=== PATIENT | female | born 1935 | race Caucasian/White ===

== ENCOUNTER 2018-01-10 11:43 | Inpatient (IN) | payer MEDICARE, OTHER ==
[2018-01-10] MEDS ORDERED: SODIUM CHLORIDE 0.9% 1,000 ML IV STA ×4 (12:03→16:23)
[2018-01-10] MEDS ORDERED: PANTOPRAZOLE 40 MG/10 ML VIAL IVP STA (12:03)
[2018-01-10] MEDS ORDERED: MORPHINE SULFATE 2 MG/ML SYRINGE IV STA (12:03)
[2018-01-10] MEDS ORDERED: ONDANSETRON 4 MG/2 ML VIAL IVP STA (12:03)
--- NOTE | 2018-01-10 12:06 | ED ---
General Adult HPI - General Chief complaint: Nausea/Vomiting/Diarrhea Stated complaint: abdominal pain/weakness Time Seen by Provider: 01/10/18 11:52 Source: patient, family, EMS, RN notes reviewed Mode of arrival: EMS Limitations: no limitations - History of Present Illness Initial comments: Patient is a pleasant 82-year-old female sitting to the emergency Department with vomiting and abdominal discomfort. Onset of symptoms was 3-4 days ago. Patient has had several episodes of vomiting with limited oral intake. Patient has had some minimal diarrhea. Patient has had abdominal discomfort that is increased, more so even today. No known fevers. No history of chronic similar symptoms. - Related Data Home Medications Medication Instructions Recorded Confirmed Aspirin EC [Ecotrin Low Dose] 81 mg PO DAILY 01/10/18 01/10/18 Carvedilol [Coreg] 25 mg PO BID 01/10/18 01/10/18 Cholecalciferol (Vitamin D3) 2,000 unit PO DAILY 01/10/18 01/10/18 [Vitamin D3] Fenofibrate Nanocrystallized 145 mg PO DAILY 01/10/18 01/10/18 [Tricor] Furosemide [Lasix] 60 mg PO DAILY 01/10/18 01/10/18 Insulin Glargine [Lantus] 20 unit SQ HS 01/10/18 01/10/18 Insulin Lispro [humaLOG] 5 units SQ AC-BRKFST 01/10/18 01/10/18 Insulin Lispro [humaLOG] 10 units SQ AC-LUNCH 01/10/18 01/10/18 Insulin Lispro [humaLOG] 15 units SQ AC-SUPPER 01/10/18 01/10/18 Magnesium Hydroxide [Milk of 2,400 mg PO DAILY PRN 01/10/18 01/10/18 Magnesia] Multivitamins, Thera [Multivitamin 1 tab PO DAILY 01/10/18 01/10/18 (formulary)] Omeprazole [PriLOSEC] 40 mg PO DAILY 01/10/18 01/10/18 Spironolactone [Aldactone] 12.5 mg PO BID 01/10/18 01/10/18 amLODIPine [Norvasc] 10 mg PO DAILY 01/10/18 01/10/18 hydrALAZINE HCL [Apresoline] 50 mg PO TID 01/10/18 01/10/18 Allergies Allergy/AdvReac Type Severity Reaction Status Date / Time No Known Allergies Allergy Verified 01/10/18 12:07 Review of Systems ROS Statement: Those systems with pertinent positive or pertinent negative responses have been documented in the HPI. ROS Other: All systems not noted in ROS Statement are negative. Constitutional: Denies: fever Eyes: Denies: eye pain ENT: Denies: ear pain Respiratory: Denies: cough Cardiovascular: Denies: chest pain Endocrine: Reports: fatigue Gastrointestinal: Reports: abdominal pain, nausea, vomiting, diarrhea Genitourinary: Denies: dysuria Musculoskeletal: Denies: back pain Skin: Denies: rash Neurological: Denies: headache Past Medical History Past Medical History: Heart Failure, Diabetes Mellitus History of Any Multi-Drug Resistant Organisms: None Reported Past Surgical History: Cholecystectomy Past Psychological History: No Psychological Hx Reported Smoking Status: Never smoker Past Alcohol Use History: None Reported Past Drug Use History: None Reported General Exam Limitations: no limitations General appearance: alert, in no apparent distress Head exam: Present: atraumatic Eye exam: Present: normal appearance, PERRL ENT exam: Present: normal oropharynx Neck exam: Present: normal inspection Respiratory exam: Present: normal lung sounds bilaterally Cardiovascular Exam: Present: regular rate, normal rhythm Expanded Peripheral pulses: 2+: Posterior Tibialis (R), Posterior Tibialis (L) GI/Abdominal exam: Present: soft, tenderness (Moderate to severe tenderness right lower quadrant. Mild to moderate tenderness right upper quadrant and suprapubic region.), guarding. Absent: distended Extremities exam: Present: normal inspection Neurological exam: Present: alert Psychiatric exam: Present: normal affect, normal mood Skin exam: Present: normal color Course Vital Signs 01/10/18 01/10/18 11:47 15:03 Temperature 97.6 F Pulse Rate 72 71 Respiratory 20 20 Rate Blood Pressure 170/73 135/63 O2 Sat by Pulse 99 99 Oximetry - Reevaluation(s) Reevaluation #1: 01/10/18 14:07 Lab called regarding comprehensive metabolic panel pending. They're still trying to figure out the delay and believe they will send somebody to redraw. 01/10/18 16:31 There is suspicion of sepsis, diagnosed at 1631. Blood culture and lactic acid have been ordered. IV fluid bolus and IV antibiotics have been ordered. Medical Decision Making - Medical Decision Making Patient reevaluated and resting comfortably in bed. Patient does appear improved. Patient and family updated regarding results and plan. Family does request Dr. Camargo surgeon as needed. Case was discussed in detail with Dr. Simeon, who will admit with surgical consult and nephrology consult. Patient provided fluid bolus secondary to renal failure. - Lab Data Result diagrams: 01/10/18 12:03 01/10/18 14:08 Lab Results 01/10/18 01/10/18 01/10/18 Range/Units 12:03 12:03 14:08 WBC 20.4 H (3.8-10.6) k/uL RBC 3.09 L (3.80-5.40) m/uL Hgb 9.3 L (11.4-16.0) gm/dL Hct 26.9 L (34.0-46.0) % MCV 87.0 (80.0-100.0) fL MCH 30.1 (25.0-35.0) pg MCHC 34.6 (31.0-37.0) g/dL RDW 14.2 (11.5-15.5) % Plt Count 230 (150-450) k/uL Neutrophils % 90 % Lymphocytes % 5 % Monocytes % 3 % Eosinophils % 1 % Basophils % 0 % Neutrophils # 18.4 H (1.3-7.7) k/uL Lymphocytes # 1.0 (1.0-4.8) k/uL Monocytes # 0.5 (0-1.0) k/uL Eosinophils # 0.3 (0-0.7) k/uL Basophils # 0.0 (0-0.2) k/uL PT 10.4 (9.0-12.0) sec INR 1.1 (<1.2) APTT 25.2 (22.0-30.0) sec Sodium 132 L (137-145) mmol/L Potassium 3.8 (3.5-5.1) mmol/L Chloride 100 (98-107) mmol/L Carbon Dioxide 13 L (22-30) mmol/L Anion Gap 19 mmol/L BUN 117 H* (7-17) mg/dL Creatinine 6.70 H* (0.52-1.04) mg/dL Est GFR (CKD-EPI)AfAm 6 (>60 ml/min/1.73 sqM) Est GFR (CKD-EPI)NonAf 5 (>60 ml/min/1.73 sqM) Glucose 150 H (74-99) mg/dL Calcium 8.7 (8.4-10.2) mg/dL Total Bilirubin 0.8 (0.2-1.3) mg/dL AST 29 (14-36) U/L ALT 30 (9-52) U/L Alkaline Phosphatase 49 (38-126) U/L Total Protein 6.0 L (6.3-8.2) g/dL Albumin 3.2 L (3.5-5.0) g/dL Amylase 47 (30-110) U/L Lipase 120 (23-300) U/L Urine Color Urine Appearance (Clear) Urine pH (5.0-8.0) Ur Specific [place] (1.001-1.035) Urine Protein (Negative) Urine Glucose (UA) (Negative) Urine Ketones (Negative) Urine Blood (Negative) Urine Nitrite (Negative) Urine Bilirubin (Negative) Urine Urobilinogen (<2.0) mg/dL Ur Leukocyte Esterase (Negative) Urine RBC (0-5) /hpf Urine WBC (0-5) /hpf Ur Squamous Epith Cells (0-4) /hpf Urine Mucus (None) /hpf 01/10/18 Range/Units 14:55 WBC (3.8-10.6) k/uL RBC (3.80-5.40) m/uL Hgb (11.4-16.0) gm/dL Hct (34.0-46.0) % MCV (80.0-100.0) fL MCH (25.0-35.0) pg MCHC (31.0-37.0) g/dL RDW (11.5-15.5) % Plt Count (150-450) k/uL Neutrophils % % Lymphocytes % % Monocytes % % Eosinophils % % Basophils % % Neutrophils # (1.3-7.7) k/uL Lymphocytes # (1.0-4.8) k/uL Monocytes # (0-1.0) k/uL Eosinophils # (0-0.7) k/uL Basophils # (0-0.2) k/uL PT (9.0-12.0) sec INR (<1.2) APTT (22.0-30.0) sec Sodium (137-145) mmol/L Potassium (3.5-5.1) mmol/L Chloride (98-107) mmol/L Carbon Dioxide (22-30) mmol/L Anion Gap mmol/L BUN (7-17) mg/dL Creatinine (0.52-1.04) mg/dL Est GFR (CKD-EPI)AfAm (>60 ml/min/1.73 sqM) Est GFR (CKD-EPI)NonAf (>60 ml/min/1.73 sqM) Glucose (74-99) mg/dL Calcium (8.4-10.2) mg/dL Total Bilirubin (0.2-1.3) mg/dL AST (14-36) U/L ALT (9-52) U/L Alkaline Phosphatase (38-126) U/L Total Protein (6.3-8.2) g/dL Albumin (3.5-5.0) g/dL Amylase (30-110) U/L Lipase (23-300) U/L Urine Color Yellow Urine Appearance Cloudy H (Clear) Urine pH 5.5 (5.0-8.0) Ur Specific [place] 1.012 (1.001-1.035) Urine Protein 3+ H (Negative) Urine Glucose (UA) Trace H (Negative) Urine Ketones Negative (Negative) Urine Blood Negative (Negative) Urine Nitrite Negative (Negative) Urine Bilirubin Negative (Negative) Urine Urobilinogen <2.0 (<2.0) mg/dL Ur Leukocyte Esterase Negative (Negative) Urine RBC 2 (0-5) /hpf Urine WBC 10 H (0-5) /hpf Ur Squamous Epith Cells 1 (0-4) /hpf Urine Mucus Rare H (None) /hpf - Radiology Data Radiology results: report reviewed (Computed tomography scan of the abdomen pelvis shows possible colitis versus diarrhea. Cannot exclude lesion/neoplasm of left kidney. Then wall fluid collection left iliopsoas muscle is nonspecific. Cannot rule out abscess.) Critical Care Time Critical Care Time: Yes Total Critical Care Time: 32 Disposition Clinical Impression: Acute renal failure, Sepsis Disposition: ADMITTED IP TO THIS HOSP Condition: Serious Is patient prescribed a controlled substance at d/c from ED?: No Referrals: Nonstaff,Physician [REFERRING] - 1-2 days Decision Time: 16:32
[2018-01-10 12:14] LABS: Basophils % (A) 0 %; Eosinophils # (A) 0.3 k/uL (0-0.7); Eosinophils % (A) 1 %; HCT 26.9 % (34.0-46.0); HGB 9.3 gm/dL (11.4-16.0); Lymphocytes % (A) 5 %; MCH 30.1 pg (25.0-35.0); MCHC 34.6 g/dL (31.0-37.0); Mean Platelet Volume 8.5; Monocytes # (A) 0.5 k/uL (0-1.0); Monocytes % (A) 3 %; Neutrophils # (A) 18.4 k/uL (1.3-7.7); Neutrophils % (A) 90 %; Platelet Count 230 k/uL (150-450); RBC 3.09 m/uL (3.80-5.40); RDW 14.2 % (11.5-15.5); WBC 20.4 k/uL (3.8-10.6)
[2018-01-10 12:55] LABS: INR 1.1 (<1.2); Partial Thromboplastin Time 25.2 sec (22.0-30.0); Prothrombin Time 10.4 sec (9.0-12.0)
[2018-01-10 15:05] LABS: Albumin 3.2 g/dL (3.5-5.0); Calcium 8.7 mg/dL (8.4-10.2); Potassium 3.8 mmol/L (3.5-5.1); Total Bilirubin 0.8 mg/dL (0.2-1.3)
[2018-01-10 15:21] LABS: Appearance,Urine Cloudy (Clear); Bilirubin,Urine Negative (Negative); Blood,Urine Negative (Negative); Color,Urine Yellow; Glucose,Urine (UA) Trace (Negative); Ketones,Urine Negative (Negative); Leukocyte Esterase,Urine Negative (Negative); Mucus,Urine Rare /hpf; Nitrite,Urine Negative (Negative); PH, Urine 5.5 (5.0-8.0); Protein,Urine 3+ (Negative); RBC,Urine 2 /hpf (0-5); Specific Gravity,Urine 1.012 (1.001-1.035); Squamous Epithelial Cell,Urine 1 /hpf (0-4); Urobilinogen,Urine <2.0 mg/dL (<2.0); WBC,Urine 10 /hpf (0-5)
--- NOTE | 2018-01-10 15:45 | CT ---
EXAMINATION TYPE: CT abdomen pelvis wo con DATE OF EXAM: 01/10/2018 HISTORY: Diarrhea since Monday. CT DLP: 1053 mGycm. Automated Exposure Control for Dose Reduction was Utilized. TECHNIQUE: CT scan of the abdomen and pelvis is performed without oral or IV contrast. COMPARISON: NONE FINDINGS: Within the limitations of a non-contrast study, the following observations are made. LUNG BASES: There is severe three-vessel coronary artery calcification and/or stent. There is tiny ri ght pleural effusion or pleural fluid collection. There is focal right anterolateral consolidation fa voring round atelectasis with some central linear scarring and/or atelectasis. Cardiomegaly is seen. Small to tiny pericardial effusion is noted inferiorly and right anterior aspect axial image 12. LIVER/GB: Gallbladder is not visualized and may be surgically absent or contracted with small stones seen best coronal image 35. Correlate clinically. No suspicious biliary dilatation is noted. PANCREAS: No significant abnormality is seen. SPLEEN: No significant abnormality is seen. ADRENALS: No significant abnormality is seen. KIDNEYS: Central calcifications in both kidneys favor vascular. Cortical thinning in both kidneys is present. There is 2.8 cm fairly isodense lesion laterally left kidney could reflect proteinaceous cys t, cannot exclude solid lesion. Follow-up advised. No hydronephrosis is evident bilaterally. BOWEL: Small hiatal hernia is present. Evaluation bowel is suboptimal secondary to lack of enteric co ntrast. Stomach is poorly distended and thus suboptimally evaluated. There is no suspicious dilatatio n of duodenal sweep. There are fluid-filled slightly prominent small bowel loops throughout the white to lower abdomen with air-fluid levels. There is fluid prominent right colon with air-fluid levels. There is gas-filled nondistended transverse colon. Mild focal narrowing the transverse colon noted ax ial image 67 not causing significant proximal dilatation. Nonspecific finding. There is nondilated di stal colon. GENITAL ORGANS: Anteverted uterus extending to right of midline is present. Remnant ovaries are seen axial image 121. Scattered pelvic phleboliths are present. LYMPH NODES: No greater than 1cm abdominal or pelvic lymph nodes are appreciated. OSSEOUS STRUCTURES: There is moderate to advanced multilevel disc space narrowing and spurring. Poste rior spur disc complexes are effacing anterior thecal sac at multiple levels most prominent L2-L3 lev el causing spinal canal stenosis at this level. Moderate joint space loss in both hips is present. OTHER: There is severe calcified atherosclerotic plaque of aorta extending into small branch vessels of the abdomen and pelvis. There is 2.0 x 1.7 cm oval low-density area lateral left rectus muscles with Hounsfield units averagi ng -2 axial image 77. IMPRESSION: 1. Overall nonspecific but felt to be nonobstructive bowel gas pattern. Air-fluid levels in prominent small bowel and proximal colonic loops could reflect product of diarrhea versus mild enterocolitis. 2. Attention to left kidney upper to mid pole level laterally cannot exclude solid lesion or neoplasm . Follow-up with ultrasound and/or contrast enhanced renal protocol CT/MRI is advised. 3. Thin-walled fluid collection lateral aspect left iliopsoas muscle is nonspecific, differential inc ludes abscess. Correlate clinically.
[2018-01-10] MEDS ORDERED: SODIUM CHLORIDE 0.9% 500 ML IV STA (16:23)
[2018-01-10] MEDS ORDERED: PIPERACILLIN-TAZOBACTAM 3.375 GM in DEXTROSE/WATER 1 50ML.BAG IVPB STA (16:29)
[2018-01-10] MEDS ORDERED: NALOXONE 0.4 MG/ML 1 ML VIAL IV PRN (16:33)
[2018-01-10] MEDS: SODIUM CHLORIDE 0.9% 1,000 ML IV SCH (18:42)
[2018-01-10] MEDS ORDERED: MAGNESIUM HYDROXIDE 2,400 MG/10 ML CUP PO PRN (21:33)
[2018-01-10 21:36] LABS: Glucose,Whole Blood 152 mg/dL (75-99)
[2018-01-10] MEDS: MORPHINE SULFATE 2 MG/ML SYRINGE IV PRN (21:39)
[2018-01-10] MEDS: INSULIN ASPART 100 UNIT/ML 1 ML 10 ML VIAL SQ SCH (21:42)
[2018-01-11] MEDS: KETOROLAC 30 MG/ML 1 ML VIAL IVP SCH ×2 (00:29→07:43)
[2018-01-11] MEDS: hydrALAZINE HCL 50 MG TAB PO SCH ×3 (00:34→22:12)
[2018-01-11] MEDS: INSULIN DETEMIR 100 UNIT/ML 10 ML VIAL SQ SCH ×2 (00:34→22:13)
[2018-01-11] MEDS: SPIRONOLACTONE 25 MG TAB PO SCH ×3 (00:34→22:14)
[2018-01-11] MEDS: SODIUM CHLORIDE 0.9% 1,000 ML IV SCH (03:07)
[2018-01-11 03:49] LABS: Hemoglobin A1C 7.4 % (4.0-6.0)
[2018-01-11 07:18] LABS: Glucose,Whole Blood 92 mg/dL (75-99)
[2018-01-11] MEDS ORDERED: CARVEDILOL 12.5 MG TAB PO SCH ×2 (07:30→17:30)
[2018-01-11] MEDS: PIPERACILLIN-TAZOBACTAM 3.375 GM in DEXTROSE/WATER 1 50ML.BAG IVPB SCH ×2 (07:46→18:24)
[2018-01-11] MEDS: INSULIN ASPART 100 UNIT/ML 1 ML 10 ML VIAL SQ SCH ×4 (07:47→22:13)
[2018-01-11] MEDS: ASPIRIN 81 MG PO SCH (08:04)
[2018-01-11] MEDS: FENOFIBRATE 160 MG TAB PO SCH (08:04)
[2018-01-11] MEDS: amLODIPine 10 MG TAB PO SCH (08:05)
[2018-01-11] MEDS: MULTIVITAMINS, THERA 1 EACH TAB PO SCH (08:05)
[2018-01-11] MEDS: CHOLECALCIFEROL 1,000 UNIT TAB PO SCH (08:05)
[2018-01-11 08:53] LABS: Basophils % (A) 0 %; Eosinophils # (A) 0.1 k/uL (0-0.7); Eosinophils % (A) 1 %; HCT 24.5 % (34.0-46.0); HGB 8.2 gm/dL (11.4-16.0); Lymphocytes # (A) 0.6 k/uL (1.0-4.8); Lymphocytes % (A) 5 %; MCH 29.3 pg (25.0-35.0); MCHC 33.3 g/dL (31.0-37.0); Mean Platelet Volume 8.2; Monocytes # (A) 0.5 k/uL (0-1.0); Monocytes % (A) 4 %; Neutrophils # (A) 10.7 k/uL (1.3-7.7); Neutrophils % (A) 89 %; Platelet Count 211 k/uL (150-450); RBC 2.79 m/uL (3.80-5.40); RDW 13.8 % (11.5-15.5)
[2018-01-11] MEDS ORDERED: PANTOPRAZOLE 40 MG/10 ML VIAL IV SCH (09:00)
[2018-01-11] MEDS ORDERED: FUROSEMIDE 20 MG TAB PO SCH (09:00)
[2018-01-11] MEDS ORDERED: NON-FORMULARY DRUG (Omeprazole 40 MG) PO SCH (09:00)
[2018-01-11 09:04] LABS: Albumin 2.8 g/dL (3.5-5.0); Calcium 8.2 mg/dL (8.4-10.2); Potassium 3.8 mmol/L (3.5-5.1); Total Bilirubin 0.6 mg/dL (0.2-1.3); Total Protein 5.4 g/dL (6.3-8.2)
--- NOTE | 2018-01-11 10:04 | P.GSCN ---
History of Present Illness Consult date: 01/11/18 History of present illness: This is an 82 year old female who presented with abdominal pain. She denies NV she has been passing normal BM with no blood. She has never had pain like this before. No other complaints. She was found to have a psoas abscess on CT. She is not complaining of pain currently Past Medical History Past Medical History: Heart Failure, Diabetes Mellitus History of Any Multi-Drug Resistant Organisms: None Reported Past Surgical History: Cholecystectomy Past Anesthesia/Blood Transfusion Reactions: No Reported Reaction Past Psychological History: No Psychological Hx Reported Smoking Status: Never smoker Past Alcohol Use History: None Reported Past Drug Use History: None Reported Medications and Allergies Home Medications Medication Instructions Recorded Confirmed Type Aspirin EC [Ecotrin Low Dose] 81 mg PO DAILY 01/10/18 01/10/18 History Carvedilol [Coreg] 25 mg PO BID 01/10/18 01/10/18 History Cholecalciferol (Vitamin D3) 2,000 unit PO DAILY 01/10/18 01/10/18 History [Vitamin D3] Fenofibrate Nanocrystallized 145 mg PO DAILY 01/10/18 01/10/18 History [Tricor] Furosemide [Lasix] 60 mg PO DAILY 01/10/18 01/10/18 History Insulin Glargine [Lantus] 20 unit SQ HS 01/10/18 01/10/18 History Insulin Lispro [humaLOG] 5 units SQ AC-BRKFST 01/10/18 01/10/18 History Insulin Lispro [humaLOG] 10 units SQ AC-LUNCH 01/10/18 01/10/18 History Insulin Lispro [humaLOG] 15 units SQ AC-SUPPER 01/10/18 01/10/18 History Magnesium Hydroxide [Milk of 2,400 mg PO DAILY PRN 01/10/18 01/10/18 History Magnesia] Multivitamins, Thera [Multivitamin 1 tab PO DAILY 01/10/18 01/10/18 History (formulary)] Omeprazole [PriLOSEC] 40 mg PO DAILY 01/10/18 01/10/18 History Spironolactone [Aldactone] 12.5 mg PO BID 01/10/18 01/10/18 History amLODIPine [Norvasc] 10 mg PO DAILY 01/10/18 01/10/18 History hydrALAZINE HCL [Apresoline] 50 mg PO TID 01/10/18 01/10/18 History Allergies Allergy/AdvReac Type Severity Reaction Status Date / Time No Known Allergies Allergy Verified 01/10/18 12:07 Surgical - Exam Osteopathic Statement: *. No significant issues noted on an osteopathic structural exam other than those noted in the History and Physical/Consult. Vital Signs Temp Pulse Resp BP Pulse Ox 97.6 F 72 20 170/73 99 01/10/18 11:47 01/10/18 11:47 01/10/18 11:47 01/10/18 11:47 01/10/18 11:47 - General well developed, well nourished, no distress - Neck trachea midline - Respiratory normal expansion, normal respiratory effort - Cardiovascular Rhythm: regular - Abdomen Abdomen: soft, non tender - Neurologic normal coordination, normal sensation - Psychiatric oriented to time, oriented to person Results - Labs 01/11/18 07:41 01/11/18 07:41 Abnormal Lab Results - Last 24 Hours (Table) 01/10/18 01/10/18 01/10/18 Range/Units 12:03 12:03 14:08 WBC 20.4 H (3.8-10.6) k/uL RBC 3.09 L (3.80-5.40) m/uL Hgb 9.3 L (11.4-16.0) gm/dL Hct 26.9 L (34.0-46.0) % Neutrophils # 18.4 H (1.3-7.7) k/uL Lymphocytes # (1.0-4.8) k/uL Sodium 132 L (137-145) mmol/L Chloride (98-107) mmol/L Carbon Dioxide 13 L (22-30) mmol/L BUN 117 H* (7-17) mg/dL Creatinine 6.70 H* (0.52-1.04) mg/dL Glucose 150 H (74-99) mg/dL POC Glucose (mg/dL) (75-99) mg/dL Hemoglobin A1c 7.4 H (4.0-6.0) % Plasma Lactic Acid Lalo (0.7-2.0) mmol/L Calcium (8.4-10.2) mg/dL Total Protein 6.0 L (6.3-8.2) g/dL Albumin 3.2 L (3.5-5.0) g/dL Urine Appearance (Clear) Urine Protein (Negative) Urine Glucose (UA) (Negative) Urine WBC (0-5) /hpf Urine Mucus (None) /hpf 01/10/18 01/10/18 01/10/18 Range/Units 14:55 16:30 20:58 WBC (3.8-10.6) k/uL RBC (3.80-5.40) m/uL Hgb (11.4-16.0) gm/dL Hct (34.0-46.0) % Neutrophils # (1.3-7.7) k/uL Lymphocytes # (1.0-4.8) k/uL Sodium (137-145) mmol/L Chloride (98-107) mmol/L Carbon Dioxide (22-30) mmol/L BUN (7-17) mg/dL Creatinine (0.52-1.04) mg/dL Glucose (74-99) mg/dL POC Glucose (mg/dL) 152 H (75-99) mg/dL Hemoglobin A1c (4.0-6.0) % Plasma Lactic Acid Lalo <0.5 L (0.7-2.0) mmol/L Calcium (8.4-10.2) mg/dL Total Protein (6.3-8.2) g/dL Albumin (3.5-5.0) g/dL Urine Appearance Cloudy H (Clear) Urine Protein 3+ H (Negative) Urine Glucose (UA) Trace H (Negative) Urine WBC 10 H (0-5) /hpf Urine Mucus Rare H (None) /hpf 01/11/18 01/11/18 Range/Units 07:41 07:41 WBC 12.0 H (3.8-10.6) k/uL RBC 2.79 L (3.80-5.40) m/uL Hgb 8.2 L (11.4-16.0) gm/dL Hct 24.5 L (34.0-46.0) % Neutrophils # 10.7 H (1.3-7.7) k/uL Lymphocytes # 0.6 L (1.0-4.8) k/uL Sodium 135 L (137-145) mmol/L Chloride 108 H (98-107) mmol/L Carbon Dioxide 13 L (22-30) mmol/L BUN 113 H* (7-17) mg/dL Creatinine 6.17 H* (0.52-1.04) mg/dL Glucose (74-99) mg/dL POC Glucose (mg/dL) (75-99) mg/dL Hemoglobin A1c (4.0-6.0) % Plasma Lactic Acid Lalo (0.7-2.0) mmol/L Calcium 8.2 L (8.4-10.2) mg/dL Total Protein 5.4 L (6.3-8.2) g/dL Albumin 2.8 L (3.5-5.0) g/dL Urine Appearance (Clear) Urine Protein (Negative) Urine Glucose (UA) (Negative) Urine WBC (0-5) /hpf Urine Mucus (None) /hpf Diabetes panel 01/10/18 01/10/18 01/11/18 Range/Units 12:03 14:08 07:41 Sodium 132 L 135 L (137-145) mmol/L Potassium 3.8 3.8 (3.5-5.1) mmol/L Chloride 100 108 H (98-107) mmol/L Carbon Dioxide 13 L 13 L (22-30) mmol/L BUN 117 H* 113 H* (7-17) mg/dL Creatinine 6.70 H* 6.17 H* (0.52-1.04) mg/dL Glucose 150 H 78 (74-99) mg/dL Hemoglobin A1c 7.4 H (4.0-6.0) % Calcium 8.7 8.2 L (8.4-10.2) mg/dL AST 29 35 (14-36) U/L ALT 30 30 (9-52) U/L Alkaline Phosphatase 49 55 (38-126) U/L Total Protein 6.0 L 5.4 L (6.3-8.2) g/dL Albumin 3.2 L 2.8 L (3.5-5.0) g/dL Calcium panel 01/10/18 01/11/18 Range/Units 14:08 07:41 Calcium 8.7 8.2 L (8.4-10.2) mg/dL Albumin 3.2 L 2.8 L (3.5-5.0) g/dL Pituitary panel 07/11/18 07/12/18 Range/Units 14:08 07:41 Sodium 132 L 135 L (137-145) mmol/L Potassium 3.8 3.8 (3.5-5.1) mmol/L Chloride 100 108 H (98-107) mmol/L Carbon Dioxide 13 L 13 L (22-30) mmol/L BUN 117 H* 113 H* (7-17) mg/dL Creatinine 6.70 H* 6.17 H* (0.52-1.04) mg/dL Glucose 150 H 78 (74-99) mg/dL Calcium 8.7 8.2 L (8.4-10.2) mg/dL Adrenal panel 01/10/18 01/11/18 Range/Units 14:08 07:41 Sodium 132 L 135 L (137-145) mmol/L Potassium 3.8 3.8 (3.5-5.1) mmol/L Chloride 100 108 H (98-107) mmol/L Carbon Dioxide 13 L 13 L (22-30) mmol/L BUN 117 H* 113 H* (7-17) mg/dL Creatinine 6.70 H* 6.17 H* (0.52-1.04) mg/dL Glucose 150 H 78 (74-99) mg/dL Calcium 8.7 8.2 L (8.4-10.2) mg/dL Total Bilirubin 0.8 0.6 (0.2-1.3) mg/dL AST 29 35 (14-36) U/L ALT 30 30 (9-52) U/L Alkaline Phosphatase 49 55 (38-126) U/L Total Protein 6.0 L 5.4 L (6.3-8.2) g/dL Albumin 3.2 L 2.8 L (3.5-5.0) g/dL Assessment and Plan Assessment: Left Psoas abscess Plan: I recommend continuing ABX and IR for CT guided drainage. Given the location of the abscess and the large renal mass there is possible concern for malignancy. Patient has not had colonoscopy for greater than 5 years. She would benefit from colonoscopy as an outpatient as well. No plans for acute surgical intervention. Will cont. to follow
[2018-01-11 11:32] LABS: Glucose,Whole Blood 124 mg/dL (75-99)
[2018-01-11] MEDS: DEXTROSE 5% IN WATER 1,000 ML with SODIUM BICARB (1 MEQ/ML) 150 ML IV SCH ×2 (11:44→22:12)
[2018-01-11] MEDS: MORPHINE SULFATE 2 MG/ML SYRINGE IV PRN (14:45)
[2018-01-11 17:21] LABS: Glucose,Whole Blood 187 mg/dL (75-99)
[2018-01-11] MEDS: CARVEDILOL 12.5 MG TAB PO SCH (18:25)
--- NOTE | 2018-01-11 19:27 | CONS ---
CONSULTATION REASON FOR CONSULT: Renal failure. HISTORY OF PRESENT ILLNESS: Patient is an 82-year-old female who was admitted to the emergency room with complaints of abdominal pain, not feeling well. She also had nausea, vomiting, and diarrhea for about 3-4 days prior to admission. The patient had an abdominal CT done which showed evidence of thin-walled fluid collection on the lateral aspect of the left iliopsoas muscle. There was a lesion on the left kidney, possibly cyst versus a solid lesion. No hydronephrosis was noted. The patient was found to have a serum creatinine of 6.7 mg/dL. Previous creatinine is not available for comparison. CO2 was 13. 1. Non anion gap metabolic acidosis secondary to renal failure as well as diarrhea prior to admission. 2. Sepsis with possible iliopsoas abscess/hematoma. 3. Anemia, rule out gastrointestinal bleed. 4. Rule out chronic kidney disease. Patient does have 3+ protein in her urine. We do not have any previous labs or previous urinalysis. PLAN: Start IV bicarb. Continue IV hydration. Continue empiric antibiotics. Repeat labs in a.m. We will need to obtain previous labs for assessment of patient's baseline renal function. We need to discontinue the nonsteroidal anti-inflammatory agents and avoid hypotension. Decrease antihypertensive medications, discontinue Toradol. Obtain previous labs to assess patient's baseline function. Repeat labs in a.m. and continue with IV hydration. Thank you for this consultation. We will continue to follow the patient with you during her hospitalization. DONG / ALFREDN: [id number] /
--- NOTE | 2018-01-11 20:03 | HP ---
HISTORY AND PHYSICAL CHIEF COMPLAINT: This is an 82-year-old white female admitted with nausea, vomiting, abdominal discomfort, severe renal insufficiency, multiple emeses, limited oral intake, minimal diarrhea. Abdominal discomfort has increased. No fevers or chills. HOME MEDICATIONS: 1. Lantus 20 units daily. 2. Lasix 60 daily. 3. Fenofibrate 145 daily. 4. Vitamin D3 2000 units daily. 5. Aspirin 81 mg daily. 6. Coreg 25 b.i.d. 7. Humalog 15 units before supper, 10 units lunch, 5 units breakfast. 8. Magnesium hydroxide 2400 mg daily. 9. Multivitamin daily. 10.Prilosec 40 mg daily. 11.Aldactone 12.5 b.i.d. 12.Norvasc 10 mg daily. 13.Apresoline 50 t.i.d. ALLERGIES: NO KNOWN DRUG ALLERGIES. REVIEW OF SYSTEMS: Fourteen-point review of systems negative except for mentioned in HPI. PAST MEDICAL HISTORY: 1. Heart failure. 2. Diabetes mellitus. SURGICAL HISTORY: Cholecystectomy. Nonsmoker. PHYSICAL EXAMINATION: White female giving appropriate answers. CARDIOVASCULAR: S1, S2. LUNGS: Clear. GI: Tenderness to palpation, diffuse tenderness, moderate to severe in the right lower quadrant, mild to moderate tenderness right upper quadrant, suprapubic region. EXTREMITIES: No cyanosis, clubbing, edema. NEUROLOGIC: Alert and oriented x3. PSYCH: Fair mood and affect. Temperature 97.6, blood pressure 130s to 170s over 60s to 70s. Pulse is 71, 72, respirations 18 to 20. Oxygen 99% on room air. White count is 20.4, hemoglobin 9.3, BUN 117, creatinine 6.7, sodium 132, potassium 3.8, hemoglobin 9.3. Fluid bolus due to renal insufficiency which is worsening. CT scan of the abdomen shows some possible psoas abscess of the psoas muscle. ASSESSMENT: 1. Acute renal failure with sepsis; possible lesion in the left kidney, neoplasm versus possible colitis versus diarrhea. 2. Abdominal pain. 3. Leukocytosis secondary to sepsis. Consult Infectious Disease. Renal disease. Fluid boluses. Empiric antibiotics. MMODL / IJN: [id number] /
[2018-01-11 21:24] LABS: Glucose,Whole Blood 203 mg/dL (75-99)
--- NOTE | 2018-01-11 23:39 | CONS ---
CONSULTATION DATE OF SERVICE: 01/11/2018. REASON FOR CONSULTATION: Possible left iliopsoas abscess. HISTORY OF PRESENT ILLNESS: The patient is an 82-year-old female who presented to the ER at [facility] with chief complaints of abdominal pain, nausea and vomiting. The symptoms have been going on for about 3-4 days prior to presentation to the hospital. The patient did have an episode of vomiting and unable to keep anything down. The patient has been complaining of pain in abdominal area, mostly on the right side; however, she was unable to quantify it any further. The patient denies having any high- grade fever, rigors or chills. With these symptoms the patient has been evaluated by the ER physician. On arrival to the ER, the patient did not have any high-grade fever. The highest temperature has been 99.6. The patient did have a white count of 20, 000 where the repeat is 12.4 she was noticed to have elevated BUN and creatinine with no history of renal insufficiency. Her UA was negative. The patient did have a CT of abdomen and pelvis completed which shows gallbladder was not visualized, surgically absent. Cortical thinning in both kidneys was noticed, no hydronephrosis. There was suspicious dilatation of the duodenal sweep. prominent right colon with air-fluid levels and there is a possibility of a small fluid collection, lateral aspect left iliopsoas muscle with a question of possible abscess. He has been treated with Zosyn. Infectious Disease was consulted for further recommendation regarding antibiotic therapy. REVIEW OF SYSTEMS: CONSTITUTIONALLY: Positive for weakness. Denies any high-grade fever. EYES: No complaint. ENT: No complaint. RESPIRATORY: No complaint. CARDIOVASCULAR: No complaint. GENITOURINARY: No complaint. GASTROINTESTINAL: As per HPI. MUSCULOSKELETAL: No complaint. INTEGUMENTARY: No complaint. PSYCHOLOGICAL: No complaint. ENDOCRINE: No complaint. NEUROLOGIC: No complaint. PAST MEDICAL HISTORY: Significant for diabetes mellitus and heart failure, hyperlipidemia. PAST SURGICAL HISTORY: Cholecystectomy. SOCIAL HISTORY: Denies smoking, drinking or drug use. FAMILY HISTORY: No pertinent findings noticed. ALLERGIES: No known drug allergies. MEDICATIONS: Include the patient is currently on: 1. Norvasc. 2. Aspirin. 3. Coreg. 4. Vitamin D3. 5. Fenofibrate. 6. Hydralazine. 7. NovoLog. 8. Levemir. 9. Milk of magnesia. 10.Theragran. 11.Narcan. 12.Protonix. 13.Zosyn and. 14.Aldactone. EXAMINATION: Blood pressure 138/58 with a pulse of 72, temperature 98.5, T-max is 99.6. She is 98% on 3L nasal cannula. General description is an elderly female lying in bed in no distress. No tachypnea or accessory muscle of respiration use. HEENT shows slight pallor. No scleral icterus. Oral mucous membranes are dry. No pharyngeal erythema or thrush. NECK: Trachea central. No thyromegaly. LUNGS: Unlabored breathing. Clear to auscultation. No wheeze or crackle. HEART: S1, S2. Regular rate and rhythm noted. ABDOMEN: Soft, no tenderness. No guarding. No rigidity. No organomegaly. EXTREMITIES: No edema of feet. SKIN: No rash or mass palpable. NEUROLOGICAL: Patient is awake, alert, oriented x2. Mood and affect normal. LABS: Hemoglobin 8.8, white count 12,000. BUN 113, creatinine 6.17. Electrolytes have been normal. Liver enzymes are normal. Amylase, lipase have been normal. CT of abdomen and pelvis was reviewed with Dr. Nieves with some fullness of the left iliopsoas muscle, but there was no definite fluid collection had no inflammatory changes around it. The lumbosacral spine looked okay with no evidence of any diskitis. DIAGNOSTIC IMPRESSION: Patient admitted to the hospital with acute nausea, vomiting and abdominal pain. However, the pain is mostly on the right side with abnormality in the left iliopsoas muscle. CT finding was not very suspicious for a iliopsoas abscess, though underlying abscess not entirely excluded, with no evidence of any diskitis. Could have been enteric gram-negative pathogen and the patient shows overall improvement in her white count with the Zosyn therapy. PLAN: 1. Await Interventional Radiology drainage of the left iliopsoas fluid or mass, which should be sent for histopathology in addition to aerobic and anaerobic culture. 2. We will keep the patient on Zosyn 3.375 g q.12 hours and adjust to her kidney function. 3. We will follow her clinical condition as well as cultures to further adjust medication if needed. Thank you for this consultation. Will follow the patient along with you. MMODL / IJN: [id number] / GR[facility]QUARE HOSPITALDemarcus
[2018-01-12] MEDS: PIPERACILLIN-TAZOBACTAM 3.375 GM in DEXTROSE/WATER 1 50ML.BAG IVPB SCH ×2 (06:24→17:27)
[2018-01-12 07:32] LABS: Glucose,Whole Blood 146 mg/dL (75-99)
[2018-01-12] MEDS: MULTIVITAMINS, THERA 1 EACH TAB PO SCH (08:04)
[2018-01-12] MEDS: FENOFIBRATE 160 MG TAB PO SCH (08:04)
[2018-01-12] MEDS: PANTOPRAZOLE 40 MG TABLET PO SCH (08:04)
[2018-01-12] MEDS: hydrALAZINE HCL 50 MG TAB PO SCH ×2 (08:04→23:03)
[2018-01-12] MEDS: SPIRONOLACTONE 25 MG TAB PO SCH ×2 (08:04→23:03)
[2018-01-12] MEDS: ASPIRIN 81 MG PO SCH (08:04)
[2018-01-12] MEDS: CARVEDILOL 12.5 MG TAB PO SCH ×2 (08:04→17:26)
[2018-01-12] MEDS: amLODIPine 10 MG TAB PO SCH (08:04)
[2018-01-12] MEDS: INSULIN ASPART 100 UNIT/ML 1 ML 10 ML VIAL SQ SCH ×4 (08:05→23:08)
[2018-01-12] MEDS: CHOLECALCIFEROL 1,000 UNIT TAB PO SCH (08:07)
[2018-01-12] MEDS: DEXTROSE 5% IN WATER 1,000 ML with SODIUM BICARB (1 MEQ/ML) 150 ML IV SCH (08:08)
[2018-01-12 09:46] LABS: Basophils % (A) 0 %; Eosinophils # (A) 0.2 k/uL (0-0.7); Eosinophils % (A) 1 %; HCT 23.5 % (34.0-46.0); HGB 7.9 gm/dL (11.4-16.0); Lymphocytes # (A) 0.8 k/uL (1.0-4.8); Lymphocytes % (A) 7 %; MCH 28.5 pg (25.0-35.0); MCHC 33.5 g/dL (31.0-37.0); Mean Platelet Volume 8.4; Monocytes # (A) 0.8 k/uL (0-1.0); Monocytes % (A) 7 %; Neutrophils # (A) 10.3 k/uL (1.3-7.7); Neutrophils % (A) 84 %; Platelet Count 203 k/uL (150-450); RBC 2.77 m/uL (3.80-5.40); RDW 13.6 % (11.5-15.5); WBC 12.2 k/uL (3.8-10.6)
[2018-01-12 09:49] LABS: Albumin 2.8 g/dL (3.5-5.0); Calcium 8.3 mg/dL (8.4-10.2); Potassium 3.3 mmol/L (3.5-5.1); Total Bilirubin 0.7 mg/dL (0.2-1.3); Total Protein 5.3 g/dL (6.3-8.2)
--- NOTE | 2018-01-12 11:19 | P.PN ---
Subjective Progress Note Date: 01/12/18 Patient had N/V x 1 this AM. Has not had IR drainage yet. No complaints while in room, resting in bed Objective - Vital Signs Vital signs: Vital Signs Temp 98.6 F 01/12/18 06:29 Pulse 73 01/12/18 06:29 Resp 16 01/12/18 06:29 BP 179/71 01/12/18 06:29 Pulse Ox 95 01/12/18 06:29 Intake & Output 01/11/18 01/12/18 01/12/18 18:59 06:59 18:59 Intake Total 850 Balance 850 Intake: Oral 850 Other: Voiding Method Diaper Diaper # Voids 1 2 - Constitutional General appearance: Present: cooperative - Respiratory Details: nonlabored - Cardiovascular Rhythm: regular - Gastrointestinal Gastrointestinal Comment(s): soft, distended, tender to palpation right midabdomen - Psychiatric Psychiatric: Present: A&O x's 3 - Labs CBC & Chem 7: 01/12/18 09:12 01/12/18 09:12 Labs: Abnormal Lab Results - Last 24 Hours (Table) 01/11/18 01/11/18 01/11/18 Range/Units 11:28 17:16 21:21 WBC (3.8-10.6) k/uL RBC (3.80-5.40) m/uL Hgb (11.4-16.0) gm/dL Hct (34.0-46.0) % Neutrophils # (1.3-7.7) k/uL Lymphocytes # (1.0-4.8) k/uL Sodium (137-145) mmol/L Potassium (3.5-5.1) mmol/L Carbon Dioxide (22-30) mmol/L BUN (7-17) mg/dL Creatinine (0.52-1.04) mg/dL Glucose (74-99) mg/dL POC Glucose (mg/dL) 124 H 187 H 203 H (75-99) mg/dL Calcium (8.4-10.2) mg/dL Total Protein (6.3-8.2) g/dL Albumin (3.5-5.0) g/dL 01/12/18 01/12/18 01/12/18 Range/Units 07:31 09:12 09:12 WBC 12.2 H (3.8-10.6) k/uL RBC 2.77 L (3.80-5.40) m/uL Hgb 7.9 L (11.4-16.0) gm/dL Hct 23.5 L (34.0-46.0) % Neutrophils # 10.3 H (1.3-7.7) k/uL Lymphocytes # 0.8 L (1.0-4.8) k/uL Sodium 133 L (137-145) mmol/L Potassium 3.3 L (3.5-5.1) mmol/L Carbon Dioxide 19 L (22-30) mmol/L BUN 110 H* (7-17) mg/dL Creatinine 6.12 H* (0.52-1.04) mg/dL Glucose 121 H (74-99) mg/dL POC Glucose (mg/dL) 146 H (75-99) mg/dL Calcium 8.3 L (8.4-10.2) mg/dL Total Protein 5.3 L (6.3-8.2) g/dL Albumin 2.8 L (3.5-5.0) g/dL Microbiology - Last 24 Hours (Table) 01/10/18 16:30 Blood Culture - Preliminary Blood No Growth after 24 hours Assessment and Plan Assessment: Left Psoas abscess Plan: NPO, if she continues to have NV then NGT. ABX per ID. IR drainage with cultures and path per IR
[2018-01-12 12:27] LABS: Glucose,Whole Blood 115 mg/dL (75-99)
[2018-01-12] MEDS: MORPHINE SULFATE 2 MG/ML SYRINGE IV PRN (14:16)
[2018-01-12] MEDS: ONDANSETRON 4 MG/2 ML VIAL IVP PRN (14:16)
--- NOTE | 2018-01-12 15:57 | CT ---
EXAMINATION TYPE: CT guided aspiration DATE OF EXAM: 01/12/2018 COMPARISON: CT abdomen pelvis 01/10/2018 HISTORY: Abnormal CT, psoas abnormality CT DLP: 1309.1 mGycm Automated exposure control for dose reduction was used. Maximal barrier technique was utilized. The skin overlying a suitable path to the lesion was localiz ed using CT and the overlying skin was prepped and draped. Lidocaine used for local anesthesia. A s kin philippe made with a scalpel. Using CT guidance, access was gained to the lesion with a 22-gauge nee dle. Aspirated specimen submitted to cytology in formalin, less than 1 cc cleared jellylike material aspirated, specimen submitted to microbiology. 1 pass performed in all. Following the procedure no immediate complications. The patient is discharged in stable condition. Hemostasis achieved. IMPRESSION: SUCCESSFUL CT GUIDED BIOPSY. PATHOLOGY PENDING. THIS PROCEDURE WAS PERFORMED BY THE UNDERSIGNED.
[2018-01-12 16:57] LABS: Glucose,Whole Blood 115 mg/dL (75-99)
[2018-01-12] MEDS ORDERED: POTASSIUM CHLORIDE 20 MEQ in WATER FOR INJECTION 1 100ML.BAG IVPB STA (17:49)
--- NOTE | 2018-01-12 18:16 | PN ---
PROGRESS NOTE Patient was seen for followup for acute kidney injury. She was admitted to the hospital with abdominal pain. Patient was found to have an iliopsoas abscess on the left side. She came in with a creatinine of 6.7. It remains elevated at 6.1 today. We do not have any previous labs available for comparison. However, the patient denies any previous history of kidney diseases. She has had good urine output. A postvoid residual has been checked and it has not been elevated. The patient is maintained on IV fluids, mainly in the form of IV bicarb currently. She states she does not feel significantly better. This morning, patient had large emesis. EXAMINATION: Blood pressure is 132/55, heart rate is 72 per minute. She is afebrile. HEART: S1, S2. LUNGS: Bilateral breath sounds are heard. Decreased breath sounds at bases. Abdomen is soft, distended, tender. Lower extremities show no significant edema. LABS: Show sodium 133, potassium 3.3, hemoglobin of 7.9, BUN 110, serum creatinine 6.12, albumin 2.8, calcium is 8.3. ASSESSMENT: 1. Advanced renal failure, most likely acute. We do not have any previous labs available for comparison. Renal function has not improved significantly since admission. The patient has had some urine output. She will likely need indwelling Thomas catheter to accurately monitor the urine output. If the renal function is not improved further by tomorrow, patient should be dialyzed, given the advanced renal failure and significantly elevated BUN and creatinine. 2. Left iliopsoas abscess being followed by surgery. The patient had needle aspiration, CT-guided. It appears that jelly-like material was aspirated and sent to Microbiology. The patient is being followed by Infectious Disease and General Surgery. 3. Metabolic acidosis. Maintained on IV bicarb, currently improved. Etiology is renal failure. 4. Hypokalemia associated with GI fluid loss as well as IV bicarb. We will replace. 5. Hypertension. Blood pressure is controlled. PLAN: Replace potassium. Repeat labs in a.m. If renal function is not improved, the patient will need to be dialyzed. I will also insert a Thomas catheter for accurate I's and O's, given the advanced renal failure and patient has also been incontinent; therefore, it is difficult to accurately measure her urine output. MMODL / IJN: [id number] /
[2018-01-12 20:52] LABS: Glucose,Whole Blood 125 mg/dL (75-99)
--- NOTE | 2018-01-12 23:03 | PN ---
PROGRESS NOTE SUBJECTIVE: 82-year-old white female with acute kidney injury, status post ileo psoas abscess drainage. Creatinine remains elevated at 6.1. BUN is over 100, IV bicarb. She had large vomiting this morning. Does not feel better. Blood pressure 130s over 50s, heart rate 70s, heart S1, S2. Lungs is essentially clear. Hematology negative Homans. Potassium 3.3, sodium 133, hemoglobin 7.9, BUN of 110, creatinine 6.12. ASSESSMENT: 1. Advance renal failure acute. Indwelling Thomas will be placed. The patient may need to be dialyzed. 2. Iliopsoas abscess status post incision and drainage today. CT scan guided. Jelly light material sent to the to the lab. 3. Metabolic acidosis. 4. Hyperkalemia. 5. Hypertension. Continue current treatment. Replace potassium. Thomas catheter. Remained on broad- spectrum IV antibiotics. Surgical consult. Await cultures of the fluid drained out of iliopsoas abscess. MMODL / IJN: [id number] /
[2018-01-12] MEDS: INSULIN DETEMIR 100 UNIT/ML 10 ML VIAL SQ SCH (23:08)
[2018-01-13] MEDS: MORPHINE SULFATE 2 MG/ML SYRINGE IV PRN ×2 (05:32→15:44)
[2018-01-13] MEDS: PIPERACILLIN-TAZOBACTAM 3.375 GM in DEXTROSE/WATER 1 50ML.BAG IVPB SCH ×2 (05:34→18:18)
[2018-01-13 07:37] LABS: Glucose,Whole Blood 156 mg/dL (75-99)
[2018-01-13] MEDS: INSULIN ASPART 100 UNIT/ML 1 ML 10 ML VIAL SQ SCH ×4 (08:07→21:23)
[2018-01-13] MEDS: DEXTROSE 5% IN WATER 1,000 ML with SODIUM BICARB (1 MEQ/ML) 150 ML IV SCH ×2 (08:07→08:10)
[2018-01-13] MEDS: FENOFIBRATE 160 MG TAB PO SCH (08:08)
[2018-01-13] MEDS: SPIRONOLACTONE 25 MG TAB PO SCH ×2 (08:08→21:13)
[2018-01-13] MEDS: CARVEDILOL 12.5 MG TAB PO SCH ×2 (08:08→18:18)
[2018-01-13] MEDS: hydrALAZINE HCL 50 MG TAB PO SCH ×2 (08:08→21:14)
[2018-01-13] MEDS: ASPIRIN 81 MG PO SCH (08:08)
[2018-01-13] MEDS: PANTOPRAZOLE 40 MG TABLET PO SCH (08:08)
[2018-01-13] MEDS: CHOLECALCIFEROL 1,000 UNIT TAB PO SCH (08:09)
[2018-01-13] MEDS: amLODIPine 10 MG TAB PO SCH (08:09)
[2018-01-13 08:11] LABS: Basophils % (A) 0 %; Eosinophils # (A) 0.2 k/uL (0-0.7); Eosinophils % (A) 1 %; HCT 21.4 % (34.0-46.0); HGB 7.4 gm/dL (11.4-16.0); Lymphocytes # (A) 1.2 k/uL (1.0-4.8); Lymphocytes % (A) 10 %; MCH 29.4 pg (25.0-35.0); MCHC 34.5 g/dL (31.0-37.0); MCV 85.2 fL (80.0-100.0); Mean Platelet Volume 8.3; Monocytes # (A) 0.7 k/uL (0-1.0); Monocytes % (A) 6 %; Neutrophils # (A) 9.2 k/uL (1.3-7.7); Neutrophils % (A) 81 %; Platelet Count 197 k/uL (150-450); RBC 2.51 m/uL (3.80-5.40); RDW 13.6 % (11.5-15.5); WBC 11.3 k/uL (3.8-10.6)
[2018-01-13 08:24] LABS: Albumin 2.5 g/dL (3.5-5.0); Potassium 3.4 mmol/L (3.5-5.1); Total Bilirubin 0.7 mg/dL (0.2-1.3); Total Protein 4.8 g/dL (6.3-8.2)
[2018-01-13] MEDS ORDERED: Potassium Replacement Protocol 1 EACH MISC MISCELLANE PRN (11:43)
[2018-01-13] MEDS: POTASSIUM CHLORIDE ER 20 MEQ TAB.ER PO SCH ×2 (12:00→12:35)
[2018-01-13] MEDS: SODIUM CHLORIDE 0.9% 1,000 ML IV SCH (12:11)
--- NOTE | 2018-01-13 12:22 | P.PN ---
Subjective Patient is seen in follow-up for chronic kidney disease. Unclear as to what her baseline renal function is. Renal function is not improving and is actually worse today with creatinine at 6.68. Patient's currently resting in bed. She is a Thomas catheter in place and is nonoliguric. No vomiting today. She did have emesis yesterday. Vital signs are stable. General: The patient appeared well nourished and normally developed. HEENT: Head exam is unremarkable. Neck is without jugular venous distension. LUNGS: Lungs are clear to auscultation and percussion. Breath sounds decreased. HEART: Rate and Rhythm are regular. First and second heart sounds normal. No murmurs, rubs or gallops. ABDOMEN: Abdominal exam reveals normal bowel sounds. Non-tender and non- distended. No evidence of peritonitis. EXTREMITITES: No clubbing, cyanosis, or edema. Objective - Vital Signs Vital signs: Vital Signs Temp 98.5 F 01/13/18 07:00 Pulse 72 01/13/18 07:00 Resp 18 01/13/18 07:00 BP 117/47 01/13/18 07:00 Pulse Ox 95 01/13/18 07:00 Intake & Output 01/12/18 01/13/18 01/13/18 18:59 06:59 18:59 Output Total 400 Balance -400 Weight 79.5 kg 79.5 kg Output: Urine 400 Other: Voiding Method Diaper Indwelling Catheter Indwelling Catheter # Voids 1 - Labs CBC & Chem 7: 01/13/18 07:38 01/13/18 07:38 Labs: Abnormal Lab Results - Last 24 Hours (Table) 01/12/18 01/12/18 01/12/18 Range/Units 12:23 16:22 20:31 WBC (3.8-10.6) k/uL RBC (3.80-5.40) m/uL Hgb (11.4-16.0) gm/dL Hct (34.0-46.0) % Neutrophils # (1.3-7.7) k/uL Sodium (137-145) mmol/L Potassium (3.5-5.1) mmol/L Chloride (98-107) mmol/L BUN (7-17) mg/dL Creatinine (0.52-1.04) mg/dL Glucose (74-99) mg/dL POC Glucose (mg/dL) 115 H 115 H 125 H (75-99) mg/dL Calcium (8.4-10.2) mg/dL Total Protein (6.3-8.2) g/dL Albumin (3.5-5.0) g/dL 01/13/18 01/13/18 01/13/18 Range/Units 07:30 07:38 07:38 WBC 11.3 H (3.8-10.6) k/uL RBC 2.51 L (3.80-5.40) m/uL Hgb 7.4 L (11.4-16.0) gm/dL Hct 21.4 L (34.0-46.0) % Neutrophils # 9.2 H (1.3-7.7) k/uL Sodium 133 L (137-145) mmol/L Potassium 3.4 L (3.5-5.1) mmol/L Chloride 96 L (98-107) mmol/L BUN 112 H* (7-17) mg/dL Creatinine 6.68 H* (0.52-1.04) mg/dL Glucose 135 H (74-99) mg/dL POC Glucose (mg/dL) 156 H (75-99) mg/dL Calcium 8.0 L (8.4-10.2) mg/dL Total Protein 4.8 L (6.3-8.2) g/dL Albumin 2.5 L (3.5-5.0) g/dL Microbiology - Last 24 Hours (Table) 01/12/18 15:50 Gram Stain - Preliminary Other - Other Wound Culture - Preliminary 01/12/18 15:50 Anaerobic Culture - Preliminary Other - Other 01/10/18 16:30 Blood Culture - Preliminary Blood No Growth after 48 hours Assessment and Plan Plan: Assessment: 1. Acute kidney injury versus chronic kidney disease. Unknown baseline creatinine. No improvement in renal function. Creatinine 6.68 today. CAT scan revealed cortical thinning of the kidneys suggestive of underlying chronic kidney disease. 2. Left iliopsoas abscess status post aspiration maintained on IV antibiotics. 3. Metabolic acidosis secondary to acute kidney injury. 4. Hypokalemia from poor oral intake. 5. Hyponatremia secondary to acute kidney injury. 6. Anemia. Rule out iron deficiency. 7. 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 Plan: Check renal ultrasound. Replace potassium. 40 mEq today. Check iron studies. Add Aranesp. With severely impaired renal function and no improvement since admission, will consult vascular surgery for dialysis catheter placement and plan to initiate renal replacement therapy today. Continue to monitor renal function and urine output closely. Discontinue bicarbonate drip. Start normal saline at 75 mL an hour for maintenance fluids.
[2018-01-13 12:30] LABS: Glucose,Whole Blood 207 mg/dL (75-99)
[2018-01-13] MEDS: MULTIVITAMINS, THERA 1 EACH TAB PO SCH (12:35)
[2018-01-13] MEDS ORDERED: BISACODYL 10 MG SUPP RECTAL STA (12:57)
--- NOTE | 2018-01-13 12:57 | P.PN ---
Subjective Progress Note Date: 01/13/18 Principal diagnosis: Iliopsoas abscess The patient is status post drainage of iliopsoas abscess by radiology. She had some vomiting yesterday which was projectile. She denies any vomiting today. She is strongly encouraged. Nursing is not sure when her last bowel movement was. Objective - Vital Signs Vital signs: Vital Signs Temp 98.5 F 01/13/18 07:00 Pulse 72 01/13/18 07:00 Resp 18 01/13/18 07:00 BP 117/47 01/13/18 07:00 Pulse Ox 95 01/13/18 07:00 Intake & Output 01/12/18 01/13/18 01/13/18 18:59 06:59 18:59 Output Total 400 Balance -400 Weight 79.5 kg 79.5 kg Output: Urine 400 Other: Voiding Method Diaper Indwelling Catheter Indwelling Catheter # Voids 1 - Constitutional General appearance: Present: cooperative, no acute distress - Gastrointestinal General gastrointestinal: Present: distended, normal bowel sounds. Absent: tenderness - Labs CBC & Chem 7: 01/13/18 07:38 01/13/18 07:38 Labs: Abnormal Lab Results - Last 24 Hours (Table) 01/12/18 01/12/18 01/13/18 Range/Units 16:22 20:31 07:30 WBC (3.8-10.6) k/uL RBC (3.80-5.40) m/uL Hgb (11.4-16.0) gm/dL Hct (34.0-46.0) % Neutrophils # (1.3-7.7) k/uL Sodium (137-145) mmol/L Potassium (3.5-5.1) mmol/L Chloride (98-107) mmol/L BUN (7-17) mg/dL Creatinine (0.52-1.04) mg/dL Glucose (74-99) mg/dL POC Glucose (mg/dL) 115 H 125 H 156 H (75-99) mg/dL Calcium (8.4-10.2) mg/dL Total Protein (6.3-8.2) g/dL Albumin (3.5-5.0) g/dL 01/13/18 01/13/18 01/13/18 Range/Units 07:38 07:38 12:08 WBC 11.3 H (3.8-10.6) k/uL RBC 2.51 L (3.80-5.40) m/uL Hgb 7.4 L (11.4-16.0) gm/dL Hct 21.4 L (34.0-46.0) % Neutrophils # 9.2 H (1.3-7.7) k/uL Sodium 133 L (137-145) mmol/L Potassium 3.4 L (3.5-5.1) mmol/L Chloride 96 L (98-107) mmol/L BUN 112 H* (7-17) mg/dL Creatinine 6.68 H* (0.52-1.04) mg/dL Glucose 135 H (74-99) mg/dL POC Glucose (mg/dL) 207 H (75-99) mg/dL Calcium 8.0 L (8.4-10.2) mg/dL Total Protein 4.8 L (6.3-8.2) g/dL Albumin 2.5 L (3.5-5.0) g/dL Microbiology - Last 24 Hours (Table) 01/12/18 15:50 Gram Stain - Preliminary Other - Other Wound Culture - Preliminary 01/12/18 15:50 Anaerobic Culture - Preliminary Other - Other 01/10/18 16:30 Blood Culture - Preliminary Blood No Growth after 48 hours Assessment and Plan (1) Iliopsoas abscess Current Visit: Yes Status: Acute Code(s): K68.12 - PSOAS MUSCLE ABSCESS SNOMED Code(s): 650659455 (2) Vomiting Current Visit: Yes Status: Acute Code(s): R11.10 - VOMITING, UNSPECIFIED SNOMED Code(s): 526391518 (3) Acute renal failure Current Visit: Yes Status: Acute Code(s): N17.9 - ACUTE KIDNEY FAILURE, UNSPECIFIED SNOMED Code(s): 27513612 (4) Sepsis Current Visit: Yes Status: Acute Code(s): A41.9 - SEPSIS, UNSPECIFIED ORGANISM SNOMED Code(s): 25049825 Plan: The vomiting could be on the basis of constipation. We'll order some suppositories. Give her sips of clear liquids. Await cultures from the I&D Further recommendations to follow.
[2018-01-13] MEDS: DARBEPOETIN ALFA 40 MCG/0.4 ML SYRINGE SQ SCH (14:28)
--- NOTE | 2018-01-13 15:11 | CONS ---
CONSULTATION Patient has been evaluated for chronic renal failure. This is an 82-year-old female. She has history of acute chronic renal failure with creatinine of 6.68. I was consulted for placement of dialysis catheter. Patient also has a history of left iliopsoas abscess, post aspiration, maintained on IV antibiotic. Patient also has a history of metabolic acidosis and insulin-dependent diabetes mellitus. PHYSICAL EXAMINATION: Patient was seen in her room. NECK: Supple. Trachea central. CHEST: Clear on auscultation. ABDOMEN: Soft. Femorals are 1+. Patient has mild edema. IMPRESSION: Acute renal failure. PLAN: Placement of dialysis catheter. Risks and complications were discussed. We will arrange for dialysis catheter. MMODL / IJN: [id number] /
--- NOTE | 2018-01-13 16:11 | PN ---
PROGRESS NOTE SUBJECTIVE: 82-year-old white female with worsening renal function from 6.1 up to 6.68. She is going to get a dialysis catheter placed today and the dialysis will be started. Unclear what is causing this. She has been treated with IV antibiotics for ileus psoas abscess. She is up ambulating, remained sitting up on the side of bed. She says she is feeling a little bit better. She apparently throws up once in a while. Surgery saw her and thought it was due to constipation. Ordered some suppositories. CARDIOVASCULAR; S1-S2. LUNGS: Clear. GI: Soft. HEMATOLOGY: Negative Homans. PSYCH: Fair mood and affect. ASSESSMENT: 1. Acute renal injury versus chronic renal disease. 2. Left ileus psoas abscess. 3. Metabolic acidosis. 4. Hypokalemia. 5. Hyponatremia. 6. Moderate protein calorie malnutrition. 7. Anemia. 8. Insulin-dependent diabetes mellitus. PLAN: Check renal ultrasound. Replace potassium. Check iron studies. Add Aranesp. Consider surgery for dialysis catheter placement. Discontinue bicarbonate drip. Continue with IV antibiotics, potassium replacement protocol. Please see further orders. MMODL / IJN: [id number] /
--- NOTE | 2018-01-13 16:39 | US ---
EXAMINATION TYPE: US kidneys/renal and bladder DATE OF EXAM: 01/13/2018 COMPARISON: CT abdomen and pelvis from 3 days ago CLINICAL HISTORY: miguel angel. EXAM MEASUREMENTS: Right Kidney: 11.1 x 4.1 x 5.0 cm Left Kidney: 11.0 x 5.0 x 4.4 cm Limited due to pt unable to hold breath well, bowel gas, and bladder decompressed. Right Kidney: Appears wnl Left Kidney: Appears to have hypoechoic area in upper portion of kidney measuring 2.8 x 2.9 x 2.6 cm Bladder: decompressed, unable to evaluate Bilateral Jets seen: No There is no evidence for hydronephrosis at this point in time. However, there appears to be a hypoech oic area in Left Kidney. The urinary bladder is decompressed, unable to evaluate. Evaluation suboptimal due to patient being unable to hold breath as well as overlying bowel gas. Florentino ical thinning in right kidney is present. Correlating with recent CT there is 2.8 cm anechoic lesion with increased through transmission felt to reflect simple cyst laterally mid pole level. IMPRESSION: No hydronephrosis is evident bilaterally. Lesion of concern laterally mid pole level left kidney is f elt to reflect simple cyst on ultrasound images saved.
[2018-01-13 17:06] LABS: Iron Saturation 6.78 (12.00-45.00)
[2018-01-13 17:34] LABS: Glucose,Whole Blood 145 mg/dL (75-99)
[2018-01-13 20:36] LABS: Glucose,Whole Blood 138 mg/dL (75-99)
[2018-01-13] MEDS: INSULIN DETEMIR 100 UNIT/ML 10 ML VIAL SQ SCH (21:14)
[2018-01-14] MEDS: SODIUM CHLORIDE 0.9% 1,000 ML IV SCH ×2 (01:31→16:41)
[2018-01-14] MEDS: PIPERACILLIN-TAZOBACTAM 3.375 GM in DEXTROSE/WATER 1 50ML.BAG IVPB SCH ×2 (06:32→17:36)
[2018-01-14 07:50] LABS: Glucose,Whole Blood 76 mg/dL (75-99)
[2018-01-14 07:50] LABS: Glucose,Whole Blood 68 mg/dL (75-99)
[2018-01-14] MEDS: INSULIN ASPART 100 UNIT/ML 1 ML 10 ML VIAL SQ SCH ×4 (08:06→21:47)
[2018-01-14] MEDS: hydrALAZINE HCL 50 MG TAB PO SCH ×2 (08:07→21:47)
[2018-01-14] MEDS: FENOFIBRATE 160 MG TAB PO SCH (08:07)
[2018-01-14] MEDS: PANTOPRAZOLE 40 MG TABLET PO SCH (08:07)
[2018-01-14] MEDS: ASPIRIN 81 MG PO SCH (08:07)
[2018-01-14] MEDS: CARVEDILOL 12.5 MG TAB PO SCH ×2 (08:07→17:37)
[2018-01-14] MEDS: CHOLECALCIFEROL 1,000 UNIT TAB PO SCH (08:07)
[2018-01-14] MEDS: SPIRONOLACTONE 25 MG TAB PO SCH ×2 (08:08→21:49)
[2018-01-14] MEDS: amLODIPine 10 MG TAB PO SCH (08:08)
[2018-01-14] MEDS: ONDANSETRON 4 MG/2 ML VIAL IVP PRN ×2 (08:20→17:36)
[2018-01-14] MEDS: MORPHINE SULFATE 2 MG/ML SYRINGE IV PRN (08:21)
[2018-01-14 08:30] LABS: Albumin 2.7 g/dL (3.5-5.0); Calcium 8.5 mg/dL (8.4-10.2); Potassium 3.7 mmol/L (3.5-5.1); Total Bilirubin 0.6 mg/dL (0.2-1.3); Total Protein 5.2 g/dL (6.3-8.2)
[2018-01-14 08:42] LABS: Basophils % (A) 0 %; Eosinophils # (A) 0.2 k/uL (0-0.7); Eosinophils % (A) 2 %; HCT 22.5 % (34.0-46.0); HGB 7.6 gm/dL (11.4-16.0); Lymphocytes # (A) 0.9 k/uL (1.0-4.8); Lymphocytes % (A) 7 %; MCH 28.7 pg (25.0-35.0); MCHC 33.9 g/dL (31.0-37.0); MCV 84.7 fL (80.0-100.0); Mean Platelet Volume 8.4; Monocytes # (A) 0.6 k/uL (0-1.0); Monocytes % (A) 5 %; Neutrophils # (A) 10.4 k/uL (1.3-7.7); Neutrophils % (A) 85 %; Platelet Count 239 k/uL (150-450); RBC 2.66 m/uL (3.80-5.40); RDW 13.5 % (11.5-15.5); WBC 12.2 k/uL (3.8-10.6)
[2018-01-14] MEDS: valACYclovir HCL 1,000 MG TABLET PO SCH ×2 (09:53→21:49)
[2018-01-14 11:02] LABS: Glucose,Whole Blood 104 mg/dL (75-99)
[2018-01-14] MEDS ORDERED: LIDOCAINE 1% INJ 10MG/ML (20 ML MDV) SQ ONE ×2 (11:15→11:30)
--- NOTE | 2018-01-14 11:31 | P.PN ---
Subjective Progress Note Date: 01/14/18 Principal diagnosis: Iliopsoas abscess The patient seen on rounds. She was having some vomiting yesterday along with abdominal distention. Suppositories were ordered. She did have several bowel movements. She is nothing by mouth this morning for placement of a dialysis catheter. Denies any pain. Admits to passing gas. Objective - Vital Signs Vital signs: Vital Signs Temp 99.1 F 01/14/18 06:05 Pulse 65 01/14/18 06:05 Resp 16 01/14/18 06:05 BP 137/65 01/14/18 06:05 Pulse Ox 94 L 01/14/18 06:05 Intake & Output 01/13/18 01/14/18 01/14/18 18:59 06:59 18:59 Intake Total 450 Output Total 700 200 Balance -250 -200 Weight 79.5 kg 78.5 kg Intake: Intake, IV Titration 450 Amount Dextrose 5% in Water 1, 200 000 ml @ 100 mls/hr IV . [id number] [facility] with Sodium Bicarb (1 Meq/ml) 150 ml Rx#:[id number] Piperacillin-Tazobactam 3 50 .375 gm In Dextrose/Water 1 50ml.bag @ 12.5 mls/hr IVPB Q12H [facility] Rx#: [id number] Sodium Chloride 0.9% 1, 200 000 ml @ 75 mls/hr IV . [id number] [facility] Rx#:[id number] Output: Urine 700 200 Other: Voiding Method Indwelling Catheter Indwelling Catheter # Voids 1 0 # Bowel Movements 1 1 - Constitutional General appearance: Present: cooperative, no acute distress - Gastrointestinal General gastrointestinal: Present: distended, normal bowel sounds. Absent: tenderness (No guarding no rebound) - Labs CBC & Chem 7: 01/14/18 07:40 01/14/18 07:40 Labs: Abnormal Lab Results - Last 24 Hours (Table) 01/13/18 01/13/18 01/13/18 Range/Units 12:08 12:20 17:30 WBC (3.8-10.6) k/uL RBC (3.80-5.40) m/uL Hgb (11.4-16.0) gm/dL Hct (34.0-46.0) % Neutrophils # (1.3-7.7) k/uL Lymphocytes # (1.0-4.8) k/uL Sodium (137-145) mmol/L Chloride (98-107) mmol/L BUN (7-17) mg/dL Creatinine (0.52-1.04) mg/dL Glucose (74-99) mg/dL POC Glucose (mg/dL) 207 H 145 H (75-99) mg/dL Iron 16 L (50-170) ug/dL Iron Saturation 6.78 L (12.00-45.00) Ferritin 638.2 H (10.0-291.0) ng/mL Total Protein (6.3-8.2) g/dL Albumin (3.5-5.0) g/dL 01/13/18 01/14/18 01/14/18 Range/Units 20:34 07:26 07:40 WBC (3.8-10.6) k/uL RBC (3.80-5.40) m/uL Hgb (11.4-16.0) gm/dL Hct (34.0-46.0) % Neutrophils # (1.3-7.7) k/uL Lymphocytes # (1.0-4.8) k/uL Sodium 133 L (137-145) mmol/L Chloride 96 L (98-107) mmol/L BUN 117 H* (7-17) mg/dL Creatinine 7.20 H* (0.52-1.04) mg/dL Glucose 60 L (74-99) mg/dL POC Glucose (mg/dL) 138 H 68 L (75-99) mg/dL Iron (50-170) ug/dL Iron Saturation (12.00-45.00) Ferritin (10.0-291.0) ng/mL Total Protein 5.2 L (6.3-8.2) g/dL Albumin 2.7 L (3.5-5.0) g/dL 01/14/18 01/14/18 Range/Units 07:40 10:50 WBC 12.2 H (3.8-10.6) k/uL RBC 2.66 L (3.80-5.40) m/uL Hgb 7.6 L (11.4-16.0) gm/dL Hct 22.5 L (34.0-46.0) % Neutrophils # 10.4 H (1.3-7.7) k/uL Lymphocytes # 0.9 L (1.0-4.8) k/uL Sodium (137-145) mmol/L Chloride (98-107) mmol/L BUN (7-17) mg/dL Creatinine (0.52-1.04) mg/dL Glucose (74-99) mg/dL POC Glucose (mg/dL) 104 H (75-99) mg/dL Iron (50-170) ug/dL Iron Saturation (12.00-45.00) Ferritin (10.0-291.0) ng/mL Total Protein (6.3-8.2) g/dL Albumin (3.5-5.0) g/dL Microbiology - Last 24 Hours (Table) 01/12/18 15:50 Gram Stain - Preliminary Other - Other Wound Culture - Preliminary 01/10/18 16:30 Blood Culture - Preliminary Blood No Growth after 72 hours Assessment and Plan (1) Iliopsoas abscess Current Visit: Yes Status: Acute Code(s): K68.12 - PSOAS MUSCLE ABSCESS SNOMED Code(s): 273543796 (2) Vomiting Current Visit: Yes Status: Acute Code(s): R11.10 - VOMITING, UNSPECIFIED SNOMED Code(s): 126465276 (3) Acute renal failure Current Visit: Yes Status: Acute Code(s): N17.9 - ACUTE KIDNEY FAILURE, UNSPECIFIED SNOMED Code(s): 24678979 (4) Sepsis Current Visit: Yes Status: Acute Code(s): A41.9 - SEPSIS, UNSPECIFIED ORGANISM SNOMED Code(s): 95133202 Plan: Her renal function is worsening so plans are for dialysis today. After she has finished her dialysis we'll order additional laxatives. Encouraged nursing to get the patient up out of bed before and after dialysis. Abscess is currently nonsurgical.
[2018-01-14] MEDS ORDERED: HEPARIN SODIUM 1,000 UN/ML (10ML VL) MISCELLANE ONE (11:50)
--- NOTE | 2018-01-14 12:18 | PCN ---
PROCEDURE NOTE PREOP DIAGNOSIS: Acute on chronic failure. PROCEDURE PERFORMED: Ultrasound-guided 28 cm dialysis catheter right internal jugular approach. DESCRIPTION OF PROCEDURE: The patient was brought to the laborer car barn. Right side of the neck and chest was prepped and drapes applied in the sterile manner. 1% lidocaine was infiltrated. Ultrasound- guided needle was introduced into the right internal jugular vein. Micropuncture guidewire was passed. After that, we passed a 4-Hungarian dilator on the top of the guidewire and incision was made at the anterior wall of the chest and a tunnel was created. Through the tunnel, we brought the dialysis catheter to the neck area and regular guide was passed and dilator was advanced on the top of the guidewire. Then, sheath was advanced on the top of the guidewire. Through the sheath, we introduced the dialysis catheter. Tip of the catheter in superior vena cava and atrium flushed with heparin saline and hep-locked, secured with Vicryl and nylon. Dressing applied. Patient tolerated the procedure well. MMODL / IJN: [id number] /
--- NOTE | 2018-01-14 12:22 | P.PN ---
Subjective Patient is seen in follow-up for chronic kidney disease. Unclear as to what her baseline renal function is. Renal function is not improving and is actually worse today with creatinine at 7.2. Patient's currently resting in bed. She is a Thomas catheter in place and is nonoliguric. No vomiting or diarrhea. She had a permacath placed this morning and is scheduled to undergo first treatment of hemodialysis today. Denies pain. Vital signs are stable. General: The patient appeared well nourished and normally developed. HEENT: Head exam is unremarkable. Neck is without jugular venous distension. LUNGS: Lungs are clear to auscultation and percussion. Breath sounds decreased. HEART: Rate and Rhythm are regular. First and second heart sounds normal. No murmurs, rubs or gallops. ABDOMEN: Abdominal exam reveals normal bowel sounds. Non-tender and non- distended. No evidence of peritonitis. EXTREMITITES: No clubbing, cyanosis, or edema. Objective - Vital Signs Vital signs: Vital Signs Temp 99.1 F 01/14/18 06:05 Pulse 65 01/14/18 06:05 Resp 16 01/14/18 06:05 BP 137/65 01/14/18 06:05 Pulse Ox 94 L 01/14/18 06:05 Intake & Output 01/13/18 01/14/18 01/14/18 18:59 06:59 18:59 Intake Total 450 Output Total 700 200 Balance -250 -200 Weight 79.5 kg 78.5 kg Intake: Intake, IV Titration 450 Amount Dextrose 5% in Water 1, 200 000 ml @ 100 mls/hr IV . [id number] [facility] with Sodium Bicarb (1 Meq/ml) 150 ml Rx#:[id number] Piperacillin-Tazobactam 3 50 .375 gm In Dextrose/Water 1 50ml.bag @ 12.5 mls/hr IVPB Q12H [facility] Rx#: [id number] Sodium Chloride 0.9% 1, 200 000 ml @ 75 mls/hr IV . [id number] [facility] Rx#:[id number] Output: Urine 700 200 Other: Voiding Method Indwelling Catheter Indwelling Catheter # Voids 1 0 # Bowel Movements 1 1 - Labs CBC & Chem 7: 01/14/18 07:40 01/14/18 07:40 Labs: Abnormal Lab Results - Last 24 Hours (Table) 01/13/18 01/13/18 01/13/18 Range/Units 12:08 12:20 17:30 WBC (3.8-10.6) k/uL RBC (3.80-5.40) m/uL Hgb (11.4-16.0) gm/dL Hct (34.0-46.0) % Neutrophils # (1.3-7.7) k/uL Lymphocytes # (1.0-4.8) k/uL Sodium (137-145) mmol/L Chloride (98-107) mmol/L BUN (7-17) mg/dL Creatinine (0.52-1.04) mg/dL Glucose (74-99) mg/dL POC Glucose (mg/dL) 207 H 145 H (75-99) mg/dL Iron 16 L (50-170) ug/dL Iron Saturation 6.78 L (12.00-45.00) Ferritin 638.2 H (10.0-291.0) ng/mL Total Protein (6.3-8.2) g/dL Albumin (3.5-5.0) g/dL 01/13/18 01/14/18 01/14/18 Range/Units 20:34 07:26 07:40 WBC (3.8-10.6) k/uL RBC (3.80-5.40) m/uL Hgb (11.4-16.0) gm/dL Hct (34.0-46.0) % Neutrophils # (1.3-7.7) k/uL Lymphocytes # (1.0-4.8) k/uL Sodium 133 L (137-145) mmol/L Chloride 96 L (98-107) mmol/L BUN 117 H* (7-17) mg/dL Creatinine 7.20 H* (0.52-1.04) mg/dL Glucose 60 L (74-99) mg/dL POC Glucose (mg/dL) 138 H 68 L (75-99) mg/dL Iron (50-170) ug/dL Iron Saturation (12.00-45.00) Ferritin (10.0-291.0) ng/mL Total Protein 5.2 L (6.3-8.2) g/dL Albumin 2.7 L (3.5-5.0) g/dL 07/15/18 07/15/18 Range/Units 07:40 10:50 WBC 12.2 H (3.8-10.6) k/uL RBC 2.66 L (3.80-5.40) m/uL Hgb 7.6 L (11.4-16.0) gm/dL Hct 22.5 L (34.0-46.0) % Neutrophils # 10.4 H (1.3-7.7) k/uL Lymphocytes # 0.9 L (1.0-4.8) k/uL Sodium (137-145) mmol/L Chloride (98-107) mmol/L BUN (7-17) mg/dL Creatinine (0.52-1.04) mg/dL Glucose (74-99) mg/dL POC Glucose (mg/dL) 104 H (75-99) mg/dL Iron (50-170) ug/dL Iron Saturation (12.00-45.00) Ferritin (10.0-291.0) ng/mL Total Protein (6.3-8.2) g/dL Albumin (3.5-5.0) g/dL Microbiology - Last 24 Hours (Table) 01/12/18 15:50 Gram Stain - Preliminary Other - Other Wound Culture - Preliminary 01/10/18 16:30 Blood Culture - Preliminary Blood No Growth after 72 hours Assessment and Plan Plan: Assessment: 1. Acute kidney injury versus chronic kidney disease. Unknown baseline creatinine. No improvement in renal function. Creatinine 7.2 today. CAT scan revealed cortical thinning of the kidneys suggestive of underlying chronic kidney disease. 2. Left iliopsoas abscess status post aspiration maintained on IV antibiotics. 3. Metabolic acidosis secondary to acute kidney injury. 4. Hypokalemia from poor oral intake. Improved post replacement. 5. Hyponatremia secondary to acute kidney injury. 6. Anemia. Iron deficiency noted. 7. 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 Plan: Continue normal saline at 50 mL an hour. First treatment of hemodialysis today. Second treatment tomorrow. Continue to monitor renal function and urine output closely. Maintain Aranesp. Ferrlecit 125 mg IV daily for 3 days. First dose today. Check serologies and quantify proteinuria. Check phosphorus level.
--- NOTE | 2018-01-14 12:29 | XR ---
EXAMINATION TYPE: XR chest 1V portable DATE OF EXAM: 01/14/2018 HISTORY: HEMODIALYSIS CATHETER INSERTION. REFERENCE: None. FINDINGS: A large-bore, double-lumen catheter has been inserted via a right internal jugular approach . Its tip is in the right atrium. The heart is enlarged. There is mild vascular congestion without carlos edema. There is right basilar airspace disease. There is blunting of both CP angles. I could not exclude small effusions. There is no evidence of pneumothorax. IMPRESSION: 1. STATUS POST CATHETER INSERTION. 2. CARDIOMEGALY. 3. VASCULAR CONGESTION. 4. RIGHT BASILAR AIRSPACE DISEASE 5. SMALL, BILATERAL EFFUSIONS.
[2018-01-14] MEDS ORDERED: BISACODYL 5 MG TABLET.DR PO ONE (13:00)
[2018-01-14] MEDS: MULTIVITAMINS, THERA 1 EACH TAB PO SCH (13:23)
[2018-01-14] MEDS: SODIUM FERRIC GLUCONAT-SUCROSE 125 MG in SODIUM CHLORIDE 0.9% 100 ML IVPB SCH (13:29)
[2018-01-14] MEDS ORDERED: NEOMYCIN-BACITRACIN-POLY OINT 14 GM TUBE TOPICAL PRN (14:38)
--- NOTE | 2018-01-14 17:22 | IR ---
Fluoroscopy HISTORY: Pain 2.5 minutes fluoroscopy time supplied to the referring clinician. 167 intraoperative C-arm images do cument the procedure. See dictated report from vascular surgery.
[2018-01-14 17:23] LABS: Glucose,Whole Blood 121 mg/dL (75-99)
[2018-01-14 21:09] LABS: Glucose,Whole Blood 172 mg/dL (75-99)
[2018-01-14] MEDS: INSULIN DETEMIR 100 UNIT/ML 10 ML VIAL SQ SCH (21:48)
[2018-01-14] MEDS: POLYETHYLENE GLYCOL 3350 17 GM POWD.PACK PO SCH (21:49)
--- NOTE | 2018-01-14 22:57 | PN ---
PROGRESS NOTE She had a port placed for dialysis today. Creatinine is worse at 7.2. She has a Thomas catheter in place. Nonoliguric. No nausea, vomiting, but does have some epigastric pain. Vital signs are reviewed. Cardiovascular S1-S2. Lungs transmitted upper airway sounds. Hematology negative Homans. Psych: Fair mood and affect. Hemoglobin 7.6. ASSESSMENT: 1. Acute renal disease. 2. Insulin dependent diabetes mellitus. 3. IV iron will be given due to severe anemia. 4. Left iliopsoas abscess remaining on IV antibiotics. 5. Metabolic alkalosis. 6. Acidosis. 7. Hyperkalemia. 8. Hyponatremia. 9. Anemia. Current treatment. Please see further orders. MMODL / IJN: [id number] /
[2018-01-15] MEDS: PIPERACILLIN-TAZOBACTAM 3.375 GM in DEXTROSE/WATER 1 50ML.BAG IVPB SCH ×2 (05:56→17:37)
[2018-01-15] MEDS: INSULIN ASPART 100 UNIT/ML 1 ML 10 ML VIAL SQ SCH ×4 (07:37→21:54)
[2018-01-15 08:15] LABS: Glucose,Whole Blood 76 mg/dL (75-99)
[2018-01-15 08:15] LABS: Glucose,Whole Blood 65 mg/dL (75-99)
[2018-01-15 08:15] LABS: Glucose,Whole Blood 65 mg/dL (75-99)
[2018-01-15] MEDS: hydrALAZINE HCL 50 MG TAB PO SCH ×2 (09:07→21:54)
[2018-01-15] MEDS: PANTOPRAZOLE 40 MG TABLET PO SCH (09:07)
[2018-01-15] MEDS: SPIRONOLACTONE 25 MG TAB PO SCH ×2 (09:07→21:53)
[2018-01-15] MEDS: CARVEDILOL 12.5 MG TAB PO SCH ×2 (09:07→17:37)
[2018-01-15] MEDS: CHOLECALCIFEROL 1,000 UNIT TAB PO SCH (09:07)
[2018-01-15] MEDS: amLODIPine 10 MG TAB PO SCH (09:07)
[2018-01-15] MEDS: FENOFIBRATE 160 MG TAB PO SCH (09:07)
[2018-01-15] MEDS: ASPIRIN 81 MG PO SCH (09:07)
[2018-01-15 09:18] LABS: Calcium 8.5 mg/dL (8.4-10.2); Phosphorus 5.5 mg/dL (2.5-4.5); Potassium 3.9 mmol/L (3.5-5.1)
[2018-01-15] MEDS: SODIUM FERRIC GLUCONAT-SUCROSE 125 MG in SODIUM CHLORIDE 0.9% 100 ML IVPB SCH (09:31)
--- NOTE | 2018-01-15 11:07 | P.PN ---
Subjective Patient is seen in follow-up for chronic kidney disease. Unclear as to what her baseline renal function is. There has been no improvement in her renal function this admission. Creatinine was up to 7.2 on January 14. Patient's currently resting in bed. She is a Thomas catheter in place and is nonoliguric. No vomiting or diarrhea. Patient had a permacath placed on January 14 and was started on hemodialysis. Vital signs are stable. General: The patient appeared well nourished and normally developed. HEENT: Head exam is unremarkable. Neck is without jugular venous distension. LUNGS: Lungs are clear to auscultation and percussion. Breath sounds decreased. HEART: Rate and Rhythm are regular. First and second heart sounds normal. No murmurs, rubs or gallops. ABDOMEN: Abdominal exam reveals normal bowel sounds. Non-tender and non- distended. No evidence of peritonitis. EXTREMITITES: No clubbing, cyanosis, or edema. Objective - Vital Signs Vital signs: Vital Signs Temp 97.5 F L 01/15/18 07:26 Pulse 64 01/15/18 07:26 Resp 18 01/15/18 07:26 BP 122/53 01/15/18 07:26 Pulse Ox 95 01/15/18 07:26 Intake & Output 01/14/18 01/15/18 01/15/18 18:59 06:59 18:59 Intake Total 940 Output Total 200 100 Balance 740 -100 Weight 78.5 kg 81.5 kg Intake: Intake, IV Titration 100 Amount Sodium Ferric Gluconat- 100 Sucrose 125 mg In Sodium Chloride 0.9% 100 ml @ 100 mls/hr IVPB DAILY [facility] Rx#:[id number] Oral 840 Output: Urine 200 100 Other: Voiding Method Indwelling Catheter Indwelling Catheter Indwelling Catheter # Voids 0 # Bowel Movements 1 1 - Labs CBC & Chem 7: 01/14/18 07:40 01/15/18 08:48 Labs: Abnormal Lab Results - Last 24 Hours (Table) 01/14/18 01/14/18 01/14/18 Range/Units 10:50 14:15 17:11 Sodium (137-145) mmol/L Carbon Dioxide (22-30) mmol/L BUN (7-17) mg/dL Creatinine (0.52-1.04) mg/dL POC Glucose (mg/dL) 104 H 121 H (75-99) mg/dL Phosphorus (2.5-4.5) mg/dL U Random Total Protein 189 H (<12) mg/dL 01/14/18 01/15/18 01/15/18 Range/Units 20:55 07:33 07:52 Sodium (137-145) mmol/L Carbon Dioxide (22-30) mmol/L BUN (7-17) mg/dL Creatinine (0.52-1.04) mg/dL POC Glucose (mg/dL) 172 H 65 L 65 L (75-99) mg/dL Phosphorus (2.5-4.5) mg/dL U Random Total Protein (<12) mg/dL 01/15/18 Range/Units 08:48 Sodium 135 L (137-145) mmol/L Carbon Dioxide 21 L (22-30) mmol/L BUN 73 H (7-17) mg/dL Creatinine 5.55 H* (0.52-1.04) mg/dL POC Glucose (mg/dL) (75-99) mg/dL Phosphorus 5.5 H (2.5-4.5) mg/dL U Random Total Protein (<12) mg/dL Microbiology - Last 24 Hours (Table) 01/12/18 15:50 Anaerobic Culture - Preliminary Other - Other 01/10/18 16:30 Blood Culture - Preliminary Blood No Growth after 96 hours 01/12/18 15:50 Gram Stain - Final Other - Other Wound Culture - Final Assessment and Plan Plan: Assessment: 1. Acute kidney injury versus chronic kidney disease. Unknown baseline creatinine. No improvement in renal function. Creatinine 7.2 on January 14. CAT scan revealed cortical thinning of the kidneys suggestive of underlying chronic kidney disease. Started on hemodialysis on January 14. UPC 1.6. 2. Left iliopsoas abscess status post aspiration maintained on IV antibiotics. 3. Metabolic acidosis secondary to acute kidney injury. 4. Hypokalemia from poor oral intake. Improved post replacement. 5. Hyponatremia secondary to acute kidney injury. Improved postdialysis. 6. Anemia. Iron deficiency noted. 7. 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 8. Hyperphosphatemia secondary to acute kidney injury. Phosphorus 5.5. Expect improvement postdialysis. Plan: Continue normal saline at 50 mL an hour. Second treatment of dialysis today. Third treatment tomorrow. Continue to monitor renal function and urine output closely. Maintain Aranesp. Ferrlecit 125 mg IV daily for 3 days. Second dose today. Follow-up serologies. senior group manager on board to help facilitate outpatient hemodialysis set up.
[2018-01-15 12:02] LABS: DNA Double-Stranded NEGATIVE (NEGATIVE)
[2018-01-15 12:31] LABS: Glucose,Whole Blood 105 mg/dL (75-99)
--- NOTE | 2018-01-15 12:38 | P.PN ---
Subjective Progress Note Date: 01/15/18 Patient had N/V x 1 this AM. Has not had IR drainage yet. No complaints while in room, resting in bed Objective - Vital Signs Vital signs: Vital Signs Temp 97.5 F L 01/15/18 07:26 Pulse 64 01/15/18 07:26 Resp 18 01/15/18 07:26 BP 122/53 01/15/18 07:26 Pulse Ox 95 01/15/18 07:26 Intake & Output 01/14/18 01/15/18 01/15/18 18:59 06:59 18:59 Intake Total 940 Output Total 200 100 Balance 740 -100 Weight 78.5 kg 81.5 kg Intake: Intake, IV Titration 100 Amount Sodium Ferric Gluconat- 100 Sucrose 125 mg In Sodium Chloride 0.9% 100 ml @ 100 mls/hr IVPB DAILY [facility] Rx#:[id number] Oral 840 Output: Urine 200 100 Other: Voiding Method Indwelling Catheter Indwelling Catheter Indwelling Catheter # Voids 0 # Bowel Movements 1 1 - Constitutional General appearance: Present: cooperative - Respiratory Details: nonlabored - Cardiovascular Rhythm: regular - Gastrointestinal Gastrointestinal Comment(s): soft, mild distention, nontender - Psychiatric Psychiatric: Present: A&O x's 3. Absent: appropriate affect, intact judgment & insight - Labs CBC & Chem 7: 01/14/18 07:40 01/15/18 08:48 Labs: Abnormal Lab Results - Last 24 Hours (Table) 01/14/18 01/14/18 01/14/18 Range/Units 14:15 17:11 20:55 Sodium (137-145) mmol/L Carbon Dioxide (22-30) mmol/L BUN (7-17) mg/dL Creatinine (0.52-1.04) mg/dL POC Glucose (mg/dL) 121 H 172 H (75-99) mg/dL Phosphorus (2.5-4.5) mg/dL U Random Total Protein 189 H (<12) mg/dL 01/15/18 01/15/18 01/15/18 Range/Units 07:33 07:52 08:48 Sodium 135 L (137-145) mmol/L Carbon Dioxide 21 L (22-30) mmol/L BUN 73 H (7-17) mg/dL Creatinine 5.55 H* (0.52-1.04) mg/dL POC Glucose (mg/dL) 65 L 65 L (75-99) mg/dL Phosphorus 5.5 H (2.5-4.5) mg/dL U Random Total Protein (<12) mg/dL 01/15/18 Range/Units 12:27 Sodium (137-145) mmol/L Carbon Dioxide (22-30) mmol/L BUN (7-17) mg/dL Creatinine (0.52-1.04) mg/dL POC Glucose (mg/dL) 105 H (75-99) mg/dL Phosphorus (2.5-4.5) mg/dL U Random Total Protein (<12) mg/dL Microbiology - Last 24 Hours (Table) 01/12/18 15:50 Anaerobic Culture - Preliminary Other - Other 01/10/18 16:30 Blood Culture - Preliminary Blood No Growth after 96 hours 01/12/18 15:50 Gram Stain - Final Other - Other Wound Culture - Final Assessment and Plan Assessment: Left Psoas abscess Plan: Patient is having BM, diet as tolerated. No plans for acute surgical intervention
[2018-01-15 12:41] LABS: Hepatitis A Antibody IgM Non-Reactive (Non-Reactive); Hepatitis B Core IgM Non-Reactive (Non-Reactive)
[2018-01-15 12:59] LABS: Protein, Total 5.2 g/dL (6.2-8.2)
[2018-01-15] MEDS: MULTIVITAMINS, THERA 1 EACH TAB PO SCH (13:46)
[2018-01-15] MEDS: SODIUM CHLORIDE 0.9% 1,000 ML IV SCH (13:46)
[2018-01-15] MEDS ORDERED: HEPARIN SODIUM,PORCINE 5,000 UNIT/ML 1 ML VIAL ONE (14:30)
[2018-01-15 17:19] LABS: Glucose,Whole Blood 90 mg/dL (75-99)
[2018-01-15 20:49] LABS: Glucose,Whole Blood 145 mg/dL (75-99)
[2018-01-15] MEDS: INSULIN DETEMIR 100 UNIT/ML 10 ML VIAL SQ SCH (21:54)
[2018-01-15] MEDS: POLYETHYLENE GLYCOL 3350 17 GM POWD.PACK PO SCH (21:55)
[2018-01-16] MEDS: PIPERACILLIN-TAZOBACTAM 3.375 GM in DEXTROSE/WATER 1 50ML.BAG IVPB SCH ×2 (05:46→18:01)
[2018-01-16] MEDS: SODIUM CHLORIDE 0.9% 1,000 ML IV SCH (05:49)
[2018-01-16 07:22] LABS: Glucose,Whole Blood 126 mg/dL (75-99)
[2018-01-16] MEDS: INSULIN ASPART 100 UNIT/ML 1 ML 10 ML VIAL SQ SCH ×4 (07:36→21:32)
[2018-01-16] MEDS: amLODIPine 10 MG TAB PO SCH (07:51)
[2018-01-16] MEDS: ASPIRIN 81 MG PO SCH (07:51)
[2018-01-16] MEDS: CARVEDILOL 12.5 MG TAB PO SCH ×2 (07:51→17:48)
[2018-01-16] MEDS: PANTOPRAZOLE 40 MG TABLET PO SCH (07:51)
[2018-01-16] MEDS: hydrALAZINE HCL 50 MG TAB PO SCH ×2 (07:52→20:53)
[2018-01-16] MEDS: CHOLECALCIFEROL 1,000 UNIT TAB PO SCH (07:52)
[2018-01-16] MEDS: FENOFIBRATE 160 MG TAB PO SCH (07:52)
[2018-01-16] MEDS: SPIRONOLACTONE 25 MG TAB PO SCH ×2 (07:53→20:53)
[2018-01-16 10:19] LABS: Calcium 8.2 mg/dL (8.4-10.2); Potassium 4.3 mmol/L (3.5-5.1)
[2018-01-16] MEDS: SODIUM FERRIC GLUCONAT-SUCROSE 125 MG in SODIUM CHLORIDE 0.9% 100 ML IVPB SCH (10:27)
--- NOTE | 2018-01-16 10:59 | PN ---
PROGRESS NOTE DATE OF SERVICE: 01/15/2018 REASON FOR FOLLOWUP: Possible iliopsoas abscess. INTERVAL HISTORY: The patient has been afebrile. The patient did get a PermCath because of worsening kidney function and has been dialyzed. Last fever she had 01/12 and afebrile since then. She did have an episode of vomiting this morning, has been complaining of some vague abdominal pain when corrected for the no diarrhea. No chest pain, shortness of breath or cough. PHYSICAL EXAMINATION: Blood pressure 129/53 with a pulse of 67, temperature 98.3.he is 92% on room air. General description is an elderly female, lying in bed in no distress/ RESPIRATORY SYSTEM: Unlabored breathing, clear to auscultation anteriorly. HEART: S1, S2. Regular rate and rhythm. ABDOMEN: Soft, no tenderness. LABS: BUN of 73, creatinine 5.55. Blood culture has been negative. The CT-guided fluid culture has been negative so far. The history and ID was nondiagnostic. DIAGNOSTIC IMPRESSION AND PLAN: Patient with possible left is small abscess impression hospital abdominal pain status post CT-guided drainage. Now that the culture has been negative, will discuss it with surgery in the case as well as the radiologist for either repeating the CT or redo of the drainage procedure for diagnostic purposes. Keep the patient on Zosyn at this point. Continue supportive care. MMODL / IJN: [id number] / [id number]
--- NOTE | 2018-01-16 11:01 | P.PN ---
Subjective Patient is seen in follow-up for chronic kidney disease. Unclear as to what her baseline renal function is. There has been no improvement in her renal function this admission. Creatinine was up to 7.2 on January 14. Patient's currently resting in bed. She is a Thomas catheter in place and is nonoliguric. No vomiting or diarrhea. Patient had a permacath placed on January 14 and was started on hemodialysis. She has been tolerating hemodialysis well so far. No active complaints at this time. Vital signs are stable. General: The patient appeared well nourished and normally developed. HEENT: Head exam is unremarkable. Neck is without jugular venous distension. LUNGS: Lungs are clear to auscultation and percussion. Breath sounds decreased. HEART: Rate and Rhythm are regular. First and second heart sounds normal. No murmurs, rubs or gallops. ABDOMEN: Abdominal exam reveals normal bowel sounds. Non-tender and non- distended. No evidence of peritonitis. EXTREMITITES: No clubbing, cyanosis, or edema. Objective - Vital Signs Vital signs: Vital Signs Temp 97.8 F 01/16/18 06:01 Pulse 71 01/16/18 06:01 Resp 18 01/16/18 07:43 BP 147/64 01/16/18 06:01 Pulse Ox 95 01/16/18 06:01 Intake & Output 01/15/18 01/16/18 01/16/18 18:59 06:59 18:59 Intake Total 500 400 Output Total 51 100 Balance 449 300 Weight 81 kg Intake: Intake, IV Titration 500 400 Amount Sodium Chloride 0.9% 1, 400 400 000 ml @ 50 mls/hr IV . Q20H [facility] Rx#:[id number] Sodium Ferric Gluconat- 100 Sucrose 125 mg In Sodium Chloride 0.9% 100 ml @ 100 mls/hr IVPB DAILY [facility] Rx#:[id number] Output: Urine 50 100 Emesis 1 Other: Voiding Method Indwelling Catheter Indwelling Catheter Indwelling Catheter # Bowel Movements 1 2 - Labs CBC & Chem 7: 01/14/18 07:40 01/16/18 08:59 Labs: Abnormal Lab Results - Last 24 Hours (Table) 01/14/18 01/15/18 01/15/18 Range/Units 07:40 12:27 20:47 Sodium (137-145) mmol/L BUN (7-17) mg/dL Creatinine (0.52-1.04) mg/dL Glucose (74-99) mg/dL POC Glucose (mg/dL) 105 H 145 H (75-99) mg/dL Calcium (8.4-10.2) mg/dL Total Protein (PEP) 5.2 L (6.2-8.2) g/dL 01/16/18 01/16/18 Range/Units 07:18 08:59 Sodium 133 L (137-145) mmol/L BUN 43 H (7-17) mg/dL Creatinine 4.14 H (0.52-1.04) mg/dL Glucose 185 H (74-99) mg/dL POC Glucose (mg/dL) 126 H (75-99) mg/dL Calcium 8.2 L (8.4-10.2) mg/dL Total Protein (PEP) (6.2-8.2) g/dL Microbiology - Last 24 Hours (Table) 01/10/18 16:30 Blood Culture - Preliminary Blood No Growth after 120 hours Assessment and Plan Plan: Assessment: 1. Acute kidney injury versus chronic kidney disease. Unknown baseline creatinine. No improvement in renal function. Creatinine 7.2 on January 14. CAT scan revealed cortical thinning of the kidneys suggestive of underlying chronic kidney disease. Started on hemodialysis on January 14. UPC 1.6. Hepatitis, GUI, complement levels, double-stranded DNA antibody negative. 2. Left iliopsoas abscess status post aspiration maintained on IV antibiotics. 3. Metabolic acidosis secondary to acute kidney injury. Improved. 4. Hypokalemia from poor oral intake. Improved post replacement. 5. Hyponatremia secondary to acute kidney injury. Improved postdialysis. 6. Anemia. Iron deficiency noted. 7. 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 8. Hyperphosphatemia secondary to acute kidney injury. Phosphorus 5.5. Expect improvement postdialysis. Plan: Continue normal saline at 50 mL an hour. Third treatment of hemodialysis today. Continue to monitor renal function and urine output closely. Maintain Aranesp. Ferrlecit 125 mg IV daily for 3 days. Third dose today. Follow-up immunofixation studies. manager oracle database on board to help facilitate outpatient hemodialysis set up.
--- NOTE | 2018-01-16 11:09 | P.PN ---
Subjective Progress Note Date: 01/16/18 BMx2 today, no complaints of pain. Resting comfortably in bed Objective - Vital Signs Vital signs: Vital Signs Temp 97.8 F 01/16/18 06:01 Pulse 71 01/16/18 06:01 Resp 18 01/16/18 07:43 BP 147/64 01/16/18 06:01 Pulse Ox 95 01/16/18 06:01 Intake & Output 01/15/18 01/16/18 01/16/18 18:59 06:59 18:59 Intake Total 500 400 Output Total 51 100 Balance 449 300 Weight 81 kg Intake: Intake, IV Titration 500 400 Amount Sodium Chloride 0.9% 1, 400 400 000 ml @ 50 mls/hr IV . Q20H [facility] Rx#:[id number] Sodium Ferric Gluconat- 100 Sucrose 125 mg In Sodium Chloride 0.9% 100 ml @ 100 mls/hr IVPB DAILY [facility] Rx#:[id number] Output: Urine 50 100 Emesis 1 Other: Voiding Method Indwelling Catheter Indwelling Catheter Indwelling Catheter # Bowel Movements 1 2 - Constitutional General appearance: Present: cooperative - Respiratory Details: nonlabored - Cardiovascular Rhythm: regular - Gastrointestinal Gastrointestinal Comment(s): s/nt/mild distention - Psychiatric Psychiatric: Present: A&O x's 3 - Labs CBC & Chem 7: 01/14/18 07:40 01/16/18 08:59 Labs: Abnormal Lab Results - Last 24 Hours (Table) 01/14/18 01/15/18 01/15/18 Range/Units 07:40 12:27 20:47 Sodium (137-145) mmol/L BUN (7-17) mg/dL Creatinine (0.52-1.04) mg/dL Glucose (74-99) mg/dL POC Glucose (mg/dL) 105 H 145 H (75-99) mg/dL Calcium (8.4-10.2) mg/dL Total Protein (PEP) 5.2 L (6.2-8.2) g/dL 01/16/18 01/16/18 Range/Units 07:18 08:59 Sodium 133 L (137-145) mmol/L BUN 43 H (7-17) mg/dL Creatinine 4.14 H (0.52-1.04) mg/dL Glucose 185 H (74-99) mg/dL POC Glucose (mg/dL) 126 H (75-99) mg/dL Calcium 8.2 L (8.4-10.2) mg/dL Total Protein (PEP) (6.2-8.2) g/dL Microbiology - Last 24 Hours (Table) 01/10/18 16:30 Blood Culture - Preliminary Blood No Growth after 120 hours Assessment and Plan Assessment: Left Psoas abscess Plan: Patient is having BM, diet as tolerated. No plans for acute surgical intervention
[2018-01-16 12:16] LABS: Glucose,Whole Blood 202 mg/dL (75-99)
[2018-01-16] MEDS: MULTIVITAMINS, THERA 1 EACH TAB PO SCH (12:47)
[2018-01-16 13:14] LABS: HCT 21.7 % (34.0-46.0); HGB 7.2 gm/dL (11.4-16.0); MCH 29.3 pg (25.0-35.0); MCHC 33.2 g/dL (31.0-37.0); MCV 88.1 fL (80.0-100.0); Mean Platelet Volume 8.9; Platelet Count 254 k/uL (150-450); RBC 2.46 m/uL (3.80-5.40); RDW 13.5 % (11.5-15.5); WBC 10.7 k/uL (3.8-10.6)
[2018-01-16 14:17] LABS: C-ANCA <1:20 Titer (<1:20); P-ANCA <1:20 Titer (<1:20)
[2018-01-16 17:05] LABS: Glucose,Whole Blood 189 mg/dL (75-99)
[2018-01-16] MEDS: POLYETHYLENE GLYCOL 3350 17 GM POWD.PACK PO SCH (20:53)
[2018-01-16 21:13] LABS: Glucose,Whole Blood 300 mg/dL (75-99)
[2018-01-16] MEDS: INSULIN DETEMIR 100 UNIT/ML 10 ML VIAL SQ SCH (21:32)
--- NOTE | 2018-01-16 23:44 | PN ---
PROGRESS NOTE SUBJECTIVE: This is a white female admitted with acute renal failure, intra-abdominal abscess, sepsis. Patient had dialysis for 3 days in a row. She is remains on broad-spectrum antibiotics for intra-abdominal abscess and sepsis. CARDIOVASCULAR: S1, S2. LUNGS: Clear. GI: Soft. HEMATOLOGY: Negative Homans'. ASSESSMENT: 1. Acute renal failure. 2. Intra-abdominal abscess. 3. Sepsis. Continue current treatment, broad-spectrum antibiotics, dialysis for 3 days in a row. Await dialysis and renal physician's recommendations for long-term dialysis. Maintain on IV antibiotics at this time. MMODL / IJN: [id number] /
[2018-01-17] MEDS: SODIUM CHLORIDE 0.9% 1,000 ML IV SCH ×2 (05:53→21:53)
[2018-01-17] MEDS: PIPERACILLIN-TAZOBACTAM 3.375 GM in DEXTROSE/WATER 1 50ML.BAG IVPB SCH ×2 (05:55→18:00)
[2018-01-17 07:38] LABS: Glucose,Whole Blood 116 mg/dL (75-99)
[2018-01-17] MEDS: SODIUM FERRIC GLUCONAT-SUCROSE 125 MG in SODIUM CHLORIDE 0.9% 100 ML IVPB SCH (08:27)
[2018-01-17] MEDS: hydrALAZINE HCL 50 MG TAB PO SCH ×2 (08:28→21:06)
[2018-01-17] MEDS: CARVEDILOL 12.5 MG TAB PO SCH ×2 (08:28→18:00)
[2018-01-17] MEDS: amLODIPine 10 MG TAB PO SCH (08:28)
[2018-01-17] MEDS: FENOFIBRATE 160 MG TAB PO SCH (08:28)
[2018-01-17] MEDS: PANTOPRAZOLE 40 MG TABLET PO SCH (08:28)
[2018-01-17] MEDS: ASPIRIN 81 MG PO SCH (08:28)
[2018-01-17] MEDS: SPIRONOLACTONE 25 MG TAB PO SCH ×2 (08:28→21:06)
[2018-01-17] MEDS: CHOLECALCIFEROL 1,000 UNIT TAB PO SCH (08:28)
[2018-01-17] MEDS: INSULIN ASPART 100 UNIT/ML 1 ML 10 ML VIAL SQ SCH ×4 (08:29→21:07)
[2018-01-17 09:16] LABS: Calcium 8.3 mg/dL (8.4-10.2)
--- NOTE | 2018-01-17 11:00 | PN ---
PROGRESS NOTE DATE OF SERVICE: 01/16/2018 REASON FOR FOLLOWUP: Possible left iliopsoas abscess. INTERVAL HISTORY: The patient is afebrile. She is more awake and alert today. She denies having any nausea, no vomiting. Denies having abdominal pain and no diarrhea. PHYSICAL EXAMINATION: Blood pressure 156/56 with pulse of 65, temperature 98.6, She is 93% on room air. General description is an elderly female, lying in bed in no distress. RESPIRATORY SYSTEM: Unlabored breathing, clear to auscultation anteriorly. HEART: S1, S2. Regular rate and rhythm. ABDOMEN: Soft, no tenderness. EXTREMITIES: No edema of the feet. LABS: Hemoglobin 7.8, white count 10.7, BUN of 43, creatinine 4.14. Cultures from the drainage has been negative. DIAGNOSTIC IMPRESSION AND PLAN: Patient with abnormal CT with concern for possible left iliopsoas mass versus an abscess status post CT-guided drainage. The history of pathology was nondiagnostic and cultures have been negative. We will discuss with the surgeon to do a repeat CT to follow up on that lesion for the workup. Keep the patient on Zosyn at this point. Continue supportive care. MMODL / IJN: [id number] /
[2018-01-17 12:35] LABS: Glucose,Whole Blood 134 mg/dL (75-99)
[2018-01-17] MEDS: MULTIVITAMINS, THERA 1 EACH TAB PO SCH (13:00)
[2018-01-17] MEDS: IOPAMIDOL-300 CONTRAST 30 ML VIAL (ORAL USE) PO PRN ×2 (13:20→14:15)
--- NOTE | 2018-01-17 13:43 | P.PN ---
Subjective Patient is seen in follow-up for chronic kidney disease. Unclear as to what her baseline renal function is. There has been no improvement in her renal function this admission. Creatinine was up to 7.2 on January 14. Patient's currently resting in bed. She has a Thomas catheter in place and is nonoliguric. No vomiting or diarrhea. Patient had a permacath placed on January 14 and was started on hemodialysis. She has been tolerating hemodialysis well so far. No active complaints at this time. Vital signs are stable. General: The patient appeared well nourished and normally developed. HEENT: Head exam is unremarkable. Neck is without jugular venous distension. LUNGS: Lungs are clear to auscultation and percussion. Breath sounds decreased. HEART: Rate and Rhythm are regular. First and second heart sounds normal. No murmurs, rubs or gallops. ABDOMEN: Abdominal exam reveals normal bowel sounds. Non-tender and non- distended. No evidence of peritonitis. EXTREMITITES: No clubbing, cyanosis, or edema. Objective - Vital Signs Vital signs: Vital Signs Temp 98.8 F 01/17/18 07:00 Pulse 70 01/17/18 07:00 Resp 18 01/17/18 07:00 BP 161/55 01/17/18 07:00 Pulse Ox 91 L 01/17/18 07:00 Intake & Output 01/16/18 01/17/18 01/17/18 18:59 06:59 18:59 Output Total 125 Balance -125 Weight 79 kg Output: Urine 125 Other: Voiding Method Indwelling Catheter Indwelling Catheter Indwelling Catheter # Voids 325 # Bowel Movements 1 1 - Labs CBC & Chem 7: 01/16/18 08:59 01/17/18 08:02 Labs: Abnormal Lab Results - Last 24 Hours (Table) 01/14/18 01/15/18 01/16/18 Range/Units 07:40 08:48 16:55 Sodium (137-145) mmol/L BUN (7-17) mg/dL Creatinine (0.52-1.04) mg/dL Glucose (74-99) mg/dL POC Glucose (mg/dL) 189 H (75-99) mg/dL Calcium (8.4-10.2) mg/dL Albumin (PEP) 2.40 L (3.80-4.90) g/dL Mtvyi-[id number] 0.56 H (0.10-0.40) g/dL Gamma Globulins 0.60 L (0.70-1.50) g/dL Tot Complement (CH50) 97 H (42 - 95) U/mL 01/16/18 01/17/18 01/17/18 Range/Units 20:51 07:18 08:02 Sodium 134 L (137-145) mmol/L BUN 28 H (7-17) mg/dL Creatinine 3.23 H (0.52-1.04) mg/dL Glucose 104 H (74-99) mg/dL POC Glucose (mg/dL) 300 H 116 H (75-99) mg/dL Calcium 8.3 L (8.4-10.2) mg/dL Albumin (PEP) (3.80-4.90) g/dL Rhdnh-3-Mxnuclhdv (0.10-0.40) g/dL Gamma Globulins (0.70-1.50) g/dL Tot Complement (CH50) (42 - 95) U/mL 01/17/18 Range/Units 12:29 Sodium (137-145) mmol/L BUN (7-17) mg/dL Creatinine (0.52-1.04) mg/dL Glucose (74-99) mg/dL POC Glucose (mg/dL) 134 H (75-99) mg/dL Calcium (8.4-10.2) mg/dL Albumin (PEP) (3.80-4.90) g/dL Tksfz-0-Yuaiggdaj (0.10-0.40) g/dL Gamma Globulins (0.70-1.50) g/dL Tot Complement (CH50) (42 - 95) U/mL Microbiology - Last 24 Hours (Table) 01/12/18 15:50 Anaerobic Culture - Final Other - Other 01/10/18 16:30 Blood Culture - Final Blood No Growth after 144 hours Assessment and Plan Plan: Assessment: 1. Acute kidney injury versus chronic kidney disease. Unknown baseline creatinine. No improvement in renal function. Creatinine 7.2 on January 14. CAT scan revealed cortical thinning of the kidneys suggestive of underlying chronic kidney disease. Started on hemodialysis on January 14. UPC 1.6. Hepatitis, GUI, complement levels, double-stranded DNA antibody negative. Urine immunofixation negative. 2. Left iliopsoas abscess status post aspiration maintained on IV antibiotics. 3. Metabolic acidosis secondary to acute kidney injury. Improved. 4. Hypokalemia from poor oral intake. Improved post replacement. 5. Hyponatremia secondary to acute kidney injury. Improved postdialysis. 6. Anemia. Iron deficiency noted - status post 3 doses of IV iron. 7. 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 8. Hyperphosphatemia secondary to acute kidney injury. Phosphorus 5.5. Expect improvement postdialysis. Plan: Continue normal saline at 50 mL an hour. Hemodialysis tomorrow. Continue to monitor renal function and urine output closely. Maintain Aranesp. Follow-up immunofixation studies. advertising assistant manager on board to help facilitate outpatient hemodialysis set up.
--- NOTE | 2018-01-17 15:54 | CT ---
EXAMINATION TYPE: CT abdomen pelvis wo con DATE OF EXAM: 01/17/2018 HISTORY: Generalized pain with nausea CT DLP: 892.2 mGycm. Automated Exposure Control for Dose Reduction was Utilized. TECHNIQUE: CT scan of the abdomen and pelvis is performed with oral but without IV contrast. COMPARISON: CT abdomen and pelvis from one week earlier FINDINGS: Within the limitations of a non-contrast study, the following observations are made. LUNG BASES: There is redemonstration of cardiomegaly. There is three-vessel severe coronary artery ca lcification and/or stents redemonstrated. There are small sized bilateral pleural fluid collections o r fusion is increase in size from prior exam with associated compressive atelectasis in scattered are as of consolidation and/or atelectasis centrally in both lungs. LIVER/GB: Gallbladder is not visualized and presumed surgically absent similar to prior. PANCREAS: No significant abnormality is seen. SPLEEN: No significant abnormality is seen. ADRENALS: No significant abnormality is seen. KIDNEYS: Central calcifications throughout both kidneys favor vascular etiology. There is cortical th inning with lobulation bilaterally, there is persistent 2.5 cm isodense exophytic area laterally uppe r to mid pole level left kidney that correlated with simple appearing cyst on ultrasound January 13. No hydronephrosis is evident. Thomas catheter is seen in decompressed bladder which is thus suboptimally evaluated. BOWEL: Stable small size hiatal hernia. Oral contrast does not reach distal ileal level making evalua tion slightly suboptimal. There is no suspicious small or large bowel dilatation. GENITAL ORGANS: There is new small to moderate amount of free fluid in pelvic cul-de-sac. LYMPH NODES: No greater than 1cm abdominal or pelvic lymph nodes are appreciated. There is stable pro minent but subcentimeter anterior perigastric lymph node on axial image 19. OSSEOUS STRUCTURES: There is moderate to severe multilevel spurring and disc space narrowing througho ut the thoracolumbar spine. Demineralization is present. There is facet arthropathy throughout the claudia mbar spine. There is persistent 2.0 cm low dense area left iliopsoas muscle axial image 47 unchanged in size and appearance from prior study. This area was biopsied January 12. Correlate with those results. There is new moderate diffuse soft tissue anasarca or subcutaneous edema OTHER: There is severe calcification of aorta extending into smaller branch vessels redemonstrated. IMPRESSION: No bowel obstruction is seen. New moderate diffuse soft tissue anasarca and increasing si ze small bilateral pleural effusions with new small to moderate amount of pelvic ascites likely refle cting desired fluid overload state. No suspicious new finding is seen to account for patient's sympto ms.
[2018-01-17 17:41] LABS: Glucose,Whole Blood 176 mg/dL (75-99)
[2018-01-17 20:40] LABS: Glucose,Whole Blood 182 mg/dL (75-99)
[2018-01-17] MEDS: POLYETHYLENE GLYCOL 3350 17 GM POWD.PACK PO SCH (21:05)
[2018-01-17] MEDS: INSULIN DETEMIR 100 UNIT/ML 10 ML VIAL SQ SCH (21:07)
--- NOTE | 2018-01-17 23:24 | PN ---
PROGRESS NOTE DATE OF SERVICE: 01/17/2018. REASON FOR FOLLOWUP: Left iliopsoas questionable abscess. INTERVAL HISTORY: The patient is afebrile. He has been breathing comfortably. Denies any chest pain, cough, abdominal pain, nausea, vomiting. No abdominal pain or any diarrhea. EXAMINATION: Blood pressure 155/56 with a pulse of 54, temperature 97.6. She is 93% on 3L nasal cannula. General description is an elderly female lying in bed in no distress. RESPIRATORY SYSTEM: Unlabored breathing. Clear to auscultation anteriorly. HEART: S1, S2. Regular rate and rhythm. ABDOMEN: Soft. No tenderness. LABS: BUN of 28, creatinine 3.23. Repeat CT abdomen-pelvis was ordered which currently is not mentioning the previously described left iliopsoas abscess. DIAGNOSTIC IMPRESSION AND PLAN: Patient with a left iliopsoas questionable abscess, status post CT-guided drainage. Blood culture has been negative and the biopsy was nondiagnostic. A repeat CT is not showing any evidence of the abscess. We will review a repeat CT with the radiologist. Keep the patient on Zosyn at this point. Continue supportive care. MMODL / IJN: [id number] /
--- NOTE | 2018-01-18 00:48 | PN ---
PROGRESS NOTE SUBJECTIVE: This is an 82-year-old white female who is getting dialysis on a daily basis. Creatinine is down to 3.[address] scan of the abdomen shows chronic kidney disease. She has hepatitis A complement levels, double strand DNA are negative left iliopsoas abscess. Her abdominal pain is improved. Biopsies are nonspecific. Repeat CT scan shows there is no abscess metabolic acidosis, improving, hyponatremia and hypokalemia, improving, anemia on IV iron, hyperphosphatemia. Continue with dialysis, IV fluids, Aranesp, immunofixation studies, please see further orders. Probably outpatient dialysis. Give broad-spectrum antibiotics per Dr. Gutierrez. Please see further orders. MMODL / IJN: [id number] /
[2018-01-18] MEDS: PIPERACILLIN-TAZOBACTAM 3.375 GM in DEXTROSE/WATER 1 50ML.BAG IVPB SCH ×2 (05:44→17:34)
[2018-01-18] MEDS: SODIUM CHLORIDE 0.9% 1,000 ML IV SCH (05:45)
[2018-01-18 06:55] LABS: Glucose,Whole Blood 101 mg/dL (75-99)
[2018-01-18] MEDS: INSULIN ASPART 100 UNIT/ML 1 ML 10 ML VIAL SQ SCH ×4 (07:42→21:19)
[2018-01-18] MEDS: SPIRONOLACTONE 25 MG TAB PO SCH ×2 (08:39→21:18)
[2018-01-18] MEDS: amLODIPine 10 MG TAB PO SCH (08:40)
[2018-01-18] MEDS: FENOFIBRATE 160 MG TAB PO SCH (08:40)
[2018-01-18] MEDS: CHOLECALCIFEROL 1,000 UNIT TAB PO SCH (08:40)
[2018-01-18] MEDS: hydrALAZINE HCL 50 MG TAB PO SCH ×2 (08:40→21:18)
[2018-01-18] MEDS: ASPIRIN 81 MG PO SCH (08:40)
[2018-01-18] MEDS: PANTOPRAZOLE 40 MG TABLET PO SCH (08:41)
[2018-01-18] MEDS: CARVEDILOL 12.5 MG TAB PO SCH ×2 (08:41→17:34)
[2018-01-18 09:02] LABS: Basophils % (A) 0 %; Eosinophils # (A) 0.2 k/uL (0-0.7); Eosinophils % (A) 1 %; HCT 22.6 % (34.0-46.0); HGB 7.4 gm/dL (11.4-16.0); Lymphocytes # (A) 1.3 k/uL (1.0-4.8); Lymphocytes % (A) 9 %; MCH 28.6 pg (25.0-35.0); MCHC 32.7 g/dL (31.0-37.0); MCV 87.5 fL (80.0-100.0); Mean Platelet Volume 8.4; Monocytes # (A) 0.5 k/uL (0-1.0); Monocytes % (A) 3 %; Neutrophils % (A) 86 %; Platelet Count 321 k/uL (150-450); RBC 2.59 m/uL (3.80-5.40); RDW 14.6 % (11.5-15.5); WBC 15.2 k/uL (3.8-10.6)
--- NOTE | 2018-01-18 11:38 | P.PN ---
Subjective Patient is seen in follow-up for chronic kidney disease. Unclear as to what her baseline renal function is. There has been no improvement in her renal function this admission. Creatinine was up to 7.2 on January 14. Patient's currently resting in bed. She has a Thomas catheter in place and is nonoliguric. No vomiting or diarrhea. Patient had a permacath placed on January 14 and was started on hemodialysis. She has been tolerating hemodialysis well so far. No active complaints at this time. Vital signs are stable. General: The patient appeared well nourished and normally developed. HEENT: Head exam is unremarkable. Neck is without jugular venous distension. LUNGS: Lungs are clear to auscultation and percussion. Breath sounds decreased. HEART: Rate and Rhythm are regular. First and second heart sounds normal. No murmurs, rubs or gallops. ABDOMEN: Abdominal exam reveals normal bowel sounds. Non-tender and non- distended. No evidence of peritonitis. EXTREMITITES: No clubbing, cyanosis, or edema. Objective - Vital Signs Vital signs: Vital Signs Temp 97.3 F L 01/18/18 06:05 Pulse 69 01/18/18 06:05 Resp 17 01/18/18 06:05 BP 165/74 01/18/18 06:05 Pulse Ox 95 01/18/18 06:05 Intake & Output 01/17/18 01/18/18 01/18/18 18:59 06:59 18:59 Intake Total 500 Output Total 300 350 Balance 200 -350 Weight 79 kg 80 kg Intake: Intake, IV Titration 500 Amount Sodium Chloride 0.9% 1, 400 000 ml @ 50 mls/hr IV . Q20H [facility] Rx#:[id number] Sodium Ferric Gluconat- 100 Sucrose 125 mg In Sodium Chloride 0.9% 100 ml @ 100 mls/hr IVPB DAILY [facility] Rx#:[id number] Output: Urine 300 350 Other: Voiding Method Indwelling Catheter Indwelling Catheter Indwelling Catheter # Bowel Movements 1 1 - Labs CBC & Chem 7: 01/18/18 07:18 01/17/18 08:02 Labs: Abnormal Lab Results - Last 24 Hours (Table) 01/17/18 01/17/18 01/17/18 Range/Units 12:29 17:07 20:40 WBC (3.8-10.6) k/uL RBC (3.80-5.40) m/uL Hgb (11.4-16.0) gm/dL Hct (34.0-46.0) % Neutrophils # (1.3-7.7) k/uL POC Glucose (mg/dL) 134 H 176 H 182 H (75-99) mg/dL 01/18/18 01/18/18 Range/Units 06:51 07:18 WBC 15.2 H (3.8-10.6) k/uL RBC 2.59 L (3.80-5.40) m/uL Hgb 7.4 L (11.4-16.0) gm/dL Hct 22.6 L (34.0-46.0) % Neutrophils # 13.0 H (1.3-7.7) k/uL POC Glucose (mg/dL) 101 H (75-99) mg/dL Assessment and Plan Plan: Assessment: 1. Acute kidney injury versus chronic kidney disease. Unknown baseline creatinine. No improvement in renal function. Creatinine 7.2 on January 14. CAT scan revealed cortical thinning of the kidneys suggestive of underlying chronic kidney disease. Started on hemodialysis on January 14. UPC 1.6. Hepatitis, GUI, complement levels, double-stranded DNA antibody negative. Serum and urine immunofixation negative. 2. Left iliopsoas abscess status post aspiration maintained on IV antibiotics. 3. Metabolic acidosis secondary to acute kidney injury. Improved. 4. Hypokalemia from poor oral intake. Improved post replacement. 5. Hyponatremia secondary to acute kidney injury. Improved postdialysis. 6. Anemia. Iron deficiency noted - status post 3 doses of IV iron. 7. 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 8. Hyperphosphatemia secondary to acute kidney injury. Phosphorus 5.5. Expect improvement postdialysis. Plan: Continue normal saline at 50 mL an hour. She will now be maintained on hemodialysis on a Monday schedule. Continue to monitor renal function and urine output closely. Maintain Michael. manager research on board to help facilitate outpatient hemodialysis set up.
[2018-01-18 12:28] LABS: Glucose,Whole Blood 121 mg/dL (75-99)
[2018-01-18] MEDS: MULTIVITAMINS, THERA 1 EACH TAB PO SCH (12:50)
[2018-01-18 16:41] LABS: Glucose,Whole Blood 191 mg/dL (75-99)
[2018-01-18 20:43] LABS: Glucose,Whole Blood 201 mg/dL (75-99)
[2018-01-18] MEDS: POLYETHYLENE GLYCOL 3350 17 GM POWD.PACK PO SCH (21:18)
[2018-01-18] MEDS: INSULIN DETEMIR 100 UNIT/ML 10 ML VIAL SQ SCH (21:20)
--- NOTE | 2018-01-18 22:13 | PN ---
PROGRESS NOTE SUBJECTIVE: This is a white female who was receiving dialysis due to elevated creatinine. She is tolerating hemodialysis, resting in bed. Thomas catheter. She is nonoliguric. No vomiting or diarrhea. VITAL SIGNS: Stable. Lungs are clear. CARDIOVASCULAR: Regular rate and rhythm. ABDOMEN: Soft 1. EXTREMITIES: No cyanosis, clubbing or edema. Temp 97.3, pulse 69, respiratory rate 17, blood pressure 165/74, O2 95%. ASSESSMENT: 1. Acute kidney injury versus chronic kidney disease. 2. Insulin-dependent diabetes mellitus. 3. Hyponatremia. 4. Hyperkalemia. 5. Metabolic acidosis. 6. Abscess of the left iliopsoas. 7. Hyperphosphatemia. Continue normal saline at 50 mL an hour. Continue with dialysis. Continue Aranesp. Outpatient dialysis set up, then she can be discharged home. MMODL / IJN: [id number] /
--- NOTE | 2018-01-18 23:25 | PN ---
PROGRESS NOTE DATE OF SERVICE: 01/18/2018 REASON FOR FOLLOWUP: Abnormal left iliopsoas with a question of possible abscess. INTERVAL HISTORY: The patient is afebrile. She has been breathing comfortably. Denies having any chest pain or shortness of breath or cough. No abdominal pain or any diarrhea. PHYSICAL EXAMINATION: Blood pressure 143/50 with a pulse of 66, temperature 98.4. She is 92% on room air. General description is an elderly female lying in bed in no distress. No tachypnea or accessory muscle of respiration use. HEENT examination shows slight pallor. No scleral icterus. Oral mucous membrane is dry. LUNGS: Unlabored breathing. Clear to auscultation anteriorly. HEART: S1, S2. Regular rate and rhythm. ABDOMEN: Soft. No tenderness. LABS: Hemoglobin 7.4, white count 15.2. The CT-guided fluid drainage culture has been negative. CT was reviewed with the radiologist. It did show overall decrease in the size of the iliopsoas; however, no inflammatory changes and less likely to be an abscess. DIAGNOSTIC IMPRESSION AND PLAN: Patient admitted to hospital with abdominal pain in a patient who did have a CT of abdomen and pelvis which did show some abnormality on the left iliopsoas with a concern for possible abscess. However, she did have a CT-guided aspirate of the same with removal of a small amount of the drainage material. The histopathology was non- diagnostic and culture has been negative. Repeat CT did show a decrease in the size; however, there were no surrounding inflammatory changes, making it to be less likely an abscess. Recommend discontinuation of the IV antibiotic on discharge and watching her clinical course closely. She may benefit from a repeat CT scan in a few weeks in the outpatient setting. Continue with supportive care. MMODL / IJN: [id number] / TAWNYA
[2018-01-19] MEDS: PIPERACILLIN-TAZOBACTAM 3.375 GM in DEXTROSE/WATER 1 50ML.BAG IVPB SCH ×2 (06:20→16:52)
[2018-01-19 07:25] LABS: Glucose,Whole Blood 118 mg/dL (75-99)
[2018-01-19] MEDS: INSULIN ASPART 100 UNIT/ML 1 ML 10 ML VIAL SQ SCH ×4 (07:28→23:19)
[2018-01-19] MEDS: SPIRONOLACTONE 25 MG TAB PO SCH ×2 (08:51→23:04)
[2018-01-19] MEDS: CARVEDILOL 12.5 MG TAB PO SCH ×2 (08:51→16:52)
[2018-01-19] MEDS: MULTIVITAMINS, THERA 1 EACH TAB PO SCH (08:51)
[2018-01-19] MEDS: amLODIPine 10 MG TAB PO SCH (08:51)
[2018-01-19] MEDS: CHOLECALCIFEROL 1,000 UNIT TAB PO SCH (08:51)
[2018-01-19] MEDS: ASPIRIN 81 MG PO SCH (08:52)
[2018-01-19] MEDS: PANTOPRAZOLE 40 MG TABLET PO SCH (08:52)
[2018-01-19] MEDS: FENOFIBRATE 160 MG TAB PO SCH (08:52)
[2018-01-19] MEDS: hydrALAZINE HCL 50 MG TAB PO SCH ×2 (08:52→23:04)
--- NOTE | 2018-01-19 11:36 | XR ---
EXAMINATION TYPE: XR chest 1V portable DATE OF EXAM: 01/19/2018 COMPARISON: 01/14/2018 HISTORY: Difficulty breathing TECHNIQUE: Single frontal view of the chest is obtained. FINDINGS: There is redemonstration of a a small layering right pleural effusion with associated airs pace disease with improved aeration. However there is new left basilar opacity that has developed in the interim. Mild interstitial edema remains. Cardiomegaly and dual-lumen hemodialysis catheter that is right sided terminating in the high right atrium are unchanged from the prior. Degenerative change s of the shoulders and spine are noted. IMPRESSION: Improved aeration of the right lung base, however there is interval development of a left basilar opa city. Given the persistent small right pleural effusion and dependent location of these opacities con fluent pulmonary edema suspected in addition to the persistent mild interstitial edema.
[2018-01-19 11:40] LABS: Basophils # (A) 0.1 k/uL (0-0.2); Basophils % (A) 0 %; Eosinophils # (A) 0.1 k/uL (0-0.7); Eosinophils % (A) 1 %; HCT 22.6 % (34.0-46.0); HGB 7.4 gm/dL (11.4-16.0); Lymphocytes % (A) 7 %; MCH 28.9 pg (25.0-35.0); MCHC 32.8 g/dL (31.0-37.0); Mean Platelet Volume 8.2; Monocytes # (A) 0.5 k/uL (0-1.0); Monocytes % (A) 3 %; Neutrophils # (A) 13.4 k/uL (1.3-7.7); Neutrophils % (A) 88 %; Platelet Count 320 k/uL (150-450); RBC 2.57 m/uL (3.80-5.40); WBC 15.1 k/uL (3.8-10.6)
[2018-01-19 11:54] LABS: Albumin 2.6 g/dL (3.5-5.0); Calcium 7.9 mg/dL (8.4-10.2); Potassium 3.7 mmol/L (3.5-5.1); Total Bilirubin 0.4 mg/dL (0.2-1.3)
[2018-01-19 12:19] LABS: Glucose,Whole Blood 204 mg/dL (75-99)
[2018-01-19] MEDS: SODIUM CHLORIDE 0.9% 1,000 ML IV SCH (13:37)
--- NOTE | 2018-01-19 14:56 | P.PN ---
Subjective Patient is seen in follow-up for chronic kidney disease. Unclear as to what her baseline renal function is. There has been no improvement in her renal function this admission. Creatinine was up to 7.2 on January 14. Patient's currently resting in bed. She has a Thomas catheter in place and is nonoliguric. No vomiting or diarrhea. Patient had a permacath placed on January 14 and was started on hemodialysis. She has been tolerating hemodialysis well so far. She admits to dyspnea. Chest x-ray suggestive of vascular congestion. Vital signs are stable. General: The patient appeared well nourished and normally developed. HEENT: Head exam is unremarkable. Neck is without jugular venous distension. LUNGS: Lungs are clear to auscultation and percussion. Breath sounds decreased. HEART: Rate and Rhythm are regular. First and second heart sounds normal. No murmurs, rubs or gallops. ABDOMEN: Abdominal exam reveals normal bowel sounds. Non-tender and non- distended. No evidence of peritonitis. EXTREMITITES: No clubbing, cyanosis, or edema. Objective - Vital Signs Vital signs: Vital Signs Temp 97.4 F L 01/19/18 14:27 Pulse 69 01/19/18 14:27 Resp 18 01/19/18 14:27 BP 152/57 01/19/18 14:27 Pulse Ox 91 L 01/19/18 14:27 Intake & Output 01/18/18 01/19/18 01/19/18 18:59 06:59 18:59 Intake Total 200 Output Total 450 650 Balance -450 -450 Weight 80 kg Intake: Oral 200 Output: Urine 450 650 Other: Voiding Method Indwelling Catheter Indwelling Catheter Indwelling Catheter # Bowel Movements 1 1 0 - Labs CBC & Chem 7: 01/19/18 11:13 01/19/18 11:13 Labs: Abnormal Lab Results - Last 24 Hours (Table) 01/18/18 01/18/18 01/19/18 Range/Units 16:40 20:40 07:03 WBC (3.8-10.6) k/uL RBC (3.80-5.40) m/uL Hgb (11.4-16.0) gm/dL Hct (34.0-46.0) % Neutrophils # (1.3-7.7) k/uL Sodium (137-145) mmol/L BUN (7-17) mg/dL Creatinine (0.52-1.04) mg/dL Glucose (74-99) mg/dL POC Glucose (mg/dL) 191 H 201 H 118 H (75-99) mg/dL Calcium (8.4-10.2) mg/dL Total Protein (6.3-8.2) g/dL Albumin (3.5-5.0) g/dL 01/19/18 01/19/18 01/19/18 Range/Units 11:13 11:13 12:18 WBC 15.1 H (3.8-10.6) k/uL RBC 2.57 L (3.80-5.40) m/uL Hgb 7.4 L (11.4-16.0) gm/dL Hct 22.6 L (34.0-46.0) % Neutrophils # 13.4 H (1.3-7.7) k/uL Sodium 131 L (137-145) mmol/L BUN 24 H (7-17) mg/dL Creatinine 3.27 H (0.52-1.04) mg/dL Glucose 193 H (74-99) mg/dL POC Glucose (mg/dL) 204 H (75-99) mg/dL Calcium 7.9 L (8.4-10.2) mg/dL Total Protein 5.0 L (6.3-8.2) g/dL Albumin 2.6 L (3.5-5.0) g/dL Assessment and Plan Plan: Assessment: 1. Acute kidney injury versus chronic kidney disease. Unknown baseline creatinine. No improvement in renal function. Creatinine 7.2 on January 14. CAT scan revealed cortical thinning of the kidneys suggestive of underlying chronic kidney disease. Started on hemodialysis on January 14. UPC 1.6. Hepatitis, GUI, complement levels, double-stranded DNA antibody negative. Serum and urine immunofixation negative. 2. Left iliopsoas abscess status post aspiration. Off IV antibiotics. 3. Metabolic acidosis secondary to acute kidney injury. Improved. 4. Hypokalemia from poor oral intake. Improved post replacement. 5. Hyponatremia secondary to acute kidney injury. 6. Anemia. Iron deficiency noted - status post 3 doses of IV iron. 7. 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 8. Hyperphosphatemia secondary to acute kidney injury. Phosphorus 5.5. Expect improvement postdialysis. Plan: Hep-Lock IV fluids. Hemodialysis today with goal to liters ultrafiltration. She will now be maintained on hemodialysis on a Monday schedule. Continue to monitor renal function and urine output closely. Maintain Aranesp. Outpatient dialysis has been set up. She will be discharged most likely Monday as she will be going to rehab facility.
[2018-01-19 17:03] LABS: Glucose,Whole Blood 253 mg/dL (75-99)
--- NOTE | 2018-01-19 17:38 | PN ---
PROGRESS NOTE DATE OF SERVICE: 01/19/2018 REASON FOR FOLLOWUP: Possible left iliopsoas abscess. INTERVAL HISTORY: The patient is afebrile. She has been breathing slightly comfortably. Denies significant chest pain. Occasional cough. No abdominal pain or any diarrhea. PHYSICAL EXAMINATION: Blood pressure 152/57 with a pulse of 69, temperature 97.4. She is 91% on 3 L nasal cannula. General description is an elderly female up in the chair in no distress. RESPIRATORY SYSTEM: Unlabored breathing with decreased breath sounds in the bases. No wheeze. HEART: S1, S2. Regular rate and rhythm. ABDOMEN: Soft. No tenderness. EXTREMITIES: No edema of the feet. LABS: Hemoglobin 7.4, white count 15.1. BUN of 24, creatinine of 3.27. DIAGNOSTIC IMPRESSION AND PLAN: Patient with abnormality on the CT showing a left iliopsoas mass with a question of possible possible abscess; however, the culture has been negative. Repeat CT showed decrease in size. She is currently on Zosyn. That can be transitioned to a short course of oral Augmentin with close outpatient followup. Will monitor her clinical course closely. Continue with supportive care. MMODL / IJN: [id number] /
--- NOTE | 2018-01-19 18:29 | CONS ---
CONSULTATION Jane Vernon is an 82-year-old female who presented to the ED at [facility] on 01/10/2018. At that time, she had abdominal pain. She was found to be in acute renal failure, sepsis and was found to have a left iliopsoas abscess. She subsequently had the iliopsoas abscess drained by CT. She subsequently did not improve from a renal failure perspective and was started on dialysis. She was last dialyzed yesterday. She was noticed by the nurse to have increasing shortness of breath, somewhat labored breathing and is actually due for dialysis today. She is hard of hearing and gives me a limited amount of history. She denies any pain at this time and is lying at a 30- degree angle in bed. PAST MEDICAL HISTORY: Positive for diabetes mellitus type 2, congestive heart failure, hyperlipidemia, cholecystectomy. FAMILY HISTORY: Noncontributory. SOCIAL HISTORY: Patient does not smoke or drink alcohol. MEDICATIONS PRIOR TO ADMISSION: 1. Hydralazine. 2. Amlodipine. 3. Aldactone. 4. Prilosec. 5. Multivitamin. 6. Milk of magnesia. 7. Insulin. 8. Lasix. 9. Tricor. 10.Vitamin D3. 11.Coreg and. 12.Ecotrin. REVIEW OF SYSTEMS: Noncontributory other than for what is described in history of present illness. PHYSICAL EXAMINATION: Blood pressure is 157/57, respiratory rate of 18, pulse rate of 69, temperature of 97.4. Respirations are labored, shallow. O2 sat on 3L by nasal cannula is 91%. HEENT reveals pupils that are equal. Mild prominence of the jugular veins. Chest reveals decreased breath sounds, occasional rhonchi. Cardiovascular system reveals S1, S2. Abdomen is mildly distended. There is 2+ to 3+ pedal edema. LABS: Reveal a white count of 15.1, hemoglobin of 7.4. Sodium 131, potassium 3.7, chloride 101, bicarb 22, glucose 193, albumin of 2.6. Chest x-ray shows left basilar opacity, small right pleural effusion consistent with mild interstitial and pulmonary edema. IMPRESSION AT THIS TIME: 1. Dyspnea, most likely secondary to congestive heart failure in the setting of acute renal failure with fluid overload. 2. Anemia contributing to her dyspnea. 3. Recent sepsis due to an iliopsoas abscess. 4. Medical debility. 5. Malnourished state. At this point in time from a pulmonary standpoint, would recommend dialyzing the patient and removing fluid. She is slated for dialysis in the next few hours with removal of at least 2 L of fluid. Would watch her closely, keep her on supplemental oxygen, continue her on her current medications, which were reviewed. She will require further dialysis and removal of fluid over the next few days. We will follow her closely and appreciate the opportunity to participate in her care. I did discuss my thoughts with the patient's nurse. DONG / JACINTO: [id number] /
[2018-01-19 20:54] LABS: Glucose,Whole Blood 135 mg/dL (75-99)
[2018-01-19] MEDS ORDERED: HEPARIN SODIUM,PORCINE 5,000 UNIT/ML 1 ML VIAL ONE (22:00)
[2018-01-19] MEDS: POLYETHYLENE GLYCOL 3350 17 GM POWD.PACK PO SCH (23:03)
[2018-01-19] MEDS: INSULIN DETEMIR 100 UNIT/ML 10 ML VIAL SQ SCH (23:05)
--- NOTE | 2018-01-19 23:53 | PN ---
PROGRESS NOTE SUBJECTIVE: An 82-year-old white female with acute renal failure with sepsis and an iliopsoas abscess. She has drained by CT. CARDIOVASCULAR: S1, S2. LUNGS: Scattered rhonchi and wheeze. HEMATOLOGY: Negative Homans'. GI: Soft. Sitting up in bed, giving appropriate answers. Hemoglobin is 7.4, white count 15.1. Sodium 131, potassium 3.7. Albumin 2.6. Chest x- ray shows some basilar opacity right, a small right pleural effusion. 1. She has increased dyspnea secondary to fluid overload and congestive heart failure, possibly due to dialysis and acute renal failure. Will get Pulmonary involved. 2. Recent sepsis, malnourished state. She will need to go to a residential. She is going to get dialysis today to remove her fluid, pulmonary consult. Please see further orders. MMODL / IJN: [id number] /
[2018-01-20] MEDS ORDERED: FUROSEMIDE 10 MG/ML 10 ML VIAL IV STA ×2 (04:31→11:43)
[2018-01-20] MEDS: PIPERACILLIN-TAZOBACTAM 3.375 GM in DEXTROSE/WATER 1 50ML.BAG IVPB SCH ×2 (05:02→18:47)
[2018-01-20 07:53] LABS: Glucose,Whole Blood 91 mg/dL (75-99)
[2018-01-20] MEDS: amLODIPine 10 MG TAB PO SCH (08:23)
[2018-01-20] MEDS: SPIRONOLACTONE 25 MG TAB PO SCH ×2 (08:23→21:52)
[2018-01-20] MEDS: CARVEDILOL 12.5 MG TAB PO SCH ×2 (08:24→17:39)
[2018-01-20] MEDS: hydrALAZINE HCL 50 MG TAB PO SCH ×2 (08:24→21:51)
[2018-01-20] MEDS: FENOFIBRATE 160 MG TAB PO SCH (08:24)
[2018-01-20] MEDS: PANTOPRAZOLE 40 MG TABLET PO SCH (08:24)
[2018-01-20] MEDS: CHOLECALCIFEROL 1,000 UNIT TAB PO SCH (08:24)
[2018-01-20] MEDS: MULTIVITAMINS, THERA 1 EACH TAB PO SCH (08:24)
[2018-01-20] MEDS: ASPIRIN 81 MG PO SCH (08:24)
[2018-01-20] MEDS: INSULIN ASPART 100 UNIT/ML 1 ML 10 ML VIAL SQ SCH ×4 (08:24→21:55)
[2018-01-20 08:34] LABS: Basophils # (A) 0.1 k/uL (0-0.2); Basophils % (A) 0 %; Eosinophils # (A) 0.2 k/uL (0-0.7); Eosinophils % (A) 2 %; HCT 23.6 % (34.0-46.0); HGB 7.8 gm/dL (11.4-16.0); Lymphocytes # (A) 1.1 k/uL (1.0-4.8); Lymphocytes % (A) 9 %; MCH 29.1 pg (25.0-35.0); MCV 88.2 fL (80.0-100.0); Mean Platelet Volume 8.6; Monocytes # (A) 0.5 k/uL (0-1.0); Monocytes % (A) 5 %; Neutrophils # (A) 9.5 k/uL (1.3-7.7); Neutrophils % (A) 82 %; Platelet Count 345 k/uL (150-450); RBC 2.68 m/uL (3.80-5.40); RDW 14.8 % (11.5-15.5); WBC 11.5 k/uL (3.8-10.6)
[2018-01-20 09:04] LABS: Albumin 2.9 g/dL (3.5-5.0); Calcium 8.4 mg/dL (8.4-10.2); Potassium 3.6 mmol/L (3.5-5.1); Total Bilirubin 0.4 mg/dL (0.2-1.3); Total Protein 5.5 g/dL (6.3-8.2)
[2018-01-20 11:27] LABS: Glucose,Whole Blood 150 mg/dL (75-99)
[2018-01-20] MEDS: SODIUM CHLORIDE 0.9% 1,000 ML IV SCH (12:10)
--- NOTE | 2018-01-20 13:03 | PN ---
PROGRESS NOTE DATE OF SERVICE: 01/20/2018. She is sitting up in the chair. She is mildly short of breath. She had received 1 dose of Lasix at about 4 in the morning and this was done after she had been dialyzed. On physical examination: Blood pressure is 146/54, respiratory rate of 20, pulse rate of 75, temperature 98.7, O2 saturation on 4 L by nasal cannula is 94%. HEENT reveals pupils are equal. Chest reveals decreased breath sounds at bases. Occasional crackle. Cardiovascular system reveals a S1, S2. Abdomen is soft. There is 1+ to 2+ pedal edema. IMPRESSION: At this time: 1. Acute respiratory failure secondary to congestive heart failure and fluid overload from acute renal failure. 2. Diabetes mellitus. 3. Malnourished state. Would continue to attempt to keep her in negative fluid balance. Give her extra dose of Lasix today. Her electrolytes and labs were reviewed. Her prognosis is guarded. She may benefit from blood transfusion if her hemoglobin drops. MMODL / IJN: [id number] /
[2018-01-20] MEDS: DARBEPOETIN ALFA 40 MCG/0.4 ML SYRINGE SQ SCH (13:38)
--- NOTE | 2018-01-20 16:42 | PN ---
PROGRESS NOTE SUBJECTIVE: 82-year-old white female with end-stage renal disease waiting to set up dialysis 3 times a week. Cardiovascular: S1, S2. Lungs clear. GI soft. Hematology negative Homans. Psych: Fair mood and affect. 4 L oxygen, 94% oxygen. Blood pressure 146/54, respiratory rate 18 to 20, pulse 75. Abdomen soft. Extremities 2+ pedal edema. ASSESSMENT AND PLAN: 1. Acute respiratory failure secondary to congestive heart failure, fluid overload from acute renal failure. 2. Diabetes mellitus, malnourished. 3. Given her Lasix and monitor for severe anemia. 4. Diabetes will be controlled. 5. End-stage renal disease with dialysis will be continued. 6. MMODL / IJN: [id number] /
--- NOTE | 2018-01-20 17:06 | ECHOF ---
Referral Reason:LV funct, fluid overload, resp status MEASUREMENTS -------- HEIGHT: 160.0 cm WEIGHT: 79.8 kg BP: 152/57 RVIDd: 3.3 cm (< 3.3) IVSd: 1.1 cm (0.6 - 1.1) LVIDd: 5.6 cm (3.9 - 5.3) LVPWd: 1.0 cm (0.6 - 1.1) IVSs: 1.3 cm LVIDs: 4.1 cm LVPWs: 1.3 cm LAESV Index (A-L): 39.97 ml/m Ao Diam: 2.9 cm (2.0 - 3.7) AV Cusp: 1.6 cm (1.5 - 2.6) LA Diam: 4.4 cm (2.7 - 3.8) EPSS: 1.0 cm MV E Stanton: 1.23 m/s MV DecT: 263 ms MV A Stanton: 1.05 m/s MV E/A Ratio: 1.16 RAP: 5.00 mmHg RVSP: 46.29 mmHg MV EF SLOPE: 85.88 mm/s (70 - 150) MV EXCURSION: 1.38 cm (> 18.000) FINDINGS -------- Undetermined rhythm. This was a technically difficult study with suboptimal views. The left ventricle is mildly dilated. There is mild concentric left ventricular hypertrophy. Over all left ventricular systolic function is low-normal with, an EF between 50 - 55 %. The right ventricle is mildly enlarged. LA is moderately dilated 34-39 ml/m2 RA appears enlarged. 3ml of Lumason was utilized for enhancement of images. There is mild aortic valve sclerosis. There is no evidence of aortic regurgitation. There is no e vidence of aortic stenosis. Mild mitral annular calcification present. [id number] mitral regurgitation is present. Moderate tricuspid regurgitation present. There is mild pulmonary hypertension. The right ventric ular systolic pressure, as measured by Doppler, is 46.29mmHg. The pulmonic valve was not well visualized. There is no pulmonic regurgitation present. The aortic root size is normal. Normal inferior vena cava with normal inspiratory collapse consistent with estimated right atrial pre ssure of 5 mmHg. There is no pericardial effusion. CONCLUSIONS -------- 1. Undetermined rhythm. 2. This was a technically difficult study with suboptimal views. 3. The left ventricle is mildly dilated. 4. There is mild concentric left ventricular hypertrophy. 5. Overall left ventricular systolic function is low-normal with, an EF between 50 - 55 %. 6. The right ventricle is mildly enlarged. 7. LA is moderately dilated 34-39 ml/m2 8. RA appears enlarged. 9. 3ml of Lumason was utilized for enhancement of images. 10. There is mild aortic valve sclerosis. 11. Mild mitral annular calcification present. 12. [id number] mitral regurgitation is present. 13. Moderate tricuspid regurgitation present. 14. There is mild pulmonary hypertension. 15. The pulmonic valve was not well visualized. 16. There is no pulmonic regurgitation present. 17. The aortic root size is normal. 18. There is no pericardial effusion. MANAGER OF PROGRAM: Alfredo Geller RDCS
--- NOTE | 2018-01-20 17:12 | PN ---
PROGRESS NOTE The patient is seen for followup for advanced renal failure, currently hemodialysis dependent. She is currently maintained on a Monday, Monday, Monday schedule. The patient denies any significant complaints at this time. She seems to have good urine output. The patient has a Thomas catheter. PHYSICAL EXAMINATION: Blood pressure is 92/51, heart rate 74 per minute. She is afebrile. Examination of the heart: S1, S2. Examination lungs: Breath sounds are heard. Decreased breath sounds at the bases. Abdomen is soft, nontender. Examination lower extremity shows trace edema bilaterally. SENIOR STATISTICAL PROGRAMMER exam is grossly intact. LABS: Show serum creatinine 2.65, sodium 136, potassium 3.6, hemoglobin 7.8 g/dL. ASSESSMENT: 1. Advanced renal failure with no improvement post hospitalization, currently hemodialysis dependent. We do not have a baseline creatinine. We will continue to monitor for recovery of renal function. However, patient will continue with hemodialysis as outpatient. 2. Left iliopsoas abscess status post aspiration and antibiotics. 3. Anemia, status post IV iron. 4. Iron deficiency status post IV iron. 5. Metabolic acidosis associated with renal failure, currently improved. PLAN: Next dialysis Monday. MMODL / IJN: [id number] /
[2018-01-20 17:24] LABS: Glucose,Whole Blood 237 mg/dL (75-99)
[2018-01-20] MEDS: SODIUM FERRIC GLUCONAT-SUCROSE 125 MG in SODIUM CHLORIDE 0.9% 100 ML IVPB SCH (17:38)
[2018-01-20 21:17] LABS: Glucose,Whole Blood 214 mg/dL (75-99)
[2018-01-20] MEDS: POLYETHYLENE GLYCOL 3350 17 GM POWD.PACK PO SCH (21:52)
[2018-01-20] MEDS: INSULIN DETEMIR 100 UNIT/ML 10 ML VIAL SQ SCH (21:56)
[2018-01-21] MEDS: PIPERACILLIN-TAZOBACTAM 3.375 GM in DEXTROSE/WATER 1 50ML.BAG IVPB SCH ×2 (05:18→18:11)
--- NOTE | 2018-01-21 06:46 | PN ---
PROGRESS NOTE DATE OF SERVICE: 01/20/2018. REASON FOR FOLLOWUP: Left anus ulcer abnormality question of an abscess. INTERVAL HISTORY: The patient has been afebrile. She is more awake and alert. She is breathing comfortably. Denies significant chest pain. Occasional cough. No nausea, vomiting. No abdominal pain. No diarrhea. EXAMINATION: Blood pressure is 132/64 with a pulse of 56, temperature 97.2. She is 97% on 4 L nasal cannula. General description is an elderly female up in the chair in no distress. Respiratory system: Unlabored breathing with decreased breath sounds at the bases. No wheezes. Heart S1, S2. Regular rate and rhythm. Abdomen soft. No tenderness. LABS: Hemoglobin 7.8, white count 11.5 with a BUN of 16, creatinine 2.65. DIAGNOSTIC IMPRESSION AND PLAN: Patient with left psoas collection in the source of the abdomen and concern for possible sepsis. No significant inflammatory changes around it. CT-guided aspirate was mostly dark material and the culture has been negative. Repeat CT did show decreased in the size with question of possible incidental finding currently on Zosyn, transition to short course of oral Augmentin on discharge with possible repeat CT in a month. Continue supportive care. MMODL / IJN: [id number] / TAWNYA
[2018-01-21 06:58] LABS: Glucose,Whole Blood 78 mg/dL (75-99)
[2018-01-21] MEDS: CHOLECALCIFEROL 1,000 UNIT TAB PO SCH (08:56)
[2018-01-21] MEDS: SPIRONOLACTONE 25 MG TAB PO SCH ×2 (08:56→20:41)
[2018-01-21] MEDS: hydrALAZINE HCL 50 MG TAB PO SCH ×2 (08:56→20:41)
[2018-01-21] MEDS: MULTIVITAMINS, THERA 1 EACH TAB PO SCH (08:56)
[2018-01-21] MEDS: PANTOPRAZOLE 40 MG TABLET PO SCH (08:57)
[2018-01-21] MEDS: INSULIN ASPART 100 UNIT/ML 1 ML 10 ML VIAL SQ SCH ×4 (08:57→21:55)
[2018-01-21] MEDS: FENOFIBRATE 160 MG TAB PO SCH (08:57)
[2018-01-21] MEDS: amLODIPine 10 MG TAB PO SCH (08:57)
[2018-01-21] MEDS: SODIUM CHLORIDE 0.9% 1,000 ML IV SCH (08:57)
[2018-01-21] MEDS: CARVEDILOL 12.5 MG TAB PO SCH ×2 (08:57→18:11)
[2018-01-21] MEDS: SODIUM FERRIC GLUCONAT-SUCROSE 125 MG in SODIUM CHLORIDE 0.9% 100 ML IVPB SCH (09:10)
[2018-01-21] MEDS: ASPIRIN 81 MG PO SCH (09:11)
[2018-01-21 09:17] LABS: Basophils % (A) 0 %; Eosinophils # (A) 0.3 k/uL (0-0.7); Eosinophils % (A) 3 %; HCT 22.2 % (34.0-46.0); HGB 7.3 gm/dL (11.4-16.0); Lymphocytes # (A) 1.2 k/uL (1.0-4.8); Lymphocytes % (A) 11 %; MCH 29.1 pg (25.0-35.0); MCHC 33.1 g/dL (31.0-37.0); MCV 88.1 fL (80.0-100.0); Mean Platelet Volume 8.6; Monocytes # (A) 0.7 k/uL (0-1.0); Monocytes % (A) 6 %; Neutrophils # (A) 8.2 k/uL (1.3-7.7); Neutrophils % (A) 79 %; Platelet Count 313 k/uL (150-450); RBC 2.52 m/uL (3.80-5.40); RDW 15.3 % (11.5-15.5); WBC 10.4 k/uL (3.8-10.6)
[2018-01-21 09:41] LABS: Albumin 2.8 g/dL (3.5-5.0); Calcium 8.5 mg/dL (8.4-10.2); Potassium 3.6 mmol/L (3.5-5.1); Total Bilirubin 0.3 mg/dL (0.2-1.3); Total Protein 5.4 g/dL (6.3-8.2)
[2018-01-21 12:31] LABS: Glucose,Whole Blood 95 mg/dL (75-99)
--- NOTE | 2018-01-21 13:40 | PN ---
PROGRESS NOTE DATE OF SERVICE: 01/21/2018 She was seen again on January 21, 2018. She does not seem to be in any respiratory distress and is lying somewhat flat in bed. On physical examination, vitals are stable. She is afebrile. Chest with decreased breath sounds in the bases. Cardiovascular system revealed S1, S2. Abdomen is soft. There is 1+ pedal edema. Labs reviewed. IMPRESSION: At this time is: 1. Acute respiratory failure secondary to congestive heart failure and fluid overload from acute renal failure. 2. Acute renal failure requiring dialysis. 3. Diabetes mellitus. 4. Malnutrition that is moderate to severe. Keep her in negative fluid balance. Agree with ongoing dialysis and Lasix as needed. Continue supplemental oxygen as needed. Her prognosis is fair. MMODL / IJN: [id number] /
[2018-01-21 17:21] LABS: Glucose,Whole Blood 141 mg/dL (75-99)
[2018-01-21] MEDS: POLYETHYLENE GLYCOL 3350 17 GM POWD.PACK PO SCH (20:36)
[2018-01-21 21:27] LABS: Glucose,Whole Blood 191 mg/dL (75-99)
[2018-01-21] MEDS: INSULIN DETEMIR 100 UNIT/ML 10 ML VIAL SQ SCH (21:55)
[2018-01-22] MEDS: SODIUM CHLORIDE 0.9% 1,000 ML IV SCH (02:32)
--- NOTE | 2018-01-22 06:11 | PN ---
PROGRESS NOTE DATE OF SERVICE: 01/21/2018 REASON FOR FOLLOWUP: Left iliopsoas abnormality, question of abscess. INTERVAL HISTORY: The patient is afebrile. She seemed to be breathing more comfortably. Denies significant chest pain, no cough. No abdominal pain. No diarrhea. PHYSICAL EXAMINATION: On examination, blood pressure 164/61 with a pulse of 60, temperature 97.8. She is 94% on 4 L nasal cannula. General description is an elderly female up in the chair in no distress. RESPIRATORY SYSTEM: Unlabored breathing with decreased breath sounds at the bases, no wheeze. HEART: S1, S2. Regular rate and rhythm. ABDOMEN: Soft, no tenderness. LABS: Hemoglobin 7.8, white count 10.4, BUN of 21, creatinine 3.60. DIAGNOSTIC IMPRESSION AND PLAN: Patient with abnormality seen on the left iliopsoas region, status post CT- guided drainage.Culture has been negative. The biopsy was nondiagnostic. Currently on Zosyn transition to oral Augmentin short course with a repeat CAT scan in a few weeks. Continue supportive care. MMODL / IJN: [id number] / MTDD
[2018-01-22] MEDS: PIPERACILLIN-TAZOBACTAM 3.375 GM in DEXTROSE/WATER 1 50ML.BAG IVPB SCH ×2 (06:24→16:59)
--- NOTE | 2018-01-22 06:53 | PN ---
PROGRESS NOTE SUBJECTIVE: This 82-year-old white female. ASSESSMENT: 1. Acute hypoxemic respiratory failure secondary to congestive heart failure, fluid overload secondary to acute renal failure. 2. Diabetes mellitus. 3. Malnutrition. 4. Acute renal failure. CARDIOVASCULAR: S1, S2. GI: Soft. HEMATOLOGY: Negative Homans. PSYCH: Fair mood and affect. PLAN: Patient will be going to the rehab center tomorrow, outpatient dialysis 3 times a week. She will take Augmentin as an outpatient and be discharged home in the morning. MMODL / IJN: [id number] /
--- NOTE | 2018-01-22 07:08 | PN ---
PROGRESS NOTE Patient is seen for followup for dialysis dependent renal failure. Currently patient is maintained on Monday, Monday and Monday schedule. She had about 1.2 L of urine output. She has an indwelling Thomas catheter. The patient will be dialyzed tomorrow. Creatinine has been staying at about 3.2 to 3.6 mg/dL. It was down to 2.6 yesterday but that was after dialysis the day before. PHYSICAL EXAMINATION: Blood pressure this morning was 160/67, heart rate 60 per minute. She is afebrile. Examination of the heart: S1, S2. Examination of the lungs: Bilateral breath sounds are heard. Abdomen is soft, nontender. Exam of lower extremities shows no evidence of edema. The patient has a right IJ PermCath. LABS: Show sodium 136, potassium 6.6, BUN 21, serum creatinine 2.6, hemoglobin 7.3 g/dL. ASSESSMENT: 1. Advanced renal failure with no improvement in renal function, currently dialysis dependent. No previous labs available for comparisons. Patient will be maintained on hemodialysis as outpatient. We will dialyze tomorrow. 2. Anemia of chronic disease. No active bleeding noted. 3. Left iliopsoas abscess status post aspiration and antibiotics. 4. Iron deficiency, status post IV iron. 5. Anemia of chronic disease and iron deficiency. PLAN: Hemodialysis in a.m. The patient is stable for discharge from Nephrology standpoint. MMGAUTAML / ALFREDN: [id number] /
[2018-01-22 07:10] LABS: Glucose,Whole Blood 72 mg/dL (75-99)
[2018-01-22] MEDS: INSULIN ASPART 100 UNIT/ML 1 ML 10 ML VIAL SQ SCH ×4 (09:17→21:24)
[2018-01-22] MEDS: ASPIRIN 81 MG PO SCH (09:18)
[2018-01-22] MEDS: FENOFIBRATE 160 MG TAB PO SCH (09:18)
[2018-01-22] MEDS: PANTOPRAZOLE 40 MG TABLET PO SCH (09:18)
[2018-01-22] MEDS: SPIRONOLACTONE 25 MG TAB PO SCH ×2 (09:18→21:23)
[2018-01-22] MEDS: amLODIPine 10 MG TAB PO SCH (09:18)
[2018-01-22] MEDS: hydrALAZINE HCL 50 MG TAB PO SCH ×2 (09:19→21:23)
[2018-01-22] MEDS: CARVEDILOL 12.5 MG TAB PO SCH ×2 (09:19→15:28)
[2018-01-22] MEDS: CHOLECALCIFEROL 1,000 UNIT TAB PO SCH (09:19)
[2018-01-22] MEDS: SODIUM FERRIC GLUCONAT-SUCROSE 125 MG in SODIUM CHLORIDE 0.9% 100 ML IVPB SCH (09:26)
[2018-01-22] MEDS: MULTIVITAMINS, THERA 1 EACH TAB PO SCH (09:29)
--- NOTE | 2018-01-22 09:38 | P.PN ---
Subjective Progress Note Date: 01/22/18 Interval history: 01/22/2018- patient is being seen examined and evaluated today on rounds. She is resting up in bed on 4 L of supplemental oxygen via nasal cannula. She did have an episode of emesis this morning while eating breakfast. She denies any feelings of nausea. She said this occasionally happens and she is unsure why. We will get a speech and swallow evaluation. She denies any stomach discomfort , fevers chills diarrhea or constipation. She has been undergoing dialysis as ordered. All labs and reports have been reviewed. Objective - Vital Signs Vital signs: Vital Signs Temp 99.3 F 01/22/18 06:40 Pulse 73 01/22/18 06:40 Resp 20 01/22/18 06:40 BP 150/60 01/22/18 06:40 Pulse Ox 93 L 01/22/18 06:40 Intake & Output 01/21/18 01/22/18 01/22/18 18:59 06:59 18:59 Intake Total 650 Output Total 800 20 Balance -150 -20 Weight 85 kg Intake: Oral 650 Output: Urine 800 Emesis 20 Other: Voiding Method Indwelling Catheter Indwelling Catheter # Bowel Movements 2 1 - Exam GENERAL EXAM: Alert, active, comfortable in no apparent distress. HEAD: Normocephalic. EYES: Normal reaction of pupils, equal size. NOSE: Clear with pink turbinates. THROAT: No erythema or exudates. NECK: No masses, no JVD. CHEST: No chest wall deformity. LUNGS: Equal air entry slightly coarse with no crackles, wheeze, rhonchi or dullness. CVS: S1 and S2 normal with no audible mumurs, regular rhythm. ABDOMEN: No hepatosplenomegaly, normal bowel sounds, no guarding or rigidity. EXTREMITIES: No edema noted, pedal pulses palpable. CENTRAL NERVOUS SYSTEM: No focal deficits, tone is normal in all 4 extremities. - Labs CBC & Chem 7: 01/21/18 08:22 01/21/18 08:22 Labs: Abnormal Lab Results - Last 24 Hours (Table) 01/21/18 01/21/18 01/21/18 Range/Units 08:22 17:20 21:21 Sodium 136 L (137-145) mmol/L BUN 21 H (7-17) mg/dL Creatinine 3.60 H (0.52-1.04) mg/dL Glucose 60 L (74-99) mg/dL POC Glucose (mg/dL) 141 H 191 H (75-99) mg/dL Total Protein 5.4 L (6.3-8.2) g/dL Albumin 2.8 L (3.5-5.0) g/dL 01/22/18 Range/Units 07:08 Sodium (137-145) mmol/L BUN (7-17) mg/dL Creatinine (0.52-1.04) mg/dL Glucose (74-99) mg/dL POC Glucose (mg/dL) 72 L (75-99) mg/dL Total Protein (6.3-8.2) g/dL Albumin (3.5-5.0) g/dL Assessment and Plan Assessment: Assessment Dyspnea, most likely secondary to CHF in the setting of acute renal failure with fluid overload Acute hypoxic respiratory failure requiring supplemental oxygen Anemia, iron deficiency, and anemia of chronic disease also could be contributing to her dyspnea Left iliopsoas abscess status post aspiration and antibiotics Medical debility Plan Patient could be cleared from pulmonary standpoint for discharge Patient will need a home oxygen assessment Dialysis per nephrology Speech evaluation, swallow eval Monitor for any increase in WBC and fever Medications have been reviewed and will be continued as ordered. Continue with pulmonary hygiene, coughing and deep breathing exercises, and supportive care. Supplemental oxygen to maintain oxygen saturations of 92% or better. Continue nebulizer treatments. GI and DVT prophylaxis. We will continue to monitor labs/results and adjust treatment as necessary. Further recommendations pending. I performed an examination of the patient and discussed their management with the nurse practitioner. I have reviewed the nurse practitioner's note and agree with the documented findings and plan of care.
[2018-01-22 11:05] LABS: Basophils % (A) 0 %; Eosinophils # (A) 0.1 k/uL (0-0.7); Eosinophils % (A) 2 %; HCT 27.1 % (34.0-46.0); Lymphocytes # (A) 0.7 k/uL (1.0-4.8); Lymphocytes % (A) 8 %; MCH 29.1 pg (25.0-35.0); MCHC 32.7 g/dL (31.0-37.0); MCV 89.2 fL (80.0-100.0); Mean Platelet Volume 8.6; Monocytes # (A) 0.4 k/uL (0-1.0); Monocytes % (A) 5 %; Neutrophils # (A) 7.5 k/uL (1.3-7.7); Neutrophils % (A) 85 %; Platelet Count 273 k/uL (150-450); RBC 3.04 m/uL (3.80-5.40); RDW 15.6 % (11.5-15.5); WBC 8.9 k/uL (3.8-10.6)
[2018-01-22 11:11] LABS: HGB 8.8 gm/dL (11.4-16.0)
[2018-01-22 11:13] LABS: Potassium 3.4 mmol/L (3.5-5.1)
[2018-01-22 11:15] LABS: Albumin 2.8 g/dL (3.5-5.0); Calcium 8.2 mg/dL (8.4-10.2); Total Bilirubin 0.4 mg/dL (0.2-1.3); Total Protein 5.5 g/dL (6.3-8.2)
[2018-01-22] MEDS ORDERED: POTASSIUM CHLORIDE ER 20 MEQ TAB.ER PO STA (11:36)
--- NOTE | 2018-01-22 11:36 | P.PN ---
Subjective Patient is seen in follow-up for chronic kidney disease. Unclear as to what her baseline renal function is. There has been no improvement in her renal function this admission. Creatinine was up to 7.2 on January 14. She has a Thomas catheter in place and is nonoliguric. No vomiting or diarrhea. Patient had a permacath placed on January 14 and was started on hemodialysis. She has been tolerating hemodialysis well so far. She is currently seeing what underwent hemodialysis. Trying for 3 L ultrafiltration. Vital signs are stable. General: The patient appeared well nourished and normally developed. HEENT: Head exam is unremarkable. Neck is without jugular venous distension. LUNGS: Lungs are clear to auscultation and percussion. Breath sounds decreased. HEART: Rate and Rhythm are regular. First and second heart sounds normal. No murmurs, rubs or gallops. ABDOMEN: Abdominal exam reveals normal bowel sounds. Non-tender and non- distended. No evidence of peritonitis. EXTREMITITES: 1+ edema. Objective - Vital Signs Vital signs: Vital Signs Temp 99.3 F 01/22/18 06:40 Pulse 73 01/22/18 06:40 Resp 20 01/22/18 06:40 BP 150/60 01/22/18 06:40 Pulse Ox 93 L 01/22/18 06:40 Intake & Output 01/21/18 01/22/18 01/22/18 18:59 06:59 18:59 Intake Total 650 Output Total 800 20 Balance -150 -20 Weight 85 kg Intake: Oral 650 Output: Urine 800 Emesis 20 Other: Voiding Method Indwelling Catheter Indwelling Catheter # Bowel Movements 2 1 - Labs CBC & Chem 7: 01/22/18 10:00 01/22/18 10:00 Labs: Abnormal Lab Results - Last 24 Hours (Table) 01/21/18 01/21/18 01/22/18 Range/Units 17:20 21:21 07:08 RBC (3.80-5.40) m/uL Hgb (11.4-16.0) gm/dL Hct (34.0-46.0) % RDW (11.5-15.5) % Lymphocytes # (1.0-4.8) k/uL Sodium (137-145) mmol/L Potassium (3.5-5.1) mmol/L BUN (7-17) mg/dL Creatinine (0.52-1.04) mg/dL Glucose (74-99) mg/dL POC Glucose (mg/dL) 141 H 191 H 72 L (75-99) mg/dL Calcium (8.4-10.2) mg/dL Total Protein (6.3-8.2) g/dL Albumin (3.5-5.0) g/dL 01/22/18 01/22/18 Range/Units 10:00 10:00 RBC 3.04 L (3.80-5.40) m/uL Hgb 8.8 L D (11.4-16.0) gm/dL Hct 27.1 L (34.0-46.0) % RDW 15.6 H (11.5-15.5) % Lymphocytes # 0.7 L (1.0-4.8) k/uL Sodium 134 L (137-145) mmol/L Potassium 3.4 L (3.5-5.1) mmol/L BUN 24 H (7-17) mg/dL Creatinine 3.70 H (0.52-1.04) mg/dL Glucose 123 H (74-99) mg/dL POC Glucose (mg/dL) (75-99) mg/dL Calcium 8.2 L (8.4-10.2) mg/dL Total Protein 5.5 L (6.3-8.2) g/dL Albumin 2.8 L (3.5-5.0) g/dL Assessment and Plan Plan: Assessment: 1. Acute kidney injury versus chronic kidney disease. Unknown baseline creatinine. No improvement in renal function. Creatinine 7.2 on January 14. CAT scan revealed cortical thinning of the kidneys suggestive of underlying chronic kidney disease. Started on hemodialysis on January 14. UPC 1.6. Hepatitis, GUI, complement levels, double-stranded DNA antibody negative. Serum and urine immunofixation negative. 2. Left iliopsoas abscess status post aspiration. Off IV antibiotics. 3. Metabolic acidosis secondary to acute kidney injury. Improved. 4. Hypokalemia from poor oral intake and HD. 5. Hyponatremia secondary to acute kidney injury. 6. Anemia. Iron deficiency noted - status post 3 doses of IV iron. 7. 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 8. Hyperphosphatemia secondary to acute kidney injury. Phosphorus 5.5. Expect improvement postdialysis. Plan: Off IV fluids. Currently seen well undergoing hemodialysis. Trying for 3 L ultrafiltration. Add Lasix 80 mg orally twice daily. She will now be maintained on hemodialysis on a Monday schedule. Continue to monitor renal function and urine output closely. Maintain Aranesp. Outpatient dialysis has been set up. Replace potassium. 40 mEq today.
[2018-01-22 12:01] LABS: Glucose,Whole Blood 91 mg/dL (75-99)
--- NOTE | 2018-01-22 14:48 | CDI ---
Last Revision, June 2017 Documentation Clarification Form Date: 01/23/2018 12:00:00 AM From: Delores Garcia RN, CCDS Admit Date: 01/10/2018 4:33:00 PM Patient Name: Jane Vernon Visit Number: [id number] Discharge Date: ATTENTION: The Clinical Documentation Specialists (CDI) and [facility] Coding Staff appreciate your assistance in clarifying documentation. Please respond to the clarification below the line at the bottom and electronically sign. The CDI & [facility] Coding staff will review the response and follow-up if needed. Please note: Queries are made part of the Legal Health Record. If you have any questions, please contact the author of this message via ITS. Dr. Aislinn Hale History/Risk Factors: Heart Failure, Diabetes mellitus type 2, Clinical Indicators: 01/19/progress notes has increased dyspnea secondary to fluid overload and congestive heart failure possible due to dialysis and acute renal failure. VS/Pulse OX: 152/57 69 18 97.4 91 % 3/L NC Echocardiogram Results: EF between 50-55 %, the right ventricle is mildly enlarged Chest X Ray: 01/19/18: interval development of a left basilar opacity pulmonary edema suspected in addition to the persistent mild interstitial edema. Treatment: Hemodialysis Lasix IV, change to PO Coreg PO In your professional opinion, can you please clarify the acuity and type of CHF if known? Systolic Heart Failure: Acute Chronic Acute on Chronic Diastolic Heart Failure: Acute Chronic Acute on Chronic Systolic & Diastolic Heart Failure: Acute Chronic Acute on Chronic Heart Failure Unable to Determine Other, please specify Please continue to document in your progress notes and discharge summary in order to capture severity of illness and risk of mortality. Include clinical findings that support your diagnosis. acute on chronic diastolic HF MTDD
[2018-01-22] MEDS: FUROSEMIDE 80 MG TAB PO SCH (15:27)
[2018-01-22] MEDS ORDERED: CLINDAMYCIN 150 MG CAP PO SCH ×2 (16:00)
--- NOTE | 2018-01-22 16:41 | PN ---
PROGRESS NOTE DATE OF SERVICE: 01/22/2018. REASON FOR FOLLOWUP: 1. Left iliopsoas, possible abscess. 2. Possible aspiration pneumonia. INTERVAL HISTORY: The patient is afebrile. She seems to be breathing more comfortably. Denies significant chest pain, occasional cough. No abdominal pain. No nausea, vomiting, diarrhea. EXAMINATION: Blood pressure 130/49 with a pulse of 55. Temperature is 97.2. She is 92% on 4 L nasal cannula. General description is an elderly female up in the chair in no distress. RESPIRATORY SYSTEM: Unlabored breathing with decreased breath sounds in the bases. No wheeze. HEART: S1, S2. Regular rate and rhythm. ABDOMEN: Soft, no tenderness. EXTREMITIES: No edema of the feet. LABS: Hemoglobin 8.8, white count 8.9, BUN of 24, creatinine 3.70. DIAGNOSTIC IMPRESSION AND PLAN: Patient with left iliopsoas abnormality with concern for possible abscess, status post CT-guided drainage. The material that was removed was not purulent and was more gelatinous material and culture has been negative. Currently on Zosyn. Also concern for possible aspiration pneumonia. Antibiotic will be transitioned to oral Augmentin for short course about a week with close outpatient followup. MMODL / IJN: [id number] /
[2018-01-22 17:24] LABS: Glucose,Whole Blood 118 mg/dL (75-99)
[2018-01-22 20:29] LABS: Glucose,Whole Blood 169 mg/dL (75-99)
[2018-01-22] MEDS: AMOXIC-POT CLAV 500-125 MG 1 EACH TAB PO SCH (21:23)
[2018-01-22] MEDS: INSULIN DETEMIR 100 UNIT/ML 10 ML VIAL SQ SCH (21:23)
[2018-01-22] MEDS: POLYETHYLENE GLYCOL 3350 17 GM POWD.PACK PO SCH ×2 (21:24→21:32)
--- NOTE | 2018-01-23 00:22 | PN ---
PROGRESS NOTE SUBJECTIVE: 82-year-old white female with acute renal failure, sepsis. She is improving from medical standpoint. She is on oral Augmentin at this time. Renal failure dialysis 3 times a week. Medications were adjusted. She is awaiting residential placement. She is too weak to ambulate and she needs dialysis 3 times a week. She might need long- term care at a residential. Vital signs are stable. Afebrile. Cardiovascular S1, S2. LUNGS: Transmitted upper sounds. Hematology negative Homans. GI soft, nontender. ASSESSMENT AND PLAN: 1. Acute renal failure, sepsis. 2. Generalized weakness and debility. 3. Possible residential placement tomorrow. 4. Finish Augmentin 875 b[address] in the residential. MMODL / IJN: [id number] /
[2018-01-23 07:05] LABS: Glucose,Whole Blood 73 mg/dL (75-99)
[2018-01-23] MEDS: INSULIN ASPART 100 UNIT/ML 1 ML 10 ML VIAL SQ SCH ×4 (07:38→21:25)
[2018-01-23] MEDS: amLODIPine 10 MG TAB PO SCH (08:27)
[2018-01-23] MEDS: PANTOPRAZOLE 40 MG TABLET PO SCH (08:27)
[2018-01-23] MEDS: CARVEDILOL 12.5 MG TAB PO SCH ×2 (08:27→17:31)
[2018-01-23] MEDS: FUROSEMIDE 80 MG TAB PO SCH ×2 (08:28→17:31)
[2018-01-23] MEDS: FENOFIBRATE 160 MG TAB PO SCH (08:28)
[2018-01-23] MEDS: AMOXIC-POT CLAV 500-125 MG 1 EACH TAB PO SCH (08:28)
[2018-01-23] MEDS: ASPIRIN 81 MG PO SCH (08:28)
[2018-01-23] MEDS: CHOLECALCIFEROL 1,000 UNIT TAB PO SCH (08:28)
[2018-01-23] MEDS: SODIUM FERRIC GLUCONAT-SUCROSE 125 MG in SODIUM CHLORIDE 0.9% 100 ML IVPB SCH (08:29)
[2018-01-23] MEDS: hydrALAZINE HCL 50 MG TAB PO SCH ×2 (08:29→21:22)
[2018-01-23] MEDS: SPIRONOLACTONE 25 MG TAB PO SCH ×2 (08:30→21:23)
--- NOTE | 2018-01-23 10:32 | P.PN ---
<Kathrin Dejesus E - Last Filed: 01/23/18 10:29> Subjective Progress Note Date: 01/23/18 Interval history: 01/22/2018- patient is being seen examined and evaluated today on rounds. She is resting up in bed on 4 L of supplemental oxygen via nasal cannula. She did have an episode of emesis this morning while eating breakfast. She denies any feelings of nausea. She said this occasionally happens and she is unsure why. We will get a speech and swallow evaluation. She denies any stomach discomfort , fevers chills diarrhea or constipation. She has been undergoing dialysis as ordered. All labs and reports have been reviewed. 01/23/18- patient is being seen examined and evaluated today on rounds. She is resting up in bed on 4L supplemental oxygen via nasal cannula. He states his breathing treatments are helping. Discharge planning underway for possible rehab. She has been up ambulating in the room with assistance. Appetite has been good. Dialysis scheduled for tomorrow Objective - Vital Signs Vital signs: Vital Signs Temp 97.7 F 01/23/18 06:02 Pulse 76 01/23/18 06:02 Resp 16 01/23/18 06:02 BP 135/68 01/23/18 06:02 Pulse Ox 90 L 01/23/18 06:02 Intake & Output 01/22/18 01/23/18 01/23/18 18:59 06:59 18:59 Intake Total 200 400 Output Total 370 Balance -170 400 Weight 83 kg Intake: Oral 200 400 Output: Urine 350 Emesis 20 Other: Voiding Method Bedside Commode Bedside Commode Incontinent Incontinent # Voids 1 # Bowel Movements 1 1 - Exam GENERAL EXAM: Alert, active, comfortable in no apparent distress. HEAD: Normocephalic. EYES: Normal reaction of pupils, equal size. NOSE: Clear with pink turbinates. THROAT: No erythema or exudates. NECK: No masses, no JVD. CHEST: No chest wall deformity. LUNGS: Equal air entry slightly coarse with no crackles, wheeze, rhonchi or dullness. CVS: S1 and S2 normal with no audible mumurs, regular rhythm. ABDOMEN: No hepatosplenomegaly, normal bowel sounds, no guarding or rigidity. EXTREMITIES: No edema noted, pedal pulses palpable. CENTRAL NERVOUS SYSTEM: No focal deficits, tone is normal in all 4 extremities. - Labs CBC & Chem 7: 01/22/18 10:00 01/22/18 10:00 Labs: Abnormal Lab Results - Last 24 Hours (Table) 01/22/18 01/22/18 01/22/18 Range/Units 10:00 10:00 17:22 RBC 3.04 L (3.80-5.40) m/uL Hgb 8.8 L D (11.4-16.0) gm/dL Hct 27.1 L (34.0-46.0) % RDW 15.6 H (11.5-15.5) % Lymphocytes # 0.7 L (1.0-4.8) k/uL Sodium 134 L (137-145) mmol/L Potassium 3.4 L (3.5-5.1) mmol/L BUN 24 H (7-17) mg/dL Creatinine 3.70 H (0.52-1.04) mg/dL Glucose 123 H (74-99) mg/dL POC Glucose (mg/dL) 118 H (75-99) mg/dL Calcium 8.2 L (8.4-10.2) mg/dL Total Protein 5.5 L (6.3-8.2) g/dL Albumin 2.8 L (3.5-5.0) g/dL 01/22/18 01/23/18 Range/Units 20:24 07:03 RBC (3.80-5.40) m/uL Hgb (11.4-16.0) gm/dL Hct (34.0-46.0) % RDW (11.5-15.5) % Lymphocytes # (1.0-4.8) k/uL Sodium (137-145) mmol/L Potassium (3.5-5.1) mmol/L BUN (7-17) mg/dL Creatinine (0.52-1.04) mg/dL Glucose (74-99) mg/dL POC Glucose (mg/dL) 169 H 73 L (75-99) mg/dL Calcium (8.4-10.2) mg/dL Total Protein (6.3-8.2) g/dL Albumin (3.5-5.0) g/dL Assessment and Plan Assessment: Assessment Dyspnea, most likely secondary to CHF in the setting of acute renal failure with fluid overload Acute hypoxic respiratory failure requiring supplemental oxygen Anemia, iron deficiency, and anemia of chronic disease also could be contributing to her dyspnea Left iliopsoas abscess status post aspiration and antibiotics Medical debility Possible aspiration pneumonia Plan Patient could be cleared from pulmonary standpoint for discharge Patient will need a home oxygen assessment Dialysis per nephrology Speech evaluation, swallow eval Monitor for any increase in WBC and fever Medications have been reviewed and will be continued as ordered. Continue with pulmonary hygiene, coughing and deep breathing exercises, and supportive care. Supplemental oxygen to maintain oxygen saturations of 92% or better. Continue nebulizer treatments. GI and DVT prophylaxis. We will continue to monitor labs/results and adjust treatment as necessary. Further recommendations pending. I performed an examination of the patient and discussed their management with the nurse practitioner. I have reviewed the nurse practitioner's note and agree with the documented findings and plan of care. <Aislinn Hale A - Last Filed: 01/23/18 10:40> Objective - Vital Signs Vital signs: Vital Signs Temp 97.7 F 01/23/18 06:02 Pulse 76 01/23/18 06:02 Resp 16 01/23/18 06:02 BP 135/68 01/23/18 06:02 Pulse Ox 90 L 01/23/18 06:02 Intake & Output 01/22/18 01/23/18 01/23/18 18:59 06:59 18:59 Intake Total 200 400 Output Total 370 Balance -170 400 Weight 83 kg Intake: Oral 200 400 Output: Urine 350 Emesis 20 Other: Voiding Method Bedside Commode Bedside Commode Bedside Commode Incontinent Incontinent Incontinent # Voids 1 # Bowel Movements 1 1 - Labs CBC & Chem 7: 01/22/18 10:00 01/22/18 10:00 Labs: Abnormal Lab Results - Last 24 Hours (Table) 01/22/18 01/22/18 01/22/18 Range/Units 10:00 10:00 17:22 RBC 3.04 L (3.80-5.40) m/uL Hgb 8.8 L D (11.4-16.0) gm/dL Hct 27.1 L (34.0-46.0) % RDW 15.6 H (11.5-15.5) % Lymphocytes # 0.7 L (1.0-4.8) k/uL Sodium 134 L (137-145) mmol/L Potassium 3.4 L (3.5-5.1) mmol/L BUN 24 H (7-17) mg/dL Creatinine 3.70 H (0.52-1.04) mg/dL Glucose 123 H (74-99) mg/dL POC Glucose (mg/dL) 118 H (75-99) mg/dL Calcium 8.2 L (8.4-10.2) mg/dL Total Protein 5.5 L (6.3-8.2) g/dL Albumin 2.8 L (3.5-5.0) g/dL 01/22/18 01/23/18 Range/Units 20:24 07:03 RBC (3.80-5.40) m/uL Hgb (11.4-16.0) gm/dL Hct (34.0-46.0) % RDW (11.5-15.5) % Lymphocytes # (1.0-4.8) k/uL Sodium (137-145) mmol/L Potassium (3.5-5.1) mmol/L BUN (7-17) mg/dL Creatinine (0.52-1.04) mg/dL Glucose (74-99) mg/dL POC Glucose (mg/dL) 169 H 73 L (75-99) mg/dL Calcium (8.4-10.2) mg/dL Total Protein (6.3-8.2) g/dL Albumin (3.5-5.0) g/dL Assessment and Plan Assessment: Patient seen and examined. Patient states she still gets short of breath with exertion. She did ambulate in the [place] this morning and became short of breath. She does not wear oxygen at baseline. Will repeat CXR today. Patient started on Augmentin for possible aspiration pneumonia, she did have an episode of vomiting and choking yesterday. [facility] is consulted. PT and OT. HD per nephrology with ultrafiltration. ~Aislinn Hale Do
[2018-01-23 11:18] LABS: Basophils % (A) 0 %; Eosinophils # (A) 0.2 k/uL (0-0.7); Eosinophils % (A) 1 %; HGB 7.6 gm/dL (11.4-16.0); Lymphocytes # (A) 1.2 k/uL (1.0-4.8); Lymphocytes % (A) 11 %; MCH 29.4 pg (25.0-35.0); MCV 89.3 fL (80.0-100.0); Mean Platelet Volume 9.1; Monocytes # (A) 0.6 k/uL (0-1.0); Monocytes % (A) 5 %; Neutrophils # (A) 8.8 k/uL (1.3-7.7); Neutrophils % (A) 82 %; Platelet Count 323 k/uL (150-450); RBC 2.57 m/uL (3.80-5.40); RDW 15.9 % (11.5-15.5); WBC 10.8 k/uL (3.8-10.6)
[2018-01-23 11:25] LABS: Calcium 8.5 mg/dL (8.4-10.2); Potassium 3.8 mmol/L (3.5-5.1)
[2018-01-23] MEDS: IPRATROPIUM-ALBUTEROL 3 ML NEB INHALATION SCH ×2 (11:59→20:17)
[2018-01-23 12:31] LABS: Glucose,Whole Blood 130 mg/dL (75-99)
[2018-01-23] MEDS: MULTIVITAMINS, THERA 1 EACH TAB PO SCH (13:41)
--- NOTE | 2018-01-23 14:13 | P.PN ---
Subjective Patient is seen in follow-up for chronic kidney disease. Unclear as to what her baseline renal function is. There has been no improvement in her renal function this admission. Creatinine was up to 7.2 on January 14. She has a Thomas catheter in place and is nonoliguric. No vomiting or diarrhea. Patient had a permacath placed on January 14 and was started on hemodialysis. She has been tolerating hemodialysis well so far. Vital signs are stable. General: The patient appeared well nourished and normally developed. HEENT: Head exam is unremarkable. Neck is without jugular venous distension. LUNGS: Lungs are clear to auscultation and percussion. Breath sounds decreased. HEART: Rate and Rhythm are regular. First and second heart sounds normal. No murmurs, rubs or gallops. ABDOMEN: Abdominal exam reveals normal bowel sounds. Non-tender and non- distended. No evidence of peritonitis. EXTREMITITES: 1+ edema. Objective - Vital Signs Vital signs: Vital Signs Temp 97.7 F 01/23/18 06:02 Pulse 80 01/23/18 12:15 Resp 16 01/23/18 06:02 BP 135/68 01/23/18 06:02 Pulse Ox 90 L 01/23/18 06:02 Intake & Output 01/22/18 01/23/18 01/23/18 18:59 06:59 18:59 Intake Total 200 400 Output Total 370 Balance -170 400 Weight 83 kg Intake: Oral 200 400 Output: Urine 350 Emesis 20 Other: Voiding Method Bedside Commode Bedside Commode Bedside Commode Incontinent Incontinent Incontinent # Voids 1 # Bowel Movements 1 1 - Labs CBC & Chem 7: 01/23/18 10:47 01/23/18 10:47 Labs: Abnormal Lab Results - Last 24 Hours (Table) 01/22/18 01/22/18 01/23/18 Range/Units 17:22 20:24 07:03 WBC (3.8-10.6) k/uL RBC (3.80-5.40) m/uL Hgb (11.4-16.0) gm/dL Hct (34.0-46.0) % RDW (11.5-15.5) % Neutrophils # (1.3-7.7) k/uL Sodium (137-145) mmol/L BUN (7-17) mg/dL Creatinine (0.52-1.04) mg/dL Glucose (74-99) mg/dL POC Glucose (mg/dL) 118 H 169 H 73 L (75-99) mg/dL 01/23/18 01/23/18 01/23/18 Range/Units 10:47 10:47 12:18 WBC 10.8 H (3.8-10.6) k/uL RBC 2.57 L (3.80-5.40) m/uL Hgb 7.6 L (11.4-16.0) gm/dL Hct 23.0 L (34.0-46.0) % RDW 15.9 H (11.5-15.5) % Neutrophils # 8.8 H (1.3-7.7) k/uL Sodium 134 L (137-145) mmol/L BUN 19 H (7-17) mg/dL Creatinine 2.89 H (0.52-1.04) mg/dL Glucose 121 H (74-99) mg/dL POC Glucose (mg/dL) 130 H (75-99) mg/dL Assessment and Plan Plan: Assessment: 1. Acute kidney injury versus chronic kidney disease. Unknown baseline creatinine. No improvement in renal function. Creatinine 7.2 on January 14. CAT scan revealed cortical thinning of the kidneys suggestive of underlying chronic kidney disease. Started on hemodialysis on January 14. UPC 1.6. Hepatitis, GUI, complement levels, double-stranded DNA antibody negative. Serum and urine immunofixation negative. 2. Left iliopsoas abscess status post aspiration. Off IV antibiotics. 3. Metabolic acidosis secondary to acute kidney injury. Improved. 4. Hypokalemia from poor oral intake and HD. 5. Hyponatremia secondary to acute kidney injury. 6. Anemia. Iron deficiency noted - status post 3 doses of IV iron. 7. 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 8. Hyperphosphatemia secondary to acute kidney injury. Phosphorus 5.5. Expect improvement postdialysis. Plan: Off IV fluids. Maintain Lasix 80 mg orally twice daily. She will now be maintained on hemodialysis on a Monday schedule. Continue to monitor renal function and urine output closely. Maintain Aranesp. Outpatient dialysis has been set up.
--- NOTE | 2018-01-23 15:05 | PN ---
PROGRESS NOTE DATE OF SERVICE: 01/23/2018 REASON FOR FOLLOWUP: 1. Left iliopsoas possible abscess. 2. Possible aspiration pneumonia. INTERVAL HISTORY: The patient is currently afebrile. She is breathing comfortably. Hemodynamically stable. No nausea, no vomiting has been noticed or any diarrhea. PHYSICAL EXAMINATION: Blood pressure 135/60 with a pulse of 76, temperature 97.7. She is 90% on 4 L nasal cannula. General description is an elderly female, lying in bed, in no distress. RESPIRATORY SYSTEM: Unlabored breathing with decreased breath sounds in the base, no wheeze, heart S1, S2, regular rate and rhythm. ABDOMEN: Soft, no tenderness. LABS: Hemoglobin 7.6, white count of 10.2, BUN of 19, creatinine of around 2.9. DIAGNOSTIC IMPRESSION AND PLAN: Patient with left iliopsoas possible abscess; however, clinically doubt as the patient did have CT-guided drainage of the abscess. Culture has been negative. Also concern for possible aspiration pneumonia. She is currently on Augmentin. She will continue for about 5-7 days to finish a course of therapy. Continue supportive care. MMODL / IJN: [id number] /
--- NOTE | 2018-01-23 15:55 | XR ---
EXAMINATION TYPE: XR chest 2V DATE OF EXAM: 01/23/2018 COMPARISON: 01/19/2018 HISTORY: Shortness of breath FINDINGS: Noted is pulmonary venous congestion with scattered infiltrates. There is also cardiomegaly and small effusions. IMPRESSION: Findings compatible with congestive failure. Infiltrates of other etiology are not excluded. Clinical correlation and progress studies are recommended.
[2018-01-23 16:59] LABS: Glucose,Whole Blood 158 mg/dL (75-99)
[2018-01-23] MEDS: BUDESONIDE 0.5 MG/2 ML NEBU INHALATION SCH (20:17)
[2018-01-23] MEDS ORDERED: MORPHINE ORAL SOLN 10 MG/5 ML CUP PO PRN (20:38)
[2018-01-23 20:55] LABS: Glucose,Whole Blood 215 mg/dL (75-99)
[2018-01-23] MEDS: POLYETHYLENE GLYCOL 3350 17 GM POWD.PACK PO SCH ×2 (21:22→21:31)
[2018-01-23] MEDS: INSULIN DETEMIR 100 UNIT/ML 10 ML VIAL SQ SCH (21:25)
--- NOTE | 2018-01-23 22:23 | PN ---
PROGRESS NOTE SUBJECTIVE: An 82-year-old white female, unable ambulate on her own. She gets dialysis 3 times a week. She was awaiting placement for [facility] for insurance to approve her admission. She is unable ambulate on her own. CARDIOVASCULAR: S1, S2. LUNGS: Scattered rhonchi. HEMATOLOGY: Negative Elba's. OPHTHALMOLOGICAL: Pupils equal and react to light and accommodation. ASSESSMENT: End-stage renal failure, generalized debility, generalized weakness, unable to ambulate. Please see further orders. Await [facility] placement. MMODL / IJN: [id number] /
[2018-01-24] MEDS: INSULIN ASPART 100 UNIT/ML 1 ML 10 ML VIAL SQ SCH ×4 (07:13→21:21)
[2018-01-24 07:19] LABS: Glucose,Whole Blood 63 mg/dL (75-99)
[2018-01-24 07:19] LABS: Glucose,Whole Blood 74 mg/dL (75-99)
[2018-01-24] MEDS: CARVEDILOL 12.5 MG TAB PO SCH ×2 (08:37→17:34)
[2018-01-24] MEDS: amLODIPine 10 MG TAB PO SCH (08:38)
[2018-01-24] MEDS: PANTOPRAZOLE 40 MG TABLET PO SCH (08:38)
[2018-01-24] MEDS: BUDESONIDE 0.5 MG/2 ML NEBU INHALATION SCH ×2 (08:38→20:38)
[2018-01-24] MEDS: IPRATROPIUM-ALBUTEROL 3 ML NEB INHALATION SCH ×3 (08:38→20:38)
[2018-01-24] MEDS: AMOXIC-POT CLAV 500-125 MG 1 EACH TAB PO SCH (08:39)
[2018-01-24] MEDS: FUROSEMIDE 80 MG TAB PO SCH ×2 (08:39→17:33)
[2018-01-24] MEDS: hydrALAZINE HCL 50 MG TAB PO SCH ×2 (08:39→21:17)
[2018-01-24] MEDS: ASPIRIN 81 MG PO SCH (08:39)
[2018-01-24] MEDS: FENOFIBRATE 160 MG TAB PO SCH (08:39)
[2018-01-24] MEDS: CHOLECALCIFEROL 1,000 UNIT TAB PO SCH (08:39)
[2018-01-24] MEDS: SPIRONOLACTONE 25 MG TAB PO SCH ×2 (08:40→21:17)
[2018-01-24] MEDS: SODIUM FERRIC GLUCONAT-SUCROSE 125 MG in SODIUM CHLORIDE 0.9% 100 ML IVPB SCH (08:40)
[2018-01-24 09:47] LABS: Calcium 8.6 mg/dL (8.4-10.2); Potassium 4.1 mmol/L (3.5-5.1)
--- NOTE | 2018-01-24 10:39 | P.PN ---
<Kathrin Dejesus E - Last Filed: 01/24/18 10:29> Subjective Progress Note Date: 01/24/18 Interval history: 01/22/2018- patient is being seen examined and evaluated today on rounds. She is resting up in bed on 4 L of supplemental oxygen via nasal cannula. She did have an episode of emesis this morning while eating breakfast. She denies any feelings of nausea. She said this occasionally happens and she is unsure why. We will get a speech and swallow evaluation. She denies any stomach discomfort , fevers chills diarrhea or constipation. She has been undergoing dialysis as ordered. All labs and reports have been reviewed. 01/23/18- patient is being seen examined and evaluated today on rounds. She is resting up in bed on 4L supplemental oxygen via nasal cannula. He states his breathing treatments are helping. Discharge planning underway for possible rehab. She has been up ambulating in the room with assistance. Appetite has been good. Dialysis scheduled for tomorrow 01/24/18- patient is being seen examined and evaluated today on rounds. She is notably more short of breath today. She is scheduled for dialysis today. She is having a hard time clearing her throat. Chest x-ray from yesterday was reviewed and does show CHF with pulmonary venous congestion and scattered infiltrates, recommend holding discharge at least one more day Objective - Vital Signs Vital signs: Vital Signs Temp 98.3 F 01/24/18 06:30 Pulse 76 01/24/18 08:55 Resp 20 01/24/18 06:30 BP 154/61 01/24/18 06:30 Pulse Ox 92 L 01/24/18 06:30 Intake & Output 01/23/18 01/24/18 01/24/18 18:59 06:59 18:59 Weight 85.5 kg Other: Voiding Method Bedside Commode Bedside Commode Bedside Commode Incontinent Incontinent Incontinent # Voids 2 2 # Bowel Movements 2 1 - Exam GENERAL EXAM: Alert, active, comfortable in no apparent distress. HEAD: Normocephalic. EYES: Normal reaction of pupils, equal size. NOSE: Clear with pink turbinates. THROAT: No erythema or exudates. NECK: No masses, no JVD. CHEST: No chest wall deformity. LUNGS: Equal air entry slightly coarse with scattered rhonchi is. Bases diminished CVS: S1 and S2 normal with no audible mumurs, regular rhythm. ABDOMEN: No hepatosplenomegaly, normal bowel sounds, no guarding or rigidity. EXTREMITIES: No edema noted, pedal pulses palpable. CENTRAL NERVOUS SYSTEM: No focal deficits, tone is normal in all 4 extremities. - Labs CBC & Chem 7: 01/23/18 10:47 01/24/18 08:42 Labs: Abnormal Lab Results - Last 24 Hours (Table) 01/23/18 01/23/18 01/23/18 Range/Units 10:47 10:47 12:18 WBC 10.8 H (3.8-10.6) k/uL RBC 2.57 L (3.80-5.40) m/uL Hgb 7.6 L (11.4-16.0) gm/dL Hct 23.0 L (34.0-46.0) % RDW 15.9 H (11.5-15.5) % Neutrophils # 8.8 H (1.3-7.7) k/uL Sodium 134 L (137-145) mmol/L BUN 19 H (7-17) mg/dL Creatinine 2.89 H (0.52-1.04) mg/dL Glucose 121 H (74-99) mg/dL POC Glucose (mg/dL) 130 H (75-99) mg/dL 01/23/18 01/23/18 01/24/18 Range/Units 16:58 20:48 07:02 WBC (3.8-10.6) k/uL RBC (3.80-5.40) m/uL Hgb (11.4-16.0) gm/dL Hct (34.0-46.0) % RDW (11.5-15.5) % Neutrophils # (1.3-7.7) k/uL Sodium (137-145) mmol/L BUN (7-17) mg/dL Creatinine (0.52-1.04) mg/dL Glucose (74-99) mg/dL POC Glucose (mg/dL) 158 H 215 H 63 L (75-99) mg/dL 01/24/18 01/24/18 Range/Units 07:15 08:42 WBC (3.8-10.6) k/uL RBC (3.80-5.40) m/uL Hgb (11.4-16.0) gm/dL Hct (34.0-46.0) % RDW (11.5-15.5) % Neutrophils # (1.3-7.7) k/uL Sodium 133 L (137-145) mmol/L BUN 23 H (7-17) mg/dL Creatinine 3.28 H (0.52-1.04) mg/dL Glucose 104 H (74-99) mg/dL POC Glucose (mg/dL) 74 L (75-99) mg/dL Assessment and Plan Assessment: Assessment Dyspnea, most likely secondary to CHF in the setting of acute renal failure with fluid overload Acute hypoxic respiratory failure requiring supplemental oxygen Anemia, iron deficiency, and anemia of chronic disease also could be contributing to her dyspnea Left iliopsoas abscess status post aspiration and antibiotics Medical debility Possible aspiration pneumonia Plan Recommend holding discharge today repeat labs in AM Prednisone taper Patient will need a home oxygen assessment Dialysis per nephrology Speech evaluation, swallow eval Monitor for any increase in WBC and fever Medications have been reviewed and will be continued as ordered. Continue with pulmonary hygiene, coughing and deep breathing exercises, and supportive care. Supplemental oxygen to maintain oxygen saturations of 92% or better. Continue nebulizer treatments. GI and DVT prophylaxis. We will continue to monitor labs/results and adjust treatment as necessary. Further recommendations pending. I performed an examination of the patient and discussed their management with the nurse practitioner. I have reviewed the nurse practitioner's note and agree with the documented findings and plan of care. <Aislinn Hale - Last Filed: 01/24/18 10:48> Objective - Vital Signs Vital signs: Vital Signs Temp 98.3 F 01/24/18 06:30 Pulse 76 01/24/18 08:55 Resp 20 01/24/18 06:30 BP 154/61 01/24/18 06:30 Pulse Ox 92 L 01/24/18 06:30 Intake & Output 01/23/18 01/24/18 01/24/18 18:59 06:59 18:59 Weight 85.5 kg Other: Voiding Method Bedside Commode Bedside Commode Bedside Commode Incontinent Incontinent Incontinent # Voids 2 2 # Bowel Movements 2 1 - Labs CBC & Chem 7: 01/23/18 10:47 01/24/18 08:42 Labs: Abnormal Lab Results - Last 24 Hours (Table) 01/23/18 01/23/18 01/23/18 Range/Units 10:47 10:47 12:18 WBC 10.8 H (3.8-10.6) k/uL RBC 2.57 L (3.80-5.40) m/uL Hgb 7.6 L (11.4-16.0) gm/dL Hct 23.0 L (34.0-46.0) % RDW 15.9 H (11.5-15.5) % Neutrophils # 8.8 H (1.3-7.7) k/uL Sodium 134 L (137-145) mmol/L BUN 19 H (7-17) mg/dL Creatinine 2.89 H (0.52-1.04) mg/dL Glucose 121 H (74-99) mg/dL POC Glucose (mg/dL) 130 H (75-99) mg/dL 01/23/18 01/23/18 01/24/18 Range/Units 16:58 20:48 07:02 WBC (3.8-10.6) k/uL RBC (3.80-5.40) m/uL Hgb (11.4-16.0) gm/dL Hct (34.0-46.0) % RDW (11.5-15.5) % Neutrophils # (1.3-7.7) k/uL Sodium (137-145) mmol/L BUN (7-17) mg/dL Creatinine (0.52-1.04) mg/dL Glucose (74-99) mg/dL POC Glucose (mg/dL) 158 H 215 H 63 L (75-99) mg/dL 01/24/18 01/24/18 Range/Units 07:15 08:42 WBC (3.8-10.6) k/uL RBC (3.80-5.40) m/uL Hgb (11.4-16.0) gm/dL Hct (34.0-46.0) % RDW (11.5-15.5) % Neutrophils # (1.3-7.7) k/uL Sodium 133 L (137-145) mmol/L BUN 23 H (7-17) mg/dL Creatinine 3.28 H (0.52-1.04) mg/dL Glucose 104 H (74-99) mg/dL POC Glucose (mg/dL) 74 L (75-99) mg/dL Assessment and Plan Assessment: Patient seen and examined. Patient appears to have more dyspnea with minimal exertion today. Chest x-ray from yesterday shows fluid overload, bibasilar infiltrates versus atelectasis. We will do an ultrasound of the chest today to assess for possible thoracentesis. HD per nephro today with ultrafiltration. Continue ABX. Encourage patient to get out of bed. IS and pulmonary hygiene. ~Aislinn Hale, DO
[2018-01-24] MEDS: predniSONE 20 MG TAB PO SCH (11:20)
[2018-01-24] MEDS: MULTIVITAMINS, THERA 1 EACH TAB PO SCH (11:20)
[2018-01-24] MEDS: HEPARIN SODIUM,PORCINE 5,000 UNIT/ML 1 ML VIAL SQ SCH ×2 (11:20→17:33)
[2018-01-24 11:46] VITALS: BMI 33.3
--- NOTE | 2018-01-24 11:54 | P.PN ---
Subjective Patient is seen in follow-up for chronic kidney disease. Unclear as to what her baseline renal function is. There has been no improvement in her renal function this admission. Creatinine was up to 7.2 on January 14. No vomiting or diarrhea. Patient had a permacath placed on January 14 and was started on hemodialysis. She has been tolerating hemodialysis well so far. More dyspneic today. Vital signs are stable. General: The patient appeared well nourished and normally developed. HEENT: Head exam is unremarkable. Neck is without jugular venous distension. LUNGS: Lungs are clear to auscultation and percussion. Breath sounds decreased. HEART: Rate and Rhythm are regular. First and second heart sounds normal. No murmurs, rubs or gallops. ABDOMEN: Abdominal exam reveals normal bowel sounds. Non-tender and non- distended. No evidence of peritonitis. EXTREMITITES: 1+ edema. Objective - Vital Signs Vital signs: Vital Signs Temp 98.3 F 01/24/18 06:30 Pulse 76 01/24/18 08:55 Resp 20 01/24/18 06:30 BP 154/61 01/24/18 06:30 Pulse Ox 92 L 01/24/18 06:30 Intake & Output 01/23/18 01/24/18 01/24/18 18:59 06:59 18:59 Weight 85.5 kg 85.5 kg Other: Voiding Method Bedside Commode Bedside Commode Bedside Commode Incontinent Incontinent Incontinent # Voids 2 2 1 # Bowel Movements 2 1 - Labs CBC & Chem 7: 01/23/18 10:47 01/24/18 08:42 Labs: Abnormal Lab Results - Last 24 Hours (Table) 01/23/18 01/23/18 01/23/18 Range/Units 12:18 16:58 20:48 Sodium (137-145) mmol/L BUN (7-17) mg/dL Creatinine (0.52-1.04) mg/dL POC Glucose (mg/dL) 130 H 158 H 215 H (75-99) mg/dL Glucose (74-99) mg/dL 01/24/18 01/24/18 01/24/18 Range/Units 07:02 07:15 08:42 Sodium 133 L (137-145) mmol/L BUN 23 H (7-17) mg/dL Creatinine 3.28 H (0.52-1.04) mg/dL POC Glucose (mg/dL) 63 L 74 L (75-99) mg/dL Glucose 104 H (74-99) mg/dL Assessment and Plan Plan: Assessment: 1. Acute kidney injury versus chronic kidney disease. Unknown baseline creatinine. No improvement in renal function. Creatinine 7.2 on January 14. CAT scan revealed cortical thinning of the kidneys suggestive of underlying chronic kidney disease. Started on hemodialysis on January 14. UPC 1.6. Hepatitis, GUI, complement levels, double-stranded DNA antibody negative. Serum and urine immunofixation negative. 2. Left iliopsoas abscess status post aspiration. Off IV antibiotics. 3. Metabolic acidosis secondary to acute kidney injury. Improved. 4. Hypokalemia from poor oral intake and HD. 5. Hyponatremia secondary to acute kidney injury. 6. Anemia. Iron deficiency noted - status post 3 doses of IV iron. 7. 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 8. Hyperphosphatemia secondary to acute kidney injury. Phosphorus 5.5. Expect improvement postdialysis. 9. Fluid overload. 10. Diastolic CHF with moderate tricuspid regurgitation. Plan: Off IV fluids. Maintain Lasix 80 mg orally twice daily. She will now be maintained on hemodialysis on a Monday schedule. Continue to monitor renal function and urine output closely. Maintain Aranesp. Outpatient dialysis has been set up. Hemodialysis today with goal 3-4 L ultrafiltration as tolerated.
[2018-01-24 12:12] LABS: Glucose,Whole Blood 127 mg/dL (75-99)
--- NOTE | 2018-01-24 12:50 | PN ---
PROGRESS NOTE DATE OF SERVICE: 01/24/2018 REASON FOR FOLLOWUP: 1. Left iliopsoas abscess. 2. Possible aspiration pneumonia. INTERVAL HISTORY: The patient is afebrile she is breathing comfortably. Denies significant chest pain or cough. No abdominal pain and no diarrhea. PHYSICAL EXAMINATION: Blood pressure is 154/61 with a pulse of 73, temperature 98.3, she is 92% on 4 L nasal cannula. General description is a elderly female, up in the chair in no distress. RESPIRATORY SYSTEM: Unlabored breathing with decreased breath sounds at the bases, no wheeze. HEART: S1, S2. Regular rate. ABDOMEN: Soft, no tenderness. LABS: BUN of 23, creatinine of 3.28. DIAGNOSTIC IMPRESSION AND PLAN: Patient with left iliopsoas abnormality with concern of possible abscess of incidental finding. Culture has been negative with possible aspiration pneumonia. The patient is currently on oral Augmentin, she can continue for another 5-7 days to finish a course of therapy. Continue supportive care. MMODL / IJN: [id number] /
[2018-01-24 17:23] LABS: Glucose,Whole Blood 167 mg/dL (75-99)
[2018-01-24] MEDS: FERROUS SULFATE 325 MG TAB PO SCH (17:34)
[2018-01-24 21:13] LABS: Glucose,Whole Blood 288 mg/dL (75-99)
[2018-01-24] MEDS: POLYETHYLENE GLYCOL 3350 17 GM POWD.PACK PO SCH (21:17)
[2018-01-24] MEDS: INSULIN DETEMIR 100 UNIT/ML 10 ML VIAL SQ SCH (21:17)
--- NOTE | 2018-01-24 23:34 | PN ---
PROGRESS NOTE SUBJECTIVE: This is an 82-year-old white female with acute renal failure, sepsis. She is getting increased shortness of breath. She is on Augmentin, in possible need of thoracentesis done per Pulmonology if increased dialysis fluid removed does not account for her fluid overload and from acute renal failure. CARDIOVASCULAR: S1, S2. Lungs show scattered rhonchi and rales. HEMATOLOGY: Negative Homans'. GI: Soft. ASSESSMENT: 1. Acute renal failure. 2. Sepsis. 3. Possible pleural effusion. Please see further orders. Continue Augmentin and possible pleural tap will be done prior to discharge. Otherwise, rehab placement has been waiting for 4 days. MMODL / IJN: [id number] /
[2018-01-25] MEDS ORDERED: HEPARIN SODIUM,PORCINE 5,000 UNIT/ML 1 ML VIAL ONE
[2018-01-25 03:47] LABS: Glucose,Whole Blood 199 mg/dL (75-99)
[2018-01-25 07:19] LABS: Glucose,Whole Blood 149 mg/dL (75-99)
[2018-01-25] MEDS: BUDESONIDE 0.5 MG/2 ML NEBU INHALATION SCH (07:48)
[2018-01-25] MEDS: IPRATROPIUM-ALBUTEROL 3 ML NEB INHALATION SCH ×2 (07:48→13:27)
[2018-01-25 07:59] LABS: Anisocytosis Slight; Basophils % (A) 0 %; Eosinophils % (A) 0 %; HCT 22.7 % (34.0-46.0); HGB 7.4 gm/dL (11.4-16.0); Lymphocytes # (A) 1.3 k/uL (1.0-4.8); Lymphocytes % (A) 15 %; MCH 29.7 pg (25.0-35.0); MCHC 32.7 g/dL (31.0-37.0); MCV 90.9 fL (80.0-100.0); Mean Platelet Volume 7.9; Monocytes # (A) 0.5 k/uL (0-1.0); Monocytes % (A) 6 %; Neutrophils # (A) 6.5 k/uL (1.3-7.7); Neutrophils % (A) 77 %; Platelet Count 347 k/uL (150-450); RDW 16.7 % (11.5-15.5); WBC 8.4 k/uL (3.8-10.6)
[2018-01-25 09:04] LABS: Albumin 2.9 g/dL (3.5-5.0); Calcium 8.4 mg/dL (8.4-10.2); Potassium 3.6 mmol/L (3.5-5.1); Total Bilirubin 0.4 mg/dL (0.2-1.3); Total Protein 5.4 g/dL (6.3-8.2)
[2018-01-25] MEDS: HEPARIN SODIUM,PORCINE 5,000 UNIT/ML 1 ML VIAL SQ SCH ×3 (10:06→16:26)
[2018-01-25] MEDS: amLODIPine 10 MG TAB PO SCH (10:07)
[2018-01-25] MEDS: INSULIN ASPART 100 UNIT/ML 1 ML 10 ML VIAL SQ SCH ×2 (10:07→13:40)
[2018-01-25] MEDS: hydrALAZINE HCL 50 MG TAB PO SCH (10:07)
[2018-01-25] MEDS: SPIRONOLACTONE 25 MG TAB PO SCH (10:07)
[2018-01-25] MEDS: predniSONE 20 MG TAB PO SCH (10:07)
[2018-01-25] MEDS: FENOFIBRATE 160 MG TAB PO SCH (10:08)
[2018-01-25] MEDS: MULTIVITAMINS, THERA 1 EACH TAB PO SCH (10:08)
[2018-01-25] MEDS: CHOLECALCIFEROL 1,000 UNIT TAB PO SCH (10:08)
[2018-01-25] MEDS: ASPIRIN 81 MG PO SCH (10:08)
[2018-01-25] MEDS: FERROUS SULFATE 325 MG TAB PO SCH ×2 (10:08→16:26)
[2018-01-25] MEDS: AMOXIC-POT CLAV 500-125 MG 1 EACH TAB PO SCH (10:09)
[2018-01-25] MEDS: CARVEDILOL 12.5 MG TAB PO SCH ×2 (10:09→16:26)
[2018-01-25] MEDS: PANTOPRAZOLE 40 MG TABLET PO SCH (10:09)
[2018-01-25] MEDS: FUROSEMIDE 80 MG TAB PO SCH ×2 (10:10→16:26)
--- NOTE | 2018-01-25 10:38 | P.PN ---
Subjective Patient is seen in follow-up for chronic kidney disease. Unclear as to what her baseline renal function is. There has been no improvement in her renal function this admission. Creatinine was up to 7.2 on January 14. No vomiting or diarrhea. Patient had a permacath placed on January 14 and was started on hemodialysis. She has been tolerating hemodialysis well so far. Her dyspnea has improved. She tolerated 4 L of ultrafiltration well yesterday. Vital signs are stable. General: The patient appeared well nourished and normally developed. HEENT: Head exam is unremarkable. Neck is without jugular venous distension. LUNGS: Lungs are clear to auscultation and percussion. Breath sounds decreased. HEART: Rate and Rhythm are regular. First and second heart sounds normal. No murmurs, rubs or gallops. ABDOMEN: Abdominal exam reveals normal bowel sounds. Non-tender and non- distended. No evidence of peritonitis. EXTREMITITES: 1+ edema. Objective - Vital Signs Vital signs: Vital Signs Temp 98.0 F 01/25/18 07:00 Pulse 80 01/25/18 08:03 Resp 16 01/25/18 07:00 BP 174/74 01/25/18 07:00 Pulse Ox 93 L 01/25/18 07:51 Intake & Output 01/24/18 01/25/18 01/25/18 18:59 06:59 18:59 Weight 85.5 kg 82.5 kg Other: Voiding Method Bedside Commode Bedside Commode Incontinent Incontinent # Voids 2 2 # Bowel Movements 2 - Labs CBC & Chem 7: 01/25/18 07:31 01/25/18 07:31 Labs: Abnormal Lab Results - Last 24 Hours (Table) 01/24/18 01/24/18 01/24/18 Range/Units 11:56 17:06 21:06 RBC (3.80-5.40) m/uL Hgb (11.4-16.0) gm/dL Hct (34.0-46.0) % RDW (11.5-15.5) % Sodium (137-145) mmol/L Chloride (98-107) mmol/L BUN (7-17) mg/dL Creatinine (0.52-1.04) mg/dL Glucose (74-99) mg/dL POC Glucose (mg/dL) 127 H 167 H 288 H (75-99) mg/dL Total Protein (6.3-8.2) g/dL Albumin (3.5-5.0) g/dL 01/25/18 01/25/18 01/25/18 Range/Units 02:56 07:13 07:31 RBC 2.50 L (3.80-5.40) m/uL Hgb 7.4 L (11.4-16.0) gm/dL Hct 22.7 L (34.0-46.0) % RDW 16.7 H (11.5-15.5) % Sodium (137-145) mmol/L Chloride (98-107) mmol/L BUN (7-17) mg/dL Creatinine (0.52-1.04) mg/dL Glucose (74-99) mg/dL POC Glucose (mg/dL) 199 H 149 H (75-99) mg/dL Total Protein (6.3-8.2) g/dL Albumin (3.5-5.0) g/dL 01/25/18 Range/Units 07:31 RBC (3.80-5.40) m/uL Hgb (11.4-16.0) gm/dL Hct (34.0-46.0) % RDW (11.5-15.5) % Sodium 133 L (137-145) mmol/L Chloride 96 L (98-107) mmol/L BUN 21 H (7-17) mg/dL Creatinine 2.74 H (0.52-1.04) mg/dL Glucose 149 H (74-99) mg/dL POC Glucose (mg/dL) (75-99) mg/dL Total Protein 5.4 L (6.3-8.2) g/dL Albumin 2.9 L (3.5-5.0) g/dL Assessment and Plan Plan: Assessment: 1. Acute kidney injury versus chronic kidney disease. Unknown baseline creatinine. No improvement in renal function. Creatinine 7.2 on January 14. CAT scan revealed cortical thinning of the kidneys suggestive of underlying chronic kidney disease. Started on hemodialysis on January 14. UPC 1.6. Hepatitis, GUI, complement levels, double-stranded DNA antibody negative. Serum and urine immunofixation negative. 2. Left iliopsoas abscess status post aspiration. Off IV antibiotics. 3. Metabolic acidosis secondary to acute kidney injury. Improved. 4. Hypokalemia from poor oral intake and HD. 5. Hyponatremia secondary to acute kidney injury. 6. Anemia. Iron deficiency noted - status post 3 doses of IV iron. 7. 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 8. Hyperphosphatemia secondary to acute kidney injury. Phosphorus 5.5. Expect improvement postdialysis. 9. Fluid overload. Improved with UF. 10. Diastolic CHF with moderate tricuspid regurgitation. Plan: Off IV fluids. Maintain Lasix 80 mg orally twice daily. She will now be maintained on hemodialysis on a Monday schedule. Continue to monitor renal function and urine output closely. Maintain Aranesp. Outpatient dialysis has been set up. Next hemodialysis tomorrow. Chest ultrasound pending. Potential thoracentesis.
--- NOTE | 2018-01-25 10:43 | US ---
EXAMINATION TYPE: US chest DATE OF EXAM: 01/25/2018 COMPARISON: NONE CLINICAL HISTORY: bilateral, assess for effusion, thoracentesis. EXAM MEASUREMENTS: Right Pleural Effusion fluid pocket: 3.0 cm Right skin to fluid thickness: 2.0 cm Left Pleural Effusion fluid pocket: 3.4 cm Left skin to fluid thickness: 2.7 cm Right side not marked for possible thoracentesis outside the dept. Left side not marked for possible thoracentesis outside the dept. Pulmonologists are able to review the images in the patient?s EMR. IMPRESSIONS: Trace to small pleural effusions as measured above.
--- NOTE | 2018-01-25 10:50 | P.PN ---
<Kathrin Dejesus E - Last Filed: 01/25/18 10:47> Subjective Progress Note Date: 01/25/18 Interval history: 01/22/2018- patient is being seen examined and evaluated today on rounds. She is resting up in bed on 4 L of supplemental oxygen via nasal cannula. She did have an episode of emesis this morning while eating breakfast. She denies any feelings of nausea. She said this occasionally happens and she is unsure why. We will get a speech and swallow evaluation. She denies any stomach discomfort , fevers chills diarrhea or constipation. She has been undergoing dialysis as ordered. All labs and reports have been reviewed. 01/23/18- patient is being seen examined and evaluated today on rounds. She is resting up in bed on 4L supplemental oxygen via nasal cannula. He states his breathing treatments are helping. Discharge planning underway for possible rehab. She has been up ambulating in the room with assistance. Appetite has been good. Dialysis scheduled for tomorrow 01/24/18- patient is being seen examined and evaluated today on rounds. She is notably more short of breath today. She is scheduled for dialysis today. She is having a hard time clearing her throat. Chest x-ray from yesterday was reviewed and does show CHF with pulmonary venous congestion and scattered infiltrates, recommend holding discharge at least one more day 01/25/18- patient is being seen examined and evaluated on rounds. She is significantly better today in regards to her respiratory status. She did have dialysis yesterday with 4 L of fluid taken off. She did have an ultrasound of her chest this morning which revealed trace left and right effusions nothing palpable at this time. She states overall she is feeling better and is looking forward to going to ECF. All labs and reports reviewed. Objective - Vital Signs Vital signs: Vital Signs Temp 98.0 F 01/25/18 07:00 Pulse 80 01/25/18 08:03 Resp 16 01/25/18 07:00 BP 174/74 01/25/18 07:00 Pulse Ox 93 L 01/25/18 07:51 Intake & Output 01/24/18 01/25/18 01/25/18 18:59 06:59 18:59 Weight 85.5 kg 82.5 kg Other: Voiding Method Bedside Commode Bedside Commode Incontinent Incontinent # Voids 2 2 # Bowel Movements 2 - Exam GENERAL EXAM: Alert, active, comfortable in no apparent distress. HEAD: Normocephalic. EYES: Normal reaction of pupils, equal size. NOSE: Clear with pink turbinates. THROAT: No erythema or exudates. NECK: No masses, no JVD. CHEST: No chest wall deformity. LUNGS: Equal air entry slightly coarse with scattered rhonchi is. Bases diminished CVS: S1 and S2 normal with no audible mumurs, regular rhythm. ABDOMEN: No hepatosplenomegaly, normal bowel sounds, no guarding or rigidity. EXTREMITIES: No edema noted, pedal pulses palpable. CENTRAL NERVOUS SYSTEM: No focal deficits, tone is normal in all 4 extremities. - Labs CBC & Chem 7: 01/25/18 07:01/25/18 07:31 Labs: Abnormal Lab Results - Last 24 Hours (Table) 01/24/18 01/24/18 01/24/18 Range/Units 11:56 17:06 21:06 RBC (3.80-5.40) m/uL Hgb (11.4-16.0) gm/dL Hct (34.0-46.0) % RDW (11.5-15.5) % Sodium (137-145) mmol/L Chloride (98-107) mmol/L BUN (7-17) mg/dL Creatinine (0.52-1.04) mg/dL Glucose (74-99) mg/dL POC Glucose (mg/dL) 127 H 167 H 288 H (75-99) mg/dL Total Protein (6.3-8.2) g/dL Albumin (3.5-5.0) g/dL 01/25/18 01/25/18 01/25/18 Range/Units 02:56 07:13 07:31 RBC 2.50 L (3.80-5.40) m/uL Hgb 7.4 L (11.4-16.0) gm/dL Hct 22.7 L (34.0-46.0) % RDW 16.7 H (11.5-15.5) % Sodium (137-145) mmol/L Chloride (98-107) mmol/L BUN (7-17) mg/dL Creatinine (0.52-1.04) mg/dL Glucose (74-99) mg/dL POC Glucose (mg/dL) 199 H 149 H (75-99) mg/dL Total Protein (6.3-8.2) g/dL Albumin (3.5-5.0) g/dL 01/25/18 Range/Units 07:31 RBC (3.80-5.40) m/uL Hgb (11.4-16.0) gm/dL Hct (34.0-46.0) % RDW (11.5-15.5) % Sodium 133 L (137-145) mmol/L Chloride 96 L (98-107) mmol/L BUN 21 H (7-17) mg/dL Creatinine 2.74 H (0.52-1.04) mg/dL Glucose 149 H (74-99) mg/dL POC Glucose (mg/dL) (75-99) mg/dL Total Protein 5.4 L (6.3-8.2) g/dL Albumin 2.9 L (3.5-5.0) g/dL Assessment and Plan Assessment: Assessment Dyspnea, most likely secondary to CHF in the setting of acute renal failure with fluid overload Acute hypoxic respiratory failure requiring supplemental oxygen Anemia, iron deficiency, and anemia of chronic disease also could be contributing to her dyspnea Left iliopsoas abscess status post aspiration and antibiotics Medical debility Possible aspiration pneumonia Plan Patient is cleared for discharge from pulmonary standpoint to ECF/rehab Ultrasound of the chest reviewed and fluid is not significant enough for thoracentesis Prednisone taper Patient will need a home oxygen assessment Dialysis per nephrology Speech evaluation, swallow eval Monitor for any increase in WBC and fever Medications have been reviewed and will be continued as ordered. Continue with pulmonary hygiene, coughing and deep breathing exercises, and supportive care. Supplemental oxygen to maintain oxygen saturations of 92% or better. Continue nebulizer treatments. GI and DVT prophylaxis. We will continue to monitor labs/results and adjust treatment as necessary. Further recommendations pending. I performed an examination of the patient and discussed their management with the nurse practitioner. I have reviewed the nurse practitioner's note and agree with the documented findings and plan of care. <Aislinn Hale - Last Filed: 01/25/18 11:05> Objective - Vital Signs Vital signs: Vital Signs Temp 98.0 F 01/25/18 07:00 Pulse 80 01/25/18 08:03 Resp 16 01/25/18 07:00 BP 174/74 01/25/18 07:00 Pulse Ox 93 L 01/25/18 07:51 Intake & Output 01/24/18 01/25/18 01/25/18 18:59 06:59 18:59 Weight 85.5 kg 82.5 kg Other: Voiding Method Bedside Commode Bedside Commode Incontinent Incontinent # Voids 2 2 # Bowel Movements 2 - Labs CBC & Chem 7: 01/25/18 07:31 01/25/18 07:31 Labs: Abnormal Lab Results - Last 24 Hours (Table) 01/24/18 01/24/18 01/24/18 Range/Units 11:56 17:06 21:06 RBC (3.80-5.40) m/uL Hgb (11.4-16.0) gm/dL Hct (34.0-46.0) % RDW (11.5-15.5) % Sodium (137-145) mmol/L Chloride (98-107) mmol/L BUN (7-17) mg/dL Creatinine (0.52-1.04) mg/dL Glucose (74-99) mg/dL POC Glucose (mg/dL) 127 H 167 H 288 H (75-99) mg/dL Total Protein (6.3-8.2) g/dL Albumin (3.5-5.0) g/dL 01/25/18 01/25/18 01/25/18 Range/Units 02:56 07:13 07:31 RBC 2.50 L (3.80-5.40) m/uL Hgb 7.4 L (11.4-16.0) gm/dL Hct 22.7 L (34.0-46.0) % RDW 16.7 H (11.5-15.5) % Sodium (137-145) mmol/L Chloride (98-107) mmol/L BUN (7-17) mg/dL Creatinine (0.52-1.04) mg/dL Glucose (74-99) mg/dL POC Glucose (mg/dL) 199 H 149 H (75-99) mg/dL Total Protein (6.3-8.2) g/dL Albumin (3.5-5.0) g/dL 01/25/18 Range/Units 07:31 RBC (3.80-5.40) m/uL Hgb (11.4-16.0) gm/dL Hct (34.0-46.0) % RDW (11.5-15.5) % Sodium 133 L (137-145) mmol/L Chloride 96 L (98-107) mmol/L BUN 21 H (7-17) mg/dL Creatinine 2.74 H (0.52-1.04) mg/dL Glucose 149 H (74-99) mg/dL POC Glucose (mg/dL) (75-99) mg/dL Total Protein 5.4 L (6.3-8.2) g/dL Albumin 2.9 L (3.5-5.0) g/dL Assessment and Plan Assessment: Patient seen and examined. Ultrasound of the chest reviewed, effusions not large enough for thoracentesis. Patient states her breathing is markedly better after HD yesterday with 4L ultrafiltration. She appears much more comfortable. OK to DC from pulmonary standpoint. ~Aislinn Hale,
[2018-01-25 12:24] LABS: Glucose,Whole Blood 294 mg/dL (75-99)
--- NOTE | 2018-01-25 15:14 | DS ---
DISCHARGE SUMMARY DISCHARGE MEDICINE: 1. Augmentin 500/125 b.i.d. for 7 days. 2. Pulmicort 7.5 mg updraft b.i.d. 3. DuoNeb updraft q.i.d. 4. Pulmicort 0.5 mg b.i.d. 5. Coreg 12.5 mg b.i.d. p.r.n. 6. Aranesp 40 mcg subcu weekly. 7. Ferrous sulfate 325 b.i.d. 8. Lasix 80 mg b.i.d. 9. Heparin 5000 units subcu q.8 hours. 10.Apresoline 50 mg b.i.d. 11.NovoLog a.c. and at bedtime. 12.Accu-Chek protocol. 13.MS Contin 50 mg b.i.d. 14.Prednisone taper 60 mg for 3 days, 40 mg for 3 days, 20 mg for 3 days, 10 mg for 3 days, Norvasc 10 mg daily. 15.Prilosec 20 mg daily. 16.Lantus 20 units daily. 17.Multivitamin daily. 18.Tricor 145 mg daily. 19.Vitamin D3 two thousand units daily. 20.Ecotrin 81 mg daily. 21.Spironolactone 12.5 b.i.d. 22.Humalog 15 units subcu a.c. supper 10 units subcu a.c. lunch, 5 units subcu a.c. breakfast. 23.Milk of magnesia 2400 mg p.o. p.r.n. for constipation. CONDITION: Stable. PROGNOSIS: Guarded. Ambulate as tolerated. HOSPITAL COURSE OF EVENTS: DISCHARGE DIAGNOSES: 1. End-stage renal failure with acute renal failure, but is end-stage renal failure. 2. Congestive heart failure, diastolic fluid with fluid overload due to end-stage renal failure, acute hypoxemic respiratory failure, requiring oxygen 2 L. 3. Iron deficiency anemia, left iliopsoas abscess, status post aspiration and antibiotics. 4. Medical debility, possible aspiration pneumonia. She is obese. She had an abscess drainage of the left psoas muscle. She had dialysis. It will be set up 3 times a week as an outpatient for end-stage renal failure. 5. She has protein calorie malnutrition of moderate amount, which will need protein supplementation. She was treated with empiric antibiotics for ileus psoas abscess, infection, possible aspiration pneumonia. Patient is clinically improved to the point as long as she gets dialysis 3 times a week, stays on the current medication, she should do fine. Monitor for signs of bleeding and anemia. Followup with Dr. Francisco Javier Simeon in [facility]. MMODL / ALFREDN: [id number] /
[2018-01-25 15:48] VITALS: BP 155/58; PULSE 68; RESP 20; TEMP 98.5
[2018-01-25 16:57] LABS: Glucose,Whole Blood 356 mg/dL (75-99)
--- NOTE | 2018-01-25 17:35 | PN ---
PROGRESS NOTE DATE OF SERVICE: 01/25/2018. REASON FOR FOLLOWUP VISIT: 1. Possible left iliopsoas abscess. 2. Aspiration pneumonia. INTERVAL HISTORY: The patient is afebrile. She is breathing comfortably. She is more awake, alert. Denies any chest pain or abdominal pain or cough or any diarrhea. EXAMINATION: Blood pressure is 169/73 with a pulse of 73, temperature 98. She is 92% on 4 L nasal cannula. General description is an elderly female up in the chair in no distress. Respiratory system: Unlabored breathing with decreased breath sounds in the bases. No wheeze. Heart S1, S2. Regular rate and rhythm. ABDOMEN: Soft, no tenderness. LABS: Hemoglobin 7.4, white count 8.4, BUN of 21, creatinine is 2.74. DIAGNOSTIC IMPRESSION AND PLAN: Patient with initial concern for possible left iliopsoas abscess. Clinically, the patient with a component of aspiration pneumonia. She is currently on oral Augmentin. She will continue for another week to finish her course of therapy. Continue supportive care. Family present at bedside. All their questions were answered. MMODL / IJN: [id number] / [id number]
[2018-01-25] MEDS ORDERED: MORPHINE SULFATE ER 15 MG TABLET PO SCH (21:00)
--- NOTE | 2018-01-26 15:41 | CDI ---
Last Revision, June 2017 Documentation Clarification Form Date: 01/26/18 From: Isabel Arie Alexus Howard, Rn Bariatric Hours-8:30 am & 5 pm Erum Admit Date: 01/10/2018 4:33:00 PM Patient Name: Jane Vernon Visit Number: [id number] Discharge Date: 01/25/18 ATTENTION: The Clinical Documentation Specialists (CDI) and [facility] Coding Staff appreciate your assistance in clarifying documentation. Please respond to the clarification below the line at the bottom and electronically sign. The CDI & [facility] Coding staff will review the response and follow-up if needed. Please note: Queries are made part of the Legal Health Record. If you have any questions, please contact the author of this message via ITS. Dr. Francisco Javier Simeon Sepsis was documented through out the medical record by you and multiple providers. History/Risk Factors: Psoas muscle abscess, asp pneumonia, ESRD, ARF In your professional opinion, sepsis diagnosis is not included in your discharge summary. Please clarify if these findings signify one of the following conditions: Sepsis ruled in Sepsis ruled out Other, please specify Unable to determine Please continue to document in your progress notes and discharge summary in order to capture severity of illness and risk of mortality. Include clinical findings that support your diagnosis. MTDD
--- NOTE | 2018-01-31 07:09 | CDI ---
Last Revision, June 2017 Documentation Clarification Form Date: 01/31/18 From: Isabel Arie Alexus Anita, Mig [employer] Hours-8:30 am & 5 pm Erum Admit Date: 01/10/2018 4:33:00 PM Patient Name: Jane Vernon Visit Number: [id number] Discharge Date: 01/25/18 ATTENTION: The Clinical Documentation Specialists (CDI) and [facility] Coding Staff appreciate your assistance in clarifying documentation. Please respond to the clarification below the line at the bottom and electronically sign. The CDI & [facility] Coding staff will review the response and follow-up if needed. Please note: Queries are made part of the Legal Health Record. If you have any questions, please contact the author of this message via ITS. Dr. Francisco Javier Simeon Sepsis was documented in your H&P, ED note, renal consult, cardiology consult, 01/13 & PN by Dr Sanchez, 01/16, , & PN by tiffany, 01/[address] Gutierrez. History/Risk Factors: Psoas muscle abscess, asp pneumonia, ESRD, ARF Lactic acid-<0.5, WBC-20.4, Neutrophils-18.4, T-99.6, P-69, R-16, BP-153/75, Cr- 6.70 Treated w IV Zosyn, In your professional opinion, sepsis diagnosis is not included in your discharge summary. Please clarify if these findings signify one of the following conditions: Sepsis ruled in Sepsis ruled out Other, please specify Unable to determine Please continue to document in your progress notes and discharge summary in order to capture severity of illness and risk of mortality. Include clinical findings that support your diagnosis. _ MTDD
--- NOTE | 2018-02-05 11:25 | CDI ---
Last Revision, June 2017 Documentation Clarification Form Date: 02/05/18 From: Isabel Sargent Alexus Anita, Transport Company Manager Hours-8:30 am & 5 pm Erum Admit Date: 01/10/2018 4:33:00 PM Patient Name: Jane Vernon Visit Number: [id number] Discharge Date: 01/25/18 ATTENTION: The Clinical Documentation Specialists (CDI) and [facility] Coding Staff appreciate your assistance in clarifying documentation. Please respond to the clarification below the line at the bottom and electronically sign. The CDI & [facility] Coding staff will review the response and follow-up if needed. Please note: Queries are made part of the Legal Health Record. If you have any questions, please contact the author of this message via ITS. Francisco Javier Conn Sepsis was documented in your H&P, ED note, renal consult, cardiology consult, 01/13 & PN by Dr Sanchez, 01/16, , & PN by tiffany, 01/[address] Gutierrez. History/Risk Factors: Psoas muscle abscess, asp pneumonia, ESRD, ARF Lactic acid-<0.5, WBC-20.4, Neutrophils-18.4, T-99.6, P-69, R-16, BP-153/75, Cr- 6.70 Treated w IV Zosyn In your professional opinion, sepsis diagnosis is not included in your discharge summary. Please clarify if these findings signify one of the following conditions: Sepsis ruled in Sepsis ruled out Other, please specify Unable to determine Please continue to document in your progress notes and discharge summary in order to capture severity of illness and risk of mortality. Include clinical findings that support your diagnosis. MTDD
--- NOTE | 2018-02-08 14:18 | CDI ---
Documentation Clarification Form Date: 02/08/18 From: Alexus Howard Admit Date: 01/10/2018 4:33:00 PM Patient Name: Jane Vernon Visit Number: [id number] Discharge Date: ATTENTION: The Clinical Documentation Specialists (CDI) and [facility] Coding Staff appreciate your assistance in clarifying documentation. Please respond to the clarification below the line at the bottom and electronically sign. The CDI & [facility] Coding staff will review the response and follow-up if needed. Please note: Queries are made part of the Legal Health Record. If you have any questions, please contact the author of this message via ITS. Dr. Simeon, Sepsis was documented in your H&P, ED note, renal consult, cardiology consult, 01/13 & prog notes by Dr Sanchez, 01/16, , & prog notes by you, 01/[address] Gutierrez. History/Risk Factors: Psoas muscle abscess, asp pneumonia, ESRD, ARF Lactic acid-<0.5, WBC-20.4, Neutrophils-18.4, T-99.6, P-69, R-16, BP-153/75, Cr- 6.70 Treated w IV Zosyn In your professional opinion, sepsis diagnosis is not included in your discharge summary. Please clarify if these findings signify one of the following conditions: Sepsis ruled in Sepsis ruled out Other, please specify Unable to determine MTDD
--- NOTE | 2018-02-13 12:17 | CDI ---
Last Revision, June 2017 Documentation Clarification Form Date: 02/13/18 From: Isabel Sargent Alexus Anita, Patient Information Coordinator Hours-8:30 am & 5 pm Erum Admit Date: 01/10/2018 4:33:00 PM Patient Name: Jane Vernon Visit Number: [id number] Discharge Date: 01/25/18 ATTENTION: The Clinical Documentation Specialists (CDI) and [facility] Coding Staff appreciate your assistance in clarifying documentation. Please respond to the clarification below the line at the bottom and electronically sign. The CDI & [facility] Coding staff will review the response and follow-up if needed. Please note: Queries are made part of the Legal Health Record. If you have any questions, please contact the author of this message via ITS. Francisco Javier Conn MD Sepsis was documented in your H&P, ED note, renal consult, cardiology consult, 01/13 & PN by Dr Sanchez, 01/16, , & PN by you, 01/[address] Gutierrez. History/Risk Factors: Psoas muscle abscess, asp pneumonia, ESRD, ARF Lactic acid-<0.5, WBC-20.4, Neutrophils-18.4, T-99.6, P-69, R-16, BP-153/75, Cr- 6.70 Treated w IV Zosyn In your professional opinion, sepsis diagnosis is not included in your discharge summary. Please clarify if these findings signify one of the following conditions: Sepsis ruled in Sepsis ruled out Other, please specify Unable to determine Please continue to document in your progress notes and discharge summary in order to capture severity of illness and risk of mortality. Include clinical findings that support your diagnosis. MTDD
--- NOTE | 2018-02-19 10:41 | CDI ---
Last Revision, June 2017 Documentation Clarification Form Date: 02/19/18 From: Isabel Sargent Alexus Anita, Slime Plant Operator Hours-8:30 am & 5 pm Erum Admit Date: 01/10/2018 4:33:00 PM Patient Name: Jane Vernon Visit Number: [id number] Discharge Date: 01/25/18 ATTENTION: The Clinical Documentation Specialists (CDI) and [facility] Coding Staff appreciate your assistance in clarifying documentation. Please respond to the clarification below the line at the bottom and electronically sign. The CDI & [facility] Coding staff will review the response and follow-up if needed. Please note: Queries are made part of the Legal Health Record. If you have any questions, please contact the author of this message via ITS. Francisco Javier Conn MD Sepsis was documented in your H&P, ED note, renal consult, cardiology consult, 01/13 & PN by Dr Sanchez, 01/16, , & PN by you, 01/[address] Gutierrez. History/Risk Factors: Psoas muscle abscess, asp pneumonia, ESRD, ARF Lactic acid-<0.5, WBC-20.4, Neutrophils-18.4, T-99.6, P-69, R-16, BP-153/75, Cr- 6.70 Treated w IV Zosyn In your professional opinion, sepsis diagnosis is not included in your discharge summary. Please clarify if these findings signify one of the following conditions: Sepsis ruled in Sepsis ruled out Other, please specify Unable to determine Please continue to document in your progress notes and discharge summary in order to capture severity of illness and risk of mortality. Include clinical findings that support your diagnosis. MTDD
--- NOTE | 2018-02-19 21:19 | DS ---
DISCHARGE SUMMARY ADDENDUM: DISCHARGE DIAGNOSIS: Sepsis is ruled in due to aspiration pneumonia and psoas muscle abscess. MMODL / IJN: [id number] /
--- NOTE | 2018-02-24 07:06 | DS ---
DISCHARGE SUMMARY ADDENDUM: Please add to the discharge summary: Sepsis in the discharge summary, and sepsis ruled in. MMODL / IJN: [id number] /
== END 2018-01-25 17:30 | DRG 871 ==
LOC: EC 11:43 → 4MS4W 16:33
PROVIDERS: ADMIT Family Medicine; ATTEND Family Medicine
PROC: 0K9P3ZZ Drainage of Left Hip Muscle, Percutaneous Approach (ICD-10-PCS; principal; 2018-01-12)
PROC: 02H633Z Insertion of Infusion Device into Right Atrium, Percutaneous Approach (ICD-10-PCS; 2018-01-14 11:05)
PROC: 5A1D70Z Performance of Urinary Filtration, Intermittent, Less than 6 Hours Per Day (ICD-10-PCS; 2018-01-14 11:05)
PROC: 5A1D70Z Performance of Urinary Filtration, Intermittent, Less than 6 Hours Per Day (ICD-10-PCS; 2018-01-15)
PROC: 5A1D70Z Performance of Urinary Filtration, Intermittent, Less than 6 Hours Per Day (ICD-10-PCS; 2018-01-16)
PROC: 5A1D70Z Performance of Urinary Filtration, Intermittent, Less than 6 Hours Per Day (ICD-10-PCS; 2018-01-18)
PROC: 5A1D70Z Performance of Urinary Filtration, Intermittent, Less than 6 Hours Per Day (ICD-10-PCS; 2018-01-19)
PROC: 5A1D70Z Performance of Urinary Filtration, Intermittent, Less than 6 Hours Per Day (ICD-10-PCS; 2018-01-22)
PROC: 5A1D70Z Performance of Urinary Filtration, Intermittent, Less than 6 Hours Per Day (ICD-10-PCS; 2018-01-24)
DX: A41.9 Sepsis, unspecified organism (principal); I50.33 Acute on chronic diastolic (congestive) heart failure; K68.12 Psoas muscle abscess; J96.01 Acute respiratory failure with hypoxia; J69.0 Pneumonitis due to inhalation of food and vomit; N18.6 End stage renal disease; N17.9 Acute kidney failure, unspecified; I13.2 Hypertensive heart and chronic kidney disease with heart failure and with stage 5 chronic kidney disease, or end stage renal disease; E44.0 Moderate protein-calorie malnutrition; E87.1 Hypo-osmolality and hyponatremia; E87.4 Mixed disorder of acid-base balance; K62.6 Ulcer of anus and rectum; E11.22 Type 2 diabetes mellitus with diabetic chronic kidney disease; I07.1 Rheumatic tricuspid insufficiency; E83.39 Other disorders of phosphorus metabolism; D63.8 Anemia in other chronic diseases classified elsewhere; E87.6 Hypokalemia; H91.90 Unspecified hearing loss, unspecified ear; D50.9 Iron deficiency anemia, unspecified; E66.9 Obesity, unspecified; Z68.32 Body mass index [BMI] 32.0-32.9, adult; Z71.3 Dietary counseling and surveillance; Z99.2 Dependence on renal dialysis; Z79.82 Long term (current) use of aspirin; Z79.4 Long term (current) use of insulin; Z79.899 Other long term (current) drug therapy; Z90.49 Acquired absence of other specified parts of digestive tract; E78.5 Hyperlipidemia, unspecified
CPT/HCPCS: 36415; 36558; 71045; 71046; 74176; 76604; 76770; 76937; 77001; 77012; 80048; 80053; 80074; 81001; 82150; 82570; 82728; 83036; 83540; 83550; 83605; 83690; 84100; 84156; 84165; 85025; 85027; 85610; 85730; 86038; 86160; 86162; 86225; 86255; 86334; 86335; 87040; 87070; 87075; 87205; 87324; 88304; 90935; 93306; 94640; 94760; 96361; 96365; 96375; 99291

== ENCOUNTER 2018-03-06 18:48 | Inpatient (IN) | payer MEDICARE, OTHER ==
[2018-03-06] MEDS ORDERED: ACETAMINOPHEN TAB 500 MG TAB PO STA (19:23)
[2018-03-06] MEDS ORDERED: SODIUM CHLORIDE 0.9% 500 ML IV STA (19:23)
[2018-03-06] MEDS ORDERED: cefTRIAXone 2,000 MG in SODIUM CHLORIDE 0.9% 100 ML IVPB STA (19:23)
[2018-03-06] MEDS ORDERED: SODIUM CHLORIDE 0.9% 1,000 ML IV STA (19:23)
[2018-03-06] MEDS ORDERED: IBUPROFEN 600 MG TAB PO STA (19:23)
[2018-03-06] MEDS ORDERED: cefTRIAXone IN SWFI 2,000 MG/20 ML SYRINGE IVP STA (19:24)
--- NOTE | 2018-03-06 19:40 | ED ---
General Adult HPI - General Chief complaint: Altered Mental Status Stated complaint: Altered LOC Time Seen by Provider: 03/06/18 19:03 Source: family, EMS, RN notes reviewed, old records reviewed Mode of arrival: EMS Limitations: altered mental status - History of Present Illness Initial comments: This is an 83-year-old female the ER for evaluation regarding altered mental state. Patient is brought in by EMS for evaluation regarding altered mental status, positive fever. Patient has been incontinent of both urine and stool. Patient's brought in by EMS for evaluation - Related Data Home Medications Medication Instructions Recorded Confirmed Aspirin EC [Ecotrin Low Dose] 81 mg PO DAILY 01/10/18 03/06/18 Cholecalciferol (Vitamin D3) 2,000 unit PO DAILY 01/10/18 03/06/18 [Vitamin D3] Fenofibrate Nanocrystallized 145 mg PO DAILY 01/10/18 03/06/18 [Tricor] Insulin Lispro [humaLOG] 5 units SQ AC-BRKFST 01/10/18 03/06/18 Insulin Lispro [humaLOG] 10 units SQ AC-LUNCH 01/10/18 03/06/18 Insulin Lispro [humaLOG] 15 units SQ AC-SUPPER 01/10/18 03/06/18 Multivitamins, Thera [Multivitamin 1 tab PO DAILY 01/10/18 03/06/18 (formulary)] Omeprazole [PriLOSEC] 40 mg PO DAILY 01/10/18 03/06/18 Spironolactone [Aldactone] 12.5 mg PO BID 01/10/18 03/06/18 amLODIPine [Norvasc] 10 mg PO DAILY 01/10/18 03/06/18 Acetaminophen/Diphenhydramine 1 tab PO HS PRN 03/06/18 03/06/18 [Tylenol PM 500-25mg] Carvedilol [Coreg] 25 mg PO BID 03/06/18 03/06/18 Furosemide [Lasix] 60 mg PO DAILY 03/06/18 03/06/18 Loperamide [Imodium] 2 mg PO DAILY 03/06/18 03/06/18 hydrALAZINE HCL [Apresoline] 50 mg PO TID 03/06/18 03/06/18 Allergies Allergy/AdvReac Type Severity Reaction Status Date / Time No Known Allergies Allergy Verified 03/06/18 19:42 Review of Systems ROS Statement: Those systems with pertinent positive or pertinent negative responses have been documented in the HPI. ROS Other: All systems not noted in ROS Statement are negative. Past Medical History Past Medical History: Heart Failure, Diabetes Mellitus History of Any Multi-Drug Resistant Organisms: None Reported Past Surgical History: Cholecystectomy Past Anesthesia/Blood Transfusion Reactions: No Reported Reaction Past Psychological History: No Psychological Hx Reported Smoking Status: Never smoker Past Alcohol Use History: None Reported Past Drug Use History: None Reported General Exam Limitations: altered mental status General appearance: alert, in no apparent distress, anxious, lethargic, in distress Head exam: Present: atraumatic, normocephalic, normal inspection Eye exam: Present: normal appearance, PERRL, EOMI. Absent: scleral icterus, conjunctival injection, periorbital swelling ENT exam: Present: normal exam, mucous membranes moist Neck exam: Present: normal inspection. Absent: tenderness, meningismus, lymphadenopathy Respiratory exam: Present: normal lung sounds bilaterally. Absent: respiratory distress, wheezes, rales, rhonchi, stridor Cardiovascular Exam: Present: normal rhythm, tachycardia, normal heart sounds. Absent: systolic murmur, diastolic murmur, rubs, gallop, clicks GI/Abdominal exam: Present: soft, normal bowel sounds. Absent: distended, tenderness, guarding, rebound, rigid Extremities exam: Present: normal inspection, full ROM, normal capillary refill. Absent: tenderness, pedal edema, joint swelling, calf tenderness Back exam: Present: normal inspection Neurological exam: Present: alert, oriented X3, CN II-XII intact Psychiatric exam: Present: normal affect, normal mood Skin exam: Present: warm, dry, intact, normal color. Absent: rash Course Vital Signs 03/06/18 03/06/18 03/06/18 18:50 19:32 19:35 Temperature 104.9 F H Pulse Rate 106 H 103 H Pulse Rate [ 103 H Supine Pulse Oximetery] Respiratory 28 H 22 Rate Blood Pressure 149/96 154/76 O2 Sat by Pulse 97 Oximetry 03/06/18 20:54 Temperature 101.1 F H Pulse Rate 92 Pulse Rate [ Supine Pulse Oximetery] Respiratory 20 Rate Blood Pressure 148/84 O2 Sat by Pulse 96 Oximetry - Reevaluation(s) Reevaluation #1: 03/06/18 21:22 Patient mildly improvement with active rehydration and fever control EKG Findings - EKG Comments: EKG Findings:: EKG shows sinus rhythm PVCs rate of 105, VT 200, QRS 100, QTC 504 Medical Decision Making - Medical Decision Making 83 female the ER for evaluation regarding fever and altered mental state, significant urinary tract infection, will admit for IV antibiotics IV resuscitation and monitoring of hemodynamic status - Lab Data Result diagrams: 03/06/18 19:22 03/06/18 19:22 Lab Results 03/06/18 03/06/18 03/06/18 Range/Units 19:22 19:22 19:22 WBC 15.9 H (3.8-10.6) k/uL RBC 3.85 (3.80-5.40) m/uL Hgb 11.4 (11.4-16.0) gm/dL Hct 35.9 (34.0-46.0) % MCV 93.4 (80.0-100.0) fL MCH 29.7 (25.0-35.0) pg MCHC 31.8 (31.0-37.0) g/dL RDW 15.2 (11.5-15.5) % Plt Count 244 (150-450) k/uL Neutrophils % 67 % Lymphocytes % 28 % Monocytes % 4 % Eosinophils % 0 % Basophils % 1 % Neutrophils # 10.7 H (1.3-7.7) k/uL Lymphocytes # 4.4 (1.0-4.8) k/uL Monocytes # 0.6 (0-1.0) k/uL Eosinophils # 0.0 (0-0.7) k/uL Basophils # 0.1 (0-0.2) k/uL PT (9.0-12.0) sec INR (<1.2) APTT (22.0-30.0) sec Sodium 129 L (137-145) mmol/L Potassium 4.2 (3.5-5.1) mmol/L Chloride 96 L (98-107) mmol/L Carbon Dioxide 20 L (22-30) mmol/L Anion Gap 13 mmol/L BUN 28 H (7-17) mg/dL Creatinine 3.60 H (0.52-1.04) mg/dL Est GFR (CKD-EPI)AfAm 13 (>60 ml/min/1.73 sqM) Est GFR (CKD-EPI)NonAf 11 (>60 ml/min/1.73 sqM) Glucose 80 (74-99) mg/dL Plasma Lactic Acid Lalo (0.7-2.0) mmol/L Calcium 8.5 (8.4-10.2) mg/dL Phosphorus 2.2 L (2.5-4.5) mg/dL Magnesium 1.4 L (1.6-2.3) mg/dL Total Bilirubin 0.8 (0.2-1.3) mg/dL AST 42 H (14-36) U/L ALT 29 (9-52) U/L Alkaline Phosphatase 58 (38-126) U/L Total Creatine Kinase 197 H (30-135) U/L CK-MB (CK-2) 0.3 (0.0-2.4) ng/mL CK-MB (CK-2) Rel Index 0.2 Troponin I 0.070 H* (0.000-0.034) ng/mL Total Protein 6.1 L (6.3-8.2) g/dL Albumin 3.0 L (3.5-5.0) g/dL Urine Color Urine Appearance (Clear) Urine pH (5.0-8.0) Ur Specific Whitefield (1.001-1.035) Urine Protein (Negative) Urine Glucose (UA) (Negative) Urine Ketones (Negative) Urine Blood (Negative) Urine Nitrite (Negative) Urine Bilirubin (Negative) Urine Urobilinogen (<2.0) mg/dL Ur Leukocyte Esterase (Negative) Urine RBC (0-5) /hpf Urine WBC (0-5) /hpf Urine WBC Clumps (None) /hpf Urine Bacteria (None) /hpf 03/06/18 03/06/18 03/06/18 Range/Units 19:22 19:22 19:22 WBC (3.8-10.6) k/uL RBC (3.80-5.40) m/uL Hgb (11.4-16.0) gm/dL Hct (34.0-46.0) % MCV (80.0-100.0) fL MCH (25.0-35.0) pg MCHC (31.0-37.0) g/dL RDW (11.5-15.5) % Plt Count (150-450) k/uL Neutrophils % % Lymphocytes % % Monocytes % % Eosinophils % % Basophils % % Neutrophils # (1.3-7.7) k/uL Lymphocytes # (1.0-4.8) k/uL Monocytes # (0-1.0) k/uL Eosinophils # (0-0.7) k/uL Basophils # (0-0.2) k/uL PT 11.8 (9.0-12.0) sec INR 1.2 H (<1.2) APTT 23.6 (22.0-30.0) sec Sodium (137-145) mmol/L Potassium (3.5-5.1) mmol/L Chloride (98-107) mmol/L Carbon Dioxide (22-30) mmol/L Anion Gap mmol/L BUN (7-17) mg/dL Creatinine (0.52-1.04) mg/dL Est GFR (CKD-EPI)AfAm (>60 ml/min/1.73 sqM) Est GFR (CKD-EPI)NonAf (>60 ml/min/1.73 sqM) Glucose (74-99) mg/dL Plasma Lactic Acid Lalo 2.2 H* (0.7-2.0) mmol/L Calcium (8.4-10.2) mg/dL Phosphorus (2.5-4.5) mg/dL Magnesium (1.6-2.3) mg/dL Total Bilirubin (0.2-1.3) mg/dL AST (14-36) U/L ALT (9-52) U/L Alkaline Phosphatase (38-126) U/L Total Creatine Kinase (30-135) U/L CK-MB (CK-2) (0.0-2.4) ng/mL CK-MB (CK-2) Rel Index Troponin I (0.000-0.034) ng/mL Total Protein (6.3-8.2) g/dL Albumin (3.5-5.0) g/dL Urine Color Red Urine Appearance Turbid H (Clear) Urine pH 7.0 (5.0-8.0) Ur Specific Whitefield 1.015 (1.001-1.035) Urine Protein 2+ H (Negative) Urine Glucose (UA) Negative (Negative) Urine Ketones Negative (Negative) Urine Blood Small H (Negative) Urine Nitrite Negative (Negative) Urine Bilirubin Negative (Negative) Urine Urobilinogen <2.0 (<2.0) mg/dL Ur Leukocyte Esterase Large H (Negative) Urine RBC 58 H (0-5) /hpf Urine WBC >182 H (0-5) /hpf Urine WBC Clumps Many H (None) /hpf Urine Bacteria Many H (None) /hpf - Radiology Data Radiology results: report reviewed (Chest x-rays negative for acute disease), image reviewed Disposition Clinical Impression: Altered mental status, Fever, UTI (urinary tract infection) Disposition: ADMITTED IP TO THIS [facility] Condition: Serious Is patient prescribed a controlled substance at d/c from ED?: No Referrals: Francisco Javier Simeon MD [Primary Care Provider] - 1-2 days
[2018-03-06 19:48] LABS: Appearance,Urine Turbid (Clear); Bacteria,Urine Many /hpf; Bilirubin,Urine Negative (Negative); Blood,Urine Small (Negative); Color,Urine Red; Glucose,Urine (UA) Negative (Negative); Ketones,Urine Negative (Negative); Leukocyte Esterase,Urine Large (Negative); Nitrite,Urine Negative (Negative); Protein,Urine 2+ (Negative); RBC,Urine 58 /hpf (0-5); Urobilinogen,Urine <2.0 mg/dL (<2.0); WBC,Urine >182 /hpf (0-5)
[2018-03-06 19:49] LABS: Calcium 8.5 mg/dL (8.4-10.2); Magnesium 1.4 mg/dL (1.6-2.3); Phosphorus 2.2 mg/dL (2.5-4.5); Potassium 4.2 mmol/L (3.5-5.1); Total Bilirubin 0.8 mg/dL (0.2-1.3); Total Protein 6.1 g/dL (6.3-8.2)
[2018-03-06 19:50] LABS: INR 1.2 (<1.2); Prothrombin Time 11.8 sec (9.0-12.0)
[2018-03-06 19:51] LABS: Partial Thromboplastin Time 23.6 sec (22.0-30.0)
[2018-03-06 19:57] LABS: Specific Gravity,Urine 1.015 (1.001-1.035)
[2018-03-06 20:03] LABS: Creatine Kinase MB 0.3 ng/mL (0.0-2.4)
[2018-03-06 20:04] LABS: Basophils # (A) 0.1 k/uL (0-0.2); Basophils % (A) 1 %; Eosinophils % (A) 0 %; HCT 35.9 % (34.0-46.0); HGB 11.4 gm/dL (11.4-16.0); Lymphocytes # (A) 4.4 k/uL (1.0-4.8); Lymphocytes % (A) 28 %; MCH 29.7 pg (25.0-35.0); MCHC 31.8 g/dL (31.0-37.0); MCV 93.4 fL (80.0-100.0); Mean Platelet Volume 7.2; Monocytes # (A) 0.6 k/uL (0-1.0); Monocytes % (A) 4 %; Neutrophils # (A) 10.7 k/uL (1.3-7.7); Neutrophils % (A) 67 %; Platelet Count 244 k/uL (150-450); RBC 3.85 m/uL (3.80-5.40); RDW 15.2 % (11.5-15.5); WBC 15.9 k/uL (3.8-10.6)
[2018-03-06 20:05] LABS: Troponin I 0.07 ng/mL (0.000-0.034)
--- NOTE | 2018-03-06 20:50 | XR ---
EXAMINATION: XR chest 2V DATE AND TIME: 03/06/2018 7:58 PM CLINICAL INDICATION: Weakness TECHNIQUE: AP and lateral COMPARISON: 01/23/2018 FINDINGS: Right IJ catheter tips superimposed over the right atrium. There is no pneumothorax. Added opacity at the right costophrenic angle redemonstrated, with added opacity noted at the posteri or costophrenic angle. These changes are consistent with partial lung base airlessness (or focal pneu monia if clinically corroborated), and relatively small right pleural effusion. Silhouetting right heart border consistent with atelectasis of the right middle lobe, seen on the sunil or study. However, the overall lung inflation pattern is improved when compared to the prior study, with less r ight pleural effusion presently. Moderately enlarged cardiac silhouette redemonstrated. The skeletal structures and soft tissues are negative for acute findings. IMPRESSION: RIGHT LUNG BASE AIRLESSNESS NOTED, BUT OVERALL IMPROVED LUNG INFLATION.
[2018-03-06] MEDS: SODIUM CHLORIDE 0.9% 500 ML IV SCH (21:36)
[2018-03-07 01:27] VITALS: BMI 30.9
[2018-03-07] MEDS: SODIUM CHLORIDE 0.9% 1,000 ML IV SCH ×4 (02:16→15:20)
[2018-03-07 06:50] LABS: Glucose,Whole Blood 91 mg/dL (75-99)
[2018-03-07] MEDS: PANTOPRAZOLE 40 MG/10 ML VIAL IV SCH (07:57)
[2018-03-07] MEDS: cefTRIAXone IN SWFI 1,000 MG/10 ML SYRINGE IVP SCH ×2 (07:57→21:20)
[2018-03-07] MEDS ORDERED: ENOXAPARIN 40 MG/0.4 ML SYRINGE SQ SCH (09:00)
[2018-03-07] MEDS: MAGNESIUM SULFATE-D5W PMX 1 GM in DEXTROSE/WATER 1 100ML.BAG IVPB SCH ×2 (11:58→13:07)
[2018-03-07 12:11] LABS: Glucose,Whole Blood 83 mg/dL (75-99)
[2018-03-07] MEDS ORDERED: diphenhydrAMINE 25 MG CAP PO PRN (12:25)
[2018-03-07] MEDS: INSULIN ASPART 100 UNIT/ML 1 ML 10 ML VIAL SQ SCH ×2 (13:02→17:58)
--- NOTE | 2018-03-07 14:02 | HP ---
HISTORY AND PHYSICAL CHIEF COMPLAINT: This is an 83-year-old white female with altered mental status, dehydration, acute on chronic renal insufficiency and possible urosepsis. She had fever, chills, Kathi in the urine and stool, came to the hospital for evaluation, admitted to the floor. She is diabetic and takes insulin at home. Tricor for cholesterol. MEDICATIONS: Omeprazole, Coreg for hypertension and Lasix 6 mg a day for CHF, hydralazine 50 t.i.d. ALLERGIES: No known drug allergies. . 14 POINT REVIEW OF SYSTEMS: Negative except for past medical history of heart failure, diabetes mellitus, renal disease. Status cholecystectomy. No smoking. No alcohol. No illicit drugs. 14-point review of systems negative except for altered mental status, dehydration. She is alert. HEAD: Normocephalic, atraumatic. OPHTHALMOLOGIC: Pupils equal, round, react to light. SKIN: Slightly poor skin turgor. She had normal heart sounds. LUNGS: Clear. GI: Distended, increased bowel sounds. No rebound or rigidity. EXTREMITIES: Full range of motion. BACK: Normal to inspection. NEUROLOGIC: Cranial nerves are intact. PSYCH: Fair mood and affect. SKIN: Warm, dry. T-max is 104.9, pulse is low 100s, respiratory rate 22 to 28, blood pressure is 140s to 150s/60s to 70s. ASSESSMENT: 1. Acute on chronic renal insufficiency, prerenal renal failure, chronic kidney disease stage III. 2. Sepsis secondary to urinary tract infection, severely abnormal UA, IV antibiotics, IV fluid rehydration. 3. Leukocytosis secondary to urosepsis. 4. Hyponatremia secondary to dehydration. 5. Worsening prerenal failure secondary to dehydration. Kidney doctor and Infectious Disease doctor. Rehydrate. Please see further orders in the chart. Acute hemodialysis per Dr. Maddox, occasional fluids 150 mL/h. MMODL / IJN: [id number] /
[2018-03-07 16:57] LABS: Glucose,Whole Blood 95 mg/dL (75-99)
--- NOTE | 2018-03-07 16:59 | CONS ---
CONSULTATION REASON FOR CONSULT: End-stage renal disease. HISTORY OF PRESENT ILLNESS: The patient is a 83-year-old female who was admitted to the hospital with mental status changes. She had a fever as well. Her urine showed evidence of urinary tract infection. The patient had an elevated lactic acid level and elevated white count. She is currently maintained on antibiotics. Normally, patient is on a Monday, Monday, Monday schedule for hemodialysis. She was recently started on dialysis on her last admission. We do not have previous labs available prior to her last admission. The patient has been incontinent and she remains dialysis dependent. PAST MEDICAL HISTORY: Hypertension, recent iliopsoas abscess, status post antibiotics. History of type 2 diabetes, CHF. PAST SURGICAL HISTORY: Cholecystectomy. SOCIAL HISTORY: Negative for smoking, drug abuse or alcohol abuse. Currently patient resides at a care home. MEDICATIONS: Medications at home prior to admission included aspirin, vitamin D, insulin, multivitamins, Coreg. Lasix, Imodium, hydralazine, Norvasc, Aldactone, Prilosec. ALLERGIES: None. REVIEW OF SYSTEMS: As per HPI. Other systems negative. EXAMINATION: Currently patient is sleeping. She is comfortable. She is not in any acute distress. She is easily arousable. The patient did not communicate much with me. However, according to nursing staff, she had been carrying on a conversation earlier this morning. Blood pressure was 138/65, heart rate 71 per minute. She is currently afebrile. Examination of the heart S1, S2. Examination lungs: Bilateral breath sounds are heard. Abdomen is soft, nontender. Examination lower extremity shows no significant edema. INVESTIGATIONS CONSULTANT exam shows it is grossly intact. LAB: Show sodium of 129, potassium 4.2, chloride 96, CO2 is at 20, BUN 28, serum creatinine 3.6, hemoglobin 11.4, white cell count 15.9. Lactic acid 2.2, now down to less than 0.5. UA shows more than 182 WBCs, 2+ protein. ASSESSMENT: 1. End-stage renal disease, currently on hemodialysis. We will continue on a Monday, Monday, Monday schedule. Patient will be dialyzed today. She has an IJ PermCath. 2. Sepsis with fever of 104 degrees secondary to urinary tract infection, maintained on antibiotics. Urine culture is pending. 3. Lactic acidosis associated with the ongoing infection and sepsis, currently improved. 4. Hypomagnesemia. We will replace. 5. Hypophosphatemia, most likely associated with decreased oral intake. We will replace with the Neutra-Phos. Currently patient is not on any phosphate binders. 6. Urinary tract infection. Urine culture is currently pending. Patient is maintained on empiric antibiotics. She is maintained on Rocephin. 7. Hypertension, currently controlled. 8. Type 2 diabetes, maintained on insulin. 9. Gastroesophageal reflux disease, currently on Protonix. PLAN: Is to decrease IV fluids hemodialysis today. Start Neutra-Phos and continue to hold off on any phosphate binders and replace the magnesium. Thank you for this consultation. We will continue to follow the patient with you during her hospitalization. We will follow up on the urine cultures and blood cultures. MMODL / IJN: [id number] /
[2018-03-07] MEDS: hydrALAZINE HCL 50 MG TAB PO SCH ×2 (18:37→21:20)
[2018-03-07] MEDS: POTAS-SOD-PHOS 278-164-250 MG 1 EACH PACKET PO SCH ×2 (18:37→21:20)
[2018-03-07 20:47] LABS: Glucose,Whole Blood 196 mg/dL (75-99)
[2018-03-07] MEDS: CARVEDILOL 12.5 MG TAB PO SCH (21:20)
[2018-03-07] MEDS: SPIRONOLACTONE 25 MG TAB PO SCH (21:20)
[2018-03-07] MEDS: ACETAMINOPHEN TAB 500 MG TAB PO PRN (22:02)
[2018-03-07] MEDS ORDERED: VANCOMYCIN IV PER PHARMACY 1 EACH MISC MISCELLANE PRN (22:21)
[2018-03-07 22:44] LABS: Hemoglobin A1C 6.4 % (4.0-6.0)
[2018-03-07] MEDS ORDERED: VANCOMYCIN 1,000 MG in SODIUM CHLORIDE 0.9% 250 ML IVPB ONE (23:00)
--- NOTE | 2018-03-07 23:47 | CONS ---
CONSULTATION DATE OF SERVICE: 03/07/2018 REASON FOR CONSULTATION: Fever and a question of UTI. HISTORY OF PRESENT ILLNESS: The patient is an 83-year-old female who recently had a prolonged stay at this hospital. The patient did have a question of possible left iliopsoas abscess that was CT-guided aspirated; however, no purulent drainage was noticed and those cultures were negative. The patient did receive antibiotic therapy during that admission. The patient also developed renal failure, for which the patient currently did have a PermCath, right subclavian, and is getting dialysis Monday, Monday, Monday. The patient, who is a shelter resident, was brought into the ER at [facility] last evening for evaluation of mental status changes that apparently had been going on for a day or two prior to patient being brought to the hospital. The patient was also noticed to have a fever of 104.9 degrees Fahrenheit. The patient did have elevated white count of 15.9 and her UA has been positive. However, the patient is a dialysis patient; it is not very clear how much urine the patient makes. There is no clear history of any Thomas catheterization. The patient was started on Rocephin and admitted to hospital. Infectious Disease was consulted for further recommendations regarding antibiotic therapy. At the time of my evaluation earlier this afternoon, the patient had been more awake and alert. She knows that she is in the hospital; however, she is not a very good historian, to tell me the circumstances of her coming to the hospital. Denied any headache to me. No chest pain, shortness of breath or any cough. Some vague abdominal pain; unable to characterize any further. No problem with the right subclavian dialysis site. When asked specifically for any urinary symptoms, she denied. No diarrhea, though. The patient apparently was noticed to have some pain upon her pubic area. However, the patient was not sure of when it started or how much pain she has there. In view of her underlying mental status, history remains limited. REVIEW OF SYSTEMS: Review of systems could not be reliably obtained, though the positive points have been mentioned in the HPI. PAST MEDICAL HISTORY: 1. Recent prolonged hospital stay for a left iliopsoas abnormality with a question of abscess. 2. Diabetes mellitus. 3. Heart failure. 4. Hyperlipidemia. 5. End-stage renal disease, on hemodialysis. PAST SURGICAL HISTORY: 1. Cholecystectomy. 2. CT-guided aspirate of the left iliopsoas collection. 3. Right subclavian PermCath placement. SOCIAL HISTORY: No history of smoking, drinking or drug use. Currently a shelter resident. FAMILY HISTORY: No pertinent findings noticed. ALLERGIES: NO KNOWN DRUG ALLERGIES. CURRENT MEDICATIONS: 1. Tylenol. 2. Norvasc. 3. Aspirin. 4. Coreg. 5. Vitamin D3. 6. Lofibra. 7. Hydralazine. 8. NovoLog. 9. Imodium. 10.Rocephin 2 grams q.12. 11.Aldactone. PHYSICAL EXAMINATION: Her blood pressure is 157/67 with a pulse of 83, temperature 98.2. T-max is 104. She is 97% on 2 L nasal cannula. General description is an elderly female lying in bed in no distress. No tachypnea or accessory muscle of respiration use. HEENT examination shows no pallor or scleral icterus. Oral mucosa membrane is dry. No pharyngeal erythema or thrush. NECK: Trachea is central. No thyromegaly. LUNGS: Unlabored breathing with decreased breath sounds at the bases. No wheeze or crackle. HEART: S1, S2. Regular rate and rhythm. ABDOMEN: Soft. She is minimally tender in the left lower quadrant area. No guarding or rigidity. The patient also has a painful on the pubic area with minimal purulent drainage which was cultured. EXTREMITIES: No edema of feet. SKIN EXAMINATION: No rash or mass palpable. Neurologically the patient is awake, alert, oriented x1. Mood and affect normal. LABS: Hemoglobin is 11.4, white count 15.9, BUN of 28, creatinine 0.60. Lactic acid 2.2. Electrolytes have been normal. Liver enzymes are normal. UA has been positive with large leukocyte esterase, more than 182 WBCs with many bacteria. Cultures currently pending. Chest x-ray was negative for any pneumonia. DIAGNOSTIC IMPRESSION AND PLAN: Patient admitted to hospital with sepsis in a patient who did have fever of 104 degrees Fahrenheit. The patient was tachycardic and did have elevated white count. The patient was noticed to have a positive UA; however, the patient is a dialysis patient and it is not very clear how much urine the patient makes. She was not very clear about any urinary symptoms. However, the patient was noticed to have some tenderness on the left lower quadrant area with also evidence of cellulitis to the pubic area. Will need to cover for the resistant gram-negative of enteric origin as well as gram- positive skin sami in view of the and cellulitis in the pubic area that was noticed. Will also need to rule out PermCath infection, which has been there for about 2 months now for dialysis. PLAN: 1. Discontinue the Rocephin. 2. Blood culture has been requested at the time of dialysis this morning. 3. Swab has been obtained from the pubic area for the cellulitis for Gram stain and culture. 4. We will start the patient on Zosyn 3.375 grams q.12 as well as vancomycin, Pharmacy to dose, target of 15. 5. Will check with the nephrology team tomorrow if the patient will be okay to go for a CT of abdomen and pelvis with oral and IV contrast, as the patient was noted to have tenderness in the left lower quadrant area with a previous history of left iliopsoas collection. 6. We will follow her clinical condition as well as cultures to further adjust medication if needed. Thank you for this consultation. Will follow this patient along with you. MMODL / IJN: [id number] /
[2018-03-07] MEDS: PIPERACILLIN-TAZOBACTAM 3.375 GM in DEXTROSE/WATER 1 50ML.BAG IVPB SCH (23:48)
[2018-03-08 06:05] LABS: Glucose,Whole Blood 96 mg/dL (75-99)
[2018-03-08 06:12] LABS: Basophils % (A) 0 %; Eosinophils # (A) 0.1 k/uL (0-0.7); Eosinophils % (A) 1 %; HCT 30.8 % (34.0-46.0); HGB 9.7 gm/dL (11.4-16.0); Lymphocytes # (A) 2.8 k/uL (1.0-4.8); Lymphocytes % (A) 31 %; MCH 29.6 pg (25.0-35.0); MCHC 31.6 g/dL (31.0-37.0); MCV 93.8 fL (80.0-100.0); Mean Platelet Volume 7.2; Monocytes # (A) 0.4 k/uL (0-1.0); Monocytes % (A) 4 %; Neutrophils # (A) 5.6 k/uL (1.3-7.7); Neutrophils % (A) 63 %; Platelet Count 209 k/uL (150-450); RBC 3.29 m/uL (3.80-5.40); RDW 15.1 % (11.5-15.5); WBC 8.9 k/uL (3.8-10.6)
[2018-03-08] MEDS: ACETAMINOPHEN TAB 500 MG TAB PO PRN ×2 (06:34→21:22)
[2018-03-08 06:49] LABS: Calcium 7.9 mg/dL (8.4-10.2); Potassium 3.3 mmol/L (3.5-5.1)
[2018-03-08] MEDS ORDERED: ONDANSETRON 4 MG/2 ML VIAL IVP PRN (08:53)
[2018-03-08 08:55] LABS: Magnesium 1.7 mg/dL (1.6-2.3); Phosphorus 2.8 mg/dL (2.5-4.5)
[2018-03-08] MEDS ORDERED: FUROSEMIDE 20 MG TAB PO SCH (09:00)
[2018-03-08] MEDS ORDERED: NON-FORMULARY DRUG (Omeprazole 40 MG) PO SCH (09:00)
[2018-03-08] MEDS: PANTOPRAZOLE 40 MG/10 ML VIAL IV SCH (09:08)
[2018-03-08] MEDS: INSULIN ASPART 100 UNIT/ML 1 ML 10 ML VIAL SQ SCH ×3 (09:10→17:35)
[2018-03-08] MEDS: PIPERACILLIN-TAZOBACTAM 3.375 GM in DEXTROSE/WATER 1 50ML.BAG IVPB SCH (10:26)
[2018-03-08] MEDS ORDERED: POTASSIUM CHLORIDE ER 20 MEQ TAB.ER PO STA (10:28)
[2018-03-08] MEDS: amLODIPine 10 MG TAB PO SCH (10:29)
[2018-03-08] MEDS: CARVEDILOL 12.5 MG TAB PO SCH ×2 (10:29→21:22)
[2018-03-08] MEDS: ASPIRIN 81 MG PO SCH (10:29)
[2018-03-08] MEDS: POTAS-SOD-PHOS 278-164-250 MG 1 EACH PACKET PO SCH ×3 (10:29→21:22)
[2018-03-08] MEDS: SPIRONOLACTONE 25 MG TAB PO SCH ×2 (10:30→21:22)
[2018-03-08] MEDS: CHOLECALCIFEROL 1,000 UNIT TAB PO SCH (10:30)
[2018-03-08] MEDS: hydrALAZINE HCL 50 MG TAB PO SCH ×3 (10:30→21:22)
[2018-03-08] MEDS: FENOFIBRATE 160 MG TAB PO SCH (10:30)
[2018-03-08] MEDS: LOPERAMIDE 2 MG CAP PO SCH (10:30)
[2018-03-08] MEDS: MULTIVITAMINS, THERA 1 EACH TAB PO SCH (10:31)
--- NOTE | 2018-03-08 10:45 | P.PN ---
Subjective Patient is seen in follow-up for end-stage renal disease. She is maintained on hemodialysis on a Monday schedule via right chest permacath. Currently denies any active chest pain or shortness of breath. She is being treated for a UTI. Urine cultures positive for gram-negative bacilli. Hemodynamically stable. Vital signs are stable. General: The patient appeared well nourished and normally developed. HEENT: Head exam is unremarkable. Neck is without jugular venous distension. LUNGS: Lungs are clear to auscultation and percussion. Breath sounds decreased. HEART: Rate and Rhythm are regular. First and second heart sounds normal. No murmurs, rubs or gallops. ABDOMEN: Abdominal exam reveals normal bowel sounds. Non-tender and non- distended. No evidence of peritonitis. EXTREMITITES: No clubbing, cyanosis, or edema. No obvious drainage noted from dialysis catheter site. Objective - Vital Signs Vital signs: Vital Signs Temp 99.1 F 03/08/18 04:10 Pulse 87 03/08/18 04:10 Resp 19 03/08/18 04:10 BP 167/74 03/08/18 04:10 Pulse Ox 96 03/08/18 04:10 Intake & Output 03/07/18 03/08/18 03/08/18 18:59 06:59 18:59 Intake Total 480 480 240 Balance 480 480 240 Weight 74 kg Intake: Oral 480 480 240 Other: Voiding Method Diaper Diaper Incontinent Incontinent # Voids 1 3 1 # Bowel Movements 2 2 1 - Labs CBC & Chem 7: 03/08/18 05:31 03/08/18 05:31 Labs: Abnormal Lab Results - Last 24 Hours (Table) 03/06/18 03/07/18 03/08/18 Range/Units 19:22 20:45 05:31 RBC 3.29 L (3.80-5.40) m/uL Hgb 9.7 L (11.4-16.0) gm/dL Hct 30.8 L (34.0-46.0) % Sodium (137-145) mmol/L Potassium (3.5-5.1) mmol/L Creatinine (0.52-1.04) mg/dL POC Glucose (mg/dL) 196 H (75-99) mg/dL Hemoglobin A1c 6.4 H (4.0-6.0) % Calcium (8.4-10.2) mg/dL 03/08/18 Range/Units 05:31 RBC (3.80-5.40) m/uL Hgb (11.4-16.0) gm/dL Hct (34.0-46.0) % Sodium 133 L (137-145) mmol/L Potassium 3.3 L (3.5-5.1) mmol/L Creatinine 2.14 H (0.52-1.04) mg/dL POC Glucose (mg/dL) (75-99) mg/dL Hemoglobin A1c (4.0-6.0) % Calcium 7.9 L (8.4-10.2) mg/dL Microbiology - Last 24 Hours (Table) 03/07/18 16:40 Gram Stain - Preliminary Groin Wound Culture - Preliminary 03/06/18 19:22 Urine Culture - Preliminary Urine,Catheterized Gram Neg Bacilli 03/06/18 19:22 Blood Culture - Preliminary Blood No Growth after 24 hours Assessment and Plan Plan: 1. Acute kidney injury, hemodialysis dependent maintained on hemodialysis on a Monday schedule. Right chest permacath. 2. Sepsis secondary to UTI maintained on antibiotics. Urine culture positive for gram-negative bacilli. 3. Lactic acidosis secondary to sepsis. Improved. 4. Hyperphosphatemia maintained on Neutra-Phos. Improved. 5. Hypomagnesemia from poor oral intake. Status post placement. 6. UTI with urine culture positive for gram-negative bacilli maintained on IV antibiotics. Infectious disease following. 7. Diabetes mellitus. 8. Hypertension with chronic kidney disease. 9. Hypokalemia from poor oral intake. Plan: Hemodialysis tomorrow. Maintain normal saline at 50 mL an hour. Encourage oral intake. Follow-up cultures. Maintain Neutra-Phos for now. Monitor vancomycin levels. Target level of 15. Replace potassium. 40 mEq today.
[2018-03-08 11:09] LABS: Glucose,Whole Blood 120 mg/dL (75-99)
[2018-03-08] MEDS: IOPAMIDOL-300 CONTRAST 30 ML VIAL (ORAL USE) PO PRN ×2 (13:55→15:00)
[2018-03-08] MEDS ORDERED: VANCOMYCIN 1,000 MG in SODIUM CHLORIDE 0.9% 250 ML IVPB ONE (16:00)
[2018-03-08 16:13] LABS: Glucose,Whole Blood 164 mg/dL (75-99)
--- NOTE | 2018-03-08 17:06 | CT ---
EXAMINATION TYPE: CT abdomen pelvis w con DATE OF EXAM: 03/08/2018 COMPARISON: 01/17/2018 HISTORY: Left lower abdominal tenderness. CT DLP: 1480 mGycm Automated exposure control for dose reduction was used. TECHNIQUE: Helical acquisition of images was performed from the lung bases through the pelvis. CONTRAST: Performed with Oral Contrast and with IV Contrast, patient injected with 100 mL of Isovue M300. FINDINGS: LUNG BASES: Small bilateral pleural effusions are redemonstrated, slightly greater on the right. Part ial bibasilar airlessness is redemonstrated, relatively mild in degree. Moderate cardiomegaly is rede monstrated with prominent left and right coronary calcifications. LIVER/GB: No significant abnormality is appreciated. PANCREAS: No significant abnormality is seen. SPLEEN: No significant abnormality is seen. ADRENALS: No significant abnormality is seen. KIDNEYS: No significant abnormality is seen. PERITONEAL CAVITY: No free air is visualized. Minimal simple appearing dependent fluid seen in the p elvic cul-de-sac, this was seen on the prior study. RETROPERITONEAL ADENOPATHY: None visualized REPRODUCTIVE ORGANS: No significant abnormality is seen URINARY BLADDER: No significant abnormality is seen. Left renal cyst redemonstrated. PELVIC ADENOPATHY: None visualized. OSSEOUS STRUCTURES: Previously seen 4 x 2 x 2 cm left psoas low attenuation is redemonstrated, simil ar in appearance. No acute skeletal finding. Redemonstrated multilevel advanced lumbar spondylosis ch anges. BOWEL: No significant abnormality is seen. OTHER: There are prominent nonaneurysmal atherosclerotic changes seen throughout the visualized arter ial anatomy. Throughout the subcutaneous adipose tissues of the abdomen and pelvis is a prominent diffuse subcutan eous edema pattern, similar to the prior study. IMPRESSION: NO DEFINITE ACUTE LEFT LOWER ABDOMINAL PROCESS.
--- NOTE | 2018-03-08 17:09 | PN ---
PROGRESS NOTE DATE OF SERVICE: 03/08/2018 REASON FOR FOLLOWUP: Fever/sepsis. INTERVAL HISTORY: The patient did have a low-grade fever of 100.5 at midnight and 100.6 this morning. The patient is afebrile at the time of my evaluation. The patient denies having any headache. No chest pain or shortness of breath or cough. The patient denies significant abdominal pain. No nausea or vomiting. She still makes some urine but denies significant burning or frequency of urine. PHYSICAL EXAMINATION: Blood pressure 132/63 with a pulse of 70, temperature 97.8, T-max 100.6. General description is an elderly female up in the bed in no distress. RESPIRATORY SYSTEM: Unlabored breathing with decreased breath sounds at the bases. HEART: S1, S2. Regular rate and rhythm. ABDOMEN: Soft. Minimal tenderness in the left lower quadrant area. EXTREMITIES: Some trace edema of feet. LABS: Hemoglobin 9.7. White count normalized to 8.9. Creatinine is 2.14. Urine showing a gram-negative. The pubic area culture is currently pending. DIAGNOSTIC IMPRESSION AND PLAN: Patient admitted to hospital with sepsis. The patient did have a fever and elevated white count. Source could have been multifactorial. The patient did have a right subclavian PermCath for dialysis and did have left lower quadrant tenderness and pubic area folliculitis. Cultures are currently pending. Fever seemed to respond to the vancomycin and Zosyn. That will be continued. CT of abdomen and pelvis has been ordered with contrast after getting okay from the home care companion. Adjustment of antibiotics on the basis of the culture report as well as clinical condition. Continue with supportive care. MMODL / IJN: [id number] /
[2018-03-08] MEDS: SODIUM CHLORIDE 0.9% 1,000 ML IV SCH (17:34)
[2018-03-08 20:14] LABS: Glucose,Whole Blood 136 mg/dL (75-99)
[2018-03-08] MEDS: MELATONIN 3 MG TABLET PO SCH (21:22)
--- NOTE | 2018-03-08 23:42 | PN ---
PROGRESS NOTE SUBJECTIVE: [id number] white female with UTI, fever, altered mental status, end-stage renal failure, getting dialysis 3 times a week. Remains on IV broad-spectrum antibiotics for fever. CT scan of the abdomen will be done to rule out any pelvic infection. Infectious Disease is following her. On broad-spectrum antibiotics due to sepsis with a fever of 104. Her mental status is improving. CARDIOVASCULAR: S1, S2. LUNGS: Clear. GI: Soft. : She has a red rash in her private area. ASSESSMENT: 1. Possible severe tinea infection in her groin. 2. Urinary tract infection. 3. Rule out intraabdominal infection. 4. Altered mental status. 5. End-stage renal failure. Continue broad-spectrum antibiotics. Possible CT scan of the abdomen. Dialysis 3 times a week. MMODL / IJN: [id number] /
[2018-03-09] MEDS: PIPERACILLIN-TAZOBACTAM 3.375 GM in DEXTROSE/WATER 1 50ML.BAG IVPB SCH ×3 (01:05→21:50)
[2018-03-09 05:58] LABS: Glucose,Whole Blood 91 mg/dL (75-99)
[2018-03-09] MEDS: INSULIN ASPART 100 UNIT/ML 1 ML 10 ML VIAL SQ SCH ×3 (07:40→17:05)
[2018-03-09] MEDS: CARVEDILOL 12.5 MG TAB PO SCH ×2 (07:59→21:48)
[2018-03-09] MEDS: CHOLECALCIFEROL 1,000 UNIT TAB PO SCH (07:59)
[2018-03-09] MEDS: FENOFIBRATE 160 MG TAB PO SCH (07:59)
[2018-03-09] MEDS: ASPIRIN 81 MG PO SCH (07:59)
[2018-03-09] MEDS: amLODIPine 10 MG TAB PO SCH (07:59)
[2018-03-09] MEDS: LOPERAMIDE 2 MG CAP PO SCH (07:59)
[2018-03-09] MEDS: hydrALAZINE HCL 50 MG TAB PO SCH ×3 (08:00→21:50)
[2018-03-09] MEDS: SPIRONOLACTONE 25 MG TAB PO SCH ×2 (08:00→21:49)
[2018-03-09] MEDS: POTAS-SOD-PHOS 278-164-250 MG 1 EACH PACKET PO SCH ×3 (08:00→21:50)
[2018-03-09] MEDS: PANTOPRAZOLE 40 MG TABLET PO SCH (08:00)
[2018-03-09] MEDS: SODIUM CHLORIDE 0.9% 1,000 ML IV SCH (08:01)
[2018-03-09] MEDS ORDERED: VANCOMYCIN 1,250 MG in SODIUM CHLORIDE 0.9% 250 ML IVPB ONE (10:00)
[2018-03-09] MEDS: MULTIVITAMINS, THERA 1 EACH TAB PO SCH (11:24)
[2018-03-09 11:30] LABS: Glucose,Whole Blood 92 mg/dL (75-99)
--- NOTE | 2018-03-09 12:40 | PN ---
PROGRESS NOTE DATE OF SERVICE: 03/09/2018 REASON FOR FOLLOWUP: Sepsis, possible urinary tract infection and the pubic area folliculitis. INTERVAL HISTORY: The patient overall fever pattern has improved. The patient is breathing comfortably. Denies significant chest pain, shortness of breath or cough. No abdominal pain and no diarrhea. PHYSICAL EXAMINATION: Blood pressure 119/70 with a pulse of 81, temperature 98.8, she is 94% on room air. General description is an elderly female, lying in bed in no distress. RESPIRATORY SYSTEM: Unlabored breathing, clear to auscultation anteriorly. HEART: S1, S2. Regular rate and rhythm. ABDOMEN: Soft, no tenderness. No guarding or rigidity. EXTREMITIES: No edema of the feet. LABS: White count normal 8.9. Urine showing gram-negative bacilli. The groin or the pubic area folliculitis is also showing gram-negative bacilli. Blood culture has been negative. CT abdominal and pelvis was reviewed with Dr. Mendoza. Patient's left ileus was hyperdense, remains to be the same, but no inflammatory changes. DIAGNOSTIC IMPRESSION AND PLAN: Patient admitted to the hospital with sepsis. Patient did have fever of 104 Fahrenheit with initial concern for possible line-related or abdominal source. However, the blood culture is negative making it to be less likely line-related. A CT abdomen and pelvis did not show any evidence of any abscess. The only option left is the urinary tract infection and the pubic area folliculitis. Both of them are growing gram-negative. She will be continued on Zosyn. Will discontinue vancomycin. Will also watch clinical course closely. Continue supportive care. MMODL / IJN: [id number] /
--- NOTE | 2018-03-09 14:52 | PN ---
PROGRESS NOTE Patient is seen for followup for end-stage renal disease. Currently, she is seen on dialysis. Patient is tolerating her treatment well. She denies any complaints. She remains on IV fluids which can be discontinued. Her oral intake has improved. PHYSICAL EXAMINATION: Blood pressure was 144/70, heart rate 80 per minute. She is afebrile. Examination of the heart..S1, S2. Examination of the lungs, bilateral breath sounds are heard. Abdomen is soft, nontender. Exam of lower extremities shows no significant edema. Potassium was 3.3 on March 08. ASSESSMENT: 1. End-stage renal disease, on hemodialysis on a Monday, Monday, Monday schedule. We will repeat labs in a.m. if the patient is not discharged. 2. Altered mentation secondary to urinary tract infection, sepsis, currently improved. 3. Urinary tract infection with urine culture growing Gram-negative bacilli. PLAN: Hemodialysis today. Check labs in a.m. to follow up on the potassium. MMODL / IJN: [id number] /
[2018-03-09 16:58] LABS: Glucose,Whole Blood 152 mg/dL (75-99)
[2018-03-09] MEDS ORDERED: Potassium Replacement Protocol 1 EACH MISC MISCELLANE PRN (18:24)
[2018-03-09] MEDS: POTASSIUM CHLORIDE ER 20 MEQ TAB.ER PO SCH ×2 (18:47→21:49)
[2018-03-09 21:11] LABS: Glucose,Whole Blood 156 mg/dL (75-99)
[2018-03-09] MEDS: MELATONIN 3 MG TABLET PO SCH (21:49)
[2018-03-09] MEDS: ACETAMINOPHEN TAB 500 MG TAB PO PRN (21:57)
[2018-03-10 06:26] LABS: Calcium 7.9 mg/dL (8.4-10.2); Potassium 4.2 mmol/L (3.5-5.1)
[2018-03-10 06:30] LABS: Glucose,Whole Blood 109 mg/dL (75-99)
[2018-03-10] MEDS: SODIUM CHLORIDE 0.9% 1,000 ML IV SCH (06:55)
[2018-03-10] MEDS: INSULIN ASPART 100 UNIT/ML 1 ML 10 ML VIAL SQ SCH ×5 (06:55→20:50)
[2018-03-10] MEDS: amLODIPine 10 MG TAB PO SCH (08:12)
[2018-03-10] MEDS: CARVEDILOL 12.5 MG TAB PO SCH (08:12)
[2018-03-10] MEDS: ASPIRIN 81 MG PO SCH (08:12)
[2018-03-10] MEDS: hydrALAZINE HCL 50 MG TAB PO SCH ×2 (08:13→16:27)
[2018-03-10] MEDS: FENOFIBRATE 160 MG TAB PO SCH (08:13)
[2018-03-10] MEDS: LOPERAMIDE 2 MG CAP PO SCH (08:13)
[2018-03-10] MEDS: PANTOPRAZOLE 40 MG TABLET PO SCH (08:13)
[2018-03-10] MEDS: CHOLECALCIFEROL 1,000 UNIT TAB PO SCH (08:13)
[2018-03-10] MEDS: SPIRONOLACTONE 25 MG TAB PO SCH ×2 (08:13→20:47)
[2018-03-10] MEDS: PIPERACILLIN-TAZOBACTAM 3.375 GM in DEXTROSE/WATER 1 50ML.BAG IVPB SCH ×2 (11:38→23:53)
--- NOTE | 2018-03-10 11:56 | PN ---
PROGRESS NOTE DATE OF SERVICE: 03/09/2018 SUBJECTIVE: An 83-year-old white female with UTI, fever, altered mental status, vaginal folliculitis, urinary tract infection. No other source of abdominal infection was seen. Remains on broad-spectrum antibiotics per Infectious Disease. CARDIOVASCULAR: S1-S2. LUNGS: Clear. GI: soft. She is getting renal dialysis 3 times a week. ASSESSMENT: 1. End-stage renal failure, urinary tract infection. 2. Fever, altered mental status. She is improving. Continue with broad-spectrum antibiotics per Infectious Disease. Dialysis 3 times a week. Replace electrolytes. MMODL / IJN: [id number] /
[2018-03-10] MEDS ORDERED: MAGNESIUM SULFATE-D5W PMX 1 GM in DEXTROSE/WATER 1 100ML.BAG IVPB ONE (12:00)
--- NOTE | 2018-03-10 12:00 | P.CRDCN ---
History of Present Illness Consult date: 03/10/18 Requesting physician: Francisco Javier Simeon Reason for Consult (text): Vtach Chief complaint: altered mental status History of present illness: This is a pleasant 83-year-old female patient who initially presented earlier in the week with altered mental status, dehydration, acute on chronic renal insufficiency and possible urosepsis. She's got a history of end-stage renal disease and has been on hemodialysis for the last couple of months according to the patient. We were asked to see the patient in consultation due to patient having a an asymptomatic run of 17 nonsustained ventricular tachycardia. She is currently on carvedilol 25 mg by mouth twice a day amlodipine, Aldactone and hydralazine. Potassium yesterday was 3.3, this was supplemented and is now up to 4.2. Most recent BUN and creatinine are 16 and 2.15 respectively. Currently on telemetry sinus rhythm with occasional PVCs. Most recent echo done in December 2017 showed low normal LV systolic function with an ejection fraction of 50-55%, mild to moderate MR, mild to moderate pulmonary hypertension and moderate TR. Upon examination, patient is resting comfortably in bed. She denies complaints of palpitations, dizziness, chest discomfort, shortness of breath or syncope. She was asymptomatic at the time of nonsustained ventricular tachycardia. I did have a magnesium level drawn this morning and came back at 1.6. Past Medical History Past Medical History: Heart Failure, Diabetes Mellitus, Hyperlipidemia, Pneumonia, Renal Disease Additional Past Medical History / Comment(s): PT. RECEIVES HEMODIALYSIS M,W,F History of Any Multi-Drug Resistant Organisms: None Reported Past Surgical History: Cholecystectomy Past Anesthesia/Blood Transfusion Reactions: No Reported Reaction Smoking Status: Never smoker Medications and Allergies Home Medications Medication Instructions Recorded Confirmed Type Aspirin EC [Ecotrin Low Dose] 81 mg PO DAILY 01/10/18 03/06/18 History Cholecalciferol (Vitamin D3) 2,000 unit PO DAILY 01/10/18 03/06/18 History [Vitamin D3] Fenofibrate Nanocrystallized 145 mg PO DAILY 01/10/18 03/06/18 History [Tricor] Insulin Lispro [humaLOG] 5 units SQ AC-BRKFST 01/10/18 03/06/18 History Insulin Lispro [humaLOG] 10 units SQ AC-LUNCH 01/10/18 03/06/18 History Insulin Lispro [humaLOG] 15 units SQ AC-SUPPER 01/10/18 03/06/18 History Multivitamins, Thera [Multivitamin 1 tab PO DAILY 01/10/18 03/06/18 History (formulary)] Omeprazole [PriLOSEC] 40 mg PO DAILY 01/10/18 03/06/18 History Spironolactone [Aldactone] 12.5 mg PO BID 01/10/18 03/06/18 History amLODIPine [Norvasc] 10 mg PO DAILY 01/10/18 03/06/18 History Acetaminophen/Diphenhydramine 1 tab PO HS PRN 03/06/18 03/06/18 History [Tylenol PM 500-25mg] Carvedilol [Coreg] 25 mg PO BID 03/06/18 03/06/18 History Furosemide [Lasix] 60 mg PO DAILY 03/06/18 03/06/18 History Loperamide [Imodium] 2 mg PO DAILY 03/06/18 03/06/18 History hydrALAZINE HCL [Apresoline] 50 mg PO TID 03/06/18 03/06/18 History Allergies Allergy/AdvReac Type Severity Reaction Status Date / Time No Known Allergies Allergy Verified 03/06/18 19:42 Physical Exam Vitals: Vital Signs Temp Pulse Resp BP BP Pulse Ox 03/10/18 11:32 68 16 132/63 93 L 03/10/18 08:00 97.3 F L 79 18 145/65 92 L 03/10/18 04:00 98.4 F 75 18 165/72 93 L 03/10/18 00:00 101.0 F H 87 18 169/67 93 L 03/09/18 20:00 100.0 F H 91 18 146/85 91 L 03/09/18 18:24 117/71 03/09/18 15:53 99.1 F 85 17 124/70 93 L 03/09/18 14:57 17 Intake and Output 03/09/18 03/10/18 03/10/18 22:59 06:59 14:59 Intake Total 380 240 Output Total 3 9 Balance 377 -9 240 Intake: Oral 380 240 Output: Stool 3 9 Other: Voiding Method Diaper Diaper Diaper Incontinent Incontinent Incontinent # Voids 1 1 Weight 78.5 kg 77.8 kg PHYSICAL EXAMINATION: HEENT: [Head is atraumatic, normocephalic. Pupils equal, round. Neck is supple. There is no elevated jugular venous pressure.] HEART EXAMINATION: [Heart sounds regular, S1 and S2 with a systolic murmur.] CHEST EXAMINATION:[ Lungs are clear to auscultation and precussion. No chest wall tenderness is noted on palpation or with deep breathing.] ABDOMEN: [ Soft, nontender. Bowel sounds are heard. No organomegaly noted]. EXTREMITIES:[ 2+ peripheral pulses with no evidence of peripheral edema and no calf tenderness noted]. NEUROLOGIC [patient is awake, alert and oriented x3.] . Results 03/08/18 05:31 03/10/18 05:26 Comprehensive Metabolic Panel 03/10/18 Range/Units 05:26 Sodium 131 L (137-145) mmol/L Potassium 4.2 (3.5-5.1) mmol/L Chloride 98 (98-107) mmol/L Carbon Dioxide 28 (22-30) mmol/L BUN 16 (7-17) mg/dL Creatinine 2.15 H (0.52-1.04) mg/dL Glucose 104 H (74-99) mg/dL Calcium 7.9 L (8.4-10.2) mg/dL Current Medications Generic Name Dose Route Start Last Admin Trade Name Freq PRN Reason Stop Dose Admin Acetaminophen 500 mg 03/07/18 12:22 03/09/18 21:57 Tylenol Tab PO 500 mg HS PRN Administration Pain Amlodipine Besylate 10 mg 03/08/18 09:00 03/10/18 08:12 Norvasc PO 10 mg DAILY EMBER Administration Aspirin 81 mg 03/08/18 09:00 03/10/18 08:12 Aspirin PO 81 mg DAILY EMBER Administration Cholecalciferol 2,000 unit 03/08/18 09:00 03/10/18 08:13 Vitamin D3 PO 2,000 unit DAILY EMBER Administration Fenofibrate 160 mg 03/08/18 09:00 03/10/18 08:13 Lofibra PO 160 mg DAILY EMBER Administration Hydralazine HCl 50 mg 03/07/18 16:00 03/10/18 08:13 Apresoline PO 50 mg TID EMBER Administration Sodium Chloride 1,000 mls @ 50 mls/hr 03/06/18 21:30 03/10/18 06:55 Saline 0.9% IV 50 mls/hr .Q20H EMBER Administration Piperacillin/Tazobactam/ 50 mls @ 12.5 mls/hr 03/07/18 23:00 03/10/18 11:38 Dextrose 3.375 gm/ IV Solution IVPB 12.5 mls/hr Q12H EMBER Administration Magnesium Sulfate/Dextrose 1 100 mls @ 100 mls/hr 03/10/18 12:00 gm/ IV Solution IVPB 03/10/18 12:59 ONCE ONE Insulin Aspart 5 unit 03/07/18 12:30 03/10/18 06:55 Novolog SQ 5 unit AC-TID EMBER Administration Loperamide HCl 2 mg 03/08/18 09:00 03/10/18 08:13 Imodium PO 2 mg DAILY EMBER Administration Melatonin 3 mg 03/08/18 21:15 03/09/18 21:49 Melatonin PO 3 mg HS EMBER Administration Metoprolol Tartrate 50 mg 03/10/18 21:00 Lopressor PO BID EMBER Miscellaneous Information 1 each 03/09/18 18:24 Potassium Per Protocol MISCELLANE DAILY PRN Per Protocol Protocol Multivitamins 1 each 03/08/18 12:00 03/09/18 11:24 Theragran PO Not Given DAILY@1200 EMBER Ondansetron HCl 4 mg 03/08/18 08:53 03/08/18 09:04 Zofran IVP 4 mg Q6HR PRN Administration Nausea And Vomiting Pantoprazole Sodium 40 mg 03/09/18 09:00 03/10/18 08:13 Protonix PO 40 mg DAILY EMBER Administration Spironolactone 12.5 mg 03/07/18 21:00 03/10/18 08:13 Aldactone PO 12.5 mg BID EMBER Administration Intake and Output 03/09/18 03/10/18 03/10/18 22:59 06:59 14:59 Intake Total 380 240 Output Total 3 9 Balance 377 -9 240 Intake: Oral 380 240 Output: Stool 3 9 Other: Voiding Method Diaper Diaper Diaper Incontinent Incontinent Incontinent # Voids 1 1 Weight 78.5 kg 77.8 kg 03/08/18 05:31 03/10/18 05:26 EKG Interpretations (text) Sinus rhythm with PVCs Assessment and Plan Assessment: #1 end-stage renal disease, on hemodialysis #2 altered mental status secondary to urinary tract infection with sepsis, improved #3 urinary tract infection with urine culture growing gram-negative bacilli #4 nonsustained ventricular tachycardia #5 hypokalemia, improved #6 hypomagnesemia Plan: From cardiology's perspective, echocardiogram from 01/19/2018 was reviewed and LV systolic function is low-normal. We will stop carvedilol and add Lopressor 50 mg by mouth twice a day. We will supplement the magnesium. From our perspective, we'll follow the patient on an as-needed basis. Please do not hesitate to contact us with questions. PT SITTER note has been reviewed, I agree with a documented findings and plan of care. Patient was seen and examined.
[2018-03-10 12:12] LABS: Glucose,Whole Blood 278 mg/dL (75-99)
[2018-03-10] MEDS: MULTIVITAMINS, THERA 1 EACH TAB PO SCH (12:23)
[2018-03-10 16:32] LABS: Glucose,Whole Blood 274 mg/dL (75-99)
[2018-03-10] MEDS: ACETAMINOPHEN TAB 500 MG TAB PO PRN (20:00)
[2018-03-10] MEDS: MELATONIN 3 MG TABLET PO SCH (20:47)
[2018-03-10 20:55] LABS: Glucose,Whole Blood 177 mg/dL (75-99)
[2018-03-10] MEDS: METOPROLOL TARTRATE 50 MG TAB PO SCH (20:55)
--- NOTE | 2018-03-10 21:14 | PN ---
PROGRESS NOTE Progress note on Jane Vernon for end-stage renal disease. This morning, patient is comfortable, awake. She is not in any acute distress. She has been eating fairly well. PHYSICAL EXAMINATION: Blood pressure was 145/65, heart rate 79 per minute. She is afebrile. Examination of the heart: S1, S2. Examination of the lungs: Bilateral breath sounds are heard. Abdomen is soft, nontender. Examination of lower extremities shows no significant edema. IN FLIGHT TECHNICIAN exam is grossly intact. LABS: Show sodium 131, potassium 4.2, serum creatinine at 2.15. ASSESSMENT: 1. End-stage renal disease, on hemodialysis on Monday, Monday, Monday schedule. Patient will be dialyzed again on Monday. She was started on dialysis on her last admission. Serum creatinine is not too high. However, we will continue to monitor for possible recovery of kidney function as outpatient. 2. Urinary tract infection with urine culture growing salmonella and wound in the groin growing Gram-negative bacilli. The patient did have some element of vaginal folliculitis. 3. Hypertension, currently controlled. 4. Altered mentation secondary to urine tract infection and sepsis, currently improved. 5. Nonsustained ventricular tachycardia. The patient is being followed by Cardiology. Carvedilol has been switched to Lopressor. PLAN: Next dialysis on Monday. MMODL / IJN: [id number] /
--- NOTE | 2018-03-10 23:05 | PN ---
PROGRESS NOTE SUBJECTIVE: 83-year-old white female with UTI, fever, altered mental status, vaginal folliculitis, tinea cruris remains on Lotrisone cream. Remains on IV Rocephin for UTI. CT scan of the abdomen is negative. She is more alert. She is sitting up in bed. She is getting dialysis 3 times a week. Expected to transfer to the [facility] in the next 2-3 days. CARDIOVASCULAR: S1, S2. LUNGS: Clear. GI: Soft. She had a run of 15 beats of possible ventricular tachycardia. Cardiology cleared her after replacing potassium. She had hypokalemia. They cleared her and discharged her from their service. She will monitor her potassium levels in the next few days. Continue with IV antibiotics and go back to rehab on Monday. MMODL / IJN: [id number] /
[2018-03-11] MEDS: SODIUM CHLORIDE 0.9% 1,000 ML IV SCH (03:43)
[2018-03-11 07:08] LABS: Glucose,Whole Blood 103 mg/dL (75-99)
[2018-03-11] MEDS: INSULIN ASPART 100 UNIT/ML 1 ML 10 ML VIAL SQ SCH ×7 (07:33→20:36)
[2018-03-11] MEDS: SPIRONOLACTONE 25 MG TAB PO SCH ×2 (07:37→20:37)
[2018-03-11] MEDS: amLODIPine 10 MG TAB PO SCH (07:38)
[2018-03-11] MEDS: METOPROLOL TARTRATE 50 MG TAB PO SCH ×2 (07:39→21:25)
[2018-03-11] MEDS: hydrALAZINE HCL 50 MG TAB PO SCH ×4 (07:39→20:36)
[2018-03-11] MEDS: PANTOPRAZOLE 40 MG TABLET PO SCH (07:39)
[2018-03-11] MEDS: CHOLECALCIFEROL 1,000 UNIT TAB PO SCH (07:39)
[2018-03-11] MEDS: ASPIRIN 81 MG PO SCH (07:39)
[2018-03-11] MEDS: FENOFIBRATE 160 MG TAB PO SCH (07:39)
[2018-03-11] MEDS: LOPERAMIDE 2 MG CAP PO SCH (07:42)
[2018-03-11] MEDS: PIPERACILLIN-TAZOBACTAM 3.375 GM in DEXTROSE/WATER 1 50ML.BAG IVPB SCH (11:28)
[2018-03-11] MEDS: MULTIVITAMINS, THERA 1 EACH TAB PO SCH (11:29)
[2018-03-11 11:57] LABS: Glucose,Whole Blood 109 mg/dL (75-99)
[2018-03-11 14:12] LABS: Amorphous Sediment,Urine Rare /hpf; Appearance,Urine Cloudy (Clear); Bilirubin,Urine Negative (Negative); Blood,Urine Small (Negative); Color,Urine Light Yellow; Glucose,Urine (UA) 1+ (Negative); Ketones,Urine Negative (Negative); Leukocyte Esterase,Urine Large (Negative); Nitrite,Urine Negative (Negative); Protein,Urine 2+ (Negative); RBC,Urine 11 /hpf (0-5); Specific Gravity,Urine 1.007 (1.001-1.035); Squamous Epithelial Cell,Urine 1 /hpf (0-4); Urobilinogen,Urine <2.0 mg/dL (<2.0)
--- NOTE | 2018-03-11 15:04 | PN ---
PROGRESS NOTE SUBJECTIVE: This 83-year-old white female with UTI, fever, altered mental status, folliculitis of the vaginal area remains on broad-spectrum antibiotics. She is improving from medical standpoint. CARDIOVASCULAR: S1, S2. LUNGS: Clear. GI: Soft. HEMATOLOGY: Negative Homans. ASSESSMENT: 1. Urinary tract infection. 2. Fever. 3. Altered mental status. 4. Vaginal folliculitis. Continue current antibiotics. Fluid rehydration. End-stage renal failure. Continue with dialysis 3 times a week. Send her home tomorrow after dialysis. MMODL / IJN: [id number] /
--- NOTE | 2018-03-11 15:34 | PN ---
PROGRESS NOTE Patient is seen for followup for end-stage renal disease. She is currently sitting up in a bedside chair. Patient is comfortable. C diff toxin was negative. She will be dialyzed tomorrow. PHYSICAL EXAMINATION: Blood pressure is 159/65, heart rate 75 per minute. She is afebrile. Examination of the heart: S1, S2. Examination of the lungs: Bilateral breath sounds are heard. Abdomen is soft, nontender. Examination lower extremities shows no evidence of edema. LABS: Labs are not available from today. ASSESSMENT: 1. End-stage renal disease, on hemodialysis. We will continue to monitor renal function as outpatient for possible recovery of renal function. In the meantime, patient will be dialyzed tomorrow. She does have some lower extremity edema. We will try for about 2 L of ultrafiltration. 2. Urinary tract infection with urine culture growing salmonella species and wound culture in the groin also grew Salmonella. 3. Type 2 diabetes. 4. Hypertension currently controlled. PLAN: Hemodialysis in a.m. with goal UF of about 2-2.5 L. MMODL / IJN: [id number] /
[2018-03-11 17:21] LABS: Glucose,Whole Blood 144 mg/dL (75-99)
[2018-03-11 20:25] LABS: Glucose,Whole Blood 190 mg/dL (75-99)
[2018-03-11] MEDS: MELATONIN 3 MG TABLET PO SCH (20:36)
[2018-03-11] MEDS: CIPROFLOXACIN HCL 250 MG TAB PO SCH (20:36)
--- NOTE | 2018-03-11 23:40 | PN ---
PROGRESS NOTE DATE OF SERVICE: 03/11/2018. REASON FOR FOLLOWUP: 1. Urinary tract infection. 2. Pain pubic area followed by cellulitis. INTERVAL HISTORY: The patient is currently afebrile. She is more awake and alert. She is breathing comfortably. Denies having any chest pain, shortness of breath, cough. No abdominal pain. No diarrhea. EXAMINATION: Blood pressure 130/63 with a pulse of 79, temperature 98.6. She is 93% on room air. General description is an elderly female lying in bed in no distress. Respiratory system: Unlabored breathing. Clear to auscultation anteriorly. Heart S1, S2. Regular rate and rhythm. ABDOMEN: Soft. No tenderness. Pubic area folliculitis and cellulitis, improved. LABS: White count 8.9. Urine is showing as well as the groin wound culture with . Blood culture has been negative. DIAGNOSTIC IMPRESSION AND PLAN: Patient admitted to the hospital with a fever with concern for urinary tract infection. Urine showing a as well as the pubic area folliculitis and cellulitis . The patient is currently on oral Cipro. Continue for about a week to finish a course of therapy. Continue supportive care. MMODL / IJN: [id number] /
[2018-03-12 07:31] LABS: Glucose,Whole Blood 112 mg/dL (75-99)
[2018-03-12] MEDS: INSULIN ASPART 100 UNIT/ML 1 ML 10 ML VIAL SQ SCH ×4 (07:38→13:23)
[2018-03-12] MEDS: PANTOPRAZOLE 40 MG TABLET PO SCH (08:57)
[2018-03-12] MEDS: CHOLECALCIFEROL 1,000 UNIT TAB PO SCH (08:57)
[2018-03-12] MEDS: CIPROFLOXACIN HCL 250 MG TAB PO SCH (08:57)
[2018-03-12] MEDS: amLODIPine 10 MG TAB PO SCH ×2 (08:57→14:19)
[2018-03-12] MEDS: ASPIRIN 81 MG PO SCH (08:57)
[2018-03-12] MEDS: FENOFIBRATE 160 MG TAB PO SCH (08:57)
[2018-03-12] MEDS: hydrALAZINE HCL 50 MG TAB PO SCH ×2 (08:58→14:19)
[2018-03-12] MEDS: METOPROLOL TARTRATE 50 MG TAB PO SCH ×2 (08:58→14:19)
[2018-03-12] MEDS: MULTIVITAMINS, THERA 1 EACH TAB PO SCH (08:58)
[2018-03-12] MEDS: SPIRONOLACTONE 25 MG TAB PO SCH ×2 (08:58→14:19)
[2018-03-12 09:02] LABS: Basophils # (A) 0.1 k/uL (0-0.2); Basophils % (A) 1 %; Eosinophils # (A) 0.2 k/uL (0-0.7); Eosinophils % (A) 2 %; HCT 38.2 % (34.0-46.0); HGB 11.7 gm/dL (11.4-16.0); Hypochromasia Slight; Lymphocytes # (A) 3.5 k/uL (1.0-4.8); Lymphocytes % (A) 44 %; MCH 28.9 pg (25.0-35.0); MCHC 30.5 g/dL (31.0-37.0); MCV 94.5 fL (80.0-100.0); Mean Platelet Volume 7.4; Monocytes # (A) 0.4 k/uL (0-1.0); Monocytes % (A) 5 %; Neutrophils # (A) 3.7 k/uL (1.3-7.7); Neutrophils % (A) 47 %; Platelet Count 308 k/uL (150-450); RBC 4.04 m/uL (3.80-5.40); WBC 7.9 k/uL (3.8-10.6)
[2018-03-12] MEDS: LOPERAMIDE 2 MG CAP PO SCH (09:02)
[2018-03-12 09:12] LABS: Albumin 2.6 g/dL (3.5-5.0); Calcium 8.4 mg/dL (8.4-10.2); Total Bilirubin 0.7 mg/dL (0.2-1.3); Total Protein 5.7 g/dL (6.3-8.2)
[2018-03-12 09:13] LABS: Potassium 5.2 mmol/L (3.5-5.1)
[2018-03-12 12:56] LABS: Glucose,Whole Blood 99 mg/dL (75-99)
[2018-03-12 14:37] VITALS: BP 190/71; PULSE 86; RESP 20; TEMP 98.2
[2018-03-12] MEDS ORDERED: CIPROFLOXACIN HCL 250 MG TAB PO SCH (15:00)
--- NOTE | 2018-03-12 15:17 | PN ---
PROGRESS NOTE DATE OF SERVICE: 03/12/2018 REASON FOR FOLLOWUP: Urinary tract infection and follow colitis/cellulitis. INTERVAL HISTORY: The patient is afebrile, she is breathing comfortably. Denies having any chest pain, shortness of breath, no cough. No abdominal pain, no diarrhea. PHYSICAL EXAMINATION: Blood pressure is 133/71 with a pulse of 72, temperature 98.4, she is 93% on room air. General description is an elderly female, lying in bed in no distress. RESPIRATORY SYSTEM: Unlabored breathing, clear to auscultation anteriorly. HEART: S1, S2. Regular rate and rhythm. ABDOMEN: Soft no tenderness. LABS: White count 7.9, BUN of 27, creatinine of 3.27. DIAGNOSTIC IMPRESSION AND PLAN: Patient admitted to the hospital with sepsis and patient did have a combination of urinary tract infection, urine with , also with pubic area folliculitis and cellulitis two of the same pathogen. Currently on oral Cipro. Continue for about a week to finish a course of therapy. Continue supportive care. MMODL / IJN: [id number] /
--- NOTE | 2018-03-12 19:05 | PN ---
PROGRESS NOTE The patient is seen for followup for end-stage renal disease. She was admitted to the hospital with mental status changes and urinary tract infection. This morning, patient is comfortable. Blood pressure is elevated 178/75, heart rate 82 per minute. She is afebrile. Examination of the heart: S1, S2. Examination of the lungs: Bilateral breath sounds are heard. Abdomen is soft, nontender. Examination lower extremities shows edema 1+ bilaterally. LABS: Show potassium 5.2, sodium 131, hemoglobin 11.7. ASSESSMENT: 1. End-stage renal disease, on hemodialysis on a Monday, Monday, Monday schedule via right IJ PermCath. 2. Urinary tract infection with urine culture growing salmonella species, status post antibiotics. 3. Altered mentation secondary to sepsis, currently improved. 4. Hypertension, partly volume sensitive. Expect improvement with hemodialysis today. The patient is maintained on Norvasc and Lopressor. She is also on Aldactone. PLAN: Hemodialysis today. Increase UF as tolerated. MMODL / IJN: [id number] /
--- NOTE | 2018-03-13 12:14 | CDI ---
Last Revision, June 2017 Documentation Clarification Form Date: 03/13/18 From: Radha Meadows Phone: If you have a question regarding this query, please contact Alexus Howard at [phone] between 8am and 5pm. Admit Date: 03/06/2018 9:23:00 PM Patient Name: Jane Vernon Visit Number: [id number] Discharge Date: 03/12/18 ATTENTION: The Clinical Documentation Specialists (CDI) and [facility] Coding Staff appreciate your assistance in clarifying documentation. Please respond to the clarification below the line at the bottom and electronically sign. The CDI & [facility] Coding staff will review the response and follow-up if needed. Please note: Queries are made part of the Legal Health Record. If you have any questions, please contact the author of this message via ITS. Francisco Javier West MD Altered mental status is documented in the ED note, H&P, the cardiology consult note and in your progress notes. History/Risk factors: Patient was admitted for sepsis secondary to UTI and also had acute renal failure. The patient is dependent on dialysis for end stage renal disease. Clinical Indicators: Sepsis, UTI and JOSEMANUEL. Treatment: IV Rocephin, IV PO Cipro, IV Zosyn, IV Sodium Chloride In your professional opinion, can you please clarify the cause of the altered mental status, if known? Hypertensive Encephalopathy Metabolic Encephalopathy Septic Encephalopathy Delirium Other, please specify Unable to determine MTDD
--- NOTE | 2018-03-13 12:32 | CDI ---
Last Revision, June 2017 Documentation Clarification Form Date: 03/13/18 From: Radha Meadows Phone: If you have a question regarding this query, please contact Alexus Howard at [phone] between 8am and 5pm. Admit Date: 03/06/2018 9:23:00 PM Patient Name: Jane Vernon Visit Number: [id number] Discharge Date: 03/12/18 ATTENTION: The Clinical Documentation Specialists (CDI) and [facility] Coding Staff appreciate your assistance in clarifying documentation. Please respond to the clarification below the line at the bottom and electronically sign. The CDI & [facility] Coding staff will review the response and follow-up if needed. Please note: Queries are made part of the Legal Health Record. If you have any questions, please contact the author of this message via ITS. Jorge A Kate MD/IFEANYI Alfonso Heart failure is documented in the past medical history of the ED note, Dr. Maddox's consult note and your consult note. History/Risk Factors: Patient has a history of hypertension and end stage renal disease. Echocardiogram Results: Most recent echo done in December 2017 showed low normal LV systolic function with an ejection fraction of 50 - 55%, mil to moderate MR, mild to moderate pulmonary hypertension and moderate TR. Chest X Ray: Moderately enlarged cardiac silhouette redemonstrated. Treatment: Home medications include Lasix 60 mg daily. In your professional opinion, can you please clarify the type of CHF if known? Systolic Heart Failure: Diastolic Heart Failure: Systolic & Diastolic Heart Failure: Unable to Determine Other, please specify UNABLE TO DETERMINE MTDD
--- NOTE | 2018-03-21 15:53 | CDI ---
Last Revision, June 2017 Documentation Clarification Form Date: 03/21/18 From: Radha Meadows Phone: If you have a question regarding this query, please contact Alexus Howard at [phone] between 8am and 5pm. Admit Date: 03/06/2018 9:23:00 PM Patient Name: Jane Vernon Visit Number: [id number] Discharge Date: 03/12/18 ATTENTION: The Clinical Documentation Specialists (CDI) and [facility] Coding Staff appreciate your assistance in clarifying documentation. Please respond to the clarification below the line at the bottom and electronically sign. The CDI & [facility] Coding staff will review the response and follow-up if needed. Please note: Queries are made part of the Legal Health Record. If you have any questions, please contact the author of this message via ITS. Francisco Javier Conn MD Thank you for signing the previous query. Please document a response to this query before signing it. Altered mental status is documented in the ED note, H&P, the cardiology consult note and in your progress notes. History/Risk factors: Patient was admitted for sepsis secondary to UTI and also had acute renal failure. The patient is dependent on dialysis for end stage renal disease. Clinical Indicators: Sepsis, UTI and JOSEMANUEL. Treatment: IV Rocephin, IV PO Cipro, IV Zosyn, IV Sodium Chloride In your professional opinion, can you please clarify the cause of the altered mental status, if known? Hypertensive Encephalopathy Metabolic Encephalopathy Septic Encephalopathy Delirium Other, please specify Unable to determine MTDD
--- NOTE | 2018-04-04 08:33 | DS ---
DISCHARGE SUMMARY DATE OF ADMISSION: 03/06/2018 DATE OF DISCHARGE: 03/12/2018. DISCHARGE MEDICATIONS: 1. Norvasc 10 mg daily. 2. Prilosec 40 mg daily. 3. Tricor 145 mg daily. 4. Aspirin 81 mg daily. 5. Aldactone 12.5 b.i.d. 6. Humalog 15 units subcu a.c. supper, 10 units with lunch and 5 units with breakfast. 7. Imodium 2 mg daily. 8. Lasix 60 mg daily. 9. Coreg 25 mg b.i.d. 10.Hydralazine 50 mg t.i.d. 11.Cipro 250 p.o. q.18 hours. 12.Melatonin 3 mg at bedtime. DIET: Regular. CONDITION: Stable. PROGNOSIS: Guarded. This is a white female who came in with end-stage renal disease on dialysis, urinary tract infection with Salmonella species, type 2 diabetes mellitus, hypertension. She got dialysis while was in the hospital. She was treated with IV antibiotics while in the hospital. She was diagnosed with urinary tract infection with sepsis and folliculitis of the suprapubic area. She was started on oral Cipro, which she will take for the next week to finish therapy. She was sent home in stable condition to follow up as an outpatient. MMODL / IJN: [id number] /
== END 2018-03-12 16:31 | disposition home health service (06) | DRG 871 ==
LOC: EC 18:48 → 6SEL 21:23 → 4MS4W 03-10 21:28
PROVIDERS: ADMIT Family Medicine; ATTEND Family Medicine
PROC: 5A1D70Z Performance of Urinary Filtration, Intermittent, Less than 6 Hours Per Day (ICD-10-PCS; principal; 2018-03-07)
DX: A02.1 Salmonella sepsis (principal); N18.6 End stage renal disease; E87.1 Hypo-osmolality and hyponatremia; I13.2 Hypertensive heart and chronic kidney disease with heart failure and with stage 5 chronic kidney disease, or end stage renal disease; I47.2 Ventricular tachycardia; L03.90 Cellulitis, unspecified; N39.0 Urinary tract infection, site not specified; N17.9 Acute kidney failure, unspecified; I50.32 Chronic diastolic (congestive) heart failure; B35.6 Tinea cruris; E11.22 Type 2 diabetes mellitus with diabetic chronic kidney disease; E78.5 Hyperlipidemia, unspecified; E83.39 Other disorders of phosphorus metabolism; E83.42 Hypomagnesemia; E86.0 Dehydration; E87.6 Hypokalemia; I27.20 Pulmonary hypertension, unspecified; I49.3 Ventricular premature depolarization; K21.9 Gastro-esophageal reflux disease without esophagitis; L73.8 Other specified follicular disorders; R32 Unspecified urinary incontinence; R15.9 Full incontinence of feces; I08.1 Rheumatic disorders of both mitral and tricuspid valves; N18.3 Chronic kidney disease, stage 3 (moderate); Z79.4 Long term (current) use of insulin; Z79.82 Long term (current) use of aspirin; Z79.899 Other long term (current) drug therapy; Z90.49 Acquired absence of other specified parts of digestive tract; Z99.2 Dependence on renal dialysis
CPT/HCPCS: 36415; 71046; 74177; 80048; 80053; 80202; 81001; 82550; 82553; 83036; 83605; 83735; 84100; 84443; 84484; 85025; 85610; 85730; 86140; 86592; 87040; 87070; 87077; 87086; 87186; 87205; 87324; 90935; 93005; 96361; 96374; 99285

== ENCOUNTER → 2018-05-03 | Outpatient (CLI) | payer MEDICARE, OTHER ==
--- NOTE | 2018-05-03 13:59 | XR ---
EXAMINATION TYPE: XR shoulder complete LT DATE OF EXAM: 05/03/2018 COMPARISON: NONE HISTORY: Pain TECHNIQUE: Shoulder examined in 3 FINDINGS: The humeral head articulates with the glenoid. 1 projection the humeral head in close approximation w ith the acromion. Underlying rotator cuff tear is not excluded. MRI could be performed for additional evaluation. The acromio-clavicular junction is normal. No acute fractures or dislocations are evident. There is some osseous spurring at the distal acromion inferiorly. A follow up study can be performed 7-10 days from acute trauma for continued pain. IMPRESSION: 1. Mild degenerative changes right shoulder. 2. Suspected rotator cuff tear. MRI could further evaluate this finding.
== END | disposition home or self-care (01) ==
LOC: RADXRMAIN 13:16
PROVIDERS: ATTEND Family Medicine
DX: M19.011 Primary osteoarthritis, right shoulder (principal)

== ENCOUNTER 2018-06-27 17:37 | Inpatient (IN) | payer MEDICARE, OTHER ==
[2018-06-27] MEDS ORDERED: SODIUM CHLORIDE 0.9% 500 ML 500 ML IV STA (17:51)
--- NOTE | 2018-06-27 17:59 | ED ---
GI Bleed HPI - General Stated complaint: GI BLEED - History of Present Illness Initial comments: Dictation was produced using [employer] dictation software. please excuse any grammatical, word or spelling errors. Chief Complaint: 83-year-old female past medical history of heart failure, diabetes, dyslipidemia, seizure disease presents with chief complaint of GI bleed. History of Present Illness: Patient is a poor historian. EMS was called by family. Patient currently resides at assisted living facility. Family reports that patient has been having multiple episodes of passing blood clots through her rectum. Patient unable to provide detailed history at this time. Is unclear whether this is patient's baseline mental status. Patient denies any complaints at this time. Patient denies any pain complaints. She does mention repeatedly that she feels cold. The ROS documented in this emergency department record has been reviewed and confirmed by me. Those systems with pertinent positive or negative responses have been documented in the HPI. All other systems are other negative and/or noncontributory. - Related Data Home Medications Medication Instructions Recorded Confirmed Aspirin EC [Ecotrin Low Dose] 81 mg PO DAILY@1000 01/10/18 06/27/18 Fenofibrate Nanocrystallized 145 mg PO DAILY@99901/10/18 06/27/18 [Tricor] Multivitamins, Thera [Multivitamin 1 tab PO DAILY@0601/10/18 06/27/18 (formulary)] Omeprazole [PriLOSEC] 40 mg PO DAILY@0600 01/10/18 06/27/18 amLODIPine [Norvasc] 10 mg PO DAILY@1000 01/10/18 06/27/18 Carvedilol [Coreg] 25 mg PO BID@999,209903/06/18 06/27/18 Loperamide [Imodium] 2 mg PO Q48H 03/06/18 06/27/18 hydrALAZINE HCL [Apresoline] 50 mg PO TID@0600,1400,209903/06/18 06/27/18 Furosemide [Lasix] 60 mg PO DAILY@1000 06/27/18 06/27/18 INSULIN LISPRO (HumaLOG) [HumaLOG] 15 units SQ AC-SUPPER 06/27/18 06/27/18 INSULIN LISPRO (humaLOG) [humaLOG] 5 units SQ AC-BRKFST 06/27/18 06/27/18 INSULIN LISPRO (humaLOG) [humaLOG] 10 units SQ AC-LUNCH 06/27/18 06/27/18 Insulin Glargine,Hum.rec.anlog 20 unit SQ HS 06/27/18 06/27/18 [Lantus Solostar] Potassium Chloride ER [K-Dur 20] 20 meq PO DAILY@1000 06/27/18 06/27/18 Sevelamer [Renvela] 800 mg PO TID@0600,1400,2100 06/27/18 06/27/18 Spironolactone [Aldactone] 12.5 mg PO BID@1000,2100 06/27/18 06/27/18 traZODone HCL 50 mg PO HS@2100 06/27/18 06/27/18 Allergies Allergy/AdvReac Type Severity Reaction Status Date / Time No Known Allergies Allergy Verified 06/27/18 19:03 Review of Systems ROS Statement: Those systems with pertinent positive or pertinent negative responses have been documented in the HPI. ROS Other: All systems not noted in ROS Statement are negative. Past Medical History Past Medical History: Heart Failure, Diabetes Mellitus, Hyperlipidemia, Pneumonia, Renal Disease Additional Past Medical History / Comment(s): PT. RECEIVES HEMODIALYSIS M,W,F History of Any Multi-Drug Resistant Organisms: None Reported Past Surgical History: Cholecystectomy Past Anesthesia/Blood Transfusion Reactions: No Reported Reaction Smoking Status: Never smoker General Exam - General Exam Comments Initial Comments: PHYSICAL EXAM: General Impression: Alert and oriented x3, not in acute distress HEENT: Normocephalic atraumatic, extra-ocular movements intact, pupils equal and reactive to light bilaterally, mucous membranes moist. Cardiovascular: Heart regular rate and rhythm, S1&S2 audible, no murmurs, rubs or gallops Chest: Lungs clear to auscultation bilaterally, no rhonchi, no wheeze, no rales Abdomen: Bowel sounds present, abdomen soft, non-tender, non-distended, no organomegaly Musculoskeletal: Pulses present and equal in all extremities, no peripheral edema Motor: Power 5/5 bilaterally, no focal deficits noted Neurological: CN II-XII grossly intact, no focal motor or sensory deficits noted Skin: Intact with no visualized rashes Psych: Normal affect and mood Rectal exam: Multiple polyps however no source of bleeding., No fissures is findings of hemorrhoids externally Course Vital Signs 06/27/18 18:10 Temperature 97.0 F L Pulse Rate 88 Respiratory 20 Rate Blood Pressure 108/88 O2 Sat by Pulse 98 Oximetry Medical Decision Making - Medical Decision Making ED course: 83yo female brought in by EMS for concerns of GI bleed. Vital signs uponLaboratory evaluation obtained. Leukocytosis 14.8, hemoglobin of 7.7. If you look historically patient has history of low hemoglobin however last hemoglobin performed in March of this year was 11.7. Coag panel is unremarkable. There is lactic acidosis of 2.8. Stool occult blood is positive. At this point there is some reason to believe that patient is suffering from GI bleed. she appears to be hemodynamically stable. Last set patient admitted for GI consultation possible lower endoscopy. Patient given Protonix for possibility of upper GI bleed. EKG interpretation: Ventricular rate 87,. Interval 182, QRS 140, QTc 505. No MI prolongation, no QTC prolongation, no ST or T-wave changes noted. EKG compared to 03/06/2018 showing no changes. Overall, this EKG is unremarkable - Lab Data Result diagrams: 06/27/18 18:27 06/27/18 18:27 Lab Results 06/27/18 06/27/18 06/27/18 Range/Units 18:27 18:27 18:27 WBC 14.8 H (3.8-10.6) k/uL RBC 2.51 L (3.80-5.40) m/uL Hgb 7.7 L (11.4-16.0) gm/dL Hct 22.2 L (34.0-46.0) % MCV 88.5 (80.0-100.0) fL MCH 30.9 (25.0-35.0) pg MCHC 34.9 (31.0-37.0) g/dL RDW 13.7 (11.5-15.5) % Plt Count 249 (150-450) k/uL Neutrophils % 83 % Lymphocytes % 12 % Monocytes % 4 % Eosinophils % 1 % Basophils % 0 % Neutrophils # 12.3 H (1.3-7.7) k/uL Lymphocytes # 1.7 (1.0-4.8) k/uL Monocytes # 0.5 (0-1.0) k/uL Eosinophils # 0.2 (0-0.7) k/uL Basophils # 0.0 (0-0.2) k/uL PT (9.0-12.0) sec INR (<1.2) APTT (22.0-30.0) sec Sodium 134 L (137-145) mmol/L Potassium 4.0 (3.5-5.1) mmol/L Chloride 98 (98-107) mmol/L Carbon Dioxide 30 (22-30) mmol/L Anion Gap 6 mmol/L BUN 23 H (7-17) mg/dL Creatinine 1.70 H (0.52-1.04) mg/dL Est GFR (CKD-EPI)AfAm 32 (>60 ml/min/1.73 sqM) Est GFR (CKD-EPI)NonAf 27 (>60 ml/min/1.73 sqM) Glucose 71 L (74-99) mg/dL Plasma Lactic Acid Lalo (0.7-2.0) mmol/L Calcium 8.7 (8.4-10.2) mg/dL Magnesium 1.7 (1.6-2.3) mg/dL Total Bilirubin 0.2 (0.2-1.3) mg/dL AST 25 (14-36) U/L ALT 22 (9-52) U/L Alkaline Phosphatase 43 (38-126) U/L Total Protein 5.7 L (6.3-8.2) g/dL Albumin 3.1 L (3.5-5.0) g/dL Stool Occult Blood (Negative) Blood Type A Positive Blood Type Confirm Blood Type Recheck CABO Indicated Antibody Screen NEGATIVE Spec Expiration Date 06/30/2018232606/27/18 06/27/18 06/27/18 Range/Units 18:27 18:27 18:27 WBC (3.8-10.6) k/uL RBC (3.80-5.40) m/uL Hgb (11.4-16.0) gm/dL Hct (34.0-46.0) % MCV (80.0-100.0) fL MCH (25.0-35.0) pg MCHC (31.0-37.0) g/dL RDW (11.5-15.5) % Plt Count (150-450) k/uL Neutrophils % % Lymphocytes % % Monocytes % % Eosinophils % % Basophils % % Neutrophils # (1.3-7.7) k/uL Lymphocytes # (1.0-4.8) k/uL Monocytes # (0-1.0) k/uL Eosinophils # (0-0.7) k/uL Basophils # (0-0.2) k/uL PT 9.8 (9.0-12.0) sec INR 0.9 (<1.2) APTT 18.4 L (22.0-30.0) sec Sodium (137-145) mmol/L Potassium (3.5-5.1) mmol/L Chloride (98-107) mmol/L Carbon Dioxide (22-30) mmol/L Anion Gap mmol/L BUN (7-17) mg/dL Creatinine (0.52-1.04) mg/dL Est GFR (CKD-EPI)AfAm (>60 ml/min/1.73 sqM) Est GFR (CKD-EPI)NonAf (>60 ml/min/1.73 sqM) Glucose (74-99) mg/dL Plasma Lactic Acid Lalo 2.8 H* (0.7-2.0) mmol/L Calcium (8.4-10.2) mg/dL Magnesium (1.6-2.3) mg/dL Total Bilirubin (0.2-1.3) mg/dL AST (14-36) U/L ALT (9-52) U/L Alkaline Phosphatase (38-126) U/L Total Protein (6.3-8.2) g/dL Albumin (3.5-5.0) g/dL Stool Occult Blood Positive H (Negative) Blood Type Blood Type Confirm Blood Type Recheck Antibody Screen Spec Expiration Date 06/27/18 Range/Units 19:00 WBC (3.8-10.6) k/uL RBC (3.80-5.40) m/uL Hgb (11.4-16.0) gm/dL Hct (34.0-46.0) % MCV (80.0-100.0) fL MCH (25.0-35.0) pg MCHC (31.0-37.0) g/dL RDW (11.5-15.5) % Plt Count (150-450) k/uL Neutrophils % % Lymphocytes % % Monocytes % % Eosinophils % % Basophils % % Neutrophils # (1.3-7.7) k/uL Lymphocytes # (1.0-4.8) k/uL Monocytes # (0-1.0) k/uL Eosinophils # (0-0.7) k/uL Basophils # (0-0.2) k/uL PT (9.0-12.0) sec INR (<1.2) APTT (22.0-30.0) sec Sodium (137-145) mmol/L Potassium (3.5-5.1) mmol/L Chloride (98-107) mmol/L Carbon Dioxide (22-30) mmol/L Anion Gap mmol/L BUN (7-17) mg/dL Creatinine (0.52-1.04) mg/dL Est GFR (CKD-EPI)AfAm (>60 ml/min/1.73 sqM) Est GFR (CKD-EPI)NonAf (>60 ml/min/1.73 sqM) Glucose (74-99) mg/dL Plasma Lactic Acid Lalo (0.7-2.0) mmol/L Calcium (8.4-10.2) mg/dL Magnesium (1.6-2.3) mg/dL Total Bilirubin (0.2-1.3) mg/dL AST (14-36) U/L ALT (9-52) U/L Alkaline Phosphatase (38-126) U/L Total Protein (6.3-8.2) g/dL Albumin (3.5-5.0) g/dL Stool Occult Blood (Negative) Blood Type Blood Type Confirm A Positive Blood Type Recheck Antibody Screen Spec Expiration Date Disposition Clinical Impression: Lower gastrointestinal hemorrhage Disposition: ADMITTED IP TO THIS [facility] Condition: Good Referrals: Francisco Javier Simeon MD [Primary Care Provider] - 1-2 days Decision Time: 19:52
[2018-06-27 18:48] LABS: Basophils % (A) 0 %; Eosinophils # (A) 0.2 k/uL (0-0.7); Eosinophils % (A) 1 %; HCT 22.2 % (34.0-46.0); HGB 7.7 gm/dL (11.4-16.0); Lymphocytes # (A) 1.7 k/uL (1.0-4.8); Lymphocytes % (A) 12 %; MCH 30.9 pg (25.0-35.0); MCHC 34.9 g/dL (31.0-37.0); MCV 88.5 fL (80.0-100.0); Mean Platelet Volume 7.7; Monocytes # (A) 0.5 k/uL (0-1.0); Monocytes % (A) 4 %; Neutrophils # (A) 12.3 k/uL (1.3-7.7); Neutrophils % (A) 83 %; Platelet Count 249 k/uL (150-450); RBC 2.51 m/uL (3.80-5.40); RDW 13.7 % (11.5-15.5); WBC 14.8 k/uL (3.8-10.6)
[2018-06-27 18:56] LABS: INR 0.9 (<1.2); Prothrombin Time 9.8 sec (9.0-12.0)
[2018-06-27 18:59] LABS: Albumin 3.1 g/dL (3.5-5.0); Calcium 8.7 mg/dL (8.4-10.2); Magnesium 1.7 mg/dL (1.6-2.3); Total Bilirubin 0.2 mg/dL (0.2-1.3); Total Protein 5.7 g/dL (6.3-8.2)
[2018-06-27 19:04] LABS: Partial Thromboplastin Time 18.4 sec (22.0-30.0)
[2018-06-27] MEDS ORDERED: NALOXONE 0.4 MG/ML 1 ML VIAL IV PRN (19:46)
[2018-06-27] MEDS: SODIUM CHLORIDE 0.9% 1,000 ML IV SCH (22:00)
[2018-06-28] MEDS: PANTOPRAZOLE 40 MG/10 ML VIAL IV SCH (08:58)
[2018-06-28] MEDS: SODIUM CHLORIDE 0.9% 1,000 ML IV SCH (14:28)
--- NOTE | 2018-06-28 18:49 | P.HPIM ---
History of Present Illness H&P Date: 06/28/18 Chief Complaint: Lower GI bleed 83-year-old female who is a resident of [facility] facility patient were brought in to the emergency department by the EMS as requested by the family members as patient has been passing clots of blood going on for last several days, patient however denies any other specific complaints, she denies any seizure activity loss of consciousness), she denies any similar problem episode in the past, she denies any chest pain or radiation of pain, denies any hematemesis hemoptysis abdominal discomfort or pain, denies any bowel or bladder dysfunction, she does have a history of hypertension and hypertensive cardiovascular disease Review of Systems All systems: negative Past Medical History Past Medical History: Heart Failure, Diabetes Mellitus, Hyperlipidemia, Pneumonia, Renal Disease Additional Past Medical History / Comment(s): PT. RECEIVES HEMODIALYSIS M,W,F @ [facility] History of Any Multi-Drug Resistant Organisms: None Reported Past Surgical History: Cholecystectomy Past Anesthesia/Blood Transfusion Reactions: No Reported Reaction Past Psychological History: No Psychological Hx Reported Smoking Status: Never smoker Past Alcohol Use History: None Reported Past Drug Use History: None Reported Medications and Allergies Home Medications Medication Instructions Recorded Confirmed Type Aspirin EC [Ecotrin Low Dose] 81 mg PO DAILY@99901/10/18 06/27/18 History Fenofibrate Nanocrystallized 145 mg PO DAILY@99901/10/18 06/27/18 History [Tricor] Multivitamins, Thera [Multivitamin 1 tab PO DAILY@0600 01/10/18 06/27/18 History (formulary)] Omeprazole [PriLOSEC] 40 mg PO DAILY@0600 01/10/18 06/27/18 History amLODIPine [Norvasc] 10 mg PO DAILY@99901/10/18 06/27/18 History Carvedilol [Coreg] 25 mg PO BID@1000,209903/06/18 06/27/18 History Loperamide [Imodium] 2 mg PO Q48H 03/06/18 06/27/18 History hydrALAZINE HCL [Apresoline] 50 mg PO TID@0600,1400,2100 03/06/18 06/27/18 History Furosemide [Lasix] 60 mg PO DAILY@1000 06/27/18 06/27/18 History INSULIN LISPRO (HumaLOG) [HumaLOG] 15 units SQ AC-SUPPER 06/27/18 06/27/18 History INSULIN LISPRO (humaLOG) [humaLOG] 5 units SQ AC-BRKFST 06/27/18 06/27/18 History INSULIN LISPRO (humaLOG) [humaLOG] 10 units SQ AC-LUNCH 06/27/18 06/27/18 History Insulin Glargine,Hum.rec.anlog 20 unit SQ HS 06/27/18 06/27/18 History [Lantus Solostar] Potassium Chloride ER [K-Dur 20] 20 meq PO DAILY@1000 06/27/18 06/27/18 History Sevelamer [Renvela] 800 mg PO TID@0600,1400,2100 06/27/18 06/27/18 History Spironolactone [Aldactone] 12.5 mg PO BID@1000,2100 06/27/18 06/27/18 History traZODone HCL 50 mg PO HS@2100 06/27/18 06/27/18 History Allergies Allergy/AdvReac Type Severity Reaction Status Date / Time No Known Allergies Allergy Verified 06/27/18 19:03 Physical Exam Vitals: Vital Signs Temp Pulse Pulse Resp BP BP Pulse Ox 06/28/18 11:35 98.1 F 80 16 133/54 95 06/28/18 05:00 98.9 F 87 16 131/62 95 06/28/18 00:00 18 06/27/18 21:44 98.5 F 92 20 162/79 98 06/27/18 20:55 89 22 146/52 98 06/27/18 20:51 18 Intake and Output 06/28/18 06/28/18 06/28/18 06:59 14:59 22:59 Other: Voiding Method Diaper Diaper Diaper Incontinent Incontinent Incontinent # Voids 2 1 # Bowel Movements 1 - Constitutional General appearance: average body habitus, cooperative, disheveled, mild distress - EENT Eyes: EOMI, PERRLA, poor dentition, normal appearance ENT: hard of hearing, normal oropharynx Ears: bilateral: normal - Neck Neck: normal ROM Carotids: bilateral: upstroke normal, bruit absent - Respiratory Respiratory: bilateral: CTA - Cardiovascular Rhythm: regular Heart sounds: normal: S1, S2 - Gastrointestinal General gastrointestinal: soft - Integumentary Integumentary: normal turgor - Neurologic Neurologic: CNII-XII intact - Musculoskeletal Musculoskeletal: gait normal, generalized weakness, strength equal bilaterally - Psychiatric Psychiatric: A&O x's 3, appropriate affect, intact judgment & insight Results CBC & Chem 7: 06/27/18 18:27 06/27/18 18:27 Labs: Abnormal Lab Results - Last 24 Hours (Table) 06/27/18 06/27/18 06/27/18 Range/Units 18:27 18:27 18:27 WBC 14.8 H (3.8-10.6) k/uL RBC 2.51 L (3.80-5.40) m/uL Hgb 7.7 L (11.4-16.0) gm/dL Hct 22.2 L (34.0-46.0) % Neutrophils # 12.3 H (1.3-7.7) k/uL APTT (22.0-30.0) sec Sodium 134 L (137-145) mmol/L BUN 23 H (7-17) mg/dL Creatinine 1.70 H (0.52-1.04) mg/dL Glucose 71 L (74-99) mg/dL Plasma Lactic Acid Lalo 2.8 H* (0.7-2.0) mmol/L Total Protein 5.7 L (6.3-8.2) g/dL Albumin 3.1 L (3.5-5.0) g/dL Stool Occult Blood (Negative) 06/27/18 06/27/18 Range/Units 18:27 18:27 WBC (3.8-10.6) k/uL RBC (3.80-5.40) m/uL Hgb (11.4-16.0) gm/dL Hct (34.0-46.0) % Neutrophils # (1.3-7.7) k/uL APTT 18.4 L (22.0-30.0) sec Sodium (137-145) mmol/L BUN (7-17) mg/dL Creatinine (0.52-1.04) mg/dL Glucose (74-99) mg/dL Plasma Lactic Acid Lalo (0.7-2.0) mmol/L Total Protein (6.3-8.2) g/dL Albumin (3.5-5.0) g/dL Stool Occult Blood Positive H (Negative) Thrombosis Risk Factor Assmnt - Choose All That Apply Any of the Below Risk Factors Present?: Yes Each Factor Represents 1 point: Heart failure (<1month) Each Risk Factor Represents 3 Points: Age 75 years or older Other congenital or acquired thrombophilia - If yes, enter type in comment: No Thrombosis Risk Factor Assessment Total Risk Factor Score: 4 Thrombosis Risk Factor Assessment Level: Moderate Risk Assessment and Plan Assessment: Lower GI bleed Acute on chronic anemia Acute renal failure stage III Hypertension hypertensive cardiovascular disease Dyslipidemia Diabetes mellitus History of heart failure Plan: Gentle rehydration Monitor hemoglobin closely and transfuse if hemoglobin less than 7 Pneumatic compression device for DVT prophylaxis Proton pump inhibitor GI consult Nothing by mouth Repeat labs tomorrow Further recommendations pending plan of care as per clinical response of the patient Time with Patient: Greater than 30
[2018-06-28 20:50] LABS: Glucose,Whole Blood 193 mg/dL (75-99)
[2018-06-28] MEDS: INSULIN ASPART 100 UNIT/ML 1 ML 10 ML VIAL SQ SCH (21:38)
[2018-06-29 04:17] LABS: Hemoglobin A1C 8.1 % (4.0-6.0)
[2018-06-29 07:14] LABS: Glucose,Whole Blood 145 mg/dL (75-99)
[2018-06-29 07:36] LABS: Basophils % (A) 0 %; Eosinophils # (A) 0.3 k/uL (0-0.7); Eosinophils % (A) 2 %; HCT 22.9 % (34.0-46.0); HGB 7.5 gm/dL (11.4-16.0); Lymphocytes # (A) 1.9 k/uL (1.0-4.8); Lymphocytes % (A) 17 %; MCH 30.2 pg (25.0-35.0); MCHC 32.8 g/dL (31.0-37.0); MCV 92.1 fL (80.0-100.0); Mean Platelet Volume 7.5; Monocytes # (A) 0.3 k/uL (0-1.0); Monocytes % (A) 3 %; Neutrophils % (A) 78 %; Platelet Count 240 k/uL (150-450); RBC 2.49 m/uL (3.80-5.40); WBC 11.7 k/uL (3.8-10.6)
[2018-06-29] MEDS: PANTOPRAZOLE 40 MG/10 ML VIAL IV SCH (07:53)
[2018-06-29] MEDS: INSULIN ASPART 100 UNIT/ML 1 ML 10 ML VIAL SQ SCH ×4 (07:53→21:23)
[2018-06-29 07:59] LABS: Calcium 8.6 mg/dL (8.4-10.2); Potassium 4.5 mmol/L (3.5-5.1); Total Bilirubin 0.5 mg/dL (0.2-1.3); Total Protein 5.6 g/dL (6.3-8.2)
--- NOTE | 2018-06-29 09:32 | P.CONS ---
History of Present Illness - Reason for Consult Consult date: 06/28/18 Blood in stool Requesting physician: Francisco Javier Simeon - Chief Complaint Blood in stool - History of Present Illness The patient is a pleasant 83-year-old female with a medical history significant for CHF, diabetes mellitus, dyslipidemia and CKD who was sent in for evaluation of blood clots in her stool. Of note the history is been taking from a combination of discussion with the patient, review of the medical record and discussion with the medical team. Per the history the patient had passed multiple bowel movements with clots noted. On presentation to the hospital stool testing was positive for occult blood. The patient was found to be anemic with a hemoglobin of 7.7 and a normal INR. No reports of abdominal pain , nausea or vomiting. Today the patient has had 2 bowel movements which were brown in color per the nursing staff with no blood or clots noted. The patient is asking to be fed at this time. She is unsure of prior colonoscopies or upper endoscopies. Review of Systems REVIEW OF SYSTEMS: CARDIO: Denies any chest pain or palpitations. PULMONARY: Denies any shortness of breath or wheezing. GENITOURINARY: No dysuria or hematuria. MUSCULOSKELETAL: No weakness reported. SKIN: Denies any new rashes or lesions, jaundice or pallor. PSYCHIATRIC: Denies any depression or anxiety. NEUROLOGY: Denies headache, denies any new focal deficits. EARS: No tinnitus, discharge or new hearing loss. NOSE: No discharge or congestion. EYES: No pain in eyes or change in vision. CONSTITUTIONAL: No recent weight loss. No fever, chills, night sweats. Past Medical History Past Medical History: Heart Failure, Diabetes Mellitus, Hyperlipidemia, Pneumonia, Renal Disease Additional Past Medical History / Comment(s): PT. RECEIVES HEMODIALYSIS M,W,F @ [facility] History of Any Multi-Drug Resistant Organisms: None Reported Past Surgical History: Cholecystectomy Past Anesthesia/Blood Transfusion Reactions: No Reported Reaction Past Psychological History: No Psychological Hx Reported Smoking Status: Never smoker Past Alcohol Use History: None Reported Past Drug Use History: None Reported Additional History: Family history: Reviewed with the patient and she denies any pertinent family history Medications and Allergies Home Medications Medication Instructions Recorded Confirmed Type Aspirin EC [Ecotrin Low Dose] 81 mg PO DAILY@1000 01/10/18 06/27/18 History Fenofibrate Nanocrystallized 145 mg PO DAILY@1000 01/10/18 06/27/18 History [Tricor] Multivitamins, Thera [Multivitamin 1 tab PO DAILY@0600 01/10/18 06/27/18 History (formulary)] Omeprazole [PriLOSEC] 40 mg PO DAILY@0600 01/10/18 06/27/18 History amLODIPine [Norvasc] 10 mg PO DAILY@1000 01/10/18 06/27/18 History Carvedilol [Coreg] 25 mg PO BID@1000,209903/06/18 06/27/18 History Loperamide [Imodium] 2 mg PO Q48H 03/06/18 06/27/18 History hydrALAZINE HCL [Apresoline] 50 mg PO TID@0600,1400,209903/06/18 06/27/18 History Furosemide [Lasix] 60 mg PO DAILY@1000 06/27/18 06/27/18 History INSULIN LISPRO (HumaLOG) [HumaLOG] 15 units SQ AC-SUPPER 06/27/18 06/27/18 History INSULIN LISPRO (humaLOG) [humaLOG] 5 units SQ AC-BRKFST 06/27/18 06/27/18 History INSULIN LISPRO (humaLOG) [humaLOG] 10 units SQ AC-LUNCH 06/27/18 06/27/18 History Insulin Glargine,Hum.rec.anlog 20 unit SQ HS 06/27/18 06/27/18 History [Lantus Solostar] Potassium Chloride ER [K-Dur 20] 20 meq PO DAILY@1000 06/27/18 06/27/18 History Sevelamer [Renvela] 800 mg PO TID@0600,1400,209906/27/18 06/27/18 History Spironolactone [Aldactone] 12.5 mg PO BID@1000,209906/27/18 06/27/18 History traZODone HCL 50 mg PO HS@209906/27/18 06/27/18 History Allergies Allergy/AdvReac Type Severity Reaction Status Date / Time No Known Allergies Allergy Verified 06/27/18 19:03 Physical Exam Vitals: Vital Signs Temp Pulse Resp BP Pulse Ox 06/28/18 21:00 98.4 F 92 16 124/58 94 L 06/28/18 11:35 98.1 F 80 16 133/54 95 06/28/18 05:00 98.9 F 87 16 131/62 95 06/28/18 00:00 18 Intake and Output 06/28/18 06/28/18 06/29/18 14:59 22:59 06:59 Intake Total 300 Balance 300 Intake: Oral 300 Other: Voiding Method Diaper Diaper Incontinent Incontinent # Voids 1 2 # Bowel Movements 1 On physical examination, patient appears comfortable in no apparent distress. HEAD: Normocephalic, atraumatic. EYES: No scleral icterus. No conjunctival injection. MOUTH: No lesions, tongue midline. NECK: Trachea midline, no gross abnormalities. CHEST: Clear to auscultation with no wheezing or rhonchi appreciated. HEART: Regular rate and rhythm. ABDOMEN: Soft, obese. Bowel sounds are positive. No organomegaly. No guarding or rigidity. EXTREMITIES: No pedal edema. SKIN: No rashes, no jaundice. NEUROLOGIC: Alert and oriented x3. No focal deficits. Results CBC & Chem 7: 06/29/18 06:53 06/29/18 06:53 Labs: Abnormal Lab Results - Last 24 Hours (Table) 06/28/18 Range/Units 20:49 POC Glucose (mg/dL) 193 H (75-99) mg/dL Assessment and Plan (1) Lower gastrointestinal hemorrhage Narrative/Plan: Patient presenting with reports of blood clots per rectum and stool testing positive for occult blood. However on discussion with the nursing staff patient has had 2 bowel movements which were grossly nonbloody, described as brown in appearance. Current Visit: Yes Status: Acute Code(s): K92.2 - GASTROINTESTINAL HEMORRHAGE, UNSPECIFIED SNOMED Code(s): 73252817 (2) Anemia Narrative/Plan: Anemia is of unclear etiology. May be related to chronic disease with patient noted to have elevation in creatinine on presentation. Although the patient was sent in for evaluation of blood per rectum no signs or symptoms of GI bleeding been noted. Current Visit: Yes Status: Acute Code(s): D64.9 - ANEMIA, UNSPECIFIED SNOMED Code(s): 704066041 Plan: Supportive care Okay for diet Monitor hemoglobin and transfuse as needed Iron studies, vitamin B-12 and folic acid and reticulocyte count have all been ordered for further evaluation of anemia Continue to monitor stool output Thank you for allowing us to participate in the care of this patient we will continue to follow
[2018-06-29] MEDS: POTASSIUM CHLORIDE ER 20 MEQ TAB.ER PO SCH (10:08)
[2018-06-29] MEDS: SEVELAMER 800 MG TAB PO SCH ×3 (10:08→21:24)
[2018-06-29] MEDS: FUROSEMIDE 20 MG TAB PO SCH (10:08)
[2018-06-29] MEDS: amLODIPine 10 MG TAB PO SCH (10:09)
[2018-06-29] MEDS: ASPIRIN 81 MG PO SCH (10:09)
[2018-06-29] MEDS: SPIRONOLACTONE 25 MG TAB PO SCH ×2 (10:09→21:24)
[2018-06-29] MEDS: CARVEDILOL 12.5 MG TAB PO SCH ×2 (10:09→21:23)
[2018-06-29] MEDS: FENOFIBRATE 160 MG TAB PO SCH (10:09)
--- NOTE | 2018-06-29 10:13 | P.NPCON ---
History of Present Illness - Reason for Consult end stage renal disease - History of Present Illness Reason for consultation: End-stage renal disease History of present is: Patient is a 83-year-old female seen in renal consultation for end-stage renal disease. She is maintained on hemodialysis on a Monday schedule via right chest permacath. Patient presented to the hospital due to blood in her stool. She was noted to be positive for occult blood in the stool. However she hasn't had any active bleeding while in the hospital. Hemoglobin was 7.7 on admission and is 7.5 today. She had a loose bowel movement this morning. No vomiting. Patient states she is hungry and wants to 8. She has been evaluated by GI and there are no plans for endoscopy at this time. Denies chest pain or shortness of breath. Last hemodialysis was on Monday and she scheduled for dialysis today. No fever or chills. Vital signs are stable. General: The patient appeared well nourished and normally developed. HEENT: Head exam is unremarkable. Neck is without jugular venous distension. LUNGS: Lungs are clear to auscultation and percussion. Breath sounds decreased. HEART: Rate and Rhythm are regular. First and second heart sounds normal. No murmurs, rubs or gallops. ABDOMEN: Abdominal exam reveals normal bowel sounds. Non-tender and non- distended. No evidence of peritonitis. EXTREMITITES: No clubbing, cyanosis, or edema. Past Medical History Past Medical History: Heart Failure, Diabetes Mellitus, Hyperlipidemia, Pneumonia, Renal Disease Additional Past Medical History / Comment(s): PT. RECEIVES HEMODIALYSIS M,W,F @ [facility] History of Any Multi-Drug Resistant Organisms: None Reported Past Surgical History: Cholecystectomy Past Anesthesia/Blood Transfusion Reactions: No Reported Reaction Past Psychological History: No Psychological Hx Reported Smoking Status: Never smoker Past Alcohol Use History: None Reported Past Drug Use History: None Reported Medications and Allergies Home Medications Medication Instructions Recorded Confirmed Type Aspirin EC [Ecotrin Low Dose] 81 mg PO DAILY@1000 01/10/18 06/27/18 History Fenofibrate Nanocrystallized 145 mg PO DAILY@1000 01/10/18 06/27/18 History [Tricor] Multivitamins, Thera [Multivitamin 1 tab PO DAILY@0600 01/10/18 06/27/18 History (formulary)] Omeprazole [PriLOSEC] 40 mg PO DAILY@0600 01/10/18 06/27/18 History amLODIPine [Norvasc] 10 mg PO DAILY@1000 01/10/18 06/27/18 History Carvedilol [Coreg] 25 mg PO BID@1000,209903/06/18 06/27/18 History Loperamide [Imodium] 2 mg PO Q48H 03/06/18 06/27/18 History hydrALAZINE HCL [Apresoline] 50 mg PO TID@0600,1400,2100 03/06/18 06/27/18 History Furosemide [Lasix] 60 mg PO DAILY@1000 06/27/18 06/27/18 History INSULIN LISPRO (HumaLOG) [HumaLOG] 15 units SQ AC-SUPPER 06/27/18 06/27/18 History INSULIN LISPRO (humaLOG) [humaLOG] 5 units SQ AC-BRKFST 06/27/18 06/27/18 History INSULIN LISPRO (humaLOG) [humaLOG] 10 units SQ AC-LUNCH 06/27/18 06/27/18 History Insulin Glargine,Hum.rec.anlog 20 unit SQ HS 06/27/18 06/27/18 History [Lantus Solostar] Potassium Chloride ER [K-Dur 20] 20 meq PO DAILY@1000 06/27/18 06/27/18 History Sevelamer [Renvela] 800 mg PO TID@0600,1400,209906/27/18 06/27/18 History Spironolactone [Aldactone] 12.5 mg PO BID@1000,209906/27/18 06/27/18 History traZODone HCL 50 mg PO HS@209906/27/18 06/27/18 History Allergies Allergy/AdvReac Type Severity Reaction Status Date / Time No Known Allergies Allergy Verified 06/27/18 19:03 Physical Exam Vitals: Vital Signs Temp Pulse Resp BP Pulse Ox 06/29/18 05:00 98.8 F 83 20 148/65 96 06/29/18 00:00 16 06/28/18 21:00 98.4 F 92 16 124/58 94 L 06/28/18 11:35 98.1 F 80 16 133/54 95 Intake and Output 12/06/29/18 06/29/18 22:59 06:59 14:59 Intake Total 300 200 360 Balance 300 200 360 Intake: Oral 300 200 360 Other: Voiding Method Diaper Diaper Diaper Incontinent Incontinent Incontinent # Voids 2 1 Weight 52.5 kg Results - Lab Results Most recent lab results Calcium 8.6 mg/dL (8.4-10.2) 06/29/18 06:53 Magnesium 1.7 mg/dL (1.6-2.3) 06/27/18 18:27 06/29/18 06:53 06/29/18 06:53 Assessment and Plan Plan: Assessment: 1. End-stage renal disease maintained on hemodialysis on a Monday schedule via right chest permacath. 2. Anemia of chronic kidney disease. Rule out iron deficiency. Also concern for GI bleed with stool for occult blood positive. GI following. 3. Insulin-dependent diabetes mellitus. 4. Hypertension with chronic kidney disease. Controlled. 5. Hyponatremia secondary to chronic kidney disease. 6. Chronic kidney disease mineral bone disease maintained on Renvela. Plan: Hemodialysis today. Diet has been advanced per GI. Add Aranesp. Stable for discharge after dialysis today if cleared by GI. Thank you for the consultation. I will continue to follow the patient with you during her hospital stay.
[2018-06-29] MEDS ORDERED: DARBEPOETIN ALFA 40 MCG/0.4 ML SYRINGE SQ SCH (10:30)
[2018-06-29] MEDS ORDERED: LOPERAMIDE 2 MG CAP PO SCH (11:00)
[2018-06-29 11:31] LABS: Glucose,Whole Blood 319 mg/dL (75-99)
--- NOTE | 2018-06-29 12:08 | CDI ---
Documentation Clarification Form Date: June 29, 2018 From: Yesenia Gardner CDS Counter Former Admit Date: 06/27/2018 7:47:00 PM Patient Name: Jane Vernon Visit Number: [id number] ATTENTION: The Clinical Documentation Specialists (CDI) and [facility] Coding Staff appreciate your assistance in clarifying documentation. Please respond to the clarification below the line at the bottom and electronically sign. The CDI & [facility] Coding staff will review the response and follow-up if needed. Please note: Queries are made part of the Legal Health Record. If you have any questions, please contact the author of this message via ITS. Dr. Zachary Dennis CHF is documented in the H&P. History/Risk Factors: HTN, ESRD, DM type 2 Clinical Indicators: Echocardiogram Results from 01/19/18: EF 50-55%, mild left ventricular hypertrophy Treatment: PO Lasix 60 mg daily In your professional opinion, can you please clarify the acuity and type of CHF if known? Chronic Systolic Heart Failure Chronic Diastolic Heart Failure Chronic Systolic & Diastolic Heart Failure Unable to Determine Other, please specify (Last Revision: October 2017) MTDD
[2018-06-29] MEDS: MULTIVITAMINS, THERA 1 EACH TAB PO SCH (13:31)
[2018-06-29] MEDS: hydrALAZINE HCL 50 MG TAB PO SCH ×2 (13:41→21:23)
--- NOTE | 2018-06-29 13:44 | P.PN ---
Subjective Progress Note Date: 06/29/18 Principal diagnosis: Chronic anemia, transient GI bleed, chronic renal failure on hemodialysis, hypertension hypertensive cardiovascular disease, dyslipidemia, diabetes mellitus, history of heart failure 06/29/2018, patient seen and evaluated examined during the rounds she has been evaluated by GI services recommended to start by mouth which she is tolerating well, hemoglobin have been stable, patient is due for her hemodialysis today for which a renal services has been consulted patient to undergo hemodialysis this afternoon I've discussed with the patient in consult and agree with discharge planning patient wants to go home will be discharged later on today after hemodialysis 83-year-old female who is a resident of [facility] patient were brought in to the emergency department by the EMS as requested by the family members as patient has been passing clots of blood going on for last several days, patient however denies any other specific complaints, she denies any seizure activity loss of consciousness), she denies any similar problem episode in the past, she denies any chest pain or radiation of pain, denies any hematemesis hemoptysis abdominal discomfort or pain, denies any bowel or bladder dysfunction, she does have a history of hypertension and hypertensive cardiovascular disease Objective - Vital Signs Vital signs: Vital Signs Temp 98.3 F 06/29/18 11:56 Pulse 85 06/29/18 11:56 Resp 16 06/29/18 11:56 BP 134/61 06/29/18 11:56 Pulse Ox 93 L 06/29/18 11:56 Intake & Output 06/28/18 06/29/18 06/29/18 18:59 06:59 18:59 Intake Total 500 360 Balance 500 360 Weight 52.5 kg Intake: Oral 500 360 Other: Voiding Method Diaper Diaper Diaper Incontinent Incontinent Incontinent # Voids 1 1 # Bowel Movements 1 - Exam Constitutional General appearance: average body habitus, cooperative, disheveled, mild distress - EENT Eyes: EOMI, PERRLA, poor dentition, normal appearance ENT: hard of hearing, normal oropharynx Ears: bilateral: normal - Neck Neck: normal ROM Carotids: bilateral: upstroke normal, bruit absent - Respiratory Respiratory: bilateral: CTA - Cardiovascular Rhythm: regular Heart sounds: normal: S1, S2 - Gastrointestinal General gastrointestinal: soft - Integumentary Integumentary: normal turgor - Neurologic Neurologic: CNII-XII intact - Musculoskeletal Musculoskeletal: gait normal, generalized weakness, strength equal bilaterally - Psychiatric Psychiatric: A&O x's 3, appropriate affect, intact judgment & insight - Labs CBC & Chem 7: 06/29/18 06:53 06/29/18 06:53 Labs: Abnormal Lab Results - Last 24 Hours (Table) 06/27/18 06/28/18 06/29/18 Range/Units 18:34 20:49 06:53 WBC 11.7 H (3.8-10.6) k/uL RBC 2.49 L (3.80-5.40) m/uL Hgb 7.5 L (11.4-16.0) gm/dL Hct 22.9 L (34.0-46.0) % Neutrophils # 9.0 H (1.3-7.7) k/uL Retic Count (0.5-2.0) % Sodium (137-145) mmol/L BUN (7-17) mg/dL Creatinine (0.52-1.04) mg/dL Glucose (74-99) mg/dL POC Glucose (mg/dL) 193 H (75-99) mg/dL Hemoglobin A1c 8.1 H (4.0-6.0) % Total Protein (6.3-8.2) g/dL Albumin (3.5-5.0) g/dL 06/29/18 06/29/18 06/29/18 Range/Units 06:53 06:53 07:12 WBC (3.8-10.6) k/uL RBC (3.80-5.40) m/uL Hgb (11.4-16.0) gm/dL Hct (34.0-46.0) % Neutrophils # (1.3-7.7) k/uL Retic Count 3.0 H (0.5-2.0) % Sodium 133 L (137-145) mmol/L BUN 38 H (7-17) mg/dL Creatinine 3.28 H (0.52-1.04) mg/dL Glucose 135 H (74-99) mg/dL POC Glucose (mg/dL) 145 H (75-99) mg/dL Hemoglobin A1c (4.0-6.0) % Total Protein 5.6 L (6.3-8.2) g/dL Albumin 3.0 L (3.5-5.0) g/dL 06/29/18 Range/Units 11:14 WBC (3.8-10.6) k/uL RBC (3.80-5.40) m/uL Hgb (11.4-16.0) gm/dL Hct (34.0-46.0) % Neutrophils # (1.3-7.7) k/uL Retic Count (0.5-2.0) % Sodium (137-145) mmol/L BUN (7-17) mg/dL Creatinine (0.52-1.04) mg/dL Glucose (74-99) mg/dL POC Glucose (mg/dL) 319 H (75-99) mg/dL Hemoglobin A1c (4.0-6.0) % Total Protein (6.3-8.2) g/dL Albumin (3.5-5.0) g/dL Assessment and Plan Assessment: Lower GI bleed Acute on chronic anemia Chronic renal failure stage V on hemodialysis Hypertension hypertensive cardiovascular disease Dyslipidemia Diabetes mellitus History of heart failure Plan: Consult renal services for hemodialysis Monitor hemoglobin closely and transfuse if hemoglobin less than 7, however hemoglobin remained stable Pneumatic compression device for DVT prophylaxis Proton pump inhibitor GI consult recommendations reviewed Patient now is on regular diet Labs reviewed Further recommendations pending plan of care as per clinical response of the patient Likely discharge later on today after hemodialysis Time with Patient: Greater than 30
--- NOTE | 2018-06-29 13:48 | P.DS ---
Providers Date of admission: 06/27/18 19:47 Expected date of discharge: 06/29/18 Attending physician: Francisco Javier Simeon Consults: 06/27/18 19:48 Consult Physician Routine Consulting Provider: Bebeto Nathan Consult Reason/Comments: GI bleed Do you want consulting provider notified?: Yes 06/29/18 09:05 Consult Physician Routine Consulting Provider: Suman Coy Consult Reason/Comments: Hemodialysis - M-W-F (known to them) Do you want consulting provider notified?: Yes Primary care physician: [facility] Course: Principal diagnosis: Chronic anemia, transient GI bleed, chronic renal failure on hemodialysis, hypertension hypertensive cardiovascular disease, dyslipidemia, diabetes mellitus, history of heart failure 06/29/2018, patient seen and evaluated examined during the rounds she has been evaluated by GI services recommended to start by mouth which she is tolerating well, hemoglobin have been stable, patient is due for her hemodialysis today for which a renal services has been consulted patient to undergo hemodialysis this afternoon I've discussed with the patient in consult and agree with discharge planning patient wants to go home will be discharged later on today after hemodialysis 83-year-old female who is a resident of [facility] patient were brought in to the emergency department by the EMS as requested by the family members as patient has been passing clots of blood going on for last several days, patient however denies any other specific complaints, she denies any seizure activity loss of consciousness), she denies any similar problem episode in the past, she denies any chest pain or radiation of pain, denies any hematemesis hemoptysis abdominal discomfort or pain, denies any bowel or bladder dysfunction, she does have a history of hypertension and hypertensive cardiovascular disease Objective - Vital Signs Vital signs: Vital Signs Temp 98.3 F 06/29/18 11:56 Pulse 85 06/29/18 11:56 Resp 16 06/29/18 11:56 BP 134/61 06/29/18 11:56 Pulse Ox 93 L 06/29/18 11:56 Intake & Output 06/28/18 06/29/18 06/29/18 18:59 06:59 18:59 Intake Total 500 360 Balance 500 360 Weight 52.5 kg Intake: Oral 500 360 Other: Voiding Method Diaper Diaper Diaper Incontinent Incontinent Incontinent # Voids 1 1 # Bowel Movements 1 - Exam Constitutional General appearance: average body habitus, cooperative, disheveled, mild distress - EENT Eyes: EOMI, PERRLA, poor dentition, normal appearance ENT: hard of hearing, normal oropharynx Ears: bilateral: normal - Neck Neck: normal ROM Carotids: bilateral: upstroke normal, bruit absent - Respiratory Respiratory: bilateral: CTA - Cardiovascular Rhythm: regular Heart sounds: normal: S1, S2 - Gastrointestinal General gastrointestinal: soft - Integumentary Integumentary: normal turgor - Neurologic Neurologic: CNII-XII intact - Musculoskeletal Musculoskeletal: gait normal, generalized weakness, strength equal bilaterally - Psychiatric Psychiatric: A&O x's 3, appropriate affect, intact judgment & insight - Labs CBC & Chem 7: 06/29/18 06:53 06/29/18 06:53 Labs: Abnormal Lab Results - Last 24 Hours (Table) 06/27/18 06/28/18 06/29/18 Range/Units 18:34 20:49 06:53 WBC 11.7 H (3.8-10.6) k/uL RBC 2.49 L (3.80-5.40) m/uL Hgb 7.5 L (11.4-16.0) gm/dL Hct 22.9 L (34.0-46.0) % Neutrophils # 9.0 H (1.3-7.7) k/uL Retic Count (0.5-2.0) % Sodium (137-145) mmol/L BUN (7-17) mg/dL Creatinine (0.52-1.04) mg/dL Glucose (74-99) mg/dL POC Glucose (mg/dL) 193 H (75-99) mg/dL Hemoglobin A1c 8.1 H (4.0-6.0) % Total Protein (6.3-8.2) g/dL Albumin (3.5-5.0) g/dL 06/29/18 06/29/18 06/29/18 Range/Units 06:53 06:53 07:12 WBC (3.8-10.6) k/uL RBC (3.80-5.40) m/uL Hgb (11.4-16.0) gm/dL Hct (34.0-46.0) % Neutrophils # (1.3-7.7) k/uL Retic Count 3.0 H (0.5-2.0) % Sodium 133 L (137-145) mmol/L BUN 38 H (7-17) mg/dL Creatinine 3.28 H (0.52-1.04) mg/dL Glucose 135 H (74-99) mg/dL POC Glucose (mg/dL) 145 H (75-99) mg/dL Hemoglobin A1c (4.0-6.0) % Total Protein 5.6 L (6.3-8.2) g/dL Albumin 3.0 L (3.5-5.0) g/dL 06/29/18 Range/Units 11:14 WBC (3.8-10.6) k/uL RBC (3.80-5.40) m/uL Hgb (11.4-16.0) gm/dL Hct (34.0-46.0) % Neutrophils # (1.3-7.7) k/uL Retic Count (0.5-2.0) % Sodium (137-145) mmol/L BUN (7-17) mg/dL Creatinine (0.52-1.04) mg/dL Glucose (74-99) mg/dL POC Glucose (mg/dL) 319 H (75-99) mg/dL Hemoglobin A1c (4.0-6.0) % Total Protein (6.3-8.2) g/dL Albumin (3.5-5.0) g/dL Assessment and Plan Assessment: Lower GI bleed Acute on chronic anemia Chronic renal failure stage V on hemodialysis Hypertension hypertensive cardiovascular disease Dyslipidemia Diabetes mellitus History of heart failure Plan: Consult renal services for hemodialysis Monitor hemoglobin closely and transfuse if hemoglobin less than 7, however hemoglobin remained stable Pneumatic compression device for DVT prophylaxis Proton pump inhibitor GI consult recommendations reviewed Patient now is on regular diet Labs reviewed Further recommendations pending plan of care as per clinical response of the patient Likely discharge later on today after hemodialysis Pertinent Studies: As above Procedures: Hemodialysis Patient Condition at Discharge: Good Plan - Discharge Summary Discharge Rx Participant: No New Discharge Prescriptions: No Action amLODIPine [Norvasc] 10 mg PO DAILY@1000 Omeprazole [PriLOSEC] 40 mg PO DAILY@0600 Multivitamins, Thera [Multivitamin (formulary)] 1 tab PO DAILY@0600 Fenofibrate Nanocrystallized [Tricor] 145 mg PO DAILY@999 Aspirin EC [Ecotrin Low Dose] 81 mg PO DAILY@1000 Loperamide [Imodium] 2 mg PO Q48H Carvedilol [Coreg] 25 mg PO BID@999,2099 hydrALAZINE HCL [Apresoline] 50 mg PO TID@0600,1399,2099 traZODone HCL 50 mg PO HS@2099 Potassium Chloride ER [K-Dur 20] 20 meq PO DAILY@999 Spironolactone [Aldactone] 12.5 mg PO BID@999,2099 Insulin Glargine,Hum.rec.anlog [Lantus Solostar] 20 unit SQ HS Sevelamer [Renvela] 800 mg PO TID@0600,1399,2099 Furosemide [Lasix] 60 mg PO DAILY@999 INSULIN LISPRO (humaLOG) [humaLOG] 5 units SQ AC-BRKFST INSULIN LISPRO (humaLOG) [humaLOG] 10 units SQ AC-LUNCH INSULIN LISPRO (HumaLOG) [HumaLOG] 15 units SQ AC-SUPPER Discharge Medication List Aspirin EC [Ecotrin Low Dose] 81 mg PO DAILY@99901/10/18 [History] Fenofibrate Nanocrystallized [Tricor] 145 mg PO DAILY@99901/10/18 [History] Multivitamins, Thera [Multivitamin (formulary)] 1 tab PO DAILY@59901/10/18 [ History] Omeprazole [PriLOSEC] 40 mg PO DAILY@59901/10/18 [History] amLODIPine [Norvasc] 10 mg PO DAILY@99901/10/18 [History] Carvedilol [Coreg] 25 mg PO BID@999,209903/06/18 [History] Loperamide [Imodium] 2 mg PO Q48H 03/06/18 [History] hydrALAZINE HCL [Apresoline] 50 mg PO TID@0600,1400,209903/06/18 [History] Furosemide [Lasix] 60 mg PO DAILY@99906/27/18 [History] INSULIN LISPRO (HumaLOG) [HumaLOG] 15 units SQ AC-SUPPER 06/27/18 [History] INSULIN LISPRO (humaLOG) [humaLOG] 5 units SQ AC-BRKFST 06/27/18 [History] INSULIN LISPRO (humaLOG) [humaLOG] 10 units SQ AC-LUNCH 06/27/18 [History] Insulin Glargine,Hum.rec.anlog [Lantus Solostar] 20 unit SQ HS 06/27/18 [History ] Potassium Chloride ER [K-Dur 20] 20 meq PO DAILY@1000 06/27/18 [History] Sevelamer [Renvela] 800 mg PO TID@0600,1400,209906/27/18 [History] Spironolactone [Aldactone] 12.5 mg PO BID@1000,209906/27/18 [History] traZODone HCL 50 mg PO HS@209906/27/18 [History] Follow up Appointment(s)/Referral(s): Francisco Javier Simeon MD [Primary Care Provider] - 1-2 days [facility], [NON-STAFF] - As Needed
[2018-06-29 16:04] LABS: Iron Saturation 11.07 (12.00-45.00)
[2018-06-29 17:20] LABS: Glucose,Whole Blood 233 mg/dL (75-99)
[2018-06-29] MEDS: CHERRY FLAVOR 60 ML BOTTLE PO SCH ×2 (17:39→23:55)
[2018-06-29] MEDS: VANCOMYCIN ORAL SOLUTION 250 MG/5 ML BOTTLE PO SCH ×2 (17:40→23:56)
[2018-06-29] MEDS: ACETAMINOPHEN TAB 325 MG TAB PO PRN (19:31)
[2018-06-29] MEDS ORDERED: HEPARIN SODIUM,PORCINE 5,000 UNIT/ML 1 ML VIAL ONE (20:20)
[2018-06-29 21:13] LABS: Glucose,Whole Blood 149 mg/dL (75-99)
[2018-06-29] MEDS: traZODone HCL 50 MG TAB PO SCH (21:24)
[2018-06-29] MEDS: INSULIN DETEMIR 100 UNIT/ML 10 ML VIAL SQ SCH (21:24)
--- NOTE | 2018-06-30 00:09 | CONS ---
CONSULTATION DATE OF SERVICE: 06/29/2018. REASON FOR CONSULTATION: C difficile colitis. HISTORY OF PRESENT ILLNESS: The patient is an 83-year-old female, who was brought into the ER by the EMS currently called the EMS with the patient having bleeding per rectum. The patient did not tell me exactly when it started. This morning she was noticed to have mostly loose stool and jelly-like as described by the patient's nurse. Stool for C difficile was sent which came back positive. That prompted this Infectious Disease consultation. Patient currently denies having any fever or any chills. Denies having any chest pain, shortness of breath or cough. No abdominal pain at this time. No nausea, no vomiting, or any urinary symptoms. REVIEW OF SYSTEMS: Positive points have been mentioned in HPI. The rest of the review of systems is negative. PAST MEDICAL HISTORY: Heart failure, diabetes mellitus, hyperlipidemia, pneumonia, end-stage renal disease on hemodialysis. PAST SURGICAL HISTORY: Cholecystectomy, dialysis catheter placement. SOCIAL HISTORY: No history of smoking, drinking, or drug use. FAMILY HISTORY: No pertinent findings noticed. ALLERGIES: No known drug allergies. MEDICATIONS: 1. Tylenol. 2. Norvasc. 3. Aspirin. 4. Coreg. 5. . 6. Lasix. 7. Hydralazine. 8. NovoLog. 9. Levemir. 10.Imodium. 11.Theragran. 12.Narcan. 13.Protonix. 14.Aldactone. 15.Desyrel. 16.Vancomycin 250 p.o. every 6 hours. PHYSICAL EXAMINATION: Blood pressure is 111/59 with a pulse of 82, temperature 97.3% on room air. GENERAL DESCRIPTION: A female lying in bed in no distress with no tachypnea or accessory muscle of respiration use. HEENT: Shows slight pallor. No scleral icterus. Oral mucous membranes dry. No pharyngeal erythema. NECK: Trachea central, no thyromegaly. LUNGS: Unlabored breathing. Clear to auscultation. No wheeze or crackle. HEART: S1, S2. Regular rate and rhythm. ABDOMEN: Soft, no tenderness. No guarding or rigidity. No organomegaly. EXTREMITIES: No edema of feet. SKIN: No rash or mass palpable. NEUROLOGIC: The patient is awake, alert, oriented x3. LABS: Hemoglobin 7.8, white count 14.8 with a BUN of 32, creatinine 3.2. Electrolytes have been normal. Liver enzymes are normal. Stool for occult blood was positive. C difficile was positive as well. DIAGNOSTIC IMPRESSION AND PLAN: Patient brought into the ER with concern for bleeding per rectum. The patient noticed to have loose stool with mucus in it. The patient did have elevated white count, likely concerning for acute C difficile colitis. The patient has been in and out of the hospital and exposed to multiple antibiotics in the past. PLAN: 1. Vancomycin 250 p.o. every 6 hours. 2. Discontinue Imodium to decrease risk of toxic megacolon. 3. If diarrhea persist, Questran will be added for symptomatic relief and toxin binding. 4. We will follow up on clinical condition and culture to further adjust medication if needed. Thank you for this consultation, will follow this patient along with you. DONG / ALFREDN: [id number] /
[2018-06-30] MEDS: hydrALAZINE HCL 50 MG TAB PO SCH ×3 (05:31→22:44)
[2018-06-30] MEDS: CHERRY FLAVOR 60 ML BOTTLE PO SCH ×4 (05:32→22:45)
[2018-06-30] MEDS: VANCOMYCIN ORAL SOLUTION 250 MG/5 ML BOTTLE PO SCH ×4 (05:33→22:46)
[2018-06-30 05:46] LABS: Glucose,Whole Blood 88 mg/dL (75-99)
[2018-06-30] MEDS ORDERED: MULTIVITAMINS, THERA 1 EACH TAB PO SCH (06:00)
[2018-06-30] MEDS: SEVELAMER 800 MG TAB PO SCH ×3 (06:22→23:29)
[2018-06-30 07:10] LABS: Glucose,Whole Blood 109 mg/dL (75-99)
[2018-06-30] MEDS: INSULIN ASPART 100 UNIT/ML 1 ML 10 ML VIAL SQ SCH ×4 (07:26→22:44)
[2018-06-30 08:16] LABS: Basophils % (A) 0 %; Eosinophils # (A) 0.2 k/uL (0-0.7); Eosinophils % (A) 3 %; HCT 21.6 % (34.0-46.0); HGB 7.2 gm/dL (11.4-16.0); Lymphocytes # (A) 1.5 k/uL (1.0-4.8); Lymphocytes % (A) 20 %; MCH 30.4 pg (25.0-35.0); MCHC 33.5 g/dL (31.0-37.0); MCV 90.7 fL (80.0-100.0); Mean Platelet Volume 7.4; Monocytes # (A) 0.2 k/uL (0-1.0); Monocytes % (A) 3 %; Neutrophils # (A) 5.6 k/uL (1.3-7.7); Neutrophils % (A) 73 %; Platelet Count 198 k/uL (150-450); RBC 2.38 m/uL (3.80-5.40); RDW 14.1 % (11.5-15.5); WBC 7.6 k/uL (3.8-10.6)
[2018-06-30] MEDS: PANTOPRAZOLE 40 MG/10 ML VIAL IV SCH (08:24)
[2018-06-30] MEDS: FUROSEMIDE 20 MG TAB PO SCH (08:24)
[2018-06-30] MEDS: POTASSIUM CHLORIDE ER 20 MEQ TAB.ER PO SCH (08:24)
[2018-06-30] MEDS: CARVEDILOL 12.5 MG TAB PO SCH ×2 (08:25→22:43)
[2018-06-30] MEDS: ASPIRIN 81 MG PO SCH (08:25)
[2018-06-30] MEDS: amLODIPine 10 MG TAB PO SCH (08:25)
[2018-06-30] MEDS: SPIRONOLACTONE 25 MG TAB PO SCH ×2 (08:25→22:43)
[2018-06-30 08:28] LABS: Albumin 2.8 g/dL (3.5-5.0); Calcium 8.4 mg/dL (8.4-10.2); Potassium 3.7 mmol/L (3.5-5.1); Total Bilirubin 0.3 mg/dL (0.2-1.3); Total Protein 5.5 g/dL (6.3-8.2)
[2018-06-30] MEDS ORDERED: LOPERAMIDE 2 MG CAP PO SCH (09:00)
--- NOTE | 2018-06-30 09:10 | P.PN ---
Subjective Patient is seen in follow-up for end-stage renal disease. She is maintained on hemodialysis on a Monday schedule. Permacath. Patient's noted to be C. diff positive and is maintained on oral vancomycin. No significant diarrhea. Denies chest pain or shortness of breath. Tolerated hemodialysis well yesterday. Vital signs are stable. General: The patient appeared well nourished and normally developed. HEENT: Head exam is unremarkable. Neck is without jugular venous distension. LUNGS: Lungs are clear to auscultation and percussion. Breath sounds decreased. HEART: Rate and Rhythm are regular. First and second heart sounds normal. No murmurs, rubs or gallops. ABDOMEN: Abdominal exam reveals normal bowel sounds. Non-tender and non- distended. No evidence of peritonitis. EXTREMITITES: No clubbing, cyanosis, or edema. Objective - Vital Signs Vital signs: Vital Signs Temp 98.1 F 06/30/18 05:00 Pulse 76 06/30/18 05:00 Resp 16 06/30/18 05:00 BP 145/55 06/30/18 05:00 Pulse Ox 97 06/30/18 05:00 Intake & Output 06/29/18 06/30/18 06/30/18 18:59 06:59 18:59 Intake Total 600 560 Output Total 1000 Balance 600 -440 Weight 65 kg Intake: Intake, IV Titration 80 Amount Sodium Chloride 0.9% 1, 80 000 ml @ 20 mls/hr IV . Q24H [facility] Rx#:[id number] Oral 600 480 Output: Drainage 1000 Hemodialysis catheter 1000 Other: Voiding Method Toilet Toilet Toilet Diaper Diaper Bedside Commode Incontinent Incontinent Diaper # Voids 2 1 # Bowel Movements 2 - Labs CBC & Chem 7: 06/30/18 07:40 06/30/18 07:40 Labs: Abnormal Lab Results - Last 24 Hours (Table) 06/29/18 06/29/18 06/29/18 Range/Units 06:53 06:53 06:53 RBC (3.80-5.40) m/uL Hgb (11.4-16.0) gm/dL Hct (34.0-46.0) % Retic Count 3.0 H (0.5-2.0) % BUN (7-17) mg/dL Creatinine (0.52-1.04) mg/dL POC Glucose (mg/dL) (75-99) mg/dL Iron 30 L (50-170) ug/dL Iron Saturation 11.07 L (12.00-45.00) Ferritin 1810.7 H (10.0-291.0) ng/mL Total Protein (6.3-8.2) g/dL Albumin (3.5-5.0) g/dL C. difficile (EIA) Intrp (Negative) 06/29/18 06/29/18 06/29/18 Range/Units 11:14 13:23 17:17 RBC (3.80-5.40) m/uL Hgb (11.4-16.0) gm/dL Hct (34.0-46.0) % Retic Count (0.5-2.0) % BUN (7-17) mg/dL Creatinine (0.52-1.04) mg/dL POC Glucose (mg/dL) 319 H 233 H (75-99) mg/dL Iron (50-170) ug/dL Iron Saturation (12.00-45.00) Ferritin (10.0-291.0) ng/mL Total Protein (6.3-8.2) g/dL Albumin (3.5-5.0) g/dL C. difficile (EIA) Intrp Positive A (Negative) 06/29/18 06/30/18 06/30/18 Range/Units 20:47 07:09 07:40 RBC 2.38 L (3.80-5.40) m/uL Hgb 7.2 L (11.4-16.0) gm/dL Hct 21.6 L (34.0-46.0) % Retic Count (0.5-2.0) % BUN (7-17) mg/dL Creatinine (0.52-1.04) mg/dL POC Glucose (mg/dL) 149 H 109 H (75-99) mg/dL Iron (50-170) ug/dL Iron Saturation (12.00-45.00) Ferritin (10.0-291.0) ng/mL Total Protein (6.3-8.2) g/dL Albumin (3.5-5.0) g/dL C. difficile (EIA) Intrp (Negative) 06/30/18 Range/Units 07:40 RBC (3.80-5.40) m/uL Hgb (11.4-16.0) gm/dL Hct (34.0-46.0) % Retic Count (0.5-2.0) % BUN 22 H (7-17) mg/dL Creatinine 2.61 H (0.52-1.04) mg/dL POC Glucose (mg/dL) (75-99) mg/dL Iron (50-170) ug/dL Iron Saturation (12.00-45.00) Ferritin (10.0-291.0) ng/mL Total Protein 5.5 L (6.3-8.2) g/dL Albumin 2.8 L (3.5-5.0) g/dL C. difficile (EIA) Intrp (Negative) Assessment and Plan Plan: Assessment: 1. End-stage renal disease maintained on hemodialysis on a Monday schedule via right chest permacath. 2. Anemia of chronic kidney disease. High ferritin noted. Also concern for GI bleed with stool for occult blood positive. GI following. Hemoglobin 7.2 today. 3. Insulin-dependent diabetes mellitus. 4. Hypertension with chronic kidney disease. Controlled. 5. Hyponatremia secondary to chronic kidney disease. Better postdialysis. 6. Chronic kidney disease mineral bone disease maintained on Renvela. 7. C. diff colitis maintained on oral vancomycin. Plan: Hemodialysis on Monday if still in the hospital. Otherwise next dialysis outpatient will be on Monday due to the holiday week schedule. Maintain Aranesp. Stable for discharge from nephrology standpoint.
--- NOTE | 2018-06-30 10:08 | P.PN ---
Subjective Progress Note Date: 06/29/18 Principal diagnosis: Blood per rectum, C. diff colitis Patient tolerated diet yesterday. No acute events. She did have loose stool this morning and testing was sent for Clostridium difficile which came back positive. Currently resting during dialysis. Objective - Vital Signs Vital signs: Vital Signs Temp 97.9 F 06/29/18 21:00 Pulse 82 06/29/18 21:00 Resp 17 06/29/18 21:00 BP 111/59 06/29/18 21:00 Pulse Ox 93 L 06/29/18 21:00 Intake & Output 06/29/18 06/29/18 06/30/18 06:59 18:59 06:59 Intake Total 500 600 320 Output Total 1000 Balance 500 600 -680 Weight 52.5 kg Intake: Intake, IV Titration 80 Amount Sodium Chloride 0.9% 1, 80 000 ml @ 20 mls/hr IV . Q24H [facility] Rx#:[id number] Oral 500 600 240 Output: Drainage 1000 Hemodialysis catheter 1000 Other: Voiding Method Diaper Toilet Incontinent Diaper Incontinent # Voids 1 2 1 # Bowel Movements 2 - Exam On physical examination, patient appears comfortable in no apparent distress. HEAD: Normocephalic, atraumatic. EYES: No scleral icterus. No conjunctival injection. MOUTH: No lesions, tongue midline. NECK: Trachea midline, no gross abnormalities. CHEST: Clear to auscultation with no wheezing or rhonchi appreciated. HEART: Regular rate and rhythm. ABDOMEN: Soft, obese. Bowel sounds are positive. No organomegaly. No guarding or rigidity. EXTREMITIES: No pedal edema. SKIN: No rashes, no jaundice. - Labs CBC & Chem 7: 06/30/18 07:40 06/30/18 07:40 Labs: Abnormal Lab Results - Last 24 Hours (Table) 06/27/18 06/29/18 06/29/18 Range/Units 18:34 06:53 06:53 WBC 11.7 H (3.8-10.6) k/uL RBC 2.49 L (3.80-5.40) m/uL Hgb 7.5 L (11.4-16.0) gm/dL Hct 22.9 L (34.0-46.0) % Neutrophils # 9.0 H (1.3-7.7) k/uL Retic Count (0.5-2.0) % Sodium 133 L (137-145) mmol/L BUN 38 H (7-17) mg/dL Creatinine 3.28 H (0.52-1.04) mg/dL Glucose 135 H (74-99) mg/dL POC Glucose (mg/dL) (75-99) mg/dL Hemoglobin A1c 8.1 H (4.0-6.0) % Iron (50-170) ug/dL Iron Saturation (12.00-45.00) Ferritin (10.0-291.0) ng/mL Total Protein 5.6 L (6.3-8.2) g/dL Albumin 3.0 L (3.5-5.0) g/dL C. difficile (EIA) Intrp (Negative) 06/29/18 06/29/18 06/29/18 Range/Units 06:53 06:53 06:53 WBC (3.8-10.6) k/uL RBC (3.80-5.40) m/uL Hgb (11.4-16.0) gm/dL Hct (34.0-46.0) % Neutrophils # (1.3-7.7) k/uL Retic Count 3.0 H (0.5-2.0) % Sodium (137-145) mmol/L BUN (7-17) mg/dL Creatinine (0.52-1.04) mg/dL Glucose (74-99) mg/dL POC Glucose (mg/dL) (75-99) mg/dL Hemoglobin A1c (4.0-6.0) % Iron 30 L (50-170) ug/dL Iron Saturation 11.07 L (12.00-45.00) Ferritin 1810.7 H (10.0-291.0) ng/mL Total Protein (6.3-8.2) g/dL Albumin (3.5-5.0) g/dL C. difficile (EIA) Intrp (Negative) 06/29/18 06/29/18 06/29/18 Range/Units 07:12 11:14 13:23 WBC (3.8-10.6) k/uL RBC (3.80-5.40) m/uL Hgb (11.4-16.0) gm/dL Hct (34.0-46.0) % Neutrophils # (1.3-7.7) k/uL Retic Count (0.5-2.0) % Sodium (137-145) mmol/L BUN (7-17) mg/dL Creatinine (0.52-1.04) mg/dL Glucose (74-99) mg/dL POC Glucose (mg/dL) 145 H 319 H (75-99) mg/dL Hemoglobin A1c (4.0-6.0) % Iron (50-170) ug/dL Iron Saturation (12.00-45.00) Ferritin (10.0-291.0) ng/mL Total Protein (6.3-8.2) g/dL Albumin (3.5-5.0) g/dL C. difficile (EIA) Intrp Positive A (Negative) 06/29/18 06/29/18 Range/Units 17:17 20:47 WBC (3.8-10.6) k/uL RBC (3.80-5.40) m/uL Hgb (11.4-16.0) gm/dL Hct (34.0-46.0) % Neutrophils # (1.3-7.7) k/uL Retic Count (0.5-2.0) % Sodium (137-145) mmol/L BUN (7-17) mg/dL Creatinine (0.52-1.04) mg/dL Glucose (74-99) mg/dL POC Glucose (mg/dL) 233 H 149 H (75-99) mg/dL Hemoglobin A1c (4.0-6.0) % Iron (50-170) ug/dL Iron Saturation (12.00-45.00) Ferritin (10.0-291.0) ng/mL Total Protein (6.3-8.2) g/dL Albumin (3.5-5.0) g/dL C. difficile (EIA) Intrp (Negative) Assessment and Plan (1) Lower gastrointestinal hemorrhage Narrative/Plan: Patient presenting with reports of blood clots per rectum and stool testing positive for occult blood. However on discussion with the nursing staff patient has had 2 bowel movements which were grossly nonbloody, described as brown in appearance. Patient did have some loose stool today with testing positive for Clostridium difficile colitis. Current Visit: Yes Status: Acute Code(s): K92.2 - GASTROINTESTINAL HEMORRHAGE, UNSPECIFIED SNOMED Code(s): 64454409 (2) Anemia Narrative/Plan: Anemia is of unclear etiology. May be related to chronic disease with patient noted to have elevation in creatinine on presentation. Although the patient was sent in for evaluation of blood per rectum no signs or symptoms of GI bleeding been noted. Current Visit: Yes Status: Acute Code(s): D64.9 - ANEMIA, UNSPECIFIED SNOMED Code(s): 852044387 Plan: Supportive care Okay for diet Monitor hemoglobin and transfuse as needed Iron studies, vitamin B-12 and folic acid and reticulocyte count ordered Continue oral vancomycin for treatment of C. diff colitis Continue to monitor stool output Thank you for allowing us to participate in the care of this patient we will continue to follow
[2018-06-30] MEDS: FENOFIBRATE 160 MG TAB PO SCH (10:13)
[2018-06-30] MEDS: MULTIVITAMINS, THERA 1 EACH TAB PO SCH (11:32)
[2018-06-30 11:53] LABS: Glucose,Whole Blood 345 mg/dL (75-99)
[2018-06-30 11:53] LABS: Glucose,Whole Blood >600 mg/dL (75-99)
[2018-06-30 16:55] LABS: Glucose,Whole Blood 362 mg/dL (75-99)
[2018-06-30 20:59] LABS: Glucose,Whole Blood 210 mg/dL (75-99)
--- NOTE | 2018-06-30 21:08 | P.PN ---
Subjective Progress Note Date: 06/30/18 Principal diagnosis: Chronic anemia, transient GI bleed, chronic renal failure on hemodialysis, hypertension hypertensive cardiovascular disease, dyslipidemia, diabetes mellitus, history of heart failure 06/30/2018, patient seen eval examined during the rounds clinically patient has been doing well awake and alert breathing comfortably no obvious distress present, patient is being followed by infectious disease services currently on oral vancomycin, patient did well with hemodialysis yesterday overall severity or diarrhea is improved though, and labs reviewed medications reviewed renal functions improved today compared to yesterday 06/29/2018, patient seen and evaluated examined during the rounds she has been evaluated by GI services recommended to start by mouth which she is tolerating well, hemoglobin have been stable, patient is due for her hemodialysis today for which a renal services has been consulted patient to undergo hemodialysis this afternoon I've discussed with the patient in consult and agree with discharge planning patient wants to go home will be discharged later on today after hemodialysis 83-year-old female who is a resident of [facility] patient were brought in to the emergency department by the EMS as requested by the family members as patient has been passing clots of blood going on for last several days, patient however denies any other specific complaints, she denies any seizure activity loss of consciousness), she denies any similar problem episode in the past, she denies any chest pain or radiation of pain, denies any hematemesis hemoptysis abdominal discomfort or pain, denies any bowel or bladder dysfunction, she does have a history of hypertension and hypertensive cardiovascular disease Objective - Vital Signs Vital signs: Vital Signs Temp 98.4 F 06/30/18 12:54 Pulse 84 06/30/18 14:43 Resp 18 06/30/18 14:43 BP 145/60 06/30/18 12:54 Pulse Ox 94 L 06/30/18 12:54 Intake & Output 06/30/18 06/30/18 07/01/18 06:59 18:59 06:59 Intake Total 560 1150 Output Total 1000 Balance -440 1150 Weight 65 kg 65 kg Intake: Intake, IV Titration 80 Amount Sodium Chloride 0.9% 1, 80 000 ml @ 20 mls/hr IV . Q24H [facility] Rx#:[id number] Oral 480 1150 Output: Drainage 1000 Hemodialysis catheter 1000 Other: Voiding Method Toilet Toilet Diaper Bedside Commode Incontinent Diaper # Voids 1 2 # Bowel Movements 1 - Exam Constitutional General appearance: average body habitus, cooperative, disheveled, mild distress - EENT Eyes: EOMI, PERRLA, poor dentition, normal appearance ENT: hard of hearing, normal oropharynx Ears: bilateral: normal - Neck Neck: normal ROM Carotids: bilateral: upstroke normal, bruit absent - Respiratory Respiratory: bilateral: CTA - Cardiovascular Rhythm: regular Heart sounds: normal: S1, S2 - Gastrointestinal General gastrointestinal: soft - Integumentary Integumentary: normal turgor - Neurologic Neurologic: CNII-XII intact - Musculoskeletal Musculoskeletal: gait normal, generalized weakness, strength equal bilaterally - Psychiatric Psychiatric: A&O x's 3, appropriate affect, intact judgment & insight - Labs CBC & Chem 7: 06/30/18 07:40 06/30/18 07:40 Labs: Abnormal Lab Results - Last 24 Hours (Table) 06/29/18 06/30/18 06/30/18 Range/Units 20:47 07:09 07:40 RBC 2.38 L (3.80-5.40) m/uL Hgb 7.2 L (11.4-16.0) gm/dL Hct 21.6 L (34.0-46.0) % BUN (7-17) mg/dL Creatinine (0.52-1.04) mg/dL POC Glucose (mg/dL) 149 H 109 H (75-99) mg/dL Total Protein (6.3-8.2) g/dL Albumin (3.5-5.0) g/dL 06/30/18 06/30/18 06/30/18 Range/Units 07:40 11:50 11:51 RBC (3.80-5.40) m/uL Hgb (11.4-16.0) gm/dL Hct (34.0-46.0) % BUN 22 H (7-17) mg/dL Creatinine 2.61 H (0.52-1.04) mg/dL POC Glucose (mg/dL) >600 H 345 H (75-99) mg/dL Total Protein 5.5 L (6.3-8.2) g/dL Albumin 2.8 L (3.5-5.0) g/dL 12/29/18 12/29/18 Range/Units 16:54 20:56 RBC (3.80-5.40) m/uL Hgb (11.4-16.0) gm/dL Hct (34.0-46.0) % BUN (7-17) mg/dL Creatinine (0.52-1.04) mg/dL POC Glucose (mg/dL) 362 H 210 H (75-99) mg/dL Total Protein (6.3-8.2) g/dL Albumin (3.5-5.0) g/dL Assessment and Plan Assessment: C. difficile colitis Heme positive stool related to C. difficile colitis Acute on chronic anemia Chronic renal failure stage V on hemodialysis Hypertension hypertensive cardiovascular disease Dyslipidemia Diabetes mellitus History of heart failure Plan: Consult renal services for hemodialysis Monitor hemoglobin closely and transfuse if hemoglobin less than 7, however hemoglobin remained stable Pneumatic compression device for DVT prophylaxis Proton pump inhibitor GI consult recommendations reviewed Patient now is on regular diet Labs reviewed Further recommendations pending plan of care as per clinical response of the patient Continue therapy for C. difficile colitis Time with Patient: Greater than 30
[2018-06-30] MEDS: INSULIN DETEMIR 100 UNIT/ML 10 ML VIAL SQ SCH (22:44)
--- NOTE | 2018-06-30 22:56 | P.PN ---
Subjective Progress Note Date: 06/30/18 Principal diagnosis: Blood per rectum, C. diff colitis Tolerating her diet. Bowel movements improved per nursing staff. No blood per rectum. Objective - Vital Signs Vital signs: Vital Signs Temp 98.7 F 06/30/18 21:00 Pulse 80 06/30/18 21:00 Resp 16 06/30/18 21:00 BP 119/50 06/30/18 21:00 Pulse Ox 94 L 06/30/18 21:00 Intake & Output 06/30/18 06/30/18 07/01/18 06:59 18:59 06:59 Intake Total 560 1150 Output Total 1000 Balance -440 1150 Weight 65 kg 65 kg Intake: Intake, IV Titration 80 Amount Sodium Chloride 0.9% 1, 80 000 ml @ 20 mls/hr IV . Q24H [facility] Rx#:[id number] Oral 480 1150 Output: Drainage 1000 Hemodialysis catheter 1000 Other: Voiding Method Toilet Toilet Diaper Bedside Commode Incontinent Diaper # Voids 1 2 # Bowel Movements 1 - Exam On physical examination, patient appears comfortable in no apparent distress. HEAD: Normocephalic, atraumatic. EYES: No scleral icterus. No conjunctival injection. MOUTH: No lesions, tongue midline. NECK: Trachea midline, no gross abnormalities. CHEST: Clear to auscultation with no wheezing or rhonchi appreciated. HEART: Regular rate and rhythm. ABDOMEN: Soft, obese. Bowel sounds are positive. No organomegaly. No guarding or rigidity. EXTREMITIES: No pedal edema. SKIN: No rashes, no jaundice. - Labs CBC & Chem 7: 06/30/18 07:40 06/30/18 07:40 Labs: Abnormal Lab Results - Last 24 Hours (Table) 06/30/18 06/30/18 06/30/18 Range/Units 07:09 07:40 07:40 RBC 2.38 L (3.80-5.40) m/uL Hgb 7.2 L (11.4-16.0) gm/dL Hct 21.6 L (34.0-46.0) % BUN 22 H (7-17) mg/dL Creatinine 2.61 H (0.52-1.04) mg/dL POC Glucose (mg/dL) 109 H (75-99) mg/dL Total Protein 5.5 L (6.3-8.2) g/dL Albumin 2.8 L (3.5-5.0) g/dL 06/30/18 06/30/18 06/30/18 Range/Units 11:50 11:51 16:54 RBC (3.80-5.40) m/uL Hgb (11.4-16.0) gm/dL Hct (34.0-46.0) % BUN (7-17) mg/dL Creatinine (0.52-1.04) mg/dL POC Glucose (mg/dL) >600 H 345 H 362 H (75-99) mg/dL Total Protein (6.3-8.2) g/dL Albumin (3.5-5.0) g/dL 06/30/18 Range/Units 20:56 RBC (3.80-5.40) m/uL Hgb (11.4-16.0) gm/dL Hct (34.0-46.0) % BUN (7-17) mg/dL Creatinine (0.52-1.04) mg/dL POC Glucose (mg/dL) 210 H (75-99) mg/dL Total Protein (6.3-8.2) g/dL Albumin (3.5-5.0) g/dL Assessment and Plan (1) Lower gastrointestinal hemorrhage Narrative/Plan: Patient presenting with reports of blood clots per rectum and stool testing positive for occult blood. However on discussion with the nursing staff patient has had 2 bowel movements which were grossly nonbloody, described as brown in appearance. Patient did have some loose stool with testing positive for Clostridium difficile colitis. Current Visit: Yes Status: Acute Code(s): K92.2 - GASTROINTESTINAL HEMORRHAGE, UNSPECIFIED SNOMED Code(s): 54311012 (2) Anemia Narrative/Plan: Anemia is of unclear etiology. May be related to chronic disease with patient noted to have elevation in creatinine on presentation. Although the patient was sent in for evaluation of blood per rectum no signs or symptoms of GI bleeding been noted. Current Visit: Yes Status: Acute Code(s): D64.9 - ANEMIA, UNSPECIFIED SNOMED Code(s): 771712718 Plan: Supportive care Okay for diet Monitor hemoglobin and transfuse as needed Continue oral vancomycin for treatment of C. diff colitis Continue to monitor stool output Thank you for allowing us to participate in the care of this patient we will continue to follow, we will standby, please feel free to call us back with any questions or concerns
[2018-06-30] MEDS: traZODone HCL 50 MG TAB PO SCH (23:29)
[2018-07-01] MEDS: CHERRY FLAVOR 60 ML BOTTLE PO SCH ×4 (05:25→22:56)
[2018-07-01] MEDS: hydrALAZINE HCL 50 MG TAB PO SCH ×3 (05:25→22:51)
[2018-07-01] MEDS: VANCOMYCIN ORAL SOLUTION 250 MG/5 ML BOTTLE PO SCH ×4 (05:26→22:56)
[2018-07-01] MEDS: SEVELAMER 800 MG TAB PO SCH ×3 (05:27→22:51)
[2018-07-01 07:08] LABS: Glucose,Whole Blood 81 mg/dL (75-99)
[2018-07-01] MEDS: INSULIN ASPART 100 UNIT/ML 1 ML 10 ML VIAL SQ SCH ×4 (08:35→22:52)
[2018-07-01] MEDS: PANTOPRAZOLE 40 MG/10 ML VIAL IV SCH (09:07)
[2018-07-01] MEDS: FUROSEMIDE 20 MG TAB PO SCH (09:07)
[2018-07-01] MEDS: ASPIRIN 81 MG PO SCH (09:08)
[2018-07-01] MEDS: amLODIPine 10 MG TAB PO SCH (09:08)
[2018-07-01] MEDS: CARVEDILOL 12.5 MG TAB PO SCH ×2 (09:08→22:50)
[2018-07-01] MEDS: FENOFIBRATE 160 MG TAB PO SCH (09:08)
[2018-07-01] MEDS: SPIRONOLACTONE 25 MG TAB PO SCH ×2 (09:08→22:51)
[2018-07-01] MEDS: POTASSIUM CHLORIDE ER 20 MEQ TAB.ER PO SCH (09:11)
--- NOTE | 2018-07-01 10:54 | P.PN ---
Subjective Patient is seen in follow-up for end-stage renal disease. She is maintained on hemodialysis on a Monday schedule via permacath. Patient's noted to be C. diff positive and is maintained on oral vancomycin. No significant diarrhea. Denies chest pain or shortness of breath. Vital signs are stable. General: The patient appeared well nourished and normally developed. HEENT: Head exam is unremarkable. Neck is without jugular venous distension. LUNGS: Lungs are clear to auscultation and percussion. Breath sounds decreased. HEART: Rate and Rhythm are regular. First and second heart sounds normal. No murmurs, rubs or gallops. ABDOMEN: Abdominal exam reveals normal bowel sounds. Non-tender and non- distended. No evidence of peritonitis. EXTREMITITES: No clubbing, cyanosis, or edema. Objective - Vital Signs Vital signs: Vital Signs Temp 98.3 F 07/01/18 05:00 Pulse 81 07/01/18 05:00 Resp 17 07/01/18 05:00 BP 129/60 07/01/18 05:00 Pulse Ox 94 L 07/01/18 05:00 Intake & Output 06/30/18 07/01/18 07/01/18 18:59 06:59 18:59 Intake Total 1150 360 Balance 1150 360 Weight 65 kg 67.5 kg Intake: Oral 1150 360 Other: Voiding Method Toilet Toilet Toilet Bedside Commode Diaper Diaper Diaper Incontinent # Voids 2 1 # Bowel Movements 1 - Labs CBC & Chem 7: 06/30/18 07:40 06/30/18 07:40 Labs: Abnormal Lab Results - Last 24 Hours (Table) 06/30/18 06/30/18 06/30/18 Range/Units 11:50 11:51 16:54 POC Glucose (mg/dL) >600 H 345 H 362 H (75-99) mg/dL 06/30/18 Range/Units 20:56 POC Glucose (mg/dL) 210 H (75-99) mg/dL Assessment and Plan Plan: Assessment: 1. End-stage renal disease maintained on hemodialysis on a Monday schedule via right chest permacath. 2. Anemia of chronic kidney disease. High ferritin noted. Also concern for GI bleed with stool for occult blood positive. GI following. Hemoglobin 7.2 as of yesterday. 3. Insulin-dependent diabetes mellitus. 4. Hypertension with chronic kidney disease. Controlled. 5. Hyponatremia secondary to chronic kidney disease. Better postdialysis. 6. Chronic kidney disease mineral bone disease maintained on Renvela. 7. C. diff colitis maintained on oral vancomycin. Plan: Hemodialysis today due to holiday schedule. Maintain Aranesp. Transfuse 1 unit of blood with dialysis today if hemoglobin drops further. Stable for discharge from nephrology standpoint after dialysis today.
[2018-07-01 11:04] LABS: Basophils % (A) 0 %; Eosinophils # (A) 0.1 k/uL (0-0.7); Eosinophils % (A) 2 %; HCT 21.2 % (34.0-46.0); HGB 7.1 gm/dL (11.4-16.0); Lymphocytes # (A) 1.4 k/uL (1.0-4.8); Lymphocytes % (A) 23 %; MCH 30.4 pg (25.0-35.0); MCHC 33.3 g/dL (31.0-37.0); MCV 91.2 fL (80.0-100.0); Mean Platelet Volume 7.6; Monocytes # (A) 0.2 k/uL (0-1.0); Monocytes % (A) 3 %; Neutrophils # (A) 4.5 k/uL (1.3-7.7); Neutrophils % (A) 71 %; Platelet Count 187 k/uL (150-450); RBC 2.32 m/uL (3.80-5.40); WBC 6.4 k/uL (3.8-10.6)
[2018-07-01 11:14] LABS: Calcium 8.5 mg/dL (8.4-10.2); Potassium 4.4 mmol/L (3.5-5.1)
[2018-07-01 11:58] LABS: Glucose,Whole Blood 114 mg/dL (75-99)
[2018-07-01] MEDS: MULTIVITAMINS, THERA 1 EACH TAB PO SCH (12:16)
--- NOTE | 2018-07-01 14:18 | PN ---
PROGRESS NOTE SUBJECTIVE: 83-year-old with a GI bleed, admitted to the hospital. The patient was found to have C diff colitis, started on oral vancomycin. No GI bleeding in the last 24 hours. She has consult with GI or surgery for possible GI bleed, but suspected is due to colitis due to C diff. She feels better. Her diarrhea is lessening at this time. Vital signs stable. Afebrile. Cardiovascular S1, S2. Lungs are clear. GI soft, normal bowel sounds. Hematology negative Homans. ASSESSMENT: 1. Clostridium difficile enterocolitis. 2. Gastrointestinal bleeding secondary to enterocolitis. 3. End-stage renal failure. Dialysis will be done possibly today. Continue with oral vancomycin. Wait for GI specialist. MMODL / IJN: [id number] /
[2018-07-01 17:10] LABS: Glucose,Whole Blood 137 mg/dL (75-99)
[2018-07-01 20:38] LABS: Glucose,Whole Blood 168 mg/dL (75-99)
[2018-07-01] MEDS: INSULIN DETEMIR 100 UNIT/ML 10 ML VIAL SQ SCH (22:52)
[2018-07-01] MEDS: ACETAMINOPHEN TAB 325 MG TAB PO PRN (22:52)
[2018-07-01] MEDS: traZODone HCL 50 MG TAB PO SCH (22:57)
[2018-07-02] MEDS: CHERRY FLAVOR 60 ML BOTTLE PO SCH ×4 (06:27→23:41)
[2018-07-02] MEDS: VANCOMYCIN ORAL SOLUTION 250 MG/5 ML BOTTLE PO SCH ×4 (06:28→23:40)
[2018-07-02] MEDS: SEVELAMER 800 MG TAB PO SCH ×3 (06:31→21:01)
[2018-07-02] MEDS: hydrALAZINE HCL 50 MG TAB PO SCH ×3 (06:31→21:01)
[2018-07-02 06:56] LABS: Glucose,Whole Blood 110 mg/dL (75-99)
[2018-07-02] MEDS: INSULIN ASPART 100 UNIT/ML 1 ML 10 ML VIAL SQ SCH ×4 (08:07→21:02)
[2018-07-02] MEDS: CARVEDILOL 12.5 MG TAB PO SCH ×2 (08:08→21:01)
[2018-07-02] MEDS: PANTOPRAZOLE 40 MG/10 ML VIAL IV SCH (08:08)
[2018-07-02] MEDS: amLODIPine 10 MG TAB PO SCH (08:08)
[2018-07-02] MEDS: ASPIRIN 81 MG PO SCH (08:08)
[2018-07-02] MEDS: FENOFIBRATE 160 MG TAB PO SCH (08:09)
[2018-07-02] MEDS: SPIRONOLACTONE 25 MG TAB PO SCH ×2 (08:10→21:01)
[2018-07-02] MEDS: FUROSEMIDE 20 MG TAB PO SCH (08:10)
[2018-07-02] MEDS: POTASSIUM CHLORIDE ER 20 MEQ TAB.ER PO SCH (08:10)
--- NOTE | 2018-07-02 10:25 | P.PN ---
Subjective Patient is seen in follow-up for end-stage renal disease. She is maintained on hemodialysis on a Monday schedule via permacath. Patient's noted to be C. diff positive and is maintained on oral vancomycin. No significant diarrhea. Denies chest pain or shortness of breath. Hemoglobin was 7.1 yesterday for which she received 1 unit of blood transfusion. No active bleeding. Vital signs are stable. General: The patient appeared well nourished and normally developed. HEENT: Head exam is unremarkable. Neck is without jugular venous distension. LUNGS: Lungs are clear to auscultation and percussion. Breath sounds decreased. HEART: Rate and Rhythm are regular. First and second heart sounds normal. No murmurs, rubs or gallops. ABDOMEN: Abdominal exam reveals normal bowel sounds. Non-tender and non- distended. No evidence of peritonitis. EXTREMITITES: No clubbing, cyanosis, or edema. Objective - Vital Signs Vital signs: Vital Signs Temp 98.1 F 07/02/18 05:00 Pulse 75 07/02/18 05:00 Resp 20 07/02/18 05:00 BP 117/55 07/02/18 05:00 Pulse Ox 95 07/02/18 05:00 Intake & Output 07/01/18 07/02/18 07/02/18 18:59 06:59 18:59 Intake Total 1000 240 Balance 1000 240 Weight 67.5 kg 65 kg Intake: Oral 690 240 Blood Product 310 Rc As-1 Unit 310 [id number] Other: Voiding Method Toilet Toilet Diaper Diaper Incontinent Incontinent # Voids 1 1 # Bowel Movements 1 - Labs CBC & Chem 7: 07/01/18 10:35 07/01/18 10:35 Labs: Abnormal Lab Results - Last 24 Hours (Table) 07/01/18 07/01/18 07/01/18 Range/Units 10:35 10:35 10:35 RBC 2.32 L (3.80-5.40) m/uL Hgb 7.1 L (11.4-16.0) gm/dL Hct 21.2 L (34.0-46.0) % Sodium 135 L (137-145) mmol/L BUN 34 H (7-17) mg/dL Creatinine 3.75 H (0.52-1.04) mg/dL POC Glucose (mg/dL) (75-99) mg/dL Crossmatch See Detail 07/01/18 07/01/18 07/01/18 Range/Units 11:57 17:09 20:36 RBC (3.80-5.40) m/uL Hgb (11.4-16.0) gm/dL Hct (34.0-46.0) % Sodium (137-145) mmol/L BUN (7-17) mg/dL Creatinine (0.52-1.04) mg/dL POC Glucose (mg/dL) 114 H 137 H 168 H (75-99) mg/dL Crossmatch 07/02/18 Range/Units 06:55 RBC (3.80-5.40) m/uL Hgb (11.4-16.0) gm/dL Hct (34.0-46.0) % Sodium (137-145) mmol/L BUN (7-17) mg/dL Creatinine (0.52-1.04) mg/dL POC Glucose (mg/dL) 110 H (75-99) mg/dL Crossmatch Assessment and Plan Plan: Assessment: 1. End-stage renal disease maintained on hemodialysis on a Monday schedule via right chest permacath. 2. Anemia of chronic kidney disease. High ferritin noted. Also concern for GI bleed with stool for occult blood positive. GI following. Hemoglobin 7.1 yesterday for which she received 1 unit of blood transfusion. 3. Insulin-dependent diabetes mellitus. 4. Hypertension with chronic kidney disease. Controlled. 5. Hyponatremia secondary to chronic kidney disease. Better postdialysis. 6. Chronic kidney disease mineral bone disease maintained on Renvela. 7. C. diff colitis maintained on oral vancomycin. Plan: Hemodialysis Monday. Maintain Aranesp. Stable to be discharged home from nephrology standpoint.
[2018-07-02 11:14] LABS: Glucose,Whole Blood 133 mg/dL (75-99)
[2018-07-02] MEDS: MULTIVITAMINS, THERA 1 EACH TAB PO SCH (12:41)
[2018-07-02 17:09] LABS: Glucose,Whole Blood 218 mg/dL (75-99)
--- NOTE | 2018-07-02 17:25 | PN ---
PROGRESS NOTE SUBJECTIVE: 83-year-old white female, C difficile colitis and anemia secondary to GI bleeding from C difficile colitis as well as dialysis from end-stage renal failure. Diabetes has been controlled. Sugars in the mid 100s. The patient is doing better. She is sitting up in chair eating a little bit. Possible rehab placement will be needed. Temp 97 to 99, blood pressure 117-130s, O2 93 to 98% on room air, respiratory rate 18- 20. CARDIOVASCULAR: S1, S2. Lungs transmitted breath sounds. GI soft, increased bowel sounds. Hematology negative Homans. Psych fair mood and affect. ASSESSMENT: 1. Clostridium difficile colitis. 2. End-stage renal failure. 3. History of congestive heart failure. 4. Hypertension. 5. Insulin-dependent diabetes mellitus. Continue with IV Venofer for injections. Continue with oral vancomycin for C difficile colitis. Possible discharge home in the next 24 to 48 hours. MMODL / IJN: [id number] /
[2018-07-02] MEDS: SODIUM FERRIC GLUCONAT-SUCROSE 125 MG in SODIUM CHLORIDE 0.9% 100 ML IVPB SCH (17:51)
[2018-07-02 19:58] LABS: Glucose,Whole Blood 259 mg/dL (75-99)
[2018-07-02] MEDS: traZODone HCL 50 MG TAB PO SCH (21:01)
[2018-07-02] MEDS: INSULIN DETEMIR 100 UNIT/ML 10 ML VIAL SQ SCH (21:02)
--- NOTE | 2018-07-02 23:55 | PN ---
PROGRESS NOTE DATE OF SERVICE: 07/02/2018. REASON FOR FOLLOWUP: C difficile colitis. INTERVAL HISTORY: The patient is afebrile. She is breathing comfortably. Diarrhea has resolved. Soft bowel movement per the RN. No nausea, no vomiting. PHYSICAL EXAMINATION: Blood pressure 146/65, pulse 75, temperature 97.8, she is 98% on room air. GENERAL DESCRIPTION: An elderly female up in the chair in no distress. RESPIRATORY SYSTEM: Unlabored breathing. LUNGS: Clear to auscultation anteriorly. HEART: S1, S2. Regular rate and rhythm. ABDOMEN: Soft, no tenderness. LABS: Hemoglobin 7.1, white count 6.4. BUN of 34, creatinine 3.75. DIAGNOSTIC IMPRESSION AND PLAN: Patient with C difficile colitis. The patient seemed to be clinically responding to the p.o. vancomycin. Continue finish 10-day course of therapy. Continue supportive care. MMGAUTAML / ALFREDN: [id number] /
[2018-07-03] MEDS: CHERRY FLAVOR 60 ML BOTTLE PO SCH ×4 (05:21→23:29)
[2018-07-03] MEDS: SEVELAMER 800 MG TAB PO SCH ×3 (05:21→20:23)
[2018-07-03] MEDS: hydrALAZINE HCL 50 MG TAB PO SCH ×3 (05:21→20:23)
[2018-07-03] MEDS: VANCOMYCIN ORAL SOLUTION 250 MG/5 ML BOTTLE PO SCH ×4 (05:21→23:28)
[2018-07-03 07:15] LABS: Glucose,Whole Blood 58 mg/dL (75-99)
[2018-07-03 07:19] LABS: Basophils % (A) 0 %; Eosinophils # (A) 0.2 k/uL (0-0.7); Eosinophils % (A) 4 %; HGB 7.4 gm/dL (11.4-16.0); Lymphocytes % (A) 29 %; MCH 30.6 pg (25.0-35.0); MCHC 33.4 g/dL (31.0-37.0); MCV 91.6 fL (80.0-100.0); Mean Platelet Volume 7.6; Monocytes # (A) 0.3 k/uL (0-1.0); Monocytes % (A) 4 %; Neutrophils # (A) 4.2 k/uL (1.3-7.7); Neutrophils % (A) 61 %; Platelet Count 195 k/uL (150-450); RBC 2.41 m/uL (3.80-5.40); RDW 14.2 % (11.5-15.5); WBC 6.8 k/uL (3.8-10.6)
[2018-07-03] MEDS: INSULIN ASPART 100 UNIT/ML 1 ML 10 ML VIAL SQ SCH ×4 (07:25→20:26)
[2018-07-03 07:32] LABS: Glucose,Whole Blood 81 mg/dL (75-99)
[2018-07-03 07:42] LABS: Albumin 2.6 g/dL (3.5-5.0); Calcium 8.5 mg/dL (8.4-10.2); Potassium 4.3 mmol/L (3.5-5.1); Total Bilirubin 0.3 mg/dL (0.2-1.3)
--- NOTE | 2018-07-03 09:00 | P.PN ---
Subjective Patient is seen in follow-up for end-stage renal disease. She is maintained on hemodialysis on a Monday schedule via permacath. Patient's noted to be C. diff positive and is maintained on oral vancomycin. No significant diarrhea. Denies chest pain or shortness of breath. Hemoglobin was 7.1 yesterday for which she received 1 unit of blood transfusion - 7.4 today. No active bleeding. Vital signs are stable. General: The patient appeared well nourished and normally developed. HEENT: Head exam is unremarkable. Neck is without jugular venous distension. LUNGS: Lungs are clear to auscultation and percussion. Breath sounds decreased. HEART: Rate and Rhythm are regular. First and second heart sounds normal. No murmurs, rubs or gallops. ABDOMEN: Abdominal exam reveals normal bowel sounds. Non-tender and non- distended. No evidence of peritonitis. EXTREMITITES: No clubbing, cyanosis, or edema. Objective - Vital Signs Vital signs: Vital Signs Temp 98.3 F 07/03/18 05:00 Pulse 76 07/03/18 05:00 Resp 16 07/03/18 05:00 BP 132/63 07/03/18 05:00 Pulse Ox 92 L 07/03/18 05:00 Intake & Output 07/02/18 07/03/18 07/03/18 18:59 06:59 18:59 Intake Total 1490 Balance 1490 Weight 76.5 kg Intake: Intake, IV Titration 100 Amount Sodium Ferric Gluconat- 100 Sucrose 125 mg In Sodium Chloride 0.9% 100 ml @ 100 mls/hr IVPB DAILY [facility] Rx#:[id number] Oral 1390 Other: Voiding Method Toilet Toilet Diaper Diaper Incontinent Incontinent # Voids 2 1 # Bowel Movements 1 - Labs CBC & Chem 7: 07/03/18 06:38 07/03/18 06:38 Labs: Abnormal Lab Results - Last 24 Hours (Table) 07/02/18 07/02/18 07/02/18 Range/Units 11:12 17:08 19:57 RBC (3.80-5.40) m/uL Hgb (11.4-16.0) gm/dL Hct (34.0-46.0) % Sodium (137-145) mmol/L BUN (7-17) mg/dL Creatinine (0.52-1.04) mg/dL Glucose (74-99) mg/dL POC Glucose (mg/dL) 133 H 218 H 259 H (75-99) mg/dL Total Protein (6.3-8.2) g/dL Albumin (3.5-5.0) g/dL 07/03/18 07/03/18 07/03/18 Range/Units 06:38 06:38 07:13 RBC 2.41 L (3.80-5.40) m/uL Hgb 7.4 L (11.4-16.0) gm/dL Hct 22.0 L (34.0-46.0) % Sodium 134 L (137-145) mmol/L BUN 36 H (7-17) mg/dL Creatinine 3.86 H (0.52-1.04) mg/dL Glucose 65 L (74-99) mg/dL POC Glucose (mg/dL) 58 L (75-99) mg/dL Total Protein 5.0 L (6.3-8.2) g/dL Albumin 2.6 L (3.5-5.0) g/dL
[2018-07-03] MEDS: amLODIPine 10 MG TAB PO SCH (09:47)
[2018-07-03] MEDS: PANTOPRAZOLE 40 MG/10 ML VIAL IV SCH (09:47)
[2018-07-03] MEDS: ASPIRIN 81 MG PO SCH (09:48)
[2018-07-03] MEDS: CARVEDILOL 12.5 MG TAB PO SCH ×2 (09:49→20:22)
[2018-07-03] MEDS: FENOFIBRATE 160 MG TAB PO SCH (09:50)
[2018-07-03] MEDS: SPIRONOLACTONE 25 MG TAB PO SCH ×2 (09:50→20:23)
[2018-07-03] MEDS: POTASSIUM CHLORIDE ER 20 MEQ TAB.ER PO SCH (09:50)
[2018-07-03] MEDS: FUROSEMIDE 20 MG TAB PO SCH (09:50)
[2018-07-03] MEDS: SODIUM FERRIC GLUCONAT-SUCROSE 125 MG in SODIUM CHLORIDE 0.9% 100 ML IVPB SCH (10:00)
[2018-07-03 11:53] LABS: Glucose,Whole Blood 141 mg/dL (75-99)
[2018-07-03] MEDS: MULTIVITAMINS, THERA 1 EACH TAB PO SCH (12:00)
[2018-07-03 17:12] LABS: Glucose,Whole Blood 229 mg/dL (75-99)
[2018-07-03 19:49] LABS: Glucose,Whole Blood 217 mg/dL (75-99)
[2018-07-03] MEDS: traZODone HCL 50 MG TAB PO SCH (20:23)
[2018-07-03] MEDS: INSULIN DETEMIR 100 UNIT/ML 10 ML VIAL SQ SCH (20:27)
--- NOTE | 2018-07-03 21:11 | PN ---
PROGRESS NOTE SUBJECTIVE: An 83-year-old white female with C diff colitis. Denies any recent bleeding. She has low hemoglobin, on Aranesp and Venofer injections. She has end-stage renal disease and gets dialysis Monday, Monday, and Monday. She has anemia of chronic disease. She has stool with Hemoccult positive stools. Hemoglobin is 7.1, insulin-dependent diabetes mellitus, hypertensive chronic kidney disease, hyponatremia, chronic kidney disease on Renvela, C diff colitis remaining on oral vancomycin. OBJECTIVE: CARDIOVASCULAR: S1 and S2. LUNGS: Clear. GI: Soft. PSYCH: Good mood and affect. ASSESSMENT: 1. Generalized weakness secondary to severe anemia and gastrointestinal bleed with Clostridium difficile colitis. 2. Insulin-dependent diabetes mellitus. 3. Hypertension. 4. Hyponatremia. PLAN: Continue oral vancomycin, Aranesp. Diabetes mellitus training, controlled. Please see further orders. Possible discharge home tomorrow. MMODL / IJN: [id number] /
--- NOTE | 2018-07-04 00:08 | PN ---
PROGRESS NOTE DATE OF SERVICE: 07/03/2018 REASON FOR FOLLOWUP VISIT: C difficile colitis. INTERVAL HISTORY: The patient is currently afebrile. She is breathing comfortably. Denies having any chest pain, shortness of breath or cough. No abdominal pain and diarrhea has improved. PHYSICAL EXAMINATION: On admission blood pressure 156/74 with a pulse of 71, temperature 97.8. She is 97% on room air. General description is an elderly female up in the chair in no distress. Respiratory system: Unlabored breathing. Clear to auscultation anteriorly. Heart S1, S2. Regular rate and rhythm. Abdomen: Soft, no tenderness. LABS: Hemoglobin 7.4, white count 6.8. BUN of 37, creatinine of 3.6. DIAGNOSTIC IMPRESSION AND PLAN: Patient with C difficile colitis however, the patient will continue on p.o. vancomycin to finish a 10 day course of therapy. Questran as needed. Advised to increase yogurt intake. Continue supportive care. MMGAUTAML / ALFREDN: [id number] /
[2018-07-04] MEDS: hydrALAZINE HCL 50 MG TAB PO SCH ×2 (05:24→13:07)
[2018-07-04] MEDS: SEVELAMER 800 MG TAB PO SCH ×2 (05:24→13:07)
[2018-07-04] MEDS: VANCOMYCIN ORAL SOLUTION 250 MG/5 ML BOTTLE PO SCH ×3 (05:25→18:16)
[2018-07-04] MEDS: CHERRY FLAVOR 60 ML BOTTLE PO SCH ×3 (05:25→18:16)
[2018-07-04 06:55] LABS: Glucose,Whole Blood 120 mg/dL (75-99)
[2018-07-04] MEDS: INSULIN ASPART 100 UNIT/ML 1 ML 10 ML VIAL SQ SCH ×3 (08:11→18:15)
[2018-07-04] MEDS: SPIRONOLACTONE 25 MG TAB PO SCH (08:17)
[2018-07-04] MEDS: POTASSIUM CHLORIDE ER 20 MEQ TAB.ER PO SCH (08:17)
[2018-07-04] MEDS: amLODIPine 10 MG TAB PO SCH (08:17)
[2018-07-04] MEDS: FUROSEMIDE 20 MG TAB PO SCH (08:17)
[2018-07-04] MEDS: SODIUM FERRIC GLUCONAT-SUCROSE 125 MG in SODIUM CHLORIDE 0.9% 100 ML IVPB SCH (08:18)
[2018-07-04] MEDS: ASPIRIN 81 MG PO SCH (08:18)
[2018-07-04] MEDS: PANTOPRAZOLE 40 MG/10 ML VIAL IV SCH (08:18)
[2018-07-04] MEDS: CARVEDILOL 12.5 MG TAB PO SCH (08:18)
[2018-07-04] MEDS: FENOFIBRATE 160 MG TAB PO SCH (08:19)
[2018-07-04 10:14] LABS: Basophils % (A) 0 %; Eosinophils # (A) 0.3 k/uL (0-0.7); Eosinophils % (A) 4 %; HCT 22.7 % (34.0-46.0); HGB 7.6 gm/dL (11.4-16.0); Lymphocytes # (A) 1.7 k/uL (1.0-4.8); Lymphocytes % (A) 23 %; MCH 30.7 pg (25.0-35.0); MCHC 33.6 g/dL (31.0-37.0); MCV 91.3 fL (80.0-100.0); Mean Platelet Volume 7.6; Monocytes # (A) 0.3 k/uL (0-1.0); Monocytes % (A) 4 %; Neutrophils # (A) 4.8 k/uL (1.3-7.7); Neutrophils % (A) 67 %; Platelet Count 207 k/uL (150-450); RBC 2.49 m/uL (3.80-5.40); RDW 14.5 % (11.5-15.5); WBC 7.1 k/uL (3.8-10.6)
[2018-07-04 10:16] LABS: Albumin 2.7 g/dL (3.5-5.0); Calcium 8.7 mg/dL (8.4-10.2); Potassium 4.4 mmol/L (3.5-5.1); Total Bilirubin 0.3 mg/dL (0.2-1.3); Total Protein 5.2 g/dL (6.3-8.2)
[2018-07-04] MEDS: MULTIVITAMINS, THERA 1 EACH TAB PO SCH (11:16)
[2018-07-04 11:45] LABS: Glucose,Whole Blood 229 mg/dL (75-99)
--- NOTE | 2018-07-04 12:55 | P.PN ---
Subjective Patient is seen in follow-up for end-stage renal disease. She is maintained on hemodialysis on a Monday schedule via permacath. Patient's noted to be C. diff positive and is maintained on oral vancomycin. No significant diarrhea. Denies chest pain or shortness of breath. Hemoglobin stable. No active bleeding. Vital signs are stable. General: The patient appeared well nourished and normally developed. HEENT: Head exam is unremarkable. Neck is without jugular venous distension. LUNGS: Lungs are clear to auscultation and percussion. Breath sounds decreased. HEART: Rate and Rhythm are regular. First and second heart sounds normal. No murmurs, rubs or gallops. ABDOMEN: Abdominal exam reveals normal bowel sounds. Non-tender and non- distended. No evidence of peritonitis. EXTREMITITES: No clubbing, cyanosis, or edema. Objective - Vital Signs Vital signs: Vital Signs Temp 98.6 F 07/04/18 05:00 Pulse 74 07/04/18 08:00 Resp 16 07/04/18 08:00 BP 130/56 07/04/18 05:00 Pulse Ox 95 07/04/18 05:00 Intake & Output 07/03/18 07/04/18 07/04/18 18:59 06:59 18:59 Intake Total 100 250 240 Balance 100 250 240 Weight 77.5 kg Intake: Intake, IV Titration 100 Amount Sodium Ferric Gluconat- 100 Sucrose 125 mg In Sodium Chloride 0.9% 100 ml @ 100 mls/hr IVPB DAILY [facility] Rx#:[id number] Oral 250 240 Other: Voiding Method Toilet Toilet Diaper Diaper Incontinent Incontinent # Voids 1 - Labs CBC & Chem 7: 07/04/18 09:35 07/04/18 09:35 Labs: Abnormal Lab Results - Last 24 Hours (Table) 07/03/18 07/03/18 07/04/18 Range/Units 17:11 19:48 06:54 RBC (3.80-5.40) m/uL Hgb (11.4-16.0) gm/dL Hct (34.0-46.0) % Sodium (137-145) mmol/L BUN (7-17) mg/dL Creatinine (0.52-1.04) mg/dL Glucose (74-99) mg/dL POC Glucose (mg/dL) 229 H 217 H 120 H (75-99) mg/dL Total Protein (6.3-8.2) g/dL Albumin (3.5-5.0) g/dL 07/04/18 07/04/18 07/04/18 Range/Units 09:35 09:35 11:44 RBC 2.49 L (3.80-5.40) m/uL Hgb 7.6 L (11.4-16.0) gm/dL Hct 22.7 L (34.0-46.0) % Sodium 134 L (137-145) mmol/L BUN 45 H (7-17) mg/dL Creatinine 4.56 H (0.52-1.04) mg/dL Glucose 147 H (74-99) mg/dL POC Glucose (mg/dL) 229 H (75-99) mg/dL Total Protein 5.2 L (6.3-8.2) g/dL Albumin 2.7 L (3.5-5.0) g/dL Assessment and Plan Plan: Assessment: 1. End-stage renal disease maintained on hemodialysis on a Monday schedule via right chest permacath. 2. Anemia of chronic kidney disease. High ferritin noted. Also concern for GI bleed with stool for occult blood positive. GI following. Status post trans -fusion. Hemoglobin stable. 3. Insulin-dependent diabetes mellitus. 4. Hypertension with chronic kidney disease. Controlled. 5. Hyponatremia secondary to chronic kidney disease. Better postdialysis. 6. Chronic kidney disease mineral bone disease maintained on Renvela. 7. C. diff colitis maintained on oral vancomycin. Plan: Hemodialysis today. Maintain Aranesp. Stable to be discharged home from nephrology standpoint.
[2018-07-04 13:25] VITALS: BP 153/66; RESP 17; TEMP 97.4
[2018-07-04 14:01] VITALS: BMI 30.2
--- NOTE | 2018-07-04 15:30 | PN ---
PROGRESS NOTE DATE OF SERVICE: 07/04/2018 REASON FOR FOLLOWUP: C. diff colitis. INTERVAL HISTORY: The patient is currently afebrile. She is breathing comfortably. Denies having any chest pain, shortness of breath, cough. No abdominal pain and no diarrhea. PHYSICAL EXAMINATION: Blood pressure 153/66, pulse 96, temperature 97.4. She is 96% on room air. General description is an elderly female, up in the chair in no distress. RESPIRATORY SYSTEM: Unlabored breathing with decreased breath sounds at the bases, no wheeze. HEART: S1, S2. Regular rate and rhythm. ABDOMEN: Soft, no tenderness. LABS: Hemoglobin is 7.3, white count 7.9, BUN of 45, creatinine 4.56. DIAGNOSTIC IMPRESSION AND PLAN: Patient with acute Clostridium difficile colitis. Patient seemed to be responding to the p.o. vancomycin to continue to finish a 10-day course of therapy with close outpatient followup. Continue supportive care. MMODL / ALFREDN: [id number] /
[2018-07-04 17:16] LABS: Glucose,Whole Blood 151 mg/dL (75-99)
[2018-07-04 17:27] VITALS: PULSE 84
== END 2018-07-04 19:40 | disposition home health service (06) | DRG 371 ==
LOC: EC 17:37 → 3NMEDONC 19:47
PROVIDERS: ADMIT Family Medicine; ATTEND Family Medicine
PROC: 5A1D70Z Performance of Urinary Filtration, Intermittent, Less than 6 Hours Per Day (ICD-10-PCS; principal; 2018-06-29)
PROC: 5A1D70Z Performance of Urinary Filtration, Intermittent, Less than 6 Hours Per Day (ICD-10-PCS; 2018-07-01)
PROC: 30243N1 Transfusion of Nonautologous Red Blood Cells into Central Vein, Percutaneous Approach (ICD-10-PCS; 2018-07-01)
PROC: 5A1D70Z Performance of Urinary Filtration, Intermittent, Less than 6 Hours Per Day (ICD-10-PCS; 2018-07-04)
DX: A04.72 Enterocolitis due to Clostridium difficile, not specified as recurrent (principal); N18.6 End stage renal disease; I13.2 Hypertensive heart and chronic kidney disease with heart failure and with stage 5 chronic kidney disease, or end stage renal disease; N17.9 Acute kidney failure, unspecified; E87.1 Hypo-osmolality and hyponatremia; E87.2 Acidosis; K92.1 Melena; E11.22 Type 2 diabetes mellitus with diabetic chronic kidney disease; I50.9 Heart failure, unspecified; D50.0 Iron deficiency anemia secondary to blood loss (chronic); G40.909 Epilepsy, unspecified, not intractable, without status epilepticus; D63.1 Anemia in chronic kidney disease; E78.5 Hyperlipidemia, unspecified; H91.90 Unspecified hearing loss, unspecified ear; Z99.2 Dependence on renal dialysis; Z79.82 Long term (current) use of aspirin; Z79.4 Long term (current) use of insulin; Z79.899 Other long term (current) drug therapy; Z87.01 Personal history of pneumonia (recurrent); Z90.49 Acquired absence of other specified parts of digestive tract
CPT/HCPCS: 36415; 80048; 80053; 82272; 82607; 82728; 82746; 83036; 83540; 83550; 83605; 83735; 85025; 85045; 85610; 85730; 86850; 86900; 86901; 86920; 87324; 90935; 93005; 96360; 96361; 99285

== ENCOUNTER → 2018-08-28 | Outpatient (CLI) | payer MEDICARE, OTHER ==
--- NOTE | 2018-08-28 11:40 | XR ---
EXAMINATION TYPE: XR chest 2V DATE OF EXAM: 08/28/2018 COMPARISON: Chest x-ray March 06, 2018 HISTORY: Altered mental status and fever with weakness. TECHNIQUE: Frontal and lateral views of the chest are obtained. FINDINGS: There is stable right internal jugular large bore dialysis catheter. There are small bilate ral pleural effusions with associated bibasilar atelectasis and/or infiltrate on current study. The cardiac silhouette size is within normal limits with atherosclerotic and slightly ectatic thoracic ao rta. Some right lower lobe volume loss with mediastinal shift is felt present similar to prior. Mul tilevel spurring in thoracic spine is redemonstrated. IMPRESSION: Small bilateral pleural effusions with associated bibasilar atelectasis and/or infiltrat e on current study. Some right lower lung volume loss remains present.
== END | disposition home or self-care (01) ==
LOC: RADXRMAIN 11:11
PROVIDERS: ATTEND Family Medicine
DX: J90 Pleural effusion, not elsewhere classified (principal); J98.4 Other disorders of lung; J44.9 Chronic obstructive pulmonary disease, unspecified
CPT/HCPCS: 71046

== ENCOUNTER 2018-11-04 13:57 | Observation (INO) | payer MEDICARE, OTHER ==
[2018-11-04] MEDS ORDERED: MORPHINE SULFATE 4 MG/ML SYRINGE IVP STA (14:21)
--- NOTE | 2018-11-04 14:28 | ED ---
General Adult HPI - General Chief complaint: Fall Stated complaint: Fall Time Seen by Provider: 11/04/18 14:05 Source: patient, EMS, RN notes reviewed Mode of arrival: EMS Limitations: no limitations - History of Present Illness Initial comments: 83-year-old female With the past medical history of heart failure, diabetes, hyperlipidemia, end-stage renal disease on dialysis presents for a chief complaint of fall. Patient states she was at the fridge when she turned around too quickly and fell on her left side. She denies any dizziness or loss of co nsciousness. Patient does not think she hit her head but is not sure. Patient is complaining of left shoulder and left hip pain. Patient is denying any neck or back pain. Denies any chest or abdominal pain. States she does feel very anxious. Patient did call EMS because of this fall. Patient has no other complaints at this time including shortness of breath, chest pain, abdominal pain, nausea or vomiting, headache, or visual changes. - Related Data Home Medications Medication Instructions Recorded Confirmed Aspirin EC [Ecotrin Low Dose] 81 mg PO DAILY@1000 01/10/18 06/27/18 Fenofibrate Nanocrystallized 145 mg PO DAILY@1000 01/10/18 06/27/18 [Tricor] Multivitamins, Thera [Multivitamin 1 tab PO DAILY@0600 01/10/18 06/27/18 (formulary)] Omeprazole [PriLOSEC] 40 mg PO DAILY@0600 01/10/18 06/27/18 amLODIPine [Norvasc] 10 mg PO DAILY@1000 01/10/18 06/27/18 Carvedilol [Coreg] 25 mg PO BID@1000,209903/06/18 06/27/18 Loperamide [Imodium] 2 mg PO Q48H 03/06/18 06/27/18 hydrALAZINE HCL [Apresoline] 50 mg PO TID@0600,1400,209903/06/18 06/27/18 Furosemide [Lasix] 60 mg PO DAILY@1000 06/27/18 06/27/18 INSULIN LISPRO (HumaLOG) [HumaLOG] 15 units SQ AC-SUPPER 06/27/18 06/27/18 INSULIN LISPRO (humaLOG) [humaLOG] 5 units SQ AC-BRKFST 06/27/18 06/27/18 INSULIN LISPRO (humaLOG) [humaLOG] 10 units SQ AC-LUNCH 06/27/18 06/27/18 Insulin Glargine,Hum.rec.anlog 20 unit SQ HS 06/27/18 06/27/18 [Lantus Solostar] Potassium Chloride ER [K-Dur 20] 20 meq PO DAILY@1000 06/27/18 06/27/18 Sevelamer [Renvela] 800 mg PO TID@0600,1400,2100 06/27/18 06/27/18 Spironolactone [Aldactone] 12.5 mg PO BID@1000,2100 06/27/18 06/27/18 traZODone HCL 50 mg PO HS@2100 06/27/18 06/27/18 Allergies Allergy/AdvReac Type Severity Reaction Status Date / Time No Known Allergies Allergy Verified 06/27/18 19:03 Review of Systems ROS Statement: Those systems with pertinent positive or pertinent negative responses have been documented in the HPI. ROS Other: All systems not noted in ROS Statement are negative. Past Medical History Past Medical History: Heart Failure, Diabetes Mellitus, Hyperlipidemia, Pneumonia, Renal Disease Additional Past Medical History / Comment(s): PT. RECEIVES HEMODIALYSIS M,W,F @ [employer] History of Any Multi-Drug Resistant Organisms: C-DIFF Date of last positivie culture/infection: 06/29/18 MDRO Source:: stool Past Surgical History: Cholecystectomy Past Anesthesia/Blood Transfusion Reactions: No Reported Reaction Past Psychological History: No Psychological Hx Reported Smoking Status: Never smoker Past Alcohol Use History: None Reported Past Drug Use History: None Reported General Exam - General Exam Comments Initial Comments: Left arm: Tenderness noted to the proximal left humeral area. Patient has some limited range of motion due to pain. Neurovascular status intact with radial pulse 2+. Sensation intact in the left hand. Reception Manager strength 5 out of 5. Left hip: Complaining of pain in the left posterior hip. Denies tenderness on palpation. Capillary refill less than 2 seconds, DP pulse 2+. Patient has about 30 flexion of the left hip with extension to neutral position. Limitations: no limitations General appearance: alert, in no apparent distress Head exam: Present: atraumatic, normocephalic, normal inspection Eye exam: Present: normal appearance, PERRL, EOMI. Absent: scleral icterus, conjunctival injection, periorbital swelling ENT exam: Present: normal exam, normal oropharynx, mucous membranes moist, TM's normal bilaterally (Negative hemotympanum), normal external ear exam Neck exam: Present: normal inspection, full ROM. Absent: tenderness, meningismus, lymphadenopathy Respiratory exam: Present: normal lung sounds bilaterally. Absent: respiratory distress, wheezes, rales, rhonchi, stridor Cardiovascular Exam: Present: regular rate, normal rhythm, normal heart sounds. Absent: systolic murmur, diastolic murmur, rubs, gallop, clicks GI/Abdominal exam: Present: soft, normal bowel sounds. Absent: distended, tenderness, guarding, rebound, rigid Back exam: Absent: CVA tenderness (R), CVA tenderness (L), vertebral tenderness Neurological exam: Present: alert, oriented X3, CN II-XII intact Psychiatric exam: Present: normal affect, normal mood Course Vital Signs 11/04/18 11/04/18 13:58 15:44 Temperature 97.2 F L Pulse Rate 68 74 Respiratory 18 18 Rate Blood Pressure 164/93 144/75 O2 Sat by Pulse 98 95 Oximetry Medical Decision Making - Medical Decision Making 83 old female with a past medical history of heart failure, diabetes, hyperlipidemia, end-stage renal disease on dialysis Monday presents after a fall. Fall was mechanical, patient was at the mondge when she turned around too quickly and fell on her left side. Unsure if she had her head. Denies loss of consciousness. Patient is complaining of left shoulder and left hip pain. CT brain shows cerebral atrophy and old lacunar infarct, no acute abnormality. CT C-spine shows no fracture. X-ray of the left humerus shows no acute abnormality. X-ray shows small bilateral pleural effusions that are unchanged. X-ray of the left hip shows no acute abnormality of the pelvis and left hip. However he did attempt to ambulate patient. She is unable to take a step using the left hip. Therefore CAT scan was ordered which showed mild osteoarthritis without fracture seen. I did review this with myself and Dr. Naik as well. Patient still unable to ambulate. Patient lives in independent living, concerned about going home and having falls. Family does not feel comfortable with her going home as she cannot walk at all. Therefore patient will be admitted here with orthopedic consult with labs ordered tomorrow morning. Disposition Clinical Impression: Inability to ambulate due to left hip, Fall Disposition: ADMITTED IP TO THIS HOSP Condition: Fair Is patient prescribed a controlled substance at d/c from ED?: No Referrals: Francisco Javier Simeon MD [Primary Care Provider] - 1-2 days Time of Disposition: 16:31
--- NOTE | 2018-11-04 14:51 | CT ---
EXAMINATION TYPE: CT brain radha vinson DATE OF EXAM: 11/04/2018 COMPARISON: None HISTORY: Fall today. CT DLP: 1283.1 mGycm Automated exposure control for dose reduction was used. TECHNIQUE: CT scan of the head and cervical spine are performed without contrast. FINDINGS: There is cerebral cortical atrophy. There is no mass effect or midline shift. There is no sign of intracranial hemorrhage. There is some white matter hypodensity around the frontal horns of the lateral ventricles and more on the left side. There is little 2 x 1 cm lacunar infarct anterior l eft internal capsule. The calvarium is intact. Cervical vertebra have normal alignment. There is degenerative disc space narrowing from C3 to T1 wit h spur formation. Posterior elements are intact. The skull base is intact. There is no bony destructi ve process. IMPRESSION: Multilevel spondylotic changes in the cervical spine. No fracture. Cerebral atrophy and old lacunar infarct left internal capsule. No acute intracranial abnormality.
--- NOTE | 2018-11-04 15:03 | XR ---
EXAMINATION TYPE: XR humerus LT DATE OF EXAM: 11/04/2018 COMPARISON: NONE HISTORY: Pain after falling TECHNIQUE: 4 views FINDINGS: There is osteopenia. Elbow joint appears intact. Shoulder joint is anatomic. There is narro wing of the subacromial joint space. IMPRESSION: No acute abnormality of the left humerus.
--- NOTE | 2018-11-04 15:04 | XR ---
EXAMINATION TYPE: XR chest 1V portable DATE OF EXAM: 11/04/2018 COMPARISON: 08/28/2018 HISTORY: Pain TECHNIQUE: Single frontal view of the chest is obtained. FINDINGS: There is blunting of right costophrenic angle. There is no heart failure. There is right c entral venous catheter with the tip in the right atrium. Left lung is fairly clear. IMPRESSION: Small bilateral pleural effusions unchanged. No gross heart failure.
--- NOTE | 2018-11-04 15:05 | XR ---
EXAMINATION TYPE: XR Hip LT and AP Pelvis DATE OF EXAM: 11/04/2018 COMPARISON: NONE HISTORY: Hip pain TECHNIQUE: A single AP view of the pelvis is obtained. Two views of the left hip are obtained. FINDINGS: Pelvic ring is intact. The proximal left femur and hip joint are intact. There is vascular calcification. There is no evidence of hip dysplasia. Sacroiliac joints are intact. There is mild lois tabular spurring. IMPRESSION: No acute abnormality of the pelvis and left hip.
--- NOTE | 2018-11-04 15:53 | CT ---
EXAMINATION TYPE: CT hip LT wo con DATE OF EXAM: 11/04/2018 COMPARISON: None HISTORY: Fall today. Left hip pain. CT DLP: 641.8 mGycm Automated exposure control for dose reduction was used. FINDINGS: The acetabulum is intact. Proximal left femur is intact. I see no hip dysplasia. There is mild acetab ular spurring. There are spondylotic changes in the lower lumbar spine with disc space narrowing and spur formation. Sacrum is intact. There is no evidence of soft tissue mass. IMPRESSION: MILD OSTEOARTHRITIS. NO FRACTURE SEEN OF THE LEFT HIP.
[2018-11-04] MEDS ORDERED: ACETAMINOPHEN TAB 325 MG TAB PO PRN (16:24)
[2018-11-04] MEDS ORDERED: NALOXONE 0.4 MG/ML 1 ML VIAL IV PRN (16:24)
[2018-11-04] MEDS ORDERED: MORPHINE SULFATE 2 MG/ML SYRINGE IV PRN (16:24)
[2018-11-04 17:05] LABS: Basophils % (A) 0 %; Eosinophils # (A) 0.1 k/uL (0-0.7); Eosinophils % (A) 2 %; HCT 33.1 % (34.0-46.0); HGB 11.4 gm/dL (11.4-16.0); Lymphocytes # (A) 2.4 k/uL (1.0-4.8); Lymphocytes % (A) 37 %; MCH 30.4 pg (25.0-35.0); MCHC 34.4 g/dL (31.0-37.0); MCV 88.4 fL (80.0-100.0); Mean Platelet Volume 8.5; Monocytes # (A) 0.4 k/uL (0-1.0); Monocytes % (A) 5 %; Neutrophils # (A) 3.5 k/uL (1.3-7.7); Neutrophils % (A) 53 %; Platelet Count 247 k/uL (150-450); RBC 3.75 m/uL (3.80-5.40); RDW 14.9 % (11.5-15.5); WBC 6.6 k/uL (3.8-10.6)
[2018-11-04 17:11] LABS: Albumin 4.2 g/dL (3.5-5.0); Calcium 9.7 mg/dL (8.4-10.2); Potassium 4.6 mmol/L (3.5-5.1); Total Bilirubin 0.6 mg/dL (0.2-1.3); Total Protein 7.1 g/dL (6.3-8.2)
[2018-11-04 17:25] LABS: Glucose,Whole Blood 127 mg/dL (75-99)
[2018-11-04 17:40] VITALS: BMI 28.7
[2018-11-04] MEDS: SEVELAMER 800 MG TAB PO SCH (18:10)
[2018-11-04 20:30] LABS: Glucose,Whole Blood 235 mg/dL (75-99)
[2018-11-04] MEDS: SPIRONOLACTONE 25 MG TAB PO SCH (20:35)
[2018-11-04] MEDS: hydrALAZINE HCL 50 MG TAB PO SCH (20:35)
[2018-11-04] MEDS: INSULIN ASPART (NovoLOG) 100 UNIT/ML VIAL SQ SCH (20:36)
[2018-11-04] MEDS: CARVEDILOL 12.5 MG TAB PO SCH (20:36)
[2018-11-04] MEDS ORDERED: INSULIN DETEMIR (LEVEMIR) 100 UNIT/ML SYR SQ SCH (21:00)
[2018-11-04] MEDS ORDERED: traZODone HCL 50 MG TAB PO SCH (21:00)
[2018-11-05] MEDS: hydrALAZINE HCL 50 MG TAB PO SCH ×2 (05:20→14:26)
[2018-11-05] MEDS ORDERED: MULTIVITAMINS, THERA 1 EACH TAB PO SCH (06:00)
[2018-11-05] MEDS ORDERED: PANTOPRAZOLE 40 MG TABLET PO SCH (06:00)
[2018-11-05 07:10] LABS: Glucose,Whole Blood 96 mg/dL (75-99)
[2018-11-05] MEDS ORDERED: INSULIN ASPART (NovoLOG) 100 UNIT/ML VIAL SQ SCH ×3 (07:30→17:30)
[2018-11-05] MEDS: INSULIN ASPART (NovoLOG) 100 UNIT/ML VIAL SQ SCH ×3 (07:44→17:14)
[2018-11-05] MEDS: CARVEDILOL 12.5 MG TAB PO SCH (07:53)
[2018-11-05] MEDS: SPIRONOLACTONE 25 MG TAB PO SCH (07:53)
[2018-11-05] MEDS: SEVELAMER 800 MG TAB PO SCH ×2 (07:53→12:31)
--- NOTE | 2018-11-05 08:38 | HP ---
HISTORY AND PHYSICAL CHIEF COMPLAINT: An 83-year-old white female with a past medical history heart failure, diabetes, hypertension, renal disease. She apparently turned too quickly, fell on her left side. She came to hospital with left shoulder and left hip pain. Cat scan of her hip showed no fracture. She does feel very anxious because of her fall. She is admitted with Orthopedic Surgery to see due to the inability to ambulate. HOME MEDICATIONS: 1. Aspirin. 2. Tricor. 3. Multivitamins. 4. Prilosec. 5. Norvasc. 6. Coreg. 7. Apresoline. 8. Lasix. 9. Insulin. 10.Potassium chloride. 11.Renvela. 12.Aldactone. 13.Trazodone. 14 POINT REVIEW OF SYSTEMS: Fourteen point review of systems negative except for mentioned in HPI. ALLERGIES: Negative. PAST MEDICAL HISTORY: Heart failure, diabetes mellitus, dyslipidemia, pneumonia, renal disease. She gets renal dialysis 3 times a week. SURGERY: Cholecystectomy. PHYSICAL EXAM: MUSCULOSKELETAL: Tenderness of the proximal left humeral area, decreased range of motion. LEFT HIP: Tenderness to palpation in the left posterior hip, 30 degrees of flexion of her left hip with the extension, difficulty with pain with full range of motion, unable to ambulate. PSYCH: Appears anxious, nervous. CARDIOVASCULAR: S1, S2. LUNGS: Clear. No rales, rhonchi, or wheeze. GI: Soft, nontender. No mass or organomegaly. BACK: No CVA tenderness. NEUROLOGIC: Cranial nerves are intact. PSYCH: Fair mood and affect. VITAL SIGNS: Temp 97.2, pulse 68 to 78, respiratory rate 16 to 18, blood pressure is 141s to 150s/70s to 90s, O2 is 95%-98% percent on room air. ASSESSMENT: 1. Acute hip contusion, arm contusion, gait abnormality, inability to ambulate. 2. Independent living. She will possibly need PT, OT and rehab. Orthopedic consult. 3. History of prior infarcts and coronary artery disease. 4. Hypertension. 5. Diabetes mellitus. 6. End-stage renal disease. Get orthopedic consult and PT, OT and possibly rehab placement. MMODL / IJN: [id number] /
--- NOTE | 2018-11-05 09:20 | P.CNOR ---
History of Present Illness - HPI Consult date: 11/05/18 History of present illness: This is an 83-year-old female who is admitted for left hip pain after a fall. Patient states that she was at home on 11/04/2018 and lost her balance causing her to fall. Patient denies any head injury or loss of consciousness. Patient states that she had significant pain in the left hip and left arm yesterday, but states that her pain is improved today. Patient states that she has not been out of bed yet. Patient states that she does have some difficulty raising the left arm, but states that she had this problem before she fell. Patient's past medical history significant for heart failure, diabetes mellitus, dialysis, GERD, hearing disorder, hyperlipidemia, hypertension and renal disease. Patient denies any fever/chills, numbness, weakness, tingling, shortness of breath, abdominal pain or chest pain. Review of Systems See HPI. Past Medical History Past Medical History: Heart Failure, Diabetes Mellitus, Dialysis, GERD/Reflux, Hearing Disorder / Deafness, Hyperlipidemia, Hypertension, Pneumonia, Renal Disease Additional Past Medical History / Comment(s): PT. RECEIVES HEMODIALYSIS M,W,F @ [facility], home o2 prn at night. History of Any Multi-Drug Resistant Organisms: C-DIFF Year Discovered:: 06/29/18 MDRO Source:: stool Past Surgical History: Cholecystectomy Past Anesthesia/Blood Transfusion Reactions: No Reported Reaction Past Psychological History: Anxiety Smoking Status: Never smoker Past Alcohol Use History: None Reported Past Drug Use History: None Reported - Past Family History Mother History Unknown: Yes Father History Unknown: Yes Medications and Allergies Home Medications Medication Instructions Recorded Confirmed Type Aspirin EC [Ecotrin Low Dose] 81 mg PO DAILY@1000 01/10/18 11/04/18 History Fenofibrate Nanocrystallized 145 mg PO DAILY@1000 01/10/18 11/04/18 History [Tricor] Multivitamins, Thera [Multivitamin 1 tab PO DAILY@0600 01/10/18 11/04/18 History (formulary)] Omeprazole [PriLOSEC] 40 mg PO DAILY@0600 01/10/18 11/04/18 History amLODIPine [Norvasc] 10 mg PO DAILY@1000 01/10/18 11/04/18 History Carvedilol [Coreg] 25 mg PO BID@1000,2100 03/06/18 05/05/19 History hydrALAZINE HCL [Apresoline] 50 mg PO TID@0600,1400,209903/06/18 11/04/18 History Furosemide [Lasix] 60 mg PO DAILY@1000 06/27/18 11/04/18 History INSULIN LISPRO (HumaLOG) [HumaLOG] 15 units SQ AC-SUPPER 06/27/18 11/04/18 History INSULIN LISPRO (humaLOG) [humaLOG] 5 units SQ AC-BRKFST 06/27/18 11/04/18 Histor y INSULIN LISPRO (humaLOG) [humaLOG] 10 units SQ AC-LUNCH 06/27/18 11/04/18 History Insulin Glargine,Hum.rec.anlog 20 unit SQ HS 06/27/18 11/04/18 History [Lantus Solostar] Potassium Chloride ER [K-Dur 20] 20 meq PO DAILY@99906/27/18 11/04/18 History Sevelamer [Renvela] 800 mg PO TID@0600,1400,209906/27/18 11/04/18 History Spironolactone [Aldactone] 12.5 mg PO BID@1000,209906/27/18 11/04/18 History traZODone HCL 50 mg PO HS@209906/27/18 11/04/18 History Allergies Allergy/AdvReac Type Severity Reaction Status Date / Time No Known Allergies Allergy Verified 11/04/18 17:03 Physical Examination On exam patient is resting comfortably in bed in no acute distress. Patient has full range of motion of bilateral lower extremities without pain or difficulty. There is no tenderness to palpation over the left hip. There is no pain with logroll of the left lower extremity. Bilateral lower extremities are warm and well perfused. Sensation is intact. Patient has limited active elevation of the left upper extremity due to pain. There is mild tenderness to palpation over the left shoulder. There is no swelling or erythema. Sensation is intact. Patient has full range of motion of the head, neck and right upper extremity. Neurovascular status and circulatory status intact. Results X-rays of the left hip and pelvis dated 11/04/2018 are reviewed and are negative for any fracture or dislocation. X-rays of the left humerus dated 11/04/2018 are reviewed and are negative for any fracture or dislocation. Moderate arthritic changes. A CT of the left hip dated 11/04/2018 is reviewed and is negative for any fracture or dislocation. Mild osteoarthritis. The CT report of the brain and cervical spine is negative for any fracture. No acute intracranial abnormality. - Labs Labs: Abnormal Lab Results - Last 24 Hours (Table) 11/04/18 11/04/18 11/04/18 Range/Units 16:24 16:24 17:23 RBC 3.75 L (3.80-5.40) m/uL Hct 33.1 L (34.0-46.0) % Sodium 136 L (137-145) mmol/L Carbon Dioxide 21 L (22-30) mmol/L BUN 41 H (7-17) mg/dL Creatinine 4.14 H (0.52-1.04) mg/dL Glucose 111 H (74-99) mg/dL POC Glucose (mg/dL) 127 H (75-99) mg/dL 11/04/18 Range/Units 20:30 RBC (3.80-5.40) m/uL Hct (34.0-46.0) % Sodium (137-145) mmol/L Carbon Dioxide (22-30) mmol/L BUN (7-17) mg/dL Creatinine (0.52-1.04) mg/dL Glucose (74-99) mg/dL POC Glucose (mg/dL) 235 H (75-99) mg/dL H & H 11/04/18 Range/Units 16:24 Hgb 11.4 (11.4-16.0) gm/dL Hct 33.1 L (34.0-46.0) % Result Diagrams: 11/04/18 16:24 11/04/18 16:24 Assessment and Plan (1) Left shoulder pain Current Visit: Yes Status: Acute Code(s): M25.512 - PAIN IN LEFT SHOULDER SNOMED Code(s): 05604163 (2) Left hip pain Current Visit: Yes Status: Acute Code(s): M25.552 - PAIN IN LEFT HIP SNOMED Code(s): 80405322 (3) Osteoarthritis of left hip Current Visit: Yes Status: Acute Code(s): M16.12 - UNILATERAL PRIMARY OSTEOARTHRITIS, LEFT HIP SNOMED Code(s): 877035695829871 (4) Fall Current Visit: Yes Status: Acute Code(s): W19.XXXA - UNSPECIFIED FALL, INITIAL ENCOUNTER SNOMED Code(s): 4375645 (5) Inability to ambulate due to left hip Current Visit: Yes Status: Acute Code(s): R26.2 - DIFFICULTY IN WALKING, NOT ELSEWHERE CLASSIFIED SNOMED Code(s): 365612980 (6) Osteoarthritis of left shoulder Current Visit: Yes Status: Acute Code(s): M19.012 - PRIMARY OSTEOARTHRITIS, LEFT SHOULDER SNOMED Code(s): 599311107573487 Plan: #1. Weightbearing as tolerated to the left lower extremity. #2. Recommend physical therapy for mobilization. #3. Continue pain control. #4. May need ECF placement. No surgical intervention planned. Will continue to follow.
[2018-11-05] MEDS ORDERED: FUROSEMIDE 20 MG TAB PO SCH (10:00)
[2018-11-05] MEDS ORDERED: amLODIPine 10 MG TAB PO SCH (10:00)
[2018-11-05] MEDS ORDERED: ASPIRIN 81 MG PO SCH (10:00)
[2018-11-05] MEDS ORDERED: FENOFIBRATE 160 MG TAB PO SCH (10:00)
[2018-11-05] MEDS ORDERED: POTASSIUM CHLORIDE ER 20 MEQ TAB.ER PO SCH (10:00)
--- NOTE | 2018-11-05 10:11 | P.CRDCN ---
History of Present Illness History of present illness: This is a pleasant 83-year-old female past medical history significant for end-stage renal disease on hemodialysis, hypertension, dyslipidemia, chronic diastolic heart failure and diabetes mellitus. She denies history of coronary artery disease and does not follow with a spare hand carding for any reason. We have been asked to see her in consultation for cardiac clearance for fistual surgery. The patient is seen and examined sitting up in bed working with physical therapy. She denies symptoms of chest pain, shortness of breath, dizziness, nausea, vomiting, palpitations or diaphoresis. She presented to this hospital after suffering a fall at home due to losing her footing at home. No evidence of syncope or loss of consciousness. Fall is mechanical. X-ray of the left hip and pelvis are negative for fracture or acute abnormality, CT of the head and spine are negative for any acute intracranial abnormality or fracture, x-ray of the left humerus is negative for an acute abnormality, CT of the hip is negative for fracture with evidence of osteoarthritis and chest x-ray reveals small bilateral effusions with no overt heart failure noted. There is no EKG obtained on admis ken. Laboratory data reviewed, WBC 6.6, hemoglobin 11.4, platelets 247, sodium 136, potassium 4.6, creatinine 4.14. Current cardiac medications include aspirin 81 mg daily, carvedilol 25 mg twice a day, TriCor 145 mg daily, Lasix 60 mg daily, Aldactone 12.5 mg twice a day, amlodipine 10 mg daily and hydralazine 50 mg 3 times a day. Most recent echocardiogram obtained December 2017 reveals preserved left ventricular systolic function with ejection fraction 50-55%, moderately dilated left atrium, mild to moderate mitral regurgitation, moderate tricuspid regurgitation and mild pulmonary hypertension with an RVSP of 46 mmHg. At the time of my exam: CONSTITUTIONAL: Denies fever. Denies chills. EYES: Denies blurred vision. Denies vision changes. Denies eye pain. EARS, NOSE, MOUTH & THROAT: Denies headache. Denies sore throat. Denies ear pain. CARDIOVASCULAR: Denies chest pain. Denies shortness of breath. Denies orthopnea. Denies PND. Denies palpitations. RESPIRATORY: Denies cough. GASTROINTESTINAL: Denies abdominal pain. Denies diarrhea. Denies constipation. Denies nausea. Denies vomiting. MUSCULOSKELETAL: Denies myalgias. INTEGUMENTARY: Denies pruitis. Denies rash. NEUROLOGIC: Denies numbness. Denies tingling. Denies weakness. PSYCHIATRIC: Denies anxiety. Denies depression. ENDOCRINE: Denies fatigue. Denies weight change. Denies polydipsia. Denies polyurina. GENITOURINARY: Denies burning, hematuria or urgency with micturation. HEMATOLOGIC: Denies history of anemia. Denies bleeding. Blood pressure 118/61 heart rate 72 afebrile maintaining oxygen saturation on nasal cannula GENERAL: This is a 83-year-old female in no apparent distress at the time of my examination. HEENT: Head is atraumatic, normocephalic. Pupils are equal, round. Sclerae anicteric. Conjunctivae are clear. Mucous membranes of the mouth are moist. Neck is supple. There is no jugular venous distention. No carotid bruit is heard. LUNGS: Clear to auscultation no wheezes, rales or rhonchi. No chest wall tenderness is noted on palpation or with deep breathing. HEART: Regular rate and rhythm with systolic ejection murmur at the left sternal border, no rubs or gallops. S1 and S2 heard. ABDOMEN: Soft, nontender. Bowel sounds are heard. No organomegaly noted. EXTREMITIES: No evidence of peripheral edema and no calf tenderness noted. VASCULAR: Radial and dorsalis pedis pulses palpated, no evidence of clubbing. NEUROLOGIC: Patient is awake, alert and oriented x3. ASSESSMENT Fall due to loss of balance. No syncope or loss of consciousness. No fractures noted. Hypertension Chronic kidney disease on hemodialysis Dyslipidemia Diabetes mellitus PLAN Obtain baseline EKG. Pt is overall stable from a cardiac perspective. No symptoms of angina or fluid overload. She is currently euvolemic. No acute contraindications to fistula placement at this time pending EKG evaluation. Thank you kindly for this consultation. Nurse Practitioner note has been reviewed, I agree with a documented findings and plan of care. Patient was seen and examined. Past Medical History Past Medical History: Heart Failure, Diabetes Mellitus, Dialysis, GERD/Reflux, H earing Disorder / Deafness, Hyperlipidemia, Hypertension, Pneumonia, Renal Disease Additional Past Medical History / Comment(s): PT. RECEIVES HEMODIALYSIS M,W,F @ [facility], home o2 prn at night. History of Any Multi-Drug Resistant Organisms: C-DIFF Date of last positivie culture/infection: 06/29/18 MDRO Source:: stool Past Surgical History: Cholecystectomy Past Anesthesia/Blood Transfusion Reactions: No Reported Reaction Past Psychological History: Anxiety Smoking Status: Never smoker Past Alcohol Use History: None Reported Past Drug Use History: None Reported - Past Family History Mother History Unknown: Yes Father History Unknown: Yes Medications and Allergies Home Medications Medication Instructions Recorded Confirmed Type Aspirin EC [Ecotrin Low Dose] 81 mg PO DAILY@1000 01/10/18 11/04/18 History Fenofibrate Nanocrystallized 145 mg PO DAILY@1000 01/10/18 11/04/18 History [Tricor] Multivitamins, Thera [Multivitamin 1 tab PO DAILY@0600 01/10/18 11/04/18 History (formulary)] Omeprazole [PriLOSEC] 40 mg PO DAILY@0600 01/10/18 11/04/18 History amLODIPine [Norvasc] 10 mg PO DAILY@1000 01/10/18 11/04/18 History Carvedilol [Coreg] 25 mg PO BID@1000,209903/06/18 11/04/18 History hydrALAZINE HCL [Apresoline] 50 mg PO TID@0600,1400,2100 03/06/18 11/04/18 History Furosemide [Lasix] 60 mg PO DAILY@1000 06/27/18 11/04/18 History INSULIN LISPRO (HumaLOG) [HumaLOG] 15 units SQ AC-SUPPER 06/27/18 11/04/18 History INSULIN LISPRO (humaLOG) [humaLOG] 5 units SQ AC-BRKFST 06/27/18 11/04/18 History INSULIN LISPRO (humaLOG) [humaLOG] 10 units SQ AC-LUNCH 06/27/18 11/04/18 History Insulin Glargine,Hum.rec.anlog 20 unit SQ HS 06/27/18 11/04/18 History [Lantus Solostar] Potassium Chloride ER [K-Dur 20] 20 meq PO DAILY@1000 06/27/18 11/04/18 History Sevelamer [Renvela] 800 mg PO TID@0600,1400,2100 06/27/18 11/04/18 History Spironolactone [Aldactone] 12.5 mg PO BID@1000,2100 06/27/1805/19 History traZODone HCL 50 mg PO HS@209906/27/18 11/04/18 History Allergies Allergy/AdvReac Type Severity Reaction Status Date / Time No Known Allergies Allergy Verified 11/04/18 17:03 Physical Exam Vitals: Vital Signs Temp Pulse Pulse Resp BP BP Pulse Ox 11/05/18 07:30 97 11/05/18 04:20 98.1 F 72 22 118/61 97 11/04/18 21:00 98.2 F 71 24 157/64 96 11/04/18 16:57 98.2 F 80 18 160/93 98 11/04/18 15:44 74 18 144/75 95 11/04/18 13:58 97.2 F L 68 18 164/93 98 Intake and Output 11/04/18 11/05/18 11/05/18 22:59 06:59 14:59 Other: Voiding Method Incontinent # Voids 1 3 Weight 76.6 kg Results 11/04/18 16:24 11/04/18 16:24 Cardiac Enzymes 11/04/18 Range/Units 16:24 AST 29 (14-36) U/L CBC 11/04/18 Range/Units 16:24 WBC 6.6 (3.8-10.6) k/uL RBC 3.75 L (3.80-5.40) m/uL Hgb 11.4 (11.4-16.0) gm/dL Hct 33.1 L (34.0-46.0) % Plt Count 247 (150-450) k/uL Comprehensive Metabolic Panel 11/04/18 Range/Units 16:24 Sodium 136 L (137-145) mmol/L Potassium 4.6 (3.5-5.1) mmol/L Chloride 100 (98-107) mmol/L Carbon Dioxide 21 L (22-30) mmol/L BUN 41 H (7-17) mg/dL Creatinine 4.14 H (0.52-1.04) mg/dL Glucose 111 H (74-99) mg/dL Calcium 9.7 (8.4-10.2) mg/dL AST 29 (14-36) U/L ALT 25 (9-52) U/L Alkaline Phosphatase 55 (38-126) U/L Total Protein 7.1 (6.3-8.2) g/dL Albumin 4.2 (3.5-5.0) g/dL Current Medications Generic Name Dose Route Start Last Admin Trade Name Freq PRN Reason Stop Dose Admin Acetaminophen 650 mg 11/04/18 16:24 Tylenol Tab PO Q6HR PRN Mild Pain or Fever > 100.5 Amlodipine Besylate 10 mg 11/05/18 10:00 11/05/18 07:53 Norvasc PO 10 mg DAILY@1000 [facility] Administration Aspirin 81 mg 11/05/18 10:00 11/05/18 07:56 Aspirin PO 81 mg DAILY@1000 [facility] Administration Carvedilol 25 mg 11/04/18 21:00 11/05/18 07:53 Coreg PO 25 mg BID@1000,2100 [facility] Administration Fenofibrate 160 mg 11/05/18 10:00 11/05/18 07:53 Lofibra PO 160 mg DAILY@1000 E[facility] Administration Furosemide 60 mg 11/05/18 10:00 11/05/18 07:53 Lasix PO 60 mg DAILY@1000 [facility] Administration Hydralazine HCl 50 mg 11/04/18 21:00 11/05/18 05:20 Apresoline PO 50 mg TID@0600,1400,2100 [facility] Administration Insulin Aspart 0 unit 11/04/18 21:00 11/05/18 07:44 Novolog SQ Not Given [facility] Protocol Insulin Aspart 5 unit 11/05/18 07:30 11/05/18 07:54 Novolog SQ 5 unit AC-BRKFST [facility] Administration Insulin Aspart 10 unit 11/05/18 12:30 Novolog SQ AC-LUNCH [facility] Insulin Aspart 15 unit 11/05/18 17:30 Novolog SQ AC-SUPPER [facility] Insulin Detemir 20 unit 11/04/18 21:00 11/04/18 20:36 Levemir SQ 20 unit HS [facility] Administration Morphine Sulfate 2 mg 11/04/18 16:24 Morphine Sulfate (Inj) IV Q4HR PRN Severe Pain Multivitamins 1 each 11/05/18 06:00 11/05/18 05:20 Theragran PO 1 each DAILY@0600 [facility] Administration Naloxone HCl 0.2 mg 11/04/18 16:24 Narcan IV Q2M PRN Opioid Reversal Pantoprazole Sodium 40 mg 11/05/18 06:00 05/06/19 05:20 Protonix PO 40 mg DAILY@0600 [facility] Administration Potassium Chloride 20 meq 11/05/18 10:00 11/05/18 07:53 K-Dur 20 PO 20 meq DAILY@1000 [facility] Administration Sevelamer Carbonate 800 mg 11/04/18 18:00 11/05/18 07:53 Renvela PO 800 mg TID-W/MEALS [facility] Administration Spironolactone 12.5 mg 11/04/18 21:00 11/05/18 07:53 Aldactone PO 12.5 mg BID@1000,2100 [facility] Administration Trazodone HCl 50 mg 11/04/18 21:00 11/04/18 20:35 Desyrel PO 50 mg HS@2100 [facility] Administration Intake and Output 11/04/18 11/05/18 11/05/18 22:59 06:59 14:59 Other: Voiding Method Incontinent # Voids 1 3 Weight 76.6 kg 11/04/18 16:24 11/04/18 16:24
[2018-11-05 10:37] LABS: Basophils % (A) 1 %; Eosinophils # (A) 0.2 k/uL (0-0.7); Eosinophils % (A) 3 %; HCT 32.8 % (34.0-46.0); HGB 10.8 gm/dL (11.4-16.0); Lymphocytes # (A) 1.4 k/uL (1.0-4.8); Lymphocytes % (A) 27 %; MCH 29.6 pg (25.0-35.0); MCHC 32.8 g/dL (31.0-37.0); MCV 90.2 fL (80.0-100.0); Mean Platelet Volume 8.6; Monocytes # (A) 0.3 k/uL (0-1.0); Monocytes % (A) 7 %; Neutrophils # (A) 3.1 k/uL (1.3-7.7); Neutrophils % (A) 61 %; Platelet Count 219 k/uL (150-450); RBC 3.63 m/uL (3.80-5.40); RDW 15.5 % (11.5-15.5); WBC 5.1 k/uL (3.8-10.6)
[2018-11-05 10:47] LABS: Albumin 3.6 g/dL (3.5-5.0); Calcium 8.9 mg/dL (8.4-10.2); Potassium 4.3 mmol/L (3.5-5.1); Total Bilirubin 0.6 mg/dL (0.2-1.3); Total Protein 6.3 g/dL (6.3-8.2)
[2018-11-05 12:14] LABS: Glucose,Whole Blood 193 mg/dL (75-99)
--- NOTE | 2018-11-05 12:44 | CONS ---
DATE OF CONSULTATION: 11/05/2018 This is an 83-year-old female, well known to me from the office. Placed right IJ catheter for dialysis. Patient had history of fall at home and she developed some acute contusion of the hip. She has been admitted for observation. MEDICAL HISTORY: History of chronic renal failure, diabetes, hypertension. Patient is on dialysis 3 times a week. PHYSICAL EXAMINATION: Patient was seen in her room, lying comfortably in bed. NECK: Supple, trachea central. CHEST: Clear to auscultation. ABDOMEN: Soft, brachial and radial femoral pulses are present. Patient had a right IJ catheter having dialysis through the IJ catheter. We ill discuss with Nephrology and Orthopedic Surgery. Follow with you. MMCYNTHIA / ALFREDN: [id number] / MTDD
[2018-11-05 15:26] VITALS: TEMP 97.3
--- NOTE | 2018-11-05 15:27 | P.DS ---
Providers Date of admission: 11/04/18 16:24 Expected date of discharge: 11/05/18 Attending physician: Francisco Javier Simeon Consults: 11/04/18 16:24 Consult Physician Stat Consulting Provider: Fernando Kim Consult Reason/Comments: fall, inability to bear weight on left hip, neg XR/CT Do you want consulting provider notified?: Yes Consult Physician Stat Consulting Provider: Torie Maddox Consult Reason/Comments: dialysis MWF, Do you want consulting provider notified?: Yes 11/04/18 17:57 Consult Physician Routine Consulting Provider: Jorge A Davenport Consult Reason/Comments: cardiology clearance for fistula surgery. Do you want consulting provider notified?: Yes Consult Physician Routine Consulting Provider: Kamlesh Sears Consult Reason/Comments: needs fistula access for HD Do you want consulting provider notified?: Yes [facility] Course: Final Diagnoses: -Acute hip contusion, arm contusion, gait dysfunction, status post fall. Evaluated by orthopedic surgery, no surgical intervention recommended at this time. Patient declined subacute rehab. -Osteoarthritis left hip -CAD with history of prior MIs -Hypertension -End-stage renal disease, scheduled to have fistula placement next week with Dr. Sears. -Diabetes mellitus Hospital course: This is an 83-year-old female admitted with left shoulder, left hip pain. X-rays reported no fractures or dislocations. Moderate arthritic changes of the left humerus. Brain/Spine CT reports nonacute. Evaluated by PT/OT with subacute rehab recommended, patient declined. Ambulating in hallway with physical therapy. Fistula placement discussed between vascular surgeon and PCP; outpatient procedure scheduled next week. EXAM: GENERAL: Alert and oriented 3, no acute distress Lungs: Bilateral lungs clear, bilateral bases diminished, no rhonchi, crackles or wheezes CARDIAC: Regular S1 and S2, systolic murmur ABD: Soft, nontender, normal bowel sounds NEURO: No focal deficits The impression and plan of care has been dictated as directed. : I performed a history and examination of this patient, discussed the same with the dictator. I agree with the dictator's note ,documented as a scribe. Any additional findings or plans will be noted. Time taken: 35 minutes Patient Condition at Discharge: Stable Plan - Discharge Summary Discharge Rx Participant: No New Discharge Prescriptions: Continue amLODIPine [Norvasc] 10 mg PO DAILY@1000 Omeprazole [PriLOSEC] 40 mg PO DAILY@06 Multivitamins, Thera [Multivitamin (formulary)] 1 tab PO DAILY@0600 Fenofibrate Nanocrystallized [Tricor] 145 mg PO DAILY@1000 Aspirin EC [Ecotrin Low Dose] 81 mg PO DAILY@1000 Carvedilol [Coreg] 25 mg PO BID@1000,2099 hydrALAZINE HCL [Apresoline] 50 mg PO TID@0600,1399,2099 traZODone HCL 50 mg PO HS@2099 Potassium Chloride ER [K-Dur 20] 20 meq PO DAILY@1000 Spironolactone [Aldactone] 12.5 mg PO BID@1000,2099 Insulin Glargine,Hum.rec.anlog [Lantus Solostar] 20 unit SQ HS Sevelamer [Renvela] 800 mg PO TID@0600,1400,2099 Furosemide [Lasix] 60 mg PO DAILY@1000 INSULIN LISPRO (humaLOG) [humaLOG] 5 units SQ AC-BRKFST INSULIN LISPRO (humaLOG) [humaLOG] 10 units SQ AC-LUNCH INSULIN LISPRO (HumaLOG) [humaLOG] 15 units SQ AC-SUPPER Discharge Medication List Aspirin EC [Ecotrin Low Dose] 81 mg PO DAILY@99901/10/18 [History] Fenofibrate Nanocrystallized [Tricor] 145 mg PO DAILY@99901/10/18 [History] Multivitamins, Thera [Multivitamin (formulary)] 1 tab PO DAILY@59901/10/18 [History] Omeprazole [PriLOSEC] 40 mg PO DAILY@59901/10/18 [History] amLODIPine [Norvasc] 10 mg PO DAILY@99901/10/18 [History] Carvedilol [Coreg] 25 mg PO BID@999,209903/06/18 [History] hydrALAZINE HCL [Apresoline] 50 mg PO TID@0600,1400,209903/06/18 [History] Furosemide [Lasix] 60 mg PO DAILY@99906/27/18 [History] INSULIN LISPRO (HumaLOG) [humaLOG] 15 units SQ AC-SUPPER 06/27/18 [History] INSULIN LISPRO (humaLOG) [humaLOG] 5 units SQ AC-BRKFST 06/27/18 [History] INSULIN LISPRO (humaLOG) [humaLOG] 10 units SQ AC-LUNCH 06/27/18 [History] Insulin Glargine,Hum.rec.anlog [Lantus Solostar] 20 unit SQ HS 06/27/18 [History] Potassium Chloride ER [K-Dur 20] 20 meq PO DAILY@1000 06/27/18 [History] Sevelamer [Renvela] 800 mg PO TID@0600,1400,209906/27/18 [History] Spironolactone [Aldactone] 12.5 mg PO BID@1000,209906/27/18 [History] traZODone HCL 50 mg PO HS@209906/27/18 [History] Follow up Appointment(s)/Referral(s): [facility], [NON-STAFF] - Francisco Javier Simeon MD [Primary Care Provider] - 3 Days Torie Maddox MD [STAFF PHYSICIAN] - 1 Week Kamlesh Sears MD [STAFF PHYSICIAN] - 1 Week Ambulatory/Diagnostic Orders: Complete Blood Count w/diff [LAB.AMB] Time Frame: 3 Days, Location: None Selected Activity/Diet/Wound Care/Special Instructions: HD per nephrology Discharge Disposition: HOME WITH HOME HEALTH SERVICES
[2018-11-05 16:48] LABS: Glucose,Whole Blood 110 mg/dL (75-99)
[2018-11-05 17:23] VITALS: BP 120/56; PULSE 54; RESP 18
[2018-11-05 18:38] LABS: Hemoglobin A1C 7.5 % (4.0-6.0)
--- NOTE | 2018-11-05 20:02 | CONS ---
CONSULTATION REASON FOR CONSULTATION: End-stage renal disease. HISTORY OF PRESENT ILLNESS: Patient is an 83-year-old female with end-stage renal disease, currently on hemodialysis on a Monday, Monday, Monday schedule. She was admitted to the hospital after history of fall. The patient says she turned too quickly and then tripped. She denied dizziness, lightheadedness. There were no fractures noted. PAST MEDICAL HISTORY: 1. End-stage renal disease. 2. CKD mineral bone disorder. 3. Anemia of chronic disease. 4. Type 2 diabetes. 5. Hyperlipidemia. 6. Hypertension. 7. Gastroesophageal reflux disease. 8. Dyslipidemia. 9. History of C difficile colitis. PAST SURGICAL HISTORY: 1. Cholecystectomy. 2. PermCath placement. MEDICATIONS: Medications at home prior to admission included: 1. Insulin. 2. Lasix. 3. Imodium. 4. Coreg. 5. Norvasc. 6. Prilosec. 7. Aldactone. 8. Renvela. 9. Aspirin. 10.TriCor. 11.Multivitamins. PHYSICAL EXAMINATION: Patient is comfortable, awake, not in any acute distress. She is alert and oriented x3. Blood pressure is 118/61, heart rate 72 per minute. She is afebrile. EXAMINATION OF THE HEART: S1 and S2. EXAMINATION OF LUNGS: Bilateral breath sounds are heard. ABDOMEN: Soft, non-tender. Examination of lower extremities shows no evidence of edema. PARKING LOT ATTENDANT AND CASHIER exam is grossly intact. LABS: Sodium 136, potassium 4.3, hemoglobin 10.8 g/dL. Troponin is negative. ASSESSMENT: 1. End-stage renal disease, on hemodialysis on a Monday, Monday, Monday schedule. Patient will be dialyzed today. 2. History of fall with no fractures. Patient has left hip pain. She has been evaluated by Orthopedic Surgery. 3. Chronic kidney disease mineral bone disorder. 4. Hypertension, currently controlled. 5. Chronic kidney disease mineral bone disorder, maintained on Renvela. PLAN: Hemodialysis today. Continue current medications. Avoid hypotension. Next dialysis will be on Monday if the patient is still admitted. MMODL / IJN: [id number] /
== END 2018-11-05 17:46 | disposition home health service (06) ==
LOC: EC 13:57 → 4MS4W 16:24
PROVIDERS: ADMIT Family Medicine; ATTEND Family Medicine
DX: S70.00XA Contusion of unspecified hip, initial encounter (principal); S40.029A Contusion of unspecified upper arm, initial encounter; M16.12 Unilateral primary osteoarthritis, left hip; M19.012 Primary osteoarthritis, left shoulder; I13.2 Hypertensive heart and chronic kidney disease with heart failure and with stage 5 chronic kidney disease, or end stage renal disease; I50.32 Chronic diastolic (congestive) heart failure; N18.6 End stage renal disease; E11.22 Type 2 diabetes mellitus with diabetic chronic kidney disease; R26.2 Difficulty in walking, not elsewhere classified; J90 Pleural effusion, not elsewhere classified; E78.5 Hyperlipidemia, unspecified; I25.10 Atherosclerotic heart disease of native coronary artery without angina pectoris; K21.9 Gastro-esophageal reflux disease without esophagitis; H91.90 Unspecified hearing loss, unspecified ear; F41.9 Anxiety disorder, unspecified; I27.20 Pulmonary hypertension, unspecified; I08.1 Rheumatic disorders of both mitral and tricuspid valves; M89.9 Disorder of bone, unspecified; D63.8 Anemia in other chronic diseases classified elsewhere; Z79.82 Long term (current) use of aspirin; Z79.4 Long term (current) use of insulin; Z79.899 Other long term (current) drug therapy; Z99.2 Dependence on renal dialysis; Z95.828 Presence of other vascular implants and grafts; Z86.73 Personal history of transient ischemic attack (TIA), and cerebral infarction without residual deficits; Z87.01 Personal history of pneumonia (recurrent); Z16.24 Resistance to multiple antibiotics; Z86.19 Personal history of other infectious and parasitic diseases; Z90.49 Acquired absence of other specified parts of digestive tract; W01.0XXA Fall on same level from slipping, tripping and stumbling without subsequent striking against object, initial encounter; Y92.000 Kitchen of unspecified non-institutional (private) residence as the place of occurrence of the external cause
CPT/HCPCS: 96374; 99285; 94760; 93005; 97116; 97161; 97166; 83880; 80053 ×2; 84443; 85025 ×2; 83036; 73502; 73060; 71045; 72125; 70450; 73700; G0378 ×2; J2270; 90935

== ENCOUNTER 2018-11-16 14:45 | Inpatient (IN) | payer MEDICARE, OTHER ==
[2018-11-16] MEDS ORDERED: SODIUM CHLORIDE 0.9% 500 ML 500 ML IV STA (15:12)
[2018-11-16] MEDS ORDERED: ACETAMINOPHEN TAB 325 MG TAB PO STA (15:13)
--- NOTE | 2018-11-16 15:18 | ED ---
Extremity Problem HPI - General Chief complaint: Extremity Problem,Nontraumatic Stated complaint: Post Op complications Time Seen by Provider: 11/16/18 14:50 Source: patient, family, EMS, RN notes reviewed Mode of arrival: EMS Limitations: no limitations - History of Present Illness Initial comments: This is a 83-year-old female history of renal failure who is on dialysis who had a fistula placed 2 days ago the left upper extremity at [facility]. She is being discharged yesterday she is up and eating or drinking very well she has not felt well he started developing the feeling of being warm they have no them on her home however. Upon arrival here she is found have a fever. No overt edema she has been nauseated. MD Complaint: extremity pain, extremity swelling, other - Related Data Home Medications Medication Instructions Recorded Confirmed Aspirin EC [Ecotrin Low Dose] 81 mg PO DAILY@1000 01/10/18 11/16/18 Fenofibrate Nanocrystallized 145 mg PO DAILY@99901/10/18 11/16/18 [Tricor] Multivitamins, Thera [Multivitamin 1 tab PO DAILY@0600 01/10/18 11/16/18 (formulary)] Omeprazole [PriLOSEC] 40 mg PO DAILY@0600 01/10/18 11/16/18 amLODIPine [Norvasc] 10 mg PO DAILY@1000 01/10/18 11/16/18 Carvedilol [Coreg] 25 mg PO BID@1000,209903/06/18 11/16/18 hydrALAZINE HCL [Apresoline] 50 mg PO TID@0600,1400,209903/06/18 11/16/18 Furosemide [Lasix] 60 mg PO DAILY@1000 06/27/18 11/16/18 INSULIN LISPRO (HumaLOG) [humaLOG] 15 units SQ AC-SUPPER 06/27/18 11/16/18 INSULIN LISPRO (humaLOG) [humaLOG] 5 units SQ AC-BRKFST 06/27/18 11/16/18 INSULIN LISPRO (humaLOG) [humaLOG] 10 units SQ AC-LUNCH 06/27/18 11/16/18 Insulin Glargine,Hum.rec.anlog 20 unit SQ HS 06/27/18 11/16/18 [Lantus Solostar] Potassium Chloride ER [K-Dur 20] 20 meq PO DAILY@1000 06/27/18 11/16/18 Sevelamer [Renvela] 800 mg PO TID@0600,1400,2100 06/27/18 11/16/18 Spironolactone [Aldactone] 12.5 mg PO BID@1000,2100 06/27/18 11/16/18 traZODone HCL 50 mg PO HS@2100 06/27/18 11/16/18 Allergies Allergy/AdvReac Type Severity Reaction Status Date / Time No Known Allergies Allergy Verified 11/16/18 14:57 Review of Systems ROS Statement: Those systems with pertinent positive or pertinent negative responses have been documented in the HPI. ROS Other: All systems not noted in ROS Statement are negative. Past Medical History Past Medical History: Heart Failure, Diabetes Mellitus, Dialysis, GERD/Reflux, Hearing Disorder / Deafness, Hyperlipidemia, Hypertension, Pneumonia, Renal Disease Additional Past Medical History / Comment(s): PT. RECEIVES HEMODIALYSIS M,W,F @ [facility], home o2 prn at night. History of Any Multi-Drug Resistant Organisms: C-DIFF Date of last positivie culture/infection: 06/29/18 MDRO Source:: stool Past Surgical History: Cholecystectomy Past Anesthesia/Blood Transfusion Reactions: No Reported Reaction Past Psychological History: Anxiety Smoking Status: Never smoker Past Alcohol Use History: None Reported Past Drug Use History: None Reported - Past Family History Mother History Unknown: Yes Father History Unknown: Yes General Exam - General Exam Comments Initial Comments: Is a well-developed well-nourished awake alert but lethargic female Limitations: no limitations General appearance: alert, in no apparent distress Head exam: Present: atraumatic, normocephalic, normal inspection Eye exam: Present: normal appearance, PERRL, EOMI. Absent: scleral icterus, conjunctival injection, periorbital swelling ENT exam: Present: mucous membranes dry Neck exam: Present: normal inspection, full ROM, other (Stridor JVD or bruits). Absent: tenderness, meningismus, lymphadenopathy Respiratory exam: Present: normal lung sounds bilaterally. Absent: respiratory distress, wheezes, rales, rhonchi, stridor Cardiovascular Exam: Present: regular rate, normal rhythm, normal heart sounds. Absent: systolic murmur, diastolic murmur, rubs, gallop, clicks GI/Abdominal exam: Present: soft, normal bowel sounds. Absent: distended, tenderness, guarding, rebound, rigid Extremities exam: Present: full ROM, normal capillary refill, other (Left upper extremity demonstrates dressing with ecchymosis erythema increased localized temperature over the site on the left arm no sensorimotor or vascular deficits however.). Absent: tenderness, pedal edema, joint swelling, calf tenderness Back exam: Present: normal inspection Neurological exam: Present: alert, oriented X3, CN II-XII intact Psychiatric exam: Present: normal mood, flat affect Skin exam: Present: warm, dry, intact, normal color. Absent: rash Course Vital Signs 11/16/18 14:48 Temperature 100.4 F H Pulse Rate 99 Respiratory 30 H Rate Blood Pressure 161/48 O2 Sat by Pulse 93 L Oximetry Medical Decision Making - Medical Decision Making I did discuss findings with the patient family members the presentation is consistent with left upper extremity cellulitis at did discuss the case with Dr. Simeon patient be admitted place an IV antibiotics Dr. Sears will be consulted. - Lab Data Result diagrams: 11/16/18 15:05 11/16/18 15:05 Lab Results 11/16/18 11/16/18 11/16/18 Range/Units 15:05 15:05 15:05 WBC 10.1 (3.8-10.6) k/uL RBC 3.29 L (3.80-5.40) m/uL Hgb 10.0 L (11.4-16.0) gm/dL Hct 30.5 L (34.0-46.0) % MCV 92.6 (80.0-100.0) fL MCH 30.3 (25.0-35.0) pg MCHC 32.7 (31.0-37.0) g/dL RDW 15.5 (11.5-15.5) % Plt Count 210 (150-450) k/uL Neutrophils % 81 % Lymphocytes % 12 % Monocytes % 5 % Eosinophils % 1 % Basophils % 0 % Neutrophils # 8.2 H (1.3-7.7) k/uL Lymphocytes # 1.2 (1.0-4.8) k/uL Monocytes # 0.5 (0-1.0) k/uL Eosinophils # 0.1 (0-0.7) k/uL Basophils # 0.0 (0-0.2) k/uL Sodium (137-145) mmol/L Potassium (3.5-5.1) mmol/L Chloride (98-107) mmol/L Carbon Dioxide (22-30) mmol/L Anion Gap mmol/L BUN (7-17) mg/dL Creatinine (0.52-1.04) mg/dL Est GFR (CKD-EPI)AfAm (>60 ml/min/1.73 sqM) Est GFR (CKD-EPI)NonAf (>60 ml/min/1.73 sqM) Glucose (74-99) mg/dL Plasma Lactic Acid Lalo 0.9 (0.7-2.0) mmol/L Calcium (8.4-10.2) mg/dL Magnesium (1.6-2.3) mg/dL Total Bilirubin (0.2-1.3) mg/dL AST (14-36) U/L ALT (9-52) U/L Alkaline Phosphatase (38-126) U/L Ammonia <9 (<30) umol/L Total Protein (6.3-8.2) g/dL Albumin (3.5-5.0) g/dL / Range/Units 15:05 WBC (3.8-10.6) k/uL RBC (3.80-5.40) m/uL Hgb (11.4-16.0) gm/dL Hct (34.0-46.0) % MCV (80.0-100.0) fL MCH (25.0-35.0) pg MCHC (31.0-37.0) g/dL RDW (11.5-15.5) % Plt Count (150-450) k/uL Neutrophils % % Lymphocytes % % Monocytes % % Eosinophils % % Basophils % % Neutrophils # (1.3-7.7) k/uL Lymphocytes # (1.0-4.8) k/uL Monocytes # (0-1.0) k/uL Eosinophils # (0-0.7) k/uL Basophils # (0-0.2) k/uL Sodium 134 L (137-145) mmol/L Potassium 4.7 (3.5-5.1) mmol/L Chloride 101 (98-107) mmol/L Carbon Dioxide 23 (22-30) mmol/L Anion Gap 10 mmol/L BUN 40 H (7-17) mg/dL Creatinine 3.43 H (0.52-1.04) mg/dL Est GFR (CKD-EPI)AfAm 13 (>60 ml/min/1.73 sqM) Est GFR (CKD-EPI)NonAf 12 (>60 ml/min/1.73 sqM) Glucose 228 H (74-99) mg/dL Plasma Lactic Acid Lalo (0.7-2.0) mmol/L Calcium 9.2 (8.4-10.2) mg/dL Magnesium 1.7 (1.6-2.3) mg/dL Total Bilirubin 1.1 (0.2-1.3) mg/dL AST 36 (14-36) U/L ALT 10 (9-52) U/L Alkaline Phosphatase 61 (38-126) U/L Ammonia (<30) umol/L Total Protein 6.3 (6.3-8.2) g/dL Albumin 3.6 (3.5-5.0) g/dL - EKG Data -: EKG Interpreted by Ri EKG shows normal: sinus rhythm (Sinus rhythm 98 OH interval 208 QRS duration 144 QT since QTC 390/508 red bundle-branch block pattern with anterior fascicular block pattern) - Radiology Data Radiology results: report reviewed (I did review the imaging and report no acute findings.), image reviewed Disposition Clinical Impression: Cellulitis, Chronic renal failure syndrome Disposition: ADMITTED IP TO THIS [facility] Condition: Fair Referrals: Francisco Javier Simeon MD [Primary Care Provider] - 1-2 days
[2018-11-16 15:33] LABS: Albumin 3.6 g/dL (3.5-5.0); Calcium 9.2 mg/dL (8.4-10.2); Magnesium 1.7 mg/dL (1.6-2.3); Potassium 4.7 mmol/L (3.5-5.1); Total Bilirubin 1.1 mg/dL (0.2-1.3); Total Protein 6.3 g/dL (6.3-8.2)
[2018-11-16 15:52] LABS: Basophils % (A) 0 %; Eosinophils # (A) 0.1 k/uL (0-0.7); Eosinophils % (A) 1 %; HCT 30.5 % (34.0-46.0); Lymphocytes # (A) 1.2 k/uL (1.0-4.8); Lymphocytes % (A) 12 %; MCH 30.3 pg (25.0-35.0); MCHC 32.7 g/dL (31.0-37.0); MCV 92.6 fL (80.0-100.0); Mean Platelet Volume 7.8; Monocytes # (A) 0.5 k/uL (0-1.0); Monocytes % (A) 5 %; Neutrophils # (A) 8.2 k/uL (1.3-7.7); Neutrophils % (A) 81 %; Platelet Count 210 k/uL (150-450); RBC 3.29 m/uL (3.80-5.40); RDW 15.5 % (11.5-15.5); WBC 10.1 k/uL (3.8-10.6)
--- NOTE | 2018-11-16 16:10 | US ---
EXAMINATION TYPE: US venous doppler duplex UE LT DATE OF EXAM: 11/16/2018 COMPARISON: NONE CLINICAL HISTORY: Pain. Left arm pain. Poor historian. On blood thinners. Dialysis port placed on M onday. SIDE PERFORMED: Left Grayscale, color doppler, spectral doppler imaging performed of the deep veins of the left upper extr emity. There is normal flow, compressibility and vascular waveforms. Left Arm: Negative for DVT Mild subcutaneous edema is noted. IMPRESSION: No sonographic evidence of deep venous thrombosis within the left upper extremity.
[2018-11-16] MEDS ORDERED: fentaNYL (PF) 50 MCG/ML 2 ML AMP IV STA (16:41)
--- NOTE | 2018-11-16 16:44 | XR ---
EXAMINATION TYPE: XR chest 2V DATE OF EXAM: 11/16/2018 COMPARISON: 11/04/2018 HISTORY: Cough TECHNIQUE: Frontal and lateral views of the chest are obtained. FINDINGS: Heart is enlarged. There is pulmonary vascular congestion. There is right central venous c atheter with the tip in the right atrium. There is blunting of costophrenic angles. Thoracic aorta is atheromatous. IMPRESSION: Congestive heart failure with pleural fluid that is increased compared to last exam. Pul monary congestion increased.
[2018-11-16] MEDS ORDERED: CLINDAMYCIN 600 MG in DEXTROSE 5% IN WATER 50 ML IVPB STA ×2 (16:57)
[2018-11-16] MEDS ORDERED: NALOXONE 0.4 MG/ML 1 ML VIAL IV PRN (16:58)
[2018-11-16] MEDS ORDERED: ACETAMINOPHEN TAB 325 MG TAB PO PRN (16:58)
[2018-11-16] MEDS: SODIUM CHLORIDE 0.9% 1,000 ML IV SCH (19:38)
[2018-11-16 20:57] LABS: Glucose,Whole Blood 226 mg/dL (75-99)
[2018-11-16] MEDS: INSULIN ASPART (NovoLOG) 100 UNIT/ML VIAL SQ SCH (21:00)
--- NOTE | 2018-11-16 21:26 | HP ---
HISTORY AND PHYSICAL CHIEF COMPLAINT: 83-year-old white female who had renal dialysis port fistula placed 2 days ago, left upper extremity, discharged yesterday. She was not eating well at home and she felt warm and fever. Came to the hospital for possible infection into the graft, nauseated, extremity pain and swelling over the area of graft. MEDICATIONS: Home medications: Norvasc, Prilosec, Tricor, Lasix, Apresoline, Humalog, Lantus, K-Dur, Renvela, Aldactone. ALLERGIES: Negative. REVIEW OF SYSTEMS: Fourteen point review of systems negative except for mentioned in HPI. FAMILY HISTORY: The father and mother unknown. PHYSICAL EXAMINATION: Well-developed, obese, white female in no acute distress. Cardiovascular S1-S2. Lungs transmitted upper airway sounds. Hematology negative Homans. no suprapubic tenderness. Hematology negative Homans. Psych fair mood and affect. Examination of left upper extremity shows redness and erythema. ASSESSMENT: 1. Left upper extremity cellulitis status post port placement. Infectious disease consult as well as consult Dr. Sears. 2. Acute on chronic renal insufficiency. 3. Chronic kidney disease. 4. Diabetes mellitus. 5. Hyponatremia. Home medications will be reordered. Please see further orders. MMODL / IJN: [id number] /
[2018-11-16] MEDS: SPIRONOLACTONE 25 MG TAB PO SCH (21:54)
[2018-11-16] MEDS: SEVELAMER 800 MG TAB PO SCH (21:55)
[2018-11-16] MEDS: traZODone HCL 50 MG TAB PO SCH (21:55)
[2018-11-16] MEDS: CARVEDILOL 12.5 MG TAB PO SCH (21:55)
[2018-11-16] MEDS: hydrALAZINE HCL 50 MG TAB PO SCH (21:55)
[2018-11-16] MEDS: INSULIN DETEMIR (LEVEMIR) 100 UNIT/ML SYR SQ SCH (22:13)
[2018-11-16] MEDS: CLINDAMYCIN 600 MG in DEXTROSE 5% IN WATER 50 ML IVPB SCH ×2 (23:14)
[2018-11-17] MEDS: CLINDAMYCIN 600 MG in DEXTROSE 5% IN WATER 50 ML IVPB SCH ×2 (04:38)
[2018-11-17] MEDS: MULTIVITAMINS, THERA 1 EACH TAB PO SCH (04:39)
[2018-11-17] MEDS: hydrALAZINE HCL 50 MG TAB PO SCH ×3 (04:39→20:06)
[2018-11-17] MEDS: SODIUM CHLORIDE 0.9% 1,000 ML IV SCH ×2 (04:39→13:39)
[2018-11-17] MEDS: PANTOPRAZOLE 40 MG TABLET PO SCH (04:39)
[2018-11-17 07:04] LABS: Glucose,Whole Blood 71 mg/dL (75-99)
[2018-11-17] MEDS: INSULIN ASPART (NovoLOG) 100 UNIT/ML VIAL SQ SCH ×3 (07:54→17:57)
[2018-11-17] MEDS: SPIRONOLACTONE 25 MG TAB PO SCH ×2 (08:18→20:05)
[2018-11-17] MEDS: CARVEDILOL 12.5 MG TAB PO SCH ×2 (08:19→20:06)
[2018-11-17] MEDS: FUROSEMIDE 40 MG TAB PO SCH (08:20)
[2018-11-17] MEDS: FENOFIBRATE 160 MG TAB PO SCH (08:20)
[2018-11-17] MEDS: POTASSIUM CHLORIDE ER 20 MEQ TAB.ER PO SCH (08:20)
[2018-11-17] MEDS: SEVELAMER 800 MG TAB PO SCH ×3 (08:20→20:06)
[2018-11-17] MEDS: amLODIPine 10 MG TAB PO SCH (08:21)
[2018-11-17] MEDS: ASPIRIN 81 MG PO SCH (08:21)
--- NOTE | 2018-11-17 09:57 | PN ---
PROGRESS NOTE This is an 83-year-old female known to me. Patient had a left upper arm [place] graft placed on Monday. Patient went home on Monday after dialysis. The patient came to the ER with some history of fever, lethargic and weakness. The patient has been admitted to [facility]. I was consulted. She did have dialysis yesterday. PHYSICAL EXAMINATION: Patient was seen in her room, lying comfortably in bed. NECK: Supple. CHEST: Clear to auscultation. ABDOMEN: Soft. The patient has a right IJ catheter. No localized tenderness noted. Left upper arm [place] graft is patent. No redness. No discharge noted. The patient was seen by Nephrology. Patient being dialyzed today. We will do the blood culture and follow with you. DONG / JACINTO: [id number] /
--- NOTE | 2018-11-17 10:23 | P.NPCON ---
History of Present Illness - Reason for Consult end stage renal disease - History of Present Illness Reason for consultation: End-stage renal disease History of present illness: Patient is a 83-year-old female seen in consultation for end-stage renal disease. She is maintained on hemodialysis on a Monday schedule. Right chest permacath. Patient had a AV graft surgery done last week. Patient resides at an extended care facility. She was noted to have a low-grade fever and was sent to the hospital. Her temperature on admission was 100.7F. There is no evidence of cellulitis or drainage from the catheter site. She has also been evaluated by vascular surgery and there appears to be no infection at the AV graft site. She denies any cough. Denies vomiting or diarrhea. No abdominal pain. Hemodynamically stable. White count is 10.1. Patient did miss hemodialysis yesterday due to generalized weakness. She is currently receiving IV clindamycin. Vital signs are stable. General: The patient appeared well nourished and normally developed. HEENT: Head exam is unremarkable. Neck is without jugular venous distension. LUNGS: Lungs are clear to auscultation and percussion. Breath sounds decreased. HEART: Rate and Rhythm are regular. First and second heart sounds normal. No murmurs, rubs or gallops. ABDOMEN: Abdominal exam reveals normal bowel sounds. Non-tender and non- distended. No evidence of peritonitis. EXTREMITITES: No clubbing, cyanosis, or edema. Past Medical History Past Medical History: Heart Failure, Diabetes Mellitus, Dialysis, GERD/Reflux, Hearing Disorder / Deafness, Hyperlipidemia, Hypertension, Pneumonia, Renal Disease Additional Past Medical History / Comment(s): PT. RECEIVES HEMODIALYSIS M,W,F @ [facility], home o2 prn at night. History of Any Multi-Drug Resistant Organisms: C-DIFF Date of last positivie culture/infection: 06/29/18 MDRO Source:: stool Past Surgical History: Cholecystectomy Past Anesthesia/Blood Transfusion Reactions: No Reported Reaction Past Psychological History: Anxiety Additional Psychological History / Comment(s): pt states she lives alone Smoking Status: Never smoker Past Alcohol Use History: None Reported Past Drug Use History: None Reported - Past Family History Mother History Unknown: Yes Father History Unknown: Yes Medications and Allergies Home Medications Medication Instructions Recorded Confirmed Type Aspirin EC [Ecotrin Low Dose] 81 mg PO DAILY@1000 01/10/18 11/16/18 History Fenofibrate Nanocrystallized 145 mg PO DAILY@1000 01/10/18 11/16/18 History [Tricor] Multivitamins, Thera [Multivitamin 1 tab PO DAILY@0600 01/10/18 11/16/18 History (formulary)] Omeprazole [PriLOSEC] 40 mg PO DAILY@0600 01/10/18 11/16/18 History amLODIPine [Norvasc] 10 mg PO DAILY@1000 01/10/18 11/16/18 History Carvedilol [Coreg] 25 mg PO BID@1000,209903/06/18 11/16/18 History hydrALAZINE HCL [Apresoline] 50 mg PO TID@0600,1400,209903/06/18 11/16/18 History Furosemide [Lasix] 60 mg PO DAILY@1000 06/27/18 11/16/18 History INSULIN LISPRO (HumaLOG) [humaLOG] 15 units SQ AC-SUPPER 06/27/18 11/16/18 History INSULIN LISPRO (humaLOG) [humaLOG] 5 units SQ AC-BRKFST 06/27/18 11/16/18 History INSULIN LISPRO (humaLOG) [humaLOG] 10 units SQ AC-LUNCH 06/27/18 11/16/18 History Insulin Glargine,Hum.rec.anlog 20 unit SQ HS 06/27/18 11/16/18 History [Lantus Solostar] Potassium Chloride ER [K-Dur 20] 20 meq PO DAILY@1000 06/27/18 11/16/18 History Sevelamer [Renvela] 800 mg PO TID@0600,1400,209906/27/18 11/16/18 History Spironolactone [Aldactone] 12.5 mg PO BID@1000,209906/27/18 11/16/18 History traZODone HCL 50 mg PO HS@209906/27/18 11/16/18 History Allergies Allergy/AdvReac Type Severity Reaction Status Date / Time No Known Allergies Allergy Verified 11/16/18 14:57 Physical Exam Vitals: Vital Signs Temp Pulse Pulse Resp BP BP Pulse Ox 11/17/18 08:30 98.9 F 93 20 11/17/18 05:31 99.6 F 11/17/18 04:30 100.7 F H 93 20 139/63 92 L 11/16/18 21:37 98.7 F 88 20 143/65 91 L 11/16/18 21:07 84 18 143/64 94 L 11/16/18 19:40 90 18 130/61 94 L 11/16/18 19:00 83 27 H 146/59 91 L 11/16/18 18:30 85 25 H 138/65 95 11/16/18 18:00 84 28 H 150/63 93 L 11/16/18 17:30 86 29 H 144/57 93 L 11/16/18 16:00 97 19 164/68 11/16/18 15:30 93 40 H 169/69 91 L 11/16/18 15:00 161/48 95 11/16/18 14:52 91 L 11/16/18 14:48 100.4 F H 99 30 H 161/48 93 L Intake and Output 11/16/18 11/17/18 11/17/18 22:59 06:59 14:59 Intake Total 240 Balance 240 Intake: Oral 240 Other: Voiding Method Bedside Commode # Voids 0 1 Results - Lab Results Most recent lab results Calcium 9.2 mg/dL (8.4-10.2) 11/16/18 15:05 Magnesium 1.7 mg/dL (1.6-2.3) 11/16/18 15:05 11/16/18 15:05 11/16/18 15:05 Assessment and Plan Plan: Assessment: 1. End-stage renal disease maintained on hemodialysis on a Monday schedule via right chest permacath. 2. Status post AV graft surgery last week. 3. Fever. Rule out bacteremia. No evidence of drainage from the catheter site. No evidence of infection at the AV graft site per vascular surgery. 4. Chronic kidney disease mineral bone disease maintained on Renvela. 5. Insulin-dependent diabetes mellitus. 6. Hypertension with chronic kidney disease. Controlled. Plan: Hemodialysis today. I will check a set of culture from the catheter site. Check blood cultures. Decrease rate of normal saline to 50 mL an hour. Thank you for the consultation. I will continue to follow the patient with you during her hospital stay.
[2018-11-17] MEDS: oxyCODONE-APAP 5-325MG 1 EACH TAB PO PRN ×2 (11:49→20:05)
[2018-11-17 12:00] LABS: Glucose,Whole Blood 148 mg/dL (75-99)
[2018-11-17 14:05] LABS: Amorphous Sediment,Urine Rare /hpf; Appearance,Urine Clear (Clear); Bilirubin,Urine Negative (Negative); Blood,Urine Negative (Negative); Color,Urine Yellow; Glucose,Urine (UA) 2+ (Negative); Ketones,Urine Negative (Negative); Leukocyte Esterase,Urine Negative (Negative); Nitrite,Urine Negative (Negative); PH, Urine 6.5 (5.0-8.0); Protein,Urine 3+ (Negative); RBC,Urine 1 /hpf (0-5); Squamous Epithelial Cell,Urine <1 /hpf (0-4); Urobilinogen,Urine <2.0 mg/dL (<2.0); WBC,Urine 3 /hpf (0-5)
[2018-11-17] MEDS ORDERED: VANCOMYCIN IV PER PHARMACY 1 EACH MISC MISCELLANE PRN (14:14)
[2018-11-17] MEDS ORDERED: VANCOMYCIN 1,500 MG in SODIUM CHLORIDE 0.9% 250 ML IVPB ONE (15:00)
[2018-11-17 17:20] LABS: Glucose,Whole Blood 110 mg/dL (75-99)
--- NOTE | 2018-11-17 17:39 | P.CONS ---
History of Present Illness - Reason for Consult Consult date: 11/17/18 - Chief Complaint pain left arm and shoulder - History of Present Illness 83-year-old female was a history of end-stage renal failure who is now on hemodialysis via the right anterior chest wall PermCath. Patient relates that she recently had the fistula placed into her left upper arm for ongoing hemodialysis. The patient is not able to vocalize etiology of her renal failure, but does choose to have ongoing hemodialysis. She this time relates that at home she started to feel poorly with increasing pain to her left shoulder and arm. She had great difficulty utilizing a. She developed low-grade fever and felt poorly and counselor presents the emergency center. She subsequently has been admitted and consults have been requested. She did not check her fever at home. It was 100.7 in the emergency center. Review of Systems HEENT patient denies sinus her mouth discomfort. No dysphagia. No oral pain. No neck stiffness or lymphadenopathy Lungs patient denies shortness of breath cough or sputum production no hemoptysis Heart patient denies chest pain or pressure. He is not having dyspnea on exertion, orthopnea, or syncope Abdomen patient denies abdominal pain, denies nausea vomiting constipation or diarrhea. Denies hematemesis melena or hematochezia Extremities has a pain and swelling to the left upper arm at the site of the recent surgery Right anterior chest wall catheter is nontender Patient as per the history of present illness has difficulties with the ulcerations to the bilateral heels but does not have ongoing difficulties with edema Neuro patient denies dizziness, or new deficits Past Medical History Past Medical History: Heart Failure, Diabetes Mellitus, Dialysis, GERD/Reflux, Hearing Disorder / Deafness, Hyperlipidemia, Hypertension, Pneumonia, Renal Disease Additional Past Medical History / Comment(s): PT. RECEIVES HEMODIALYSIS M,W,F @ [employer], home o2 prn at night. History of Any Multi-Drug Resistant Organisms: C-DIFF Year Discovered:: 06/29/18 MDRO Source:: stool Past Surgical History: Cholecystectomy Past Anesthesia/Blood Transfusion Reactions: No Reported Reaction Past Psychological History: Anxiety Additional Psychological History / Comment(s): pt states she lives alone. she has no pets. Retired. No international travel. No experience Smoking Status: Never smoker Past Alcohol Use History: None Reported Past Drug Use History: None Reported - Past Family History Mother History Unknown: Yes Father History Unknown: Yes Medications and Allergies Home Medications and Allergies Comment(s): Current Medications Acetaminophen (Tylenol Tab) 650 mg PO Q6HR PRN PRN Reason: Mild Pain or Fever > 100.5 Last Admin: 11/17/18 04:39 Dose: 650 mg Documented by: Amlodipine Besylate (Norvasc) 10 mg PO DAILY@1000 [facility] Last Admin: 11/17/18 08:21 Dose: 10 mg Documented by: Aspirin (Aspirin) 81 mg PO DAILY@1000 [facility] Last Admin: 11/17/18 08:21 Dose: 81 mg Documented by: Carvedilol (Coreg) 25 mg PO BID@1000,2100 [facility] Last Admin: 11/17/18 08:19 Dose: 25 mg Documented by: Fenofibrate (Lofibra) 160 mg PO DAILY@1000 [facility] Last Admin: 11/17/18 08:20 Dose: 160 mg Documented by: Furosemide (Lasix) 60 mg PO DAILY@1000 [facility] Last Admin: 11/17/18 08:20 Dose: 60 mg Documented by: Hydralazine HCl (Apresoline) 50 mg PO TID@0600,1400,2100 [facility] Last Admin: 11/17/18 15:03 Dose: 50 mg Documented by: Sodium Chloride (Saline 0.9%) 1,000 mls @ 80 mls/hr IV .[id number] [facility] Last Admin: 11/17/18 04:39 Dose: 80 mls/hr Documented by: Sodium Chloride (Saline 0.9%) 1,000 mls @ 50 mls/hr IV .Q20H [facility] Last Admin: 11/17/18 13:39 Dose: 50 mls/hr Documented by: Vancomycin HCl 1,500 mg/ (Sodium Chloride) 250 mls @ 125 mls/hr IVPB ONCE ONE Stop: 11/18/18 16:59 Insulin Aspart (Novolog) 15 unit SQ AC-SUPPER [facility] Last Admin: 11/16/18 21:00 Dose: 15 unit Documented by: Insulin Aspart (Novolog) 10 unit SQ AC-LUNCH [facility] Last Admin: 11/17/18 13:38 Dose: 10 unit Documented by: Insulin Aspart (Novolog) 5 unit SQ AC-BRKFST [facility] Last Admin: 11/17/18 07:54 Dose: Not Given Documented by: Insulin Detemir (Levemir) 20 unit SQ [facility] Last Admin: 11/16/18 22:13 Dose: 20 unit Documented by: Miscellaneous Information (Pharmacy To Dose Iv Vancomycin) 1 each MISCELLANE DIRECTED PRN PRN Reason: Per Protocol Multivitamins (Theragran) 1 each PO DAILY@06 [facility] Last Admin: 11/17/18 04:39 Dose: 1 each Documented by: Naloxone HCl (Narcan) 0.2 mg IV Q2M PRN PRN Reason: Opioid Reversal Oxycodone/Acetaminophen (Percocet 5-325) 1 each PO Q6HR PRN PRN Reason: SEVERE Pain Last Admin: 11/17/18 11:49 Dose: 1 each Documented by: Pantoprazole Sodium (Protonix) 40 mg PO DAILY@06 [facility] Last Admin: 11/17/18 04:39 Dose: 40 mg Documented by: Potassium Chloride (K-Dur 20) 20 meq PO DAILY@1000 [facility] Last Admin: 11/17/18 08:20 Dose: 20 meq Documented by: Sevelamer Carbonate (Renvela) 800 mg PO TID-W/MEALS [facility] Last Admin: 11/17/18 13:39 Dose: 800 mg Documented by: Spironolactone (Aldactone) 12.5 mg PO BID@999,2099 [facility] Last Admin: 11/17/18 08:18 Dose: 12.5 mg Documented by: Trazodone HCl (Desyrel) 50 mg PO HS@2099 [facility] Last Admin: 11/16/18 21:55 Dose: 50 mg Documented by: Home Medications Medication Instructions Recorded Confirmed Type Aspirin EC [Ecotrin Low Dose] 81 mg PO DAILY@99901/10/18 11/16/18 History Fenofibrate Nanocrystallized 145 mg PO DAILY@99901/10/18 11/16/18 History [Tricor] Multivitamins, Thera [Multivitamin 1 tab PO DAILY@59901/10/18 11/16/18 History (formulary)] Omeprazole [PriLOSEC] 40 mg PO DAILY@59901/10/18 11/16/18 History amLODIPine [Norvasc] 10 mg PO DAILY@99901/10/18 11/16/18 History Carvedilol [Coreg] 25 mg PO BID@1000,209903/06/18 11/16/18 History hydrALAZINE HCL [Apresoline] 50 mg PO TID@0600,1400,2100 03/06/18 11/16/18 History Furosemide [Lasix] 60 mg PO DAILY@1000 06/27/18 11/16/18 History INSULIN LISPRO (HumaLOG) [humaLOG] 15 units SQ AC-SUPPER 06/27/18 11/16/18 History INSULIN LISPRO (humaLOG) [humaLOG] 5 units SQ AC-BRKFST 06/27/18 11/16/18 History INSULIN LISPRO (humaLOG) [humaLOG] 10 units SQ AC-LUNCH 06/27/18 11/16/18 History Insulin Glargine,Hum.rec.anlog 20 unit SQ HS 06/27/18 11/16/18 History [Lantus Solostar] Potassium Chloride ER [K-Dur 20] 20 meq PO DAILY@1000 06/27/18 11/16/18 History Sevelamer [Renvela] 800 mg PO TID@0600,1400,2100 06/27/18 11/16/18 History Spironolactone [Aldactone] 12.5 mg PO BID@1000,2100 06/27/18 11/16/18 History traZODone HCL 50 mg PO HS@2100 06/27/18 11/16/18 History Allergies Allergy/AdvReac Type Severity Reaction Status Date / Time No Known Allergies Allergy Verified 11/16/18 14:57 Physical Exam Vitals: Vital Signs Temp Pulse Pulse Resp BP BP Pulse Ox 11/17/18 14:46 77 17 11/17/18 13:47 97.8 F 77 17 136/64 92 L 11/17/18 08:30 98.9 F 93 20 11/17/18 05:31 99.6 F 11/17/18 04:30 100.7 F H 93 20 139/63 92 L 11/16/18 21:37 98.7 F 88 20 143/65 91 L 11/16/18 21:07 84 18 143/64 94 L 11/16/18 19:40 90 18 130/61 94 L 11/16/18 19:00 83 27 H 146/59 91 L 11/16/18 18:30 85 25 H 138/65 95 11/16/18 18:00 84 28 H 150/63 93 L 11/16/18 17:30 86 29 H 144/57 93 L Intake and Output 11/17/18 11/17/18 11/17/18 06:59 14:59 22:59 Intake Total 240 160 Output Total 240 Balance 240 -80 Intake: Oral 240 160 Output: Urine 240 Other: Voiding Method Bedside Commode # Voids 1 1 HEENT: Anicteric, conjunctiva are pink and moist, nasal or oral mucosa are without lesion. The neck is supple without lymphadenopathy or thyromegaly. No oral thrush is noted. Lungs: good bilateral air entry, there are no significant crackles or wheezes, no bronchial sounds or egophony. Heart: Regular rate and rhythm with an audible S1-S2, no S3 or S4 noted. No significant murmur click or rub noted. Abdomen: Positive bowel sounds, soft and nontender, there is no palpable masses or organomegaly. Abdomen is without guarding or rebound. Extremities:Upper extremities reveal evidence of equal pulses, the left forearm is without significant lesion or edema. The left arm shows evidence of the recent surgical intervention. The surgical incisions are healing well without significant drainage. There is some mild erythema at the incision site. The distal site is extremely tender to touch. There is no expressible purulence. It is not stiff in the warm. There is not significant swelling to the left upper arm. Right arm without abnormalities The lower extremities have no significant edema, peripheral pulses were 2+ and symmetric, no lesions or ulcerations are seen. Capillary refill was brisk. Skin: Intact without significant rash or lesions. right anterior chest wall PermCath is without erythema or expressible purulence Neuro:Awake and alert, oriented to person place and time. No gross focal sensory motor deficits noted. Musculoskeletal: Patient is ambulatory No acute joint effusions are noted. Lymph: No cervical, supraclavicular, axillary, epitrochlear, or inguinal lymphadenopathy was noted. Results CBC & Chem 7: 11/16/18 15:05 11/17/18 14:58 Labs: Abnormal Lab Results - Last 24 Hours (Table) 11/16/18 11/17/18 11/17/18 Range/Units 20:56 06:58 11:58 Creatinine (0.52-1.04) mg/dL POC Glucose (mg/dL) 226 H 71 L 148 H (75-99) mg/dL Urine Protein (Negative) Urine Glucose (UA) (Negative) Amorphous Sediment (None) /hpf 11/17/18 11/17/18 11/17/18 Range/Units 13:35 14:58 17:17 Creatinine 4.21 H (0.52-1.04) mg/dL POC Glucose (mg/dL) 110 H (75-99) mg/dL Urine Protein 3+ H (Negative) Urine Glucose (UA) 2+ H (Negative) Amorphous Sediment Rare H (None) /hpf Microbiology - Last 24 Hours (Table) 11/17/18 13:35 Urine Culture - Preliminary Urine,Voided Laboratory Results WBC 10.1 k/uL (3.8-10.6) 11/16/18 15:05 RBC 3.29 m/uL (3.80-5.40) L 11/16/18 15:05 Hgb 10.0 gm/dL (11.4-16.0) L 11/16/18 15:05 Hct 30.5 % (34.0-46.0) L 11/16/18 15:05 MCV 92.6 fL (80.0-100.0) 11/16/18 15:05 MCH 30.3 pg (25.0-35.0) 11/16/18 15:05 MCHC 32.7 g/dL (31.0-37.0) 11/16/18 15:05 RDW 15.5 % (11.5-15.5) 11/16/18 15:05 Plt Count 210 k/uL (150-450) 11/16/18 15:05 Neutrophils % 81 % 11/16/18 15:05 Lymphocytes % 12 % 11/16/18 15:05 Monocytes % 5 % 11/16/18 15:05 Eosinophils % 1 % 11/16/18 15:05 Basophils % 0 % 11/16/18 15:05 Neutrophils # 8.2 k/uL (1.3-7.7) H 11/16/18 15:05 Lymphocytes # 1.2 k/uL (1.0-4.8) 11/16/18 15:05 Monocytes # 0.5 k/uL (0-1.0) 11/16/18 15:05 Eosinophils # 0.1 k/uL (0-0.7) 11/16/18 15:05 Basophils # 0.0 k/uL (0-0.2) 11/16/18 15:05 Sodium 134 mmol/L (137-145) L 11/16/18 15:05 Potassium 4.7 mmol/L (3.5-5.1) 11/16/18 15:05 Chloride 101 mmol/L (98-107) 11/16/18 15:05 Carbon Dioxide 23 mmol/L (22-30) 11/16/18 15:05 Anion Gap 10 mmol/L 11/16/18 15:05 BUN 40 mg/dL (7-17) H 11/16/18 15:05 Creatinine 4.21 mg/dL (0.52-1.04) H 11/17/18 14:58 Est GFR (CKD-EPI)AfAm 11 (>60 ml/min/1.73 sqM) 11/17/18 14:58 Est GFR (CKD-EPI)NonAf 9 (>60 ml/min/1.73 sqM) 11/17/18 14:58 Glucose 228 mg/dL (74-99) H 11/16/18 15:05 POC Glucose (mg/dL) 110 mg/dL (75-99) H 11/17/18 17:17 POC Glu Systems Security Analyst ID Radha La 11/17/18 17:17 Plasma Lactic Acid Lalo 0.9 mmol/L (0.7-2.0) 11/16/18 15:05 Calcium 9.2 mg/dL (8.4-10.2) 11/16/18 15:05 Magnesium 1.7 mg/dL (1.6-2.3) 11/16/18 15:05 Total Bilirubin 1.1 mg/dL (0.2-1.3) 11/16/18 15:05 AST 36 U/L (14-36) 11/16/18 15:05 ALT 10 U/L (9-52) 11/16/18 15:05 Alkaline Phosphatase 61 U/L (38-126) 11/16/18 15:05 Ammonia <9 umol/L (<30) 11/16/18 15:05 Total Protein 6.3 g/dL (6.3-8.2) 11/16/18 15:05 Albumin 3.6 g/dL (3.5-5.0) 11/16/18 15:05 Urine Color Yellow 11/17/18 13:35 Urine Appearance Clear (Clear) 11/17/18 13:35 Urine pH 6.5 (5.0-8.0) 11/17/18 13:35 Ur Specific Union 1.020 (1.001-1.035) 11/17/18 13:35 Urine Protein 3+ (Negative) H 11/17/18 13:35 Urine Glucose (UA) 2+ (Negative) H 11/17/18 13:35 Urine Ketones Negative (Negative) 11/17/18 13:35 Urine Blood Negative (Negative) 11/17/18 13:35 Urine Nitrite Negative (Negative) 11/17/18 13:35 Urine Bilirubin Negative (Negative) 11/17/18 13:35 Urine Urobilinogen <2.0 mg/dL (<2.0) 11/17/18 13:35 Ur Leukocyte Esterase Negative (Negative) 11/17/18 13:35 Urine RBC 1 /hpf (0-5) 11/17/18 13:35 Urine WBC 3 /hpf (0-5) 11/17/18 13:35 Ur Squamous Epith Cells <1 /hpf (0-4) 11/17/18 13:35 Amorphous Sediment Rare /hpf (None) H 11/17/18 13:35 Microbiology 11/16/18 15:27 Blood Blood Culture - Preliminary No Growth after 24 hours 11/17/18 13:35 Urine,Voided Urine Culture - Preliminary Assessment and Plan (1) Fever Narrative/Plan: 83 -year-old woman presents to Hospital because of increasing pain discomfort and swelling to her left arm after her fistula has been placed for her hem odialysis. Patient has a long-standing history of diabetes and hypertension and has been on hemodialysis and tolerating it well at the [facility]. At this time does have a painful swelling to the left arm at the AV fistula site. There is no expressible purulence. Patient however was febrile. We'll initiate vancomycin for now while cultures are pending. Doppler was performed to the left arm without evidence of deep venous thrombosis. Nutrition as per routine renal diet. Current Visit: Yes Status: Acute Code(s): R50.9 - FEVER, UNSPECIFIED SNOMED Code(s): 855244291 (2) Pain in left arm Current Visit: Yes Status: Acute Code(s): M79.602 - PAIN IN LEFT ARM SNOMED Code(s): 414750624 (3) End-stage renal disease on hemodialysis Current Visit: Yes Status: Acute Code(s): N18.6 - END STAGE RENAL DISEASE; Z99.2 - DEPENDENCE ON RENAL DIALYSIS SNOMED Code(s): 010893462
--- NOTE | 2018-11-17 19:15 | PN ---
PROGRESS NOTE SUBJECTIVE: 83-year-old white female with left upper arm cellulitis, seen by vascular physician. He is waiting for blood cultures. Continue on IV antibiotics. She is having no chest pain, shortness of breath. Renal doctor seen her for dialysis. Cardiovascular S1-S2. Lungs clear. GI soft. Hematology negative Homans. ASSESSMENT: 1. Left upper arm cellulitis status post port placement over the same area. 2. End-stage renal disease. 3. Hypertension. 4. Coronary artery disease. Continue current treatments. Await for blood cultures as mentioned. Continue broad- spectrum antibiotics. MMODL / IJN: [id number] /
[2018-11-17 20:21] LABS: Glucose,Whole Blood 122 mg/dL (75-99)
[2018-11-17] MEDS: traZODone HCL 50 MG TAB PO SCH (20:58)
[2018-11-18] MEDS: INSULIN DETEMIR (LEVEMIR) 100 UNIT/ML SYR SQ SCH ×3 (04:07→20:50)
[2018-11-18 04:20] LABS: Glucose,Whole Blood 174 mg/dL (75-99)
[2018-11-18] MEDS: SODIUM CHLORIDE 0.9% 1,000 ML IV SCH (04:38)
[2018-11-18] MEDS: PANTOPRAZOLE 40 MG TABLET PO SCH (05:57)
[2018-11-18] MEDS: hydrALAZINE HCL 50 MG TAB PO SCH ×3 (05:58→20:54)
[2018-11-18] MEDS: MULTIVITAMINS, THERA 1 EACH TAB PO SCH (05:58)
[2018-11-18 07:06] LABS: Glucose,Whole Blood 158 mg/dL (75-99)
[2018-11-18] MEDS: ASPIRIN 81 MG PO SCH (08:43)
[2018-11-18] MEDS: CARVEDILOL 12.5 MG TAB PO SCH ×2 (08:43→20:54)
[2018-11-18] MEDS: SPIRONOLACTONE 25 MG TAB PO SCH ×2 (08:44→20:54)
[2018-11-18] MEDS: amLODIPine 10 MG TAB PO SCH (08:44)
[2018-11-18] MEDS: FUROSEMIDE 40 MG TAB PO SCH (08:45)
[2018-11-18] MEDS: POTASSIUM CHLORIDE ER 20 MEQ TAB.ER PO SCH (08:46)
[2018-11-18] MEDS: INSULIN ASPART (NovoLOG) 100 UNIT/ML VIAL SQ SCH ×3 (08:46→18:07)
[2018-11-18] MEDS: SEVELAMER 800 MG TAB PO SCH ×3 (08:49→18:07)
[2018-11-18] MEDS: FENOFIBRATE 160 MG TAB PO SCH (08:49)
[2018-11-18] MEDS: oxyCODONE-APAP 5-325MG 1 EACH TAB PO PRN (09:02)
--- NOTE | 2018-11-18 09:25 | P.PN ---
Subjective Patient is seen in follow-up for end-stage renal disease. She is maintained on hemodialysis on a Monday schedule. Currently sitting up in chair. She is afebrile. No chest pain or shortness of breath. Overall feels better today. Vital signs are stable. General: The patient appeared well nourished and normally developed. HEENT: Head exam is unremarkable. Neck is without jugular venous distension. LUNGS: Lungs are clear to auscultation and percussion. Breath sounds decreased. HEART: Rate and Rhythm are regular. First and second heart sounds normal. No murmurs, rubs or gallops. ABDOMEN: Abdominal exam reveals normal bowel sounds. Non-tender and non- distended. No evidence of peritonitis. EXTREMITITES: No clubbing, cyanosis, or edema. Objective - Vital Signs Vital signs: Vital Signs Temp 98.4 F 11/18/18 05:31 Pulse 77 11/18/18 05:31 Resp 18 11/18/18 05:31 BP 144/61 11/18/18 05:31 Pulse Ox 92 L 11/18/18 05:31 Intake & Output 11/17/18 11/18/18 11/18/18 18:59 06:59 18:59 Intake Total 160 700 Output Total 240 800 Balance -80 -100 Weight 81.3 kg Intake: Intake, IV Titration 400 Amount Sodium Chloride 0.9% 1, 400 000 ml @ 50 mls/hr IV . Q20H [facility] Rx#:[id number] Oral 160 Hemodialysis 300 Output: Urine 240 Hemodialysis 800 Other: Voiding Method Bedside Commode Toilet # Voids 1 1 - Labs CBC & Chem 7: 11/16/18 15:05 11/17/18 14:58 Labs: Abnormal Lab Results - Last 24 Hours (Table) 11/17/18 11/17/18 11/17/18 Range/Units 11:58 13:35 14:58 Creatinine 4.21 H (0.52-1.04) mg/dL POC Glucose (mg/dL) 148 H (75-99) mg/dL Urine Protein 3+ H (Negative) Urine Glucose (UA) 2+ H (Negative) Amorphous Sediment Rare H (None) /hpf 11/17/18 11/17/18 11/18/18 Range/Units 17:17 20:19 04:18 Creatinine (0.52-1.04) mg/dL POC Glucose (mg/dL) 110 H 122 H 174 H (75-99) mg/dL Urine Protein (Negative) Urine Glucose (UA) (Negative) Amorphous Sediment (None) /hpf 11/18/18 Range/Units 06:45 Creatinine (0.52-1.04) mg/dL POC Glucose (mg/dL) 158 H (75-99) mg/dL Urine Protein (Negative) Urine Glucose (UA) (Negative) Amorphous Sediment (None) /hpf Microbiology - Last 24 Hours (Table) 11/16/18 15:27 Blood Culture - Preliminary Blood No Growth after 24 hours 11/17/18 13:35 Urine Culture - Preliminary Urine,Voided Assessment and Plan Plan: Assessment: 1. End-stage renal disease maintained on hemodialysis on a Monday schedule via right chest permacath. 2. Status post AV graft surgery last week. 3. Fever. Rule out bacteremia. No evidence of drainage from the catheter site. No evidence of infection at the AV graft site per vascular surgery. Cultures negative so far. 4. Chronic kidney disease mineral bone disease maintained on Renvela. 5. Insulin-dependent diabetes mellitus. 6. Hypertension with chronic kidney disease. Controlled. Plan: Hemodialysis tomorrow. Follow-up cultures.
[2018-11-18 11:48] LABS: Glucose,Whole Blood 231 mg/dL (75-99)
[2018-11-18] MEDS ORDERED: VANCOMYCIN 1,500 MG in SODIUM CHLORIDE 0.9% 250 ML IVPB ONE (15:00)
[2018-11-18 17:00] LABS: Glucose,Whole Blood 123 mg/dL (75-99)
[2018-11-18 20:30] LABS: Glucose,Whole Blood 86 mg/dL (75-99)
[2018-11-18] MEDS: traZODone HCL 50 MG TAB PO SCH (20:54)
--- NOTE | 2018-11-18 22:56 | PN ---
PROGRESS NOTE SUBJECTIVE: 83-year-old white female with possible infected graft from the left arm. She came in with febrile illness. Vancomycin is ordered. We will wait until further cultures are back. She continues to have redness and swelling on the left arm. Cardiovascular S1-S2. Lungs transmitted upper airway sounds. Hematology negative Homans. ASSESSMENT: 1. End-stage renal disease. 2. Coronary artery disease. 3. Left upper arm cellulitis. Possible infected graft. PLAN: Await for cultures. Continue vancomycin. MMODL / IJN: [id number] /
[2018-11-19] MEDS: oxyCODONE-APAP 5-325MG 1 EACH TAB PO PRN ×2 (00:43→10:57)
[2018-11-19] MEDS: MULTIVITAMINS, THERA 1 EACH TAB PO SCH (05:27)
[2018-11-19] MEDS: PANTOPRAZOLE 40 MG TABLET PO SCH (05:27)
[2018-11-19] MEDS: hydrALAZINE HCL 50 MG TAB PO SCH ×3 (05:27→21:56)
[2018-11-19] MEDS: SODIUM CHLORIDE 0.9% 1,000 ML IV SCH ×2 (05:33→05:59)
[2018-11-19 06:52] LABS: Glucose,Whole Blood 142 mg/dL (75-99)
[2018-11-19] MEDS: FUROSEMIDE 40 MG TAB PO SCH (08:05)
[2018-11-19] MEDS: POTASSIUM CHLORIDE ER 20 MEQ TAB.ER PO SCH (08:05)
[2018-11-19] MEDS: FENOFIBRATE 160 MG TAB PO SCH (08:05)
[2018-11-19] MEDS: CARVEDILOL 12.5 MG TAB PO SCH ×2 (08:05→21:57)
[2018-11-19] MEDS: SPIRONOLACTONE 25 MG TAB PO SCH ×2 (08:05→21:56)
[2018-11-19] MEDS: ASPIRIN 81 MG PO SCH (08:05)
[2018-11-19] MEDS: SEVELAMER 800 MG TAB PO SCH ×3 (08:05→17:58)
[2018-11-19] MEDS: INSULIN ASPART (NovoLOG) 100 UNIT/ML VIAL SQ SCH ×3 (08:06→17:58)
[2018-11-19] MEDS: amLODIPine 10 MG TAB PO SCH (08:06)
--- NOTE | 2018-11-19 08:35 | P.PN ---
Subjective Patient is seen in follow-up for end-stage renal disease. She is maintained on hemodialysis on a Monday schedule. Currently sitting up in chair. She is afebrile. No chest pain or shortness of breath. Cultures have been negative. Vital signs are stable. General: The patient appeared well nourished and normally developed. HEENT: Head exam is unremarkable. Neck is without jugular venous distension. LUNGS: Lungs are clear to auscultation and percussion. Breath sounds decreased. HEART: Rate and Rhythm are regular. First and second heart sounds normal. No murmurs, rubs or gallops. ABDOMEN: Abdominal exam reveals normal bowel sounds. Non-tender and non- distended. No evidence of peritonitis. EXTREMITITES: No clubbing, cyanosis, or edema. Objective - Vital Signs Vital signs: Vital Signs Temp 98.5 F 11/19/18 05:18 Pulse 80 11/19/18 05:18 Resp 20 11/19/18 05:18 BP 139/69 11/19/18 05:18 Pulse Ox 92 L 11/19/18 05:18 Intake & Output 11/18/18 11/19/18 11/19/18 18:59 06:59 18:59 Intake Total 360 Output Total 200 Balance 160 Intake: Oral 360 Output: Urine 200 Other: Voiding Method Toilet Toilet Toilet # Voids 1 1 - Labs CBC & Chem 7: 11/16/18 15:05 11/17/18 14:58 Labs: Abnormal Lab Results - Last 24 Hours (Table) 11/18/18 11/18/18 11/19/18 Range/Units 11:46 16:57 06:51 POC Glucose (mg/dL) 231 H 123 H 142 H (75-99) mg/dL Microbiology - Last 24 Hours (Table) 11/17/18 15:30 Blood Culture - Preliminary Blood No Growth after 24 hours 11/16/18 15:27 Blood Culture - Preliminary Blood No Growth after 48 hours 11/17/18 13:35 Urine Culture - Final Urine,Voided Assessment and Plan Plan: Assessment: 1. End-stage renal disease maintained on hemodialysis on a Monday schedule via right chest permacath. 2. Status post AV graft surgery last week. 3. Fever. Rule out bacteremia. No evidence of drainage from the catheter site. No evidence of infection at the AV graft site per vascular surgery. Cultures negative so far. 4. Chronic kidney disease mineral bone disease maintained on Renvela. 5. Insulin-dependent diabetes mellitus. 6. Hypertension with chronic kidney disease. Controlled. Plan: Hemodialysis today. Follow-up cultures. Stable to be discharged home from nephrology standpoint.
[2018-11-19 10:12] LABS: Basophils % (A) 0 %; Eosinophils # (A) 0.3 k/uL (0-0.7); Eosinophils % (A) 3 %; HCT 24.2 % (34.0-46.0); Lymphocytes % (A) 12 %; MCH 30.7 pg (25.0-35.0); MCHC 33.3 g/dL (31.0-37.0); MCV 92.2 fL (80.0-100.0); Mean Platelet Volume 8.9; Monocytes # (A) 0.4 k/uL (0-1.0); Monocytes % (A) 5 %; Neutrophils # (A) 6.6 k/uL (1.3-7.7); Neutrophils % (A) 79 %; Platelet Count 189 k/uL (150-450); RBC 2.63 m/uL (3.80-5.40); RDW 15.3 % (11.5-15.5); WBC 8.3 k/uL (3.8-10.6)
[2018-11-19 10:14] LABS: HGB 8.1 gm/dL (11.4-16.0)
[2018-11-19 10:29] LABS: Calcium 8.5 mg/dL (8.4-10.2)
--- NOTE | 2018-11-19 11:09 | CDI ---
Documentation Clarification Form Date: 11/19/2018 10:51:18 AM From: Delores Garcia RN, CCDS Admit Date: 11/16/2018 5:05:00 PM Patient Name: Jane Vernon Visit Number: [id number] Discharge Date: ATTENTION: The Clinical Documentation Specialists (CDI) and [facility] Coding Staff appreciate your assistance in clarifying documentation. Please respond to the clarification below the line at the bottom and electronically sign. The CDI & [facility] Coding staff will review the response and follow-up if needed. Please note: Queries are made part of the Legal Health Record. If you have any questions, please contact the author of this message via ITS. Dr. Francisco Javier Simeon CHF is documented in the past medical history. History/Risk Factors: HTN, ESRD, DM type 2 Clinical Indicators: per past medical history, and ongoing treatment. Echocardiogram Results form 01/19/18: EF 50-55 %, mild left ventricular hypertrophy Chest X Ray: Congestive heart failure with pleural fluid that is increased compared to last exam. Pulmonary congestion increased. Treatment: Lasix 60 PO Daily In your professional opinion, can you please clarify the acuity and type of CHF if known? Chronic Diastolic Heart Failure Chronic Systolic Heart Failure Chronic Systolic & Diastolic Heart Failure: Unable to Determine Other, please specify (Last Revision: October 2017) MTDD
[2018-11-19 11:51] LABS: Glucose,Whole Blood 171 mg/dL (75-99)
[2018-11-19] MEDS ORDERED: VANCOMYCIN 1,500 MG in SODIUM CHLORIDE 0.9% 250 ML IVPB ONE (12:00)
--- NOTE | 2018-11-19 13:51 | P.PN ---
Subjective Progress Note Date: 11/19/18 Principal diagnosis: This is an 83-year-old female admitted with cellulitis/infection of left upper arm graft. Maintained on vancomycin.Afebrile, preliminary cultures negative. Receiving hemodialysis today. Blood sugars controlled. Objective - Vital Signs Vital signs: Vital Signs Temp 98.5 F 11/19/18 05:18 Pulse 80 11/19/18 05:18 Resp 20 11/19/18 05:18 BP 139/69 11/19/18 05:18 Pulse Ox 92 L 11/19/18 05:18 Intake & Output 11/18/18 11/19/18 11/19/18 18:59 06:59 18:59 Intake Total 360 Output Total 200 Balance 160 Intake: Oral 360 Output: Urine 200 Other: Voiding Method Toilet Toilet Toilet # Voids 1 1 - Exam PHYSICAL EXAM: VITAL SIGNS: as above. GENERAL: Sitting up in bed, no acute distress HEENT: Conjunctivae normal. eyes normal. Oral mucosa moist NECK: No JVD. No thyroid enlargement. No LNs CARDIOVASCULAR: S1, S2 muffled. No murmur RESPIRATION: Breath sounds diminished in the bases. No rhonchi or crackles. No bronchial breathing. ABDOMEN: Soft, nontender . No guarding. no masses palpable. Bowel sounds heard. LEGS: No edema. no swelling PSYCHIATRY: Alert and oriented -3, mood and affect normal. NERVOUS SYSTEM: Cranial N 2-12 grossly normal. Moves all 4 limbs. Diffuse weak ness No focal deficits. Skin: no ulcer no rash . Left upper arm redness improved, edema, significant bruising. Positive radial pulse - Labs CBC & Chem 7: 11/19/18 09:24 11/19/18 09:24 Labs: Abnormal Lab Results - Last 24 Hours (Table) 11/18/18 11/18/18 11/19/18 Range/Units 11:46 16:57 06:51 POC Glucose (mg/dL) 231 H 123 H 142 H (75-99) mg/dL Microbiology - Last 24 Hours (Table) 11/17/18 15:30 Blood Culture - Preliminary Blood No Growth after 24 hours 11/16/18 15:27 Blood Culture - Preliminary Blood No Growth after 48 hours 11/17/18 13:35 Urine Culture - Final Urine,Voided Assessment and Plan Assessment: -Left arm cellulitis, possible infected graft, in a patient with recent AV graft surgery-last week -End-stage renal disease -CAD -Diabetes mellitus Plan: Continue on current medication regime ,monitoring and symptomatic treatment. Hemodialysis today. Continue following cultures closely with anti biotics as per infectious disease. Discharge planning in progress pending final culture results, clearance from ID with antibiotic discharge recommendations. The impression and plan of care has been dictated as directed. : I performed a history and examination of this patient, discussed the same with the dictator. I agree with the dictator's note ,documented as a scribe. Any additional findings or plans will be noted.
[2018-11-19 17:06] LABS: Glucose,Whole Blood 191 mg/dL (75-99)
[2018-11-19 20:49] LABS: Glucose,Whole Blood 158 mg/dL (75-99)
[2018-11-19] MEDS: traZODone HCL 50 MG TAB PO SCH (21:57)
[2018-11-19] MEDS: INSULIN DETEMIR (LEVEMIR) 100 UNIT/ML SYR SQ SCH (21:57)
--- NOTE | 2018-11-19 22:24 | P.PN ---
Subjective Progress Note Date: 11/19/18 83-year-old female was a history of end-stage renal failure who is now on hemodialysis via the right anterior chest wall PermCath. Patient relates that she recently had the fistula placed into her left upper arm for ongoing hemodialysis. The patient is not able to vocalize etiology of her renal failure, but does choose to have ongoing hemodialysis. She this time relates that at home she started to feel poorly with increasing pain to her left shoulder and arm. She had great difficulty utilizing a. She developed low-grade fever and felt poorly and counselor presents the emergency center. She subsequently has been admitted and consults have been requested. She did not check her fever at home. It was 100.7 in the emergency center. 11/19/2018 the patient is feeling considerably better today. The pain in her left arm is in was completely resolved. She had hemodialysis today through the port in the right anterior chest wall. No new positive cultures.patient is afebrile. Objective - Vital Signs Vital signs: Vital Signs Temp 97.3 F L 11/19/18 21:00 Pulse 70 11/19/18 21:00 Resp 20 11/19/18 21:00 BP 142/66 11/19/18 21:00 Pulse Ox 93 L 11/19/18 21:00 Intake & Output 11/19/18 11/19/18 11/20/18 06:59 18:59 06:59 Intake Total 1200 Output Total 1100 Balance 100 Intake: Intake, IV Titration 650 Amount Sodium Chloride 0.9% 1, 400 000 ml @ 50 mls/hr IV . Q20H [facility] Rx#:[id number] Vancomycin 1,500 mg In 250 Sodium Chloride 0.9% 250 ml @ 125 mls/hr IVPB ONCE ONE Rx#:[id number] Oral 550 Output: Hemodialysis 1100 Other: Voiding Method Toilet Toilet # Voids 1 - Exam HEENT: Anicteric, conjunctiva are pink and moist, nasal or oral mucosa are with out lesion. The neck is supple without lymphadenopathy or thyromegaly. No oral thrush is noted. Lungs: good bilateral air entry, there are no significant crackles or wheezes, no bronchial sounds or egophony. Heart: Regular rate and rhythm with an audible S1-S2, no S3 or S4 noted. No significant murmur click or rub noted. Abdomen: Positive bowel sounds, soft and nontender, there is no palpable masses or organomegaly. Abdomen is without guarding or rebound. Extremities:Upper extremities reveal evidence of equal pulses, the left forearm is without significant lesion or edema. The left arm shows evidence of the recent surgical intervention. The surgical incisions are healing well without significant drainage. There is some mild erythema at the incision site. The distal site is no longer tender to touch.There is no expressible purulence. the arms without increased warmth the warm. There is not significant swelling to the left upper arm. Right arm without abnormalities The lower extremities have no significant edema, peripheral pulses were 2+ and symmetric, no lesions or ulcerations are seen. Capillary refill was brisk. Skin: Intact without significant rash or lesions. right anterior chest wall PermCath is without erythema or expressible purulence Neuro:Awake and alert, oriented to person place and time. No gross focal sensory motor deficits noted. Musculoskeletal: Patient is ambulatory No acute joint effusions are noted. Lymph: No cervical, supraclavicular, axillary, epitrochlear, or inguinal lymphadenopathy was noted. - Labs CBC & Chem 7: 11/19/18 09:24 11/19/18 09:24 Labs: Abnormal Lab Results - Last 24 Hours (Table) 11/19/18 11/19/18 11/19/18 Range/Units 06:51 09:24 09:24 RBC 2.63 L (3.80-5.40) m/uL Hgb 8.1 L D (11.4-16.0) gm/dL Hct 24.2 L (34.0-46.0) % Sodium 133 L (137-145) mmol/L BUN 30 H (7-17) mg/dL Creatinine 3.27 H (0.52-1.04) mg/dL Glucose 159 H (74-99) mg/dL POC Glucose (mg/dL) 142 H (75-99) mg/dL 11/19/18 11/19/18 11/19/18 Range/Units 11:46 17:04 20:47 RBC (3.80-5.40) m/uL Hgb (11.4-16.0) gm/dL Hct (34.0-46.0) % Sodium (137-145) mmol/L BUN (7-17) mg/dL Creatinine (0.52-1.04) mg/dL Glucose (74-99) mg/dL POC Glucose (mg/dL) 171 H 191 H 158 H (75-99) mg/dL Microbiology - Last 24 Hours (Table) 11/17/18 15:30 Blood Culture - Preliminary Blood No Growth after 48 hours 11/16/18 15:27 Blood Culture - Preliminary Blood No Growth after 72 hours Laboratory Results WBC 8.3 k/uL (3.8-10.6) 11/19/18 09:24 RBC 2.63 m/uL (3.80-5.40) L 11/19/18 09:24 Hgb 8.1 gm/dL (11.4-16.0) L D 11/19/18 09:24 Hct 24.2 % (34.0-46.0) L 11/19/18 09:24 MCV 92.2 fL (80.0-100.0) 11/19/18 09:24 MCH 30.7 pg (25.0-35.0) 11/19/18 09:24 MCHC 33.3 g/dL (31.0-37.0) 11/19/18 09:24 RDW 15.3 % (11.5-15.5) 11/19/18 09:24 Plt Count 189 k/uL (150-450) 11/19/18 09:24 Neutrophils % 79 % 11/19/18 09:24 Lymphocytes % 12 % 11/19/18 09:24 Monocytes % 5 % 11/19/18 09:24 Eosinophils % 3 % 11/19/18 09:24 Basophils % 0 % 11/19/18 09:24 Neutrophils # 6.6 k/uL (1.3-7.7) 11/19/18 09:24 Lymphocytes # 1.0 k/uL (1.0-4.8) 11/19/18 09:24 Monocytes # 0.4 k/uL (0-1.0) 11/19/18 09:24 Eosinophils # 0.3 k/uL (0-0.7) 11/19/18 09:24 Basophils # 0.0 k/uL (0-0.2) 11/19/18 09:24 Sodium 133 mmol/L (137-145) L 11/19/18 09:24 Potassium 4.0 mmol/L (3.5-5.1) 11/19/18 09:24 Chloride 100 mmol/L (98-107) 11/19/18 09:24 Carbon Dioxide 24 mmol/L (22-30) 11/19/18 09:24 Anion Gap 9 mmol/L 11/19/18 09:24 BUN 30 mg/dL (7-17) H 11/19/18 09:24 Creatinine 3.27 mg/dL (0.52-1.04) H 11/19/18 09:24 Est GFR (CKD-EPI)AfAm 14 (>60 ml/min/1.73 sqM) 11/19/18 09:24 Est GFR (CKD-EPI)NonAf 12 (>60 ml/min/1.73 sqM) 11/19/18 09:24 Glucose 159 mg/dL (74-99) H 11/19/18 09:24 POC Glucose (mg/dL) 158 mg/dL (75-99) H 11/19/18 20:47 POC Glu Bank Officer ID [employer] Hernandez 11/19/18 20:47 Plasma Lactic Acid Lalo 0.9 mmol/L (0.7-2.0) 11/16/18 15:05 Calcium 8.5 mg/dL (8.4-10.2) 11/19/18 09:24 Magnesium 1.7 mg/dL (1.6-2.3) 11/16/18 15:05 Total Bilirubin 1.1 mg/dL (0.2-1.3) 11/16/18 15:05 AST 36 U/L (14-36) 11/16/18 15:05 ALT 10 U/L (9-52) 11/16/18 15:05 Alkaline Phosphatase 61 U/L (38-126) 11/16/18 15:05 Ammonia <9 umol/L (<30) 11/16/18 15:05 Total Protein 6.3 g/dL (6.3-8.2) 11/16/18 15:05 Albumin 3.6 g/dL (3.5-5.0) 11/16/18 15:05 Urine Color Yellow 11/17/18 13:35 Urine Appearance Clear (Clear) 11/17/18 13:35 Urine pH 6.5 (5.0-8.0) 11/17/18 13:35 Ur Specific [place] 1.020 (1.001-1.035) 11/17/18 13:35 Urine Protein 3+ (Negative) H 11/17/18 13:35 Urine Glucose (UA) 2+ (Negative) H 11/17/18 13:35 Urine Ketones Negative (Negative) 11/17/18 13:35 Urine Blood Negative (Negative) 11/17/18 13:35 Urine Nitrite Negative (Negative) 11/17/18 13:35 Urine Bilirubin Negative (Negative) 11/17/18 13:35 Urine Urobilinogen <2.0 mg/dL (<2.0) 11/17/18 13:35 Ur Leukocyte Esterase Negative (Negative) 11/17/18 13:35 Urine RBC 1 /hpf (0-5) 11/17/18 13:35 Urine WBC 3 /hpf (0-5) 11/17/18 13:35 Ur Squamous Epith Cells <1 /hpf (0-4) 11/17/18 13:35 Amorphous Sediment Rare /hpf (None) H 11/17/18 13:35 Random Vancomycin <5.0 ug/mL 11/19/18 09:24 Microbiology 11/17/18 15:30 Blood Blood Culture - Preliminary No Growth after 48 hours 11/16/18 15:27 Blood Blood Culture - Preliminary No Growth after 72 hours 11/17/18 13:35 Urine,Voided Urine Culture - Final Assessment and Plan (1) Fever Narrative/Plan: 83 -year-old woman presents to Hospital because of increasing pain discomfort and swelling to her left arm after her fistula has been placed for her hemodialysis. Patient has a long-standing history of diabetes and hypertension and has been on hemodialysis and tolerating it well at the [facility]. At this time does have a painful swelling to the left arm at the AV fistula site. There is no expressible purulence. Patient however was febrile. We'll initiate vancomycin for now while cultures are pending. Doppler was performed to the left arm without evidence of deep venous thrombosis. Nutrition as per routine renal diet. A 22019 the patient is feeling better today. His had improvement of the pain and tenderness to the left arm at the site of the new dialysis graft. There is no expressible purulence. Cultures are negative so far. She tolerated hemodialysis well. She likely will be discharged in near future. We've asked for pharmacy to dose vancomycin for 2 further doses which should give her nearly 10 days of antibiotic therapy. the antibiotic should be able to be given at the dialysis center given the likelihood of fever and infection from the dialysis shunt. Concern was the mild cellulitis to the left insertion site of the recent graft. There is no evidence of any significant abscess and has responded well to current intervention. Current Visit: Yes Status: Acute Code(s): R50.9 - FEVER, UNSPECIFIED SNOMED Code(s): 832269306 (2) Pain in left arm Current Visit: Yes Status: Acute Code(s): M79.602 - PAIN IN LEFT ARM SNOMED Code(s): 536200385 (3) End-stage renal disease on hemodialysis Current Visit: Yes Status: Acute Code(s): N18.6 - END STAGE RENAL DISEASE; Z99.2 - DEPENDENCE ON RENAL DIALYSIS SNOMED Code(s): 765693824
[2018-11-20] MEDS: PANTOPRAZOLE 40 MG TABLET PO SCH (05:46)
[2018-11-20] MEDS: MULTIVITAMINS, THERA 1 EACH TAB PO SCH (05:46)
[2018-11-20] MEDS: hydrALAZINE HCL 50 MG TAB PO SCH ×3 (05:46→20:32)
[2018-11-20 07:17] LABS: Glucose,Whole Blood 79 mg/dL (75-99)
[2018-11-20] MEDS: INSULIN ASPART (NovoLOG) 100 UNIT/ML VIAL SQ SCH ×3 (08:17→18:03)
[2018-11-20] MEDS: SEVELAMER 800 MG TAB PO SCH ×3 (08:18→18:11)
[2018-11-20] MEDS: amLODIPine 10 MG TAB PO SCH (08:20)
[2018-11-20] MEDS: ASPIRIN 81 MG PO SCH (08:21)
[2018-11-20] MEDS: CARVEDILOL 12.5 MG TAB PO SCH ×2 (08:21→20:32)
[2018-11-20] MEDS: POTASSIUM CHLORIDE ER 20 MEQ TAB.ER PO SCH (08:22)
[2018-11-20] MEDS: FENOFIBRATE 160 MG TAB PO SCH (08:22)
[2018-11-20] MEDS: oxyCODONE-APAP 5-325MG 1 EACH TAB PO PRN ×2 (08:23→14:02)
[2018-11-20] MEDS: FUROSEMIDE 40 MG TAB PO SCH (08:26)
[2018-11-20] MEDS: SPIRONOLACTONE 25 MG TAB PO SCH ×2 (08:27→20:32)
[2018-11-20 08:34] LABS: Basophils % (A) 0 %; Eosinophils # (A) 0.3 k/uL (0-0.7); Eosinophils % (A) 4 %; HCT 25.9 % (34.0-46.0); HGB 8.5 gm/dL (11.4-16.0); Lymphocytes # (A) 1.1 k/uL (1.0-4.8); Lymphocytes % (A) 14 %; MCH 30.5 pg (25.0-35.0); MCHC 32.7 g/dL (31.0-37.0); MCV 93.1 fL (80.0-100.0); Mean Platelet Volume 8.6; Monocytes # (A) 0.5 k/uL (0-1.0); Monocytes % (A) 6 %; Neutrophils # (A) 6.1 k/uL (1.3-7.7); Neutrophils % (A) 75 %; Platelet Count 220 k/uL (150-450); RBC 2.78 m/uL (3.80-5.40); RDW 15.5 % (11.5-15.5); WBC 8.1 k/uL (3.8-10.6)
[2018-11-20 08:50] LABS: Calcium 8.9 mg/dL (8.4-10.2); Potassium 4.6 mmol/L (3.5-5.1)
[2018-11-20] MEDS ORDERED: VANCOMYCIN 1,500 MG in SODIUM CHLORIDE 0.9% 250 ML IVPB ONE (09:00)
--- NOTE | 2018-11-20 11:08 | P.PN ---
Subjective Patient is seen in follow-up for end-stage renal disease. She is maintained on hemodialysis on a Monday schedule. She is afebrile. No chest pain or shortness of breath. Cultures have been negative. No active complaints at this time. Tolerated hemodialysis well yesterday. Vital signs are stable. General: The patient appeared well nourished and normally developed. HEENT: Head exam is unremarkable. Neck is without jugular venous distension. LUNGS: Lungs are clear to auscultation and percussion. Breath sounds decreased. HEART: Rate and Rhythm are regular. First and second heart sounds normal. No murmurs, rubs or gallops. ABDOMEN: Abdominal exam reveals normal bowel sounds. Non-tender and non- distended. No evidence of peritonitis. EXTREMITITES: No clubbing, cyanosis, or edema. Objective - Vital Signs Vital signs: Vital Signs Temp 98.6 F 11/20/18 04:33 Pulse 94 11/20/18 04:33 Resp 20 11/20/18 04:33 BP 127/72 11/20/18 04:33 Pulse Ox 93 L 11/20/18 04:33 Intake & Output 11/19/18 11/20/18 11/20/18 18:59 06:59 18:59 Intake Total 1200 780 Output Total 1100 Balance 100 780 Intake: Intake, IV Titration 650 600 Amount Sodium Chloride 0.9% 1, 400 600 000 ml @ 50 mls/hr IV . Q20H [facility] Rx#:[id number] Vancomycin 1,500 mg In 250 Sodium Chloride 0.9% 250 ml @ 125 mls/hr IVPB ONCE ONE Rx#:[id number] Oral 550 180 Output: Hemodialysis 1100 Other: Voiding Method Toilet Toilet # Voids 0 - Labs CBC & Chem 7: 11/20/18 08:04 11/20/18 08:04 Labs: Abnormal Lab Results - Last 24 Hours (Table) 11/19/18 11/19/18 11/19/18 Range/Units 11:46 17:04 20:47 RBC (3.80-5.40) m/uL Hgb (11.4-16.0) gm/dL Hct (34.0-46.0) % BUN (7-17) mg/dL Creatinine (0.52-1.04) mg/dL Glucose (74-99) mg/dL POC Glucose (mg/dL) 171 H 191 H 158 H (75-99) mg/dL 11/20/18 11/20/18 Range/Units 08:04 08:04 RBC 2.78 L (3.80-5.40) m/uL Hgb 8.5 L (11.4-16.0) gm/dL Hct 25.9 L (34.0-46.0) % BUN 30 H (7-17) mg/dL Creatinine 3.47 H (0.52-1.04) mg/dL Glucose 67 L (74-99) mg/dL POC Glucose (mg/dL) (75-99) mg/dL Microbiology - Last 24 Hours (Table) 11/17/18 15:30 Blood Culture - Preliminary Blood No Growth after 48 hours 11/16/18 15:27 Blood Culture - Preliminary Blood No Growth after 72 hours Assessment and Plan Plan: Assessment: 1. End-stage renal disease maintained on hemodialysis on a Monday schedule via right chest permacath. 2. Status post AV graft surgery last week. 3. Fever. Rule out bacteremia. No evidence of drainage from the catheter site. No evidence of infection at the AV graft site per vascular surgery. Cultures negative so far. 4. Chronic kidney disease mineral bone disease maintained on Renvela. 5. Insulin-dependent diabetes mellitus. 6. Hypertension with chronic kidney disease. Controlled. Plan: Hemodialysis tomorrow. Follow-up cultures. Stable to be discharged home from nephrology standpoint.
[2018-11-20 12:05] LABS: Glucose,Whole Blood 80 mg/dL (75-99)
--- NOTE | 2018-11-20 14:21 | P.DS ---
Providers Date of admission: 11/16/18 17:05 Expected date of discharge: 11/20/18 Attending physician: Francisco Javier Simeon Consults: 11/16/18 16:59 Consult Physician Routine Consulting Provider: Kamlesh Sears Consult Reason/Comments: Left upper Extremity cellulitis Do you want consulting provider notified?: Yes 11/16/18 17:01 Consult Physician Routine Consulting Provider: Torie Maddox Consult Reason/Comments: Evaluation for dialysis Do you want consulting provider notified?: Yes 11/16/18 20:17 Consult Physician Routine Consulting Provider: Francisco Javier Dubois Consult Reason/Comments: infected port Do you want consulting provider notified?: Already Contacted [facility] Course: Final Diagnoses -Left arm cellulitis, doubt infected graft, negative cultures so far, in a patient with recent AV graft surgery-last week. DVT ruled out. -End-stage renal disease on hemodialysis -CAD -Diabetes mellitus -Hypertension -Chronic congestive heart failure likely diastolic, most recent echo reported normal LV systolic function with EF 50-55%. No overt signs of acute failure. Hospital course:This is an 83-year-old female admitted with cellulitis/infection of left upper arm graft. Maintained on vancomycin.Afebrile, cultures negative so far. Significant clinical improvement. Hemodialysis as per nephrology, with outpatient vascular surgery follow-up as recommended. Cleared by vascular surgery, nephrology, infectious disease for discharge. Subacute rehab recommended as per PT evaluation; Family and patient declined . Patient is being discharged to [facility] with homecare, in a stable condition with guarded prognosis. EXAM: GENERAL: Alert and oriented 3, no acute distress CARDIOVASCULAR: S1, S2 muffled. No murmur RESPIRATION: Breath sounds diminished in the bases. No rhonchi or crackles. ABDOMEN: Soft, nontender . No guarding. no masses palpable. Bowel sounds heard. NERVOUS SYSTEM: Cranial N 2-12 grossly normal. Moves all 4 limbs. Diffuse weakness.No focal deficits. Skin:Left upper arm redness improved, lower forearm edema, significant bruising. Positive radial pulse Microbiology 11/17/18 15:30 Blood Blood Culture - Preliminary No Growth after 48 hours 11/16/18 15:27 Blood Blood Culture - Preliminary No Growth after 72 hours 11/17/18 13:35 Urine,Voided Urine Culture - Final The impression and plan of care has been dictated as directed. : I performed a history and examination of this patient, discussed the same with the dictator. I agree with the dictator's note ,documented as a scribe. Any additional findings or plans will be noted. Time taken: 35 minutes Patient Condition at Discharge: Stable Plan - Discharge Summary Discharge Rx Participant: Yes New Discharge Prescriptions: New Vancomycin 1,500 mg IVPB Q24HR #2 bag Acetaminophen Tab [Tylenol] 650 mg PO Q6HR PRN tab PRN Reason: Mild Pain Or Fever > 100.5 oxyCODONE-APAP 5-325MG [Percocet 5-325 mg] 1 each PO Q6HR PRN #12 tab PRN Reason: SEVERE Pain Continue amLODIPine [Norvasc] 10 mg PO DAILY@1000 Omeprazole [PriLOSEC] 40 mg PO DAILY@0600 Multivitamins, Thera [Multivitamin (formulary)] 1 tab PO DAILY@0600 Fenofibrate Nanocrystallized [Tricor] 145 mg PO DAILY@1000 Aspirin EC [Ecotrin Low Dose] 81 mg PO DAILY@1000 Carvedilol [Coreg] 25 mg PO BID@1000,2100 hydrALAZINE HCL [Apresoline] 50 mg PO TID@0600,1400,2100 traZODone HCL 50 mg PO HS@2100 Potassium Chloride ER [K-Dur 20] 20 meq PO DAILY@1000 Spironolactone [Aldactone] 12.5 mg PO BID@1000,2100 Insulin Glargine,Hum.rec.anlog [Lantus Solostar] 20 unit SQ HS Sevelamer [Renvela] 800 mg PO TID@0600,1400,2100 Furosemide [Lasix] 60 mg PO DAILY@1000 INSULIN LISPRO (humaLOG) [humaLOG] 10 units SQ AC-LUNCH #0 INSULIN LISPRO (humaLOG) [humaLOG] 5 units SQ AC-BRKFST #0 INSULIN LISPRO (HumaLOG) [humaLOG] 15 units SQ AC-SUPPER #0 Discharge Medication List Aspirin EC [Ecotrin Low Dose] 81 mg PO DAILY@1000 01/10/18 [History] Fenofibrate Nanocrystallized [Tricor] 145 mg PO DAILY@1000 01/10/18 [History] Multivitamins, Thera [Multivitamin (formulary)] 1 tab PO DAILY@0600 01/10/18 [History] Omeprazole [PriLOSEC] 40 mg PO DAILY@0600 01/10/18 [History] amLODIPine [Norvasc] 10 mg PO DAILY@99901/10/18 [History] Carvedilol [Coreg] 25 mg PO BID@1000,209903/06/18 [History] hydrALAZINE HCL [Apresoline] 50 mg PO TID@0600,1400,209903/06/18 [History] Furosemide [Lasix] 60 mg PO DAILY@99906/27/18 [History] Insulin Glargine,Hum.rec.anlog [Lantus Solostar] 20 unit SQ HS 06/27/18 [History] Potassium Chloride ER [K-Dur 20] 20 meq PO DAILY@99906/27/18 [History] Sevelamer [Renvela] 800 mg PO TID@0600,1400,209906/27/18 [History] Spironolactone [Aldactone] 12.5 mg PO BID@999,209906/27/18 [History] traZODone HCL 50 mg PO HS@209906/27/18 [History] Vancomycin 1,500 mg IVPB Q24HR #2 bag 11/19/18 [Rx] Acetaminophen Tab [Tylenol] 650 mg PO Q6HR PRN tab 11/20/18 [Rx] INSULIN LISPRO (HumaLOG) [humaLOG] 15 units SQ AC-SUPPER #0 11/20/18 [Rx] INSULIN LISPRO (humaLOG) [humaLOG] 5 units SQ AC-BRKFST #0 11/20/18 [Rx] INSULIN LISPRO (humaLOG) [humaLOG] 10 units SQ AC-LUNCH #0 11/20/18 [Rx] oxyCODONE-APAP 5-325MG [Percocet 5-325 mg] 1 each PO Q6HR PRN #12 tab 11/20/18 [Rx] Follow up Appointment(s)/Referral(s): Francisco Javier Simeon MD [Primary Care Provider] - 11/29/18 2:30 pm [facility], [NON-STAFF] - 1-2 Days Suman Coy DO [STAFF PHYSICIAN] - 1 Week Kamlesh Sears MD [STAFF PHYSICIAN] - 1 Week (check with Orion regarding when he wants the F/u) Ambulatory/Diagnostic Orders: Complete Blood Count w/diff [LAB.AMB] Time Frame: 3 Days, Location: None Selected Patient Instructions/Handouts: Oxycodone/Acetaminophen (By mouth), Vancomycin (By injection), Chronic Kidney Disease (DC), Cellulitis (DC) Activity/Diet/Wound Care/Special Instructions: [place] : family/pt decline Subacute rehab. Hemodialysis as per nephrology Discharge Disposition: HOME WITH HOME HEALTH SERVICES
[2018-11-20 17:08] LABS: Glucose,Whole Blood 159 mg/dL (75-99)
--- NOTE | 2018-11-20 17:11 | XR ---
EXAMINATION TYPE: XR abdomen 2V DATE OF EXAM: 11/20/2018 COMPARISON: NONE HISTORY: Left upper quadrant pain TECHNIQUE: 3 views supine and upright FINDINGS: There is no sign of intestinal obstruction or pneumoperitoneum. Fecal pattern is normal. Th ere is spurring of the acetabula. There is extensive infiltrate and pleural fluid at the lung bases. There are no pathologic calcifications over the kidneys. There is extensive vascular calcification. F ecal pattern is normal. IMPRESSION: Nonacute abdomen. Pleural effusions and lower lobe pulmonary infiltrates. This is consist ent with congestive heart failure not significantly different than chest x-ray 11/16/2018.
[2018-11-20] MEDS: SODIUM CHLORIDE 0.9% 1,000 ML IV SCH (18:12)
[2018-11-20 20:24] LABS: Glucose,Whole Blood 200 mg/dL (75-99)
[2018-11-20] MEDS: INSULIN DETEMIR (LEVEMIR) 100 UNIT/ML SYR SQ SCH (20:32)
[2018-11-20] MEDS: traZODone HCL 50 MG TAB PO SCH (20:34)
[2018-11-21] MEDS: PANTOPRAZOLE 40 MG TABLET PO SCH (06:24)
[2018-11-21] MEDS: MULTIVITAMINS, THERA 1 EACH TAB PO SCH (06:24)
[2018-11-21] MEDS: hydrALAZINE HCL 50 MG TAB PO SCH ×3 (06:24→22:07)
[2018-11-21 07:03] LABS: Glucose,Whole Blood 79 mg/dL (75-99)
[2018-11-21] MEDS: INSULIN ASPART (NovoLOG) 100 UNIT/ML VIAL SQ SCH ×3 (07:06→17:21)
[2018-11-21 07:46] LABS: Basophils % (A) 0 %; Eosinophils # (A) 0.3 k/uL (0-0.7); Eosinophils % (A) 5 %; HCT 25.7 % (34.0-46.0); HGB 8.2 gm/dL (11.4-16.0); Lymphocytes # (A) 1.1 k/uL (1.0-4.8); Lymphocytes % (A) 18 %; MCHC 31.8 g/dL (31.0-37.0); MCV 94.3 fL (80.0-100.0); Monocytes # (A) 0.5 k/uL (0-1.0); Monocytes % (A) 7 %; Neutrophils # (A) 4.1 k/uL (1.3-7.7); Neutrophils % (A) 68 %; Platelet Count 240 k/uL (150-450); RBC 2.73 m/uL (3.80-5.40); RDW 14.8 % (11.5-15.5); WBC 6.1 k/uL (3.8-10.6)
[2018-11-21 08:00] LABS: Calcium 8.9 mg/dL (8.4-10.2)
[2018-11-21] MEDS: SEVELAMER 800 MG TAB PO SCH ×3 (08:20→18:00)
[2018-11-21] MEDS: FENOFIBRATE 160 MG TAB PO SCH (08:20)
[2018-11-21] MEDS: CARVEDILOL 12.5 MG TAB PO SCH ×2 (08:20→22:07)
[2018-11-21] MEDS: FUROSEMIDE 40 MG TAB PO SCH (08:20)
[2018-11-21] MEDS: amLODIPine 10 MG TAB PO SCH (08:20)
[2018-11-21] MEDS: POTASSIUM CHLORIDE ER 20 MEQ TAB.ER PO SCH (08:20)
[2018-11-21] MEDS: SPIRONOLACTONE 25 MG TAB PO SCH ×2 (08:21→22:08)
[2018-11-21] MEDS: ASPIRIN 81 MG PO SCH (08:21)
--- NOTE | 2018-11-21 10:39 | P.PN ---
Subjective Patient is seen in follow-up for end-stage renal disease. She is maintained on hemodialysis on a Monday schedule. She is afebrile. No chest pain or shortness of breath. Cultures have been negative. No active complaints at this time. Scheduled for hemodialysis today. Vital signs are stable. General: The patient appeared well nourished and normally developed. HEENT: Head exam is unremarkable. Neck is without jugular venous distension. LUNGS: Lungs are clear to auscultation and percussion. Breath sounds decreased. HEART: Rate and Rhythm are regular. First and second heart sounds normal. No murmurs, rubs or gallops. ABDOMEN: Abdominal exam reveals normal bowel sounds. Non-tender and non- distended. No evidence of peritonitis. EXTREMITITES: No clubbing, cyanosis, or edema. Objective - Vital Signs Vital signs: Vital Signs Temp 98.1 F 11/21/18 05:00 Pulse 68 11/21/18 05:00 Resp 18 11/21/18 05:00 BP 148/64 11/21/18 05:00 Pulse Ox 96 11/21/18 05:00 Intake & Output 11/20/18 11/21/18 11/21/18 18:59 06:59 18:59 Intake Total 540 660 Balance 540 660 Weight 86.5 kg Intake: Oral 540 660 Other: Voiding Method Toilet # Voids 1 1 # Bowel Movements 1 - Labs CBC & Chem 7: 11/21/18 07:15 11/21/18 07:15 Labs: Abnormal Lab Results - Last 24 Hours (Table) 11/20/18 11/20/18 11/21/18 Range/Units 17:01 20:22 07:15 RBC 2.73 L (3.80-5.40) m/uL Hgb 8.2 L (11.4-16.0) gm/dL Hct 25.7 L (34.0-46.0) % Sodium (137-145) mmol/L BUN (7-17) mg/dL Creatinine (0.52-1.04) mg/dL Glucose (74-99) mg/dL POC Glucose (mg/dL) 159 H 200 H (75-99) mg/dL 11/21/18 Range/Units 07:15 RBC (3.80-5.40) m/uL Hgb (11.4-16.0) gm/dL Hct (34.0-46.0) % Sodium 135 L (137-145) mmol/L BUN 41 H (7-17) mg/dL Creatinine 4.02 H (0.52-1.04) mg/dL Glucose 67 L (74-99) mg/dL POC Glucose (mg/dL) (75-99) mg/dL Microbiology - Last 24 Hours (Table) 11/17/18 15:30 Blood Culture - Preliminary Blood No Growth after 72 hours 11/16/18 15:27 Blood Culture - Preliminary Blood No Growth after 96 hours Assessment and Plan Plan: Assessment: 1. End-stage renal disease maintained on hemodialysis on a Monday schedule via right chest permacath. 2. Status post AV graft surgery earlier this month. 3. Fever. Rule out bacteremia. No evidence of drainage from the catheter site. No evidence of infection at the AV graft site per vascular surgery. Cultures negative so far. 4. Chronic kidney disease mineral bone disease maintained on Renvela. 5. Insulin-dependent diabetes mellitus. 6. Hypertension with chronic kidney disease. Controlled. Plan: Hemodialysis today. Follow-up cultures. Stable to be discharged home from nephrology standpoint.
[2018-11-21 11:51] LABS: Glucose,Whole Blood 127 mg/dL (75-99)
--- NOTE | 2018-11-21 12:32 | CT ---
EXAMINATION TYPE: CT abdomen pelvis wo con DATE OF EXAM: 11/21/2018 COMPARISON: Chest x-ray dated 11/16/2018 HISTORY: LUQ pain CT DLP: 1090 mGycm Automated exposure control for dose reduction was used. TECHNIQUE: Helical acquisition of images was performed from the lung bases through the pelvis. FINDINGS: LUNG BASES: Small bilateral pleural effusions are partially visualized, left greater than right and a ppear loculated with associated compressive atelectasis. Cardiomegaly and pulmonary edema of congesti ve heart failure seen. There is also a small hiatal hernia present in the posterior mediastinum. Para esophageal lymph node is prominent measuring 7 mm in short axis. LIVER/GB: The liver is elongated extending to the iliac crest but not beyond the iliac crest. A trace amount of perihepatic ascites is seen in the inferior margin of the liver. The gallbladder appears s urgically absent and punctate densities in the gallbladder fossa or likely surgical material rather t rios calculi. PANCREAS: Pancreatic tail is truncated and there is atrophy of the pancreatic body, head, neck and un cinate process. No discrete ductal dilatation. SPLEEN: No significant abnormality is seen. ADRENALS: No significant abnormality is seen. KIDNEYS: Numerous bilateral renal lesions are suboptimally evaluated without contrast. Linear renal a rterial calcifications are present with no discernible renal calculus or hydronephrosis. The largest left renal lesion emanating laterally from the superior pole measuring 3.2 cm and a cystic. The large st cyst on the right appears to measure 1.7 cm. FREE AIR: No free air is visualized ADENOPATHY: No greater than 1 cm short axis lymph node in the abdomen or pelvis. REPRODUCTIVE ORGANS: Uterus appears atrophic. URINARY BLADDER: Incompletely distended and suboptimally evaluated, some fat stranding is seen anter ior to the urinary bladder on image 121 and correlation with urinalysis is recommended to exclude cys titis. OSSEOUS STRUCTURES: Extensive multilevel degenerative disc disease of the visualized spine. BOWEL: No dilated large or small bowel. OTHER: There is a fluid collection in the left psoas measuring 2.9 x 2.1 x 3.9 cm. No surrounding inf lammatory changes seen. Anasarca predominates dependently. There is extensive atherosclerosis of the abdominal aorta and its branches. Small amount of dependent ascites is present within the pelvis. Sma ll fat filled. Umbilical hernia. IMPRESSION: 1. LEFT PSOAS FLUID COLLECTION MEASURING 2.9 X 2.1 X 3.9 CM WITHOUT SURROUNDING INFLAMMATORY CHANGE. ETIOLOGIES INCLUDE HEMATOMA, SEROMA, ABSCESS, OR MUCH LESS LIKELY NECROTIC NEOPLASM. IF CONTRAST GLORIA OT BE GIVEN ASPIRATION COULD BE CONSIDERED FOR MORE DEFINITIVE DIAGNOSIS. 2. SOME FAT STRANDING SURROUNDING THE ANTERIOR URINARY BLADDER. CORRELATION WITH URINALYSIS IS RECOMM ENDED TO EXCLUDE CYSTITIS. 3. SEQUELA OF CONGESTIVE HEART FAILURE WITH PARTIALLY VISUALIZED SMALL PLEURAL EFFUSIONS, LEFT GREATE R THAN RIGHT AND INTERSTITIAL PULMONARY EDEMA WELL ATELECTASIS. 4. TRACE ASCITES AND DEPENDENT ANASARCA. 5. EXTENSIVE ATHEROSCLEROSIS OF THE ABDOMINAL AORTA AND ITS BRANCHES.
--- NOTE | 2018-11-21 16:37 | P.CNPUL ---
History of Present Illness Consult date: 11/21/18 Reason for consult: pleural effusion Chief complaint: Shortness of breath History of present illness: Patient seen and examined covering for Dr. Dennis. Patient states she presented to the emergency department with fevers. She had a dialysis fistula placed prior to her admission. The patient states that she does have some cough but denies shortness of breath and chest tightness. The patient had a chest x-ray which showed bilateral pleural effusions. The patient is receiving dialysis at this time. She's been hemodynamically stable. She states that she's never had a thoracentesis in the past. She is currently on 2 L nasal cannula with O2 saturation 97%. She states she does not wear oxygen at home. Review of Systems All systems: negative Past Medical History Past Medical History: Heart Failure, Diabetes Mellitus, Dialysis, GERD/Reflux, Hearing Disorder / Deafness, Hyperlipidemia, Hypertension, Pneumonia, Renal Disease Additional Past Medical History / Comment(s): PT. RECEIVES HEMODIALYSIS M,W,F @ [facility], home o2 prn at night. History of Any Multi-Drug Resistant Organisms: C-DIFF Date of last positivie culture/infection: 06/29/18 MDRO Source:: stool Past Surgical History: Cholecystectomy Past Anesthesia/Blood Transfusion Reactions: No Reported Reaction Past Psychological History: Anxiety Additional Psychological History / Comment(s): pt states she lives alone. she has no pets. Retired. No international travel. No experience Smoking Status: Never smoker Past Alcohol Use History: None Reported Past Drug Use History: None Reported - Past Family History Mother History Unknown: Yes Father History Unknown: Yes Medications and Allergies Home Medications Medication Instructions Recorded Confirmed Type Aspirin EC [Ecotrin Low Dose] 81 mg PO DAILY@1000 01/10/18 11/16/18 History Fenofibrate Nanocrystallized 145 mg PO DAILY@1000 01/10/18 11/16/18 History [Tricor] Multivitamins, Thera [Multivitamin 1 tab PO DAILY@0600 01/10/18 11/16/18 History (formulary)] Omeprazole [PriLOSEC] 40 mg PO DAILY@0600 01/10/18 11/16/18 History amLODIPine [Norvasc] 10 mg PO DAILY@1000 01/10/18 11/16/18 History Carvedilol [Coreg] 25 mg PO BID@1000,2100 03/06/18 05/17/19 History hydrALAZINE HCL [Apresoline] 50 mg PO TID@0600,1400,209903/06/18 11/16/18 History Furosemide [Lasix] 60 mg PO DAILY@1000 06/27/18 11/16/18 History Insulin Glargine,Hum.rec.anlog 20 unit SQ HS 06/27/18 11/16/18 History [Lantus Solostar] Potassium Chloride ER [K-Dur 20] 20 meq PO DAILY@1000 06/27/18 11/16/18 History Sevelamer [Renvela] 800 mg PO TID@0600,1400,209906/27/18 11/16/18 History Spironolactone [Aldactone] 12.5 mg PO BID@1000,209906/27/18 11/16/18 History traZODone HCL 50 mg PO HS@209906/27/18 11/16/18 History Vancomycin 1,500 mg IVPB Q24HR #2 bag 11/19/18 Rx Acetaminophen Tab [Tylenol] 650 mg PO Q6HR PRN tab 11/20/18 Rx INSULIN LISPRO (HumaLOG) [humaLOG] 15 units SQ AC-SUPPER #0 11/20/18 11/16/18 Rx INSULIN LISPRO (humaLOG) [humaLOG] 5 units SQ AC-BRKFST #0 11/20/18 11/16/18 Rx INSULIN LISPRO (humaLOG) [humaLOG] 10 units SQ AC-LUNCH #0 11/20/18 11/16/18 Rx oxyCODONE-APAP 5-325MG [Percocet 1 each PO Q6HR PRN #12 tab 11/20/18 Rx 5-325 mg] Allergies Allergy/AdvReac Type Severity Reaction Status Date / Time No Known Allergies Allergy Verified 11/16/18 14:57 Physical Exam Osteopathic Statement: *. No significant issues noted on an osteopathic structural exam other than those noted in the History and Physical/Consult. Vitals: Vital Signs Temp Pulse Resp BP Pulse Ox 11/21/18 15:50 68 18 11/21/18 11:33 98.8 F 71 18 121/52 93 L 11/21/18 08:00 71 18 11/21/18 05:00 98.1 F 68 18 148/64 96 11/20/18 23:05 18 11/20/18 21:00 97.7 F 65 18 145/57 95 Intake and Output 11/21/18 11/21/18 11/21/18 06:59 14:59 22:59 Intake Total 960 Output Total 100 Balance 960 -100 Intake: Oral 960 Output: Urine 100 Other: Voiding Method Toilet Bedside Commode Bedside Commode Bedpan # Voids 1 2 2 # Bowel Movements 1 Weight 86.5 kg Gen.: Patient is alert and oriented 3, no acute distress Cardiovascular: Regular rate and rhythm, S1/S2 Lungs: Diminished breath sounds at the bases Abdomen: Soft nontender nondistended positive bowel sounds Extremities: + edema Results - Laboratory Findings CBC and BMP: 11/21/18 07:15 11/21/18 07:15 Abnormal lab findings: Abnormal Labs 11/16/18 11/16/18 11/16/18 15:05 15:05 20:56 RBC 3.29 L Hgb 10.0 L Hct 30.5 L Neutrophils # 8.2 H Sodium 134 L BUN 40 H Creatinine 3.43 H Glucose 228 H POC Glucose (mg/dL) 226 H Urine Protein Urine Glucose (UA) Amorphous Sediment 11/17/18 11/17/18 11/17/18 06:58 11:58 13:35 RBC Hgb Hct Neutrophils # Sodium BUN Creatinine Glucose POC Glucose (mg/dL) 71 L 148 H Urine Protein 3+ H Urine Glucose (UA) 2+ H Amorphous Sediment Rare H 11/17/18 11/17/18 11/17/18 14:58 17:17 20:19 RBC Hgb Hct Neutrophils # Sodium BUN Creatinine 4.21 H Glucose POC Glucose (mg/dL) 110 H 122 H Urine Protein Urine Glucose (UA) Amorphous Sediment 11/18/18 11/18/18 11/18/18 04:18 06:45 11:46 RBC Hgb Hct Neutrophils # Sodium BUN Creatinine Glucose POC Glucose (mg/dL) 174 H 158 H 231 H Urine Protein Urine Glucose (UA) Amorphous Sediment 11/18/18 11/19/18 11/19/18 16:57 06:51 09:24 RBC 2.63 L Hgb 8.1 L D Hct 24.2 L Neutrophils # Sodium BUN Creatinine Glucose POC Glucose (mg/dL) 123 H 142 H Urine Protein Urine Glucose (UA) Amorphous Sediment 11/19/18 11/19/18 11/19/18 09:24 11:46 17:04 RBC Hgb Hct Neutrophils # Sodium 133 L BUN 30 H Creatinine 3.27 H Glucose 159 H POC Glucose (mg/dL) 171 H 191 H Urine Protein Urine Glucose (UA) Amorphous Sediment 11/19/18 11/20/18 11/20/18 20:47 08:04 08:04 RBC 2.78 L Hgb 8.5 L Hct 25.9 L Neutrophils # Sodium BUN 30 H Creatinine 3.47 H Glucose 67 L POC Glucose (mg/dL) 158 H Urine Protein Urine Glucose (UA) Amorphous Sediment 11/20/18 11/20/18 11/21/18 17:01 20:22 07:15 RBC 2.73 L Hgb 8.2 L Hct 25.7 L Neutrophils # Sodium BUN Creatinine Glucose POC Glucose (mg/dL) 159 H 200 H Urine Protein Urine Glucose (UA) Amorphous Sediment 11/21/18 11/21/18 07:15 11:49 RBC Hgb Hct Neutrophils # Sodium 135 L BUN 41 H Creatinine 4.02 H Glucose 67 L POC Glucose (mg/dL) 127 H Urine Protein Urine Glucose (UA) Amorphous Sediment - Diagnostic Findings Chest x-ray: report reviewed, image reviewed Assessment and Plan Assessment: Bilateral pleural effusions with volume overload Acute hypoxic respiratory failure requiring supplemental oxygen ESRD on HD Anemia, iron deficiency Medical debility Hypertension hypertensive cardiovascular disease Dyslipidemia Diabetes mellitus History of heart failure Recent Cdiff colitis Plan Ultrasound of the chest ordered Patient will need a home oxygen assessment Dialysis per nephrology Medications have been reviewed and will be continued as ordered. Continue with pulmonary hygiene, coughing and deep breathing exercises, and supportive care. Supplemental oxygen to maintain oxygen saturations of 92% or better. Continue nebulizer treatments. GI and DVT prophylaxis. HD per nephrology with ultrafiltration We will continue to monitor labs/results and adjust treatment as necessary. Further recommendations pending.
[2018-11-21 17:20] LABS: Glucose,Whole Blood 101 mg/dL (75-99)
--- NOTE | 2018-11-21 19:05 | US ---
EXAMINATION TYPE: US chest DATE OF EXAM: 11/21/2018 COMPARISON: NONE CLINICAL HISTORY: bilateral pleural effusions, yanna for thoracentesi. Bilateral pleural effusion. TECHNIQUE: Targeted ultrasound of the posterior lower bilateral hemithoraces EXAM MEASUREMENTS: Right Pleural Effusion pocket size: 1.8 cm Right skin surface to fluid distance: 3.3 cm Left Pleural Effusion pocket size: 3.9 cm Left skin surface to fluid distance: 3.2 cm Pulmonologists are able to review the images in the patient?s EMR. Didn't yanna for thoracentesis due to insufficient fluid pocket. IMPRESSIONS: There is small left pleural effusion. Pleural fluid measures 1.7 cm in thickness.
--- NOTE | 2018-11-21 19:40 | P.GSCN ---
History of Present Illness Consult date: 11/21/18 History of present illness: The patient was admitted with fever and concern of infection at [facility] of new dialysis shunt. She also has respiratory failure from fluid overload. A CT scan of the abdomen was done due to some new left lower quadrant pain. We are asked to evaluate her for a abnormality in the psoas. The pain started Monday. It is better today. No previous episodes of pain. No change in bowel habits. No blood in the stool or dark tarry stool. Past Medical History Past Medical History: Heart Failure, Diabetes Mellitus, Dialysis, GERD/Reflux, Hearing Disorder / Deafness, Hyperlipidemia, Hypertension, Pneumonia, Renal Disease Additional Past Medical History / Comment(s): PT. RECEIVES HEMODIALYSIS M,W,F @ [facility], home o2 prn at night. History of Any Multi-Drug Resistant Organisms: C-DIFF Year Discovered:: 06/29/18 MDRO Source:: stool Past Surgical History: Cholecystectomy Past Anesthesia/Blood Transfusion Reactions: No Reported Reaction Past Psychological History: Anxiety Additional Psychological History / Comment(s): pt states she lives alone. she has no pets. Retired. No international travel. No experience Smoking Status: Never smoker Past Alcohol Use History: None Reported Past Drug Use History: None Reported - Past Family History Mother History Unknown: Yes Father History Unknown: Yes Medications and Allergies Home Medications Medication Instructions Recorded Confirmed Type Aspirin EC [Ecotrin Low Dose] 81 mg PO DAILY@1000 01/10/18 11/16/18 History Fenofibrate Nanocrystallized 145 mg PO DAILY@1000 01/10/18 11/16/18 History [Tricor] Multivitamins, Thera [Multivitamin 1 tab PO DAILY@0600 01/10/18 11/16/18 History (formulary)] Omeprazole [PriLOSEC] 40 mg PO DAILY@0600 01/10/18 11/16/18 History amLODIPine [Norvasc] 10 mg PO DAILY@99901/10/18 11/16/18 History Carvedilol [Coreg] 25 mg PO BID@1000,209903/06/18 11/16/18 History hydrALAZINE HCL [Apresoline] 50 mg PO TID@0600,1400,209903/06/18 11/16/18 History Furosemide [Lasix] 60 mg PO DAILY@1000 06/27/18 11/16/18 History Insulin Glargine,Hum.rec.anlog 20 unit SQ HS 06/27/18 11/16/18 History [Lantus Solostar] Potassium Chloride ER [K-Dur 20] 20 meq PO DAILY@1000 06/27/18 11/16/18 History Sevelamer [Renvela] 800 mg PO TID@0600,1400,209906/27/18 11/16/18 History Spironolactone [Aldactone] 12.5 mg PO BID@1000,2100 06/27/18 11/16/18 History traZODone HCL 50 mg PO HS@2100 06/27/18 11/16/18 History Vancomycin 1,500 mg IVPB Q24HR #2 bag 11/19/18 Rx Acetaminophen Tab [Tylenol] 650 mg PO Q6HR PRN tab 11/20/18 Rx INSULIN LISPRO (HumaLOG) [humaLOG] 15 units SQ AC-SUPPER #0 11/20/18 11/16/18 Rx INSULIN LISPRO (humaLOG) [humaLOG] 5 units SQ AC-BRKFST #0 11/20/18 11/16/18 Rx INSULIN LISPRO (humaLOG) [humaLOG] 10 units SQ AC-LUNCH #0 11/20/18 11/16/18 Rx oxyCODONE-APAP 5-325MG [Percocet 1 each PO Q6HR PRN #12 tab 11/20/18 Rx 5-325 mg] Allergies Allergy/AdvReac Type Severity Reaction Status Date / Time No Known Allergies Allergy Verified 11/16/18 14:57 Surgical - Exam Osteopathic Statement: *. No significant issues noted on an osteopathic structural exam other than those noted in the History and Physical/Consult. Vital Signs Temp Pulse Resp BP Pulse Ox 100.4 F H 99 30 H 161/48 93 L 11/16/18 14:48 11/16/18 14:48 11/16/18 14:48 11/16/18 14:48 11/16/18 14:48 - General well developed, well nourished, no distress - Eyes normal ocular movement - Neck trachea midline - Respiratory normal respiratory effort, clear to auscultation (But somewhat diminished at the bases) - Cardiovascular Rhythm: regular - Abdomen Abdomen: soft, non tender, bowel sounds, no guarding, no rigid, no rebound, no distended Results - Labs 11/21/18 07:15 11/21/18 07:15 Abnormal Lab Results - Last 24 Hours (Table) 11/20/18 11/21/18 11/21/18 Range/Units 20:22 07:15 07:15 RBC 2.73 L (3.80-5.40) m/uL Hgb 8.2 L (11.4-16.0) gm/dL Hct 25.7 L (34.0-46.0) % Sodium 135 L (137-145) mmol/L BUN 41 H (7-17) mg/dL Creatinine 4.02 H (0.52-1.04) mg/dL Glucose 67 L (74-99) mg/dL POC Glucose (mg/dL) 200 H (75-99) mg/dL 11/21/18 11/21/18 Range/Units 11:49 17:19 RBC (3.80-5.40) m/uL Hgb (11.4-16.0) gm/dL Hct (34.0-46.0) % Sodium (137-145) mmol/L BUN (7-17) mg/dL Creatinine (0.52-1.04) mg/dL Glucose (74-99) mg/dL POC Glucose (mg/dL) 127 H 101 H (75-99) mg/dL Microbiology - Last 24 Hours (Table) 11/17/18 15:30 Blood Culture - Preliminary Blood No Growth after 96 hours 11/16/18 15:27 Blood Culture - Preliminary Blood No Growth after 120 hours Diabetes panel 11/21/18 Range/Units 07:15 Sodium 135 L (137-145) mmol/L Potassium 5.0 (3.5-5.1) mmol/L Chloride 103 (98-107) mmol/L Carbon Dioxide 24 (22-30) mmol/L BUN 41 H (7-17) mg/dL Creatinine 4.02 H (0.52-1.04) mg/dL Glucose 67 L (74-99) mg/dL Calcium 8.9 (8.4-10.2) mg/dL Calcium panel 11/21/18 Range/Units 07:15 Calcium 8.9 (8.4-10.2) mg/dL Pituitary panel 11/21/18 Range/Units 07:15 Sodium 135 L (137-145) mmol/L Potassium 5.0 (3.5-5.1) mmol/L Chloride 103 (98-107) mmol/L Carbon Dioxide 24 (22-30) mmol/L BUN 41 H (7-17) mg/dL Creatinine 4.02 H (0.52-1.04) mg/dL Glucose 67 L (74-99) mg/dL Calcium 8.9 (8.4-10.2) mg/dL Adrenal panel 11/21/18 Range/Units 07:15 Sodium 135 L (137-145) mmol/L Potassium 5.0 (3.5-5.1) mmol/L Chloride 103 (98-107) mmol/L Carbon Dioxide 24 (22-30) mmol/L BUN 41 H (7-17) mg/dL Creatinine 4.02 H (0.52-1.04) mg/dL Glucose 67 L (74-99) mg/dL Calcium 8.9 (8.4-10.2) mg/dL - Imaging CT scan - abdomen: report reviewed, image reviewed Assessment and Plan (1) Abnormal CT of the abdomen Current Visit: Yes Status: Acute Code(s): R93.5 - ABN FINDINGS ON DX IMAGING OF ABD REGIONS, INC RETROPERITON SNOMED Code(s): 89525714846213525 (2) Chronic renal failure syndrome Current Visit: Yes Status: Acute Code(s): N18.9 - CHRONIC KIDNEY DISEASE, UNSPECIFIED SNOMED Code(s): 97889083 (3) End-stage renal disease on hemodialysis Current Visit: Yes Status: Acute Code(s): N18.6 - END STAGE RENAL DISEASE; Z99.2 - DEPENDENCE ON RENAL DIALYSIS SNOMED Code(s): 323909256 (4) Fever Current Visit: Yes Status: Acute Code(s): R50.9 - FEVER, UNSPECIFIED SNOMED Code(s): 458308370 Plan: This may be a hematoma or small abscess. Recommend percutaneous drainage by interventional radiology with Gram stain and culture. Currently nonsurgical
[2018-11-21 19:57] LABS: Glucose,Whole Blood 137 mg/dL (75-99)
[2018-11-21 20:33] LABS: INR 1.1 (<1.2); Partial Thromboplastin Time 25.7 sec (22.0-30.0); Prothrombin Time 11.1 sec (9.0-12.0)
[2018-11-21] MEDS: INSULIN DETEMIR (LEVEMIR) 100 UNIT/ML SYR SQ SCH (21:33)
[2018-11-21] MEDS: oxyCODONE-APAP 5-325MG 1 EACH TAB PO PRN (22:09)
[2018-11-21] MEDS: traZODone HCL 50 MG TAB PO SCH (22:09)
[2018-11-22] MEDS: MULTIVITAMINS, THERA 1 EACH TAB PO SCH (05:43)
[2018-11-22] MEDS: PANTOPRAZOLE 40 MG TABLET PO SCH (05:43)
[2018-11-22] MEDS: hydrALAZINE HCL 50 MG TAB PO SCH ×2 (05:43→13:27)
[2018-11-22 06:49] LABS: Glucose,Whole Blood 122 mg/dL (75-99)
[2018-11-22] MEDS: INSULIN ASPART (NovoLOG) 100 UNIT/ML VIAL SQ SCH ×2 (08:43→13:27)
[2018-11-22] MEDS: FUROSEMIDE 40 MG TAB PO SCH (08:52)
[2018-11-22] MEDS: SPIRONOLACTONE 25 MG TAB PO SCH (08:53)
[2018-11-22] MEDS: POTASSIUM CHLORIDE ER 20 MEQ TAB.ER PO SCH (08:53)
[2018-11-22] MEDS: amLODIPine 10 MG TAB PO SCH (08:55)
[2018-11-22] MEDS: CARVEDILOL 12.5 MG TAB PO SCH (08:55)
[2018-11-22] MEDS: SEVELAMER 800 MG TAB PO SCH ×2 (08:56→13:27)
[2018-11-22] MEDS: FENOFIBRATE 160 MG TAB PO SCH (08:57)
[2018-11-22] MEDS ORDERED: VANCOMYCIN 1,500 MG in SODIUM CHLORIDE 0.9% 250 ML IVPB ONE (09:00)
--- NOTE | 2018-11-22 09:16 | P.PN ---
Subjective Patient is seen in follow-up for end-stage renal disease. She is maintained on hemodialysis on a Monday schedule. She is afebrile. No chest pain or shortness of breath. Cultures have been negative. No active complaints at this time. She is noted to have a left psoas fluid collection and is scheduled for drainage by IR today. Vital signs are stable. General: The patient appeared well nourished and normally developed. HEENT: Head exam is unremarkable. Neck is without jugular venous distension. LUNGS: Lungs are clear to auscultation and percussion. Breath sounds decreased. HEART: Rate and Rhythm are regular. First and second heart sounds normal. No murmurs, rubs or gallops. ABDOMEN: Abdominal exam reveals normal bowel sounds. Non-tender and non- distended. No evidence of peritonitis. EXTREMITITES: No clubbing, cyanosis, or edema. Objective - Vital Signs Vital signs: Vital Signs Temp 97.4 F L 11/22/18 05:00 Pulse 68 11/22/18 05:00 Resp 16 11/22/18 05:00 BP 146/63 11/22/18 05:00 Pulse Ox 95 11/22/18 05:00 Intake & Output 11/21/18 11/22/18 11/22/18 18:59 06:59 18:59 Intake Total 1320 790 Output Total 100 Balance 1220 790 Intake: Oral 1320 790 Output: Urine 100 Other: Voiding Method Bedside Commode Bedside Commode Bedpan Bedpan # Voids 1 # Bowel Movements 1 - Labs CBC & Chem 7: 11/21/18 07:15 11/21/18 07:15 Labs: Abnormal Lab Results - Last 24 Hours (Table) 11/21/18 11/21/18 11/21/18 Range/Units 11:49 17:19 19:57 POC Glucose (mg/dL) 127 H 101 H 137 H (75-99) mg/dL 11/22/18 Range/Units 06:47 POC Glucose (mg/dL) 122 H (75-99) mg/dL Microbiology - Last 24 Hours (Table) 11/17/18 15:30 Blood Culture - Preliminary Blood No Growth after 96 hours 11/16/18 15:27 Blood Culture - Preliminary Blood No Growth after 120 hours Assessment and Plan Plan: Assessment: 1. End-stage renal disease maintained on hemodialysis on a Monday schedule via right chest permacath. 2. Status post AV graft surgery earlier this month. 3. Fever. Rule out bacteremia. No evidence of drainage from the catheter site. No evidence of infection at the AV graft site per vascular surgery. Cultures negative so far. 4. Chronic kidney disease mineral bone disease maintained on Renvela. 5. Insulin-dependent diabetes mellitus. 6. Hypertension with chronic kidney disease. Controlled. 7. Left psoas fluid collection. Scheduled for drainage by IR today. Plan: Hemodialysis tomorrow. Will try for more ultrafiltration tomorrow due to pleural effusions. Follow-up cultures.
--- NOTE | 2018-11-22 10:01 | P.PN ---
Subjective Progress Note Date: 11/21/18 Principal diagnosis: This is an 83-year-old female admitted with cellulitis/infection of left upper arm graft. Maintained on vancomycin.Afebrile, preliminary cultures negative. Receiving hemodialysis today. Blood sugars controlled. 11/21/2018 yesterday afternoon prior to discharge patient developed left upper quadrant abdominal pain. Abdominal x-ray completed reporting nonacute acute on bilateral pleural effusions and lower lobe pulmonary infiltrates consistent with CHF. Pulmonary consulted, evaluated patient with recommendations noted. Receiving dialysis today.VSS. Maintaining O2 sats in the mid 90s on 4 L nasal cannula. Complains of left upper quadrant tenderness. Objective - Vital Signs Vital signs: Vital Signs Temp 98.8 F 11/21/18 11:33 Pulse 68 11/21/18 15:50 Resp 18 11/21/18 15:50 BP 121/52 11/21/18 11:33 Pulse Ox 93 L 11/21/18 11:33 Intake & Output 11/20/18 11/21/18 11/21/18 18:59 06:59 18:59 Intake Total 540 660 960 Output Total 100 Balance 540 660 860 Weight 86.5 kg Intake: Oral 540 660 960 Output: Urine 100 Other: Voiding Method Toilet Bedside Commode Bedpan # Voids 1 1 2 # Bowel Movements 1 1 - Exam PHYSICAL EXAM: VITAL SIGNS: as above. GENERAL: Sitting up in bed, no acute distress HEENT: Conjunctivae normal. eyes normal. Oral mucosa moist NECK: No JVD. No thyroid enlargement. No LNs CARDIOVASCULAR: S1, S2 muffled. No murmur RESPIRATION: Respiratory effort mildly increased, Breath sounds diminished in the bases. No rhonchi or crackles. No wheezing ABDOMEN: Soft, mild left upper quadrant tenderness to palpation. No guarding. no masses palpable. Bowel sounds heard. LEGS: Positive edema, no clubbing, no cyanosis PSYCHIATRY: Alert and oriented -3, mood and affect normal. NERVOUS SYSTEM: Cranial N 2-12 grossly normal. Moves all 4 limbs. Diffuse weakness No focal deficits. Skin: no ulcer no rash . Left upper arm redness improved, dependent edema, significant bruising. Positive radial pulse - Labs CBC & Chem 7: 11/21/18 07:15 11/21/18 07:15 Labs: Abnormal Lab Results - Last 24 Hours (Table) 11/20/18 11/21/1811/21/19 Range/Units 20:22 07:15 07:15 RBC 2.73 L (3.80-5.40) m/uL Hgb 8.2 L (11.4-16.0) gm/dL Hct 25.7 L (34.0-46.0) % Sodium 135 L (137-145) mmol/L BUN 41 H (7-17) mg/dL Creatinine 4.02 H (0.52-1.04) mg/dL Glucose 67 L (74-99) mg/dL POC Glucose (mg/dL) 200 H (75-99) mg/dL 11/21/18 11/21/18 Range/Units 11:49 17:19 RBC (3.80-5.40) m/uL Hgb (11.4-16.0) gm/dL Hct (34.0-46.0) % Sodium (137-145) mmol/L BUN (7-17) mg/dL Creatinine (0.52-1.04) mg/dL Glucose (74-99) mg/dL POC Glucose (mg/dL) 127 H 101 H (75-99) mg/dL Microbiology - Last 24 Hours (Table) 11/17/18 15:30 Blood Culture - Preliminary Blood No Growth after 72 hours 11/16/18 15:27 Blood Culture - Preliminary Blood No Growth after 96 hours Assessment and Plan Assessment: -Left arm cellulitis, possible infected graft, in a patient with recent AV graft surgery-last week -Bilateral pleural effusions with volume overload -Acute hypoxic respiratory failure secondary to the above -End-stage renal disease -CAD -Diabetes mellitus -Medical debility Plan: Continue on current medication regime ,monitoring and symptomatic treatment. Evaluated by pulmonary, chest ultrasound ordered. Hemodialysis today. 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 CBC, CMP in a.m. unnecessary given multiple complex medical issues. The impression and plan of care has been dictated as directed. : I performed a history and examination of this patient, discussed the same with the dictator. I agree with the dictator's note ,documented as a scribe. Any additional findings or plans will be noted.
[2018-11-22 10:33] LABS: Glucose,Whole Blood 201 mg/dL (75-99)
--- NOTE | 2018-11-22 10:39 | P.PN ---
Progress Note - Text Progress Note Date: 11/22/18 I spoke with the radiologist, Dr. Scherer. The area in the left so as muscle had been aspirated January 12, 2018. The size is the same. The FNA at the time was nondiagnostic. There was some jellylike material aspirated. Recommend no further workup.
[2018-11-22 11:06] LABS: Glucose,Whole Blood 204 mg/dL (75-99)
[2018-11-22 11:45] LABS: Albumin 3.2 g/dL (3.5-5.0); Calcium 8.6 mg/dL (8.4-10.2); Potassium 4.7 mmol/L (3.5-5.1); Total Bilirubin 0.6 mg/dL (0.2-1.3); Total Protein 5.9 g/dL (6.3-8.2)
[2018-11-22] MEDS ORDERED: IPRATROPIUM-ALBUTEROL 3 ML NEB INHALATION PRN (11:49)
[2018-11-22] MEDS ORDERED: IPRATROPIUM-ALBUTEROL 3 ML NEB INHALATION SCH (12:00)
--- NOTE | 2018-11-22 12:54 | P.PN ---
Subjective Progress Note Date: 11/22/18 Principal diagnosis: Bilateral pleural effusion, congestive heart failure, acute hypoxic respiratory failure and end-stage renal disease and hemodialysis chronic anemia medical kami ailyn hypertension hypertensive cardiovascular disease dyslipidemia, 11/22/2018, patient seen and evaluated examined during the rounds respiratory status stable she's on 4 L oxygen, ultrasound of the chest has been checked is bilateral pleural effusion is seen there are small in size left 4 cm right 3 cm not enough fluid to tap would recommend to aggressive hemodialysis Patient states she presented to the emergency department with fevers. She had a dialysis fistula placed prior to her admission. The patient states that she does have some cough but denies shortness of breath and chest tightness. The patient had a chest x-ray which showed bilateral pleural effusions. The patient is receiving dialysis at this time. She's been hemodynamically stable. She states that she's never had a thoracentesis in the past. She is currently on 2 L nasal cannula with O2 saturation 97%. She states she does not wear oxygen at home. Objective - Vital Signs Vital signs: Vital Signs Temp 98.3 F 11/22/18 11:30 Pulse 67 11/22/18 11:30 Resp 16 11/22/18 11:30 BP 146/67 11/22/18 11:30 Pulse Ox 95 11/22/18 11:30 Intake & Output 11/21/18 11/22/18 11/22/18 18:59 06:59 18:59 Intake Total 1320 790 Output Total 100 Balance 1220 790 Intake: Oral 1320 790 Output: Urine 100 Other: Voiding Method Bedside Commode Bedside Commode Bedside Commode Bedpan Bedpan Bedpan # Voids 1 # Bowel Movements 1 - Constitutional General appearance: Present: average body habitus, cooperative, disheveled, mild distress - EENT Eyes: Present: anicteric sclerae, EOMI, PERRLA, normal appearance ENT: Present: normal oropharynx Ears: bilateral: normal - Neck Neck: Present: normal ROM - Respiratory Respiratory: bilateral: diminished - Cardiovascular Rhythm: regular Heart sounds: normal: S1, S2 - Gastrointestinal General gastrointestinal: Present: normal bowel sounds - Integumentary Integumentary: Present: normal, normal turgor - Neurologic Neurologic: Present: CNII-XII intact - Musculoskeletal Musculoskeletal: Present: gait normal, generalized weakness, strength equal bilaterally - Psychiatric Psychiatric: Present: A&O x's 3, appropriate affect, intact judgment & insight - Labs CBC & Chem 7: 11/21/18 07:15 11/22/18 10:50 Labs: Abnormal Lab Results - Last 24 Hours (Table) 11/21/18 11/21/18 11/22/18 Range/Units 17:19 19:57 06:47 Sodium (137-145) mmol/L BUN (7-17) mg/dL Creatinine (0.52-1.04) mg/dL Glucose (74-99) mg/dL POC Glucose (mg/dL) 101 H 137 H 122 H (75-99) mg/dL Total Protein (6.3-8.2) g/dL Albumin (3.5-5.0) g/dL 11/22/18 11/22/18 11/22/18 Range/Units 10:19 10:50 11:03 Sodium 134 L (137-145) mmol/L BUN 27 H (7-17) mg/dL Creatinine 3.07 H (0.52-1.04) mg/dL Glucose 183 H (74-99) mg/dL POC Glucose (mg/dL) 201 H 204 H (75-99) mg/dL Total Protein 5.9 L (6.3-8.2) g/dL Albumin 3.2 L (3.5-5.0) g/dL Microbiology - Last 24 Hours (Table) 11/17/18 15:30 Blood Culture - Preliminary Blood No Growth after 96 hours 11/16/18 15:27 Blood Culture - Preliminary Blood No Growth after 120 hours - Imaging and Cardiology Chest x-ray: report reviewed, image reviewed Assessment and Plan Assessment: Bilateral pleural effusions with volume overload Acute hypoxic respiratory failure requiring supplemental oxygen ESRD on HD Anemia, iron deficiency Medical debility Hypertension hypertensive cardiovascular disease Dyslipidemia Diabetes mellitus History of heart failure Recent Cdiff colitis Plan: Plan Ultrasound of the chest reviewed very small bilateral pleural effusion due to renal failure and fluid overload would recommend aggressive hemodialysis Patient will need a home oxygen Dialysis per nephrology Medications have been reviewed and will be continued as ordered. Continue with pulmonary hygiene, coughing and deep breathing exercises, and supportive care. Supplemental oxygen to maintain oxygen saturations of 92% or better Continue nebulizer treatments. GI and DVT prophylaxis. HD per nephrology with ultrafiltration We will continue to monitor labs/results and adjust treatment as necessary. Further recommendations pending. Time with Patient: Greater than 30
[2018-11-22 12:55] VITALS: BMI 33.7
[2018-11-22] MEDS: ASPIRIN 81 MG PO SCH (13:27)
--- NOTE | 2018-11-22 13:31 | P.DS ---
Providers Date of admission: 11/16/18 17:05 Expected date of discharge: 11/22/18 Attending physician: Francisco Javier Simeon Consults: 11/16/18 16:59 Consult Physician Routine Consulting Provider: Kamlesh Sears Consult Reason/Comments: Left upper Extremity cellulitis Do you want consulting provider notified?: Yes 11/16/18 17:01 Consult Physician Routine Consulting Provider: Torie Maddox Consult Reason/Comments: Evaluation for dialysis Do you want consulting provider notified?: Yes 11/16/18 20:17 Consult Physician Routine Consulting Provider: Francisco Javier Dubois Consult Reason/Comments: infected port Do you want consulting provider notified?: Already Contacted 11/21/18 10:17 Consult Physician Routine Consulting Provider: Zachary Dennis Consult Reason/Comments: pl effusions Do you want consulting provider notified?: Yes 11/21/18 17:35 Consult Physician Routine Consulting Provider: Cassie Oliver Consult Reason/Comments: psoas fluid collection/mass per CT Do you want consulting provider notified?: Yes Primary care physician: Francisco Javier Simeon [facility] Course: Final Diagnoses: -Left arm cellulitis, possible infected graft, in a patient with recent AV graft surgery-last week -Bilateral pleural effusions with volume overload -Acute hypoxic respiratory failure secondary to the above -End-stage renal disease -CAD -Diabetes mellitus -Medical debility -left psoas fluid collection,extensive arteriosclerosis of the abdominal aorta and its branches per CT. No surgical intervention recommended at this time .(nondiagnostic aspiration of left psoas site December 2017) HOSPITALCOURSE: This is an 83-year-old female admitted with cellulitis/infection of left upper arm graft. Maintained on vancomycin.Afebrile, preliminary cultures negative. Receiving hemodialysis today. Blood sugars controlled. 11/21/2018 yesterday afternoon prior to discharge patient developed left upper quadrant abdominal pain. Abdominal x-ray completed reporting nonacute acute on bilateral pleural effusions and lower lobe pulmonary infiltrates consistent with CHF. Pulmonary consulted, evaluated patient with recommendations noted. Receiving dialysis today.VSS. Maintaining O2 sats in the mid 90s on 4 L nasal cannula. Complains of left upper quadrant tenderness. Developed left upper quadrant abdominal pain. Abdominal x-ray completed reporting nonacute acute on bilateral pleural effusions and lower lobe pulmonary infiltrates consistent with CHF.Abdomen/pelvis CT reported left psoas fluid collection,extensive arteriosclerosis of the abdominal aorta and its branches. Surgery consulted, recommended percutaneous drainage of Left psoas site by interventional radiology.Apparently patient had this area aspirated 01/12/2018, same size, nondiagnostic-both interventional radiologist and surgery recommended no further workup at this time.abdominal pain has subsided.Pulmonary consulted, evaluated,recommend aggressive hemodialysis, as Chest ultrasound revealed not enough fluid to tap.VSS. maintaining O2 sats in the mid 90s on 4 L nasal cannula. Nephrology ordered additional dialysis for today.patient has been cleared by all consults for discharge. patient will be [facility] to [facility] after dialysis today in a stable condition with guarded prognosis. EXAM:GENERAL: Sitting up in chair, alert & oriented X3,no acute distress CARDIOVASCULAR: S1, S2 muffled. No murmur RESPIRATION: Breath sounds diminished in the bases. No rhonchi,occasional fine scattered crackles ABDOMEN: Soft,nondistended, nontender, No guarding. no masses palpable. Bowel sounds heard. NERVOUS SYSTEM: No focal deficits. Skin: no ulcer no rash . Left upper arm redness & dependent edema improving. Positive radial pulse. The impression and plan of care has been dictated as directed. : I performed a history and examination of this patient, discussed the same with the dictator. I agree with the dictator's note ,documented as a scribe. Any additional findings or plans will be noted. Time taken: 35 minutes Patient Condition at Discharge: Stable Plan - Discharge Summary Discharge Rx Participant: Yes New Discharge Prescriptions: New Vancomycin 1,500 mg IVPB Q24HR #2 bag Acetaminophen Tab [Tylenol] 650 mg PO Q6HR PRN tab PRN Reason: Mild Pain Or Fever > 100.5 oxyCODONE-APAP 5-325MG [Percocet 5-325 mg] 1 each PO Q6HR PRN #12 tab PRN Reason: SEVERE Pain Ipratropium-Albuterol Nebulize [Duoneb 0.5 mg-3 mg/3 ml Soln] 3 ml INHALATION RT-QID ampul.neb Ipratropium-Albuterol Nebulize [Duoneb 0.5 mg-3 mg/3 ml Soln] 3 ml INHALATION Q4H PRN ampul.neb PRN Reason: Shortness Of Breath Or Wheezing INSULIN ASPART (NovoLOG) [NovoLOG (formulary)] 10 unit SQ AC-SUPPER vial INSULIN ASPART (NovoLOG) [NovoLOG (formulary)] 5 unit SQ AC-BRKFST vial INSULIN ASPART (NovoLOG) [NovoLOG (formulary)] 10 unit SQ AC-LUNCH vial Continue amLODIPine [Norvasc] 10 mg PO DAILY@1000 Omeprazole [PriLOSEC] 40 mg PO DAILY@0600 Multivitamins, Thera [Multivitamin (formulary)] 1 tab PO DAILY@0600 Fenofibrate Nanocrystallized [Tricor] 145 mg PO DAILY@1000 Aspirin EC [Ecotrin Low Dose] 81 mg PO DAILY@1000 Carvedilol [Coreg] 25 mg PO BID@1000,2099 hydrALAZINE HCL [Apresoline] 50 mg PO TID@0600,1399,2099 traZODone HCL 50 mg PO HS@2100 Potassium Chloride ER [K-Dur 20] 20 meq PO DAILY@1000 Spironolactone [Aldactone] 12.5 mg PO BID@1000,2099 Sevelamer [Renvela] 800 mg PO TID@0600,1400,2099 Furosemide [Lasix] 60 mg PO DAILY@1000 Changed Insulin Glargine,Hum.rec.anlog [Lantus Solostar] 25 unit SQ HS #0 Discontinued INSULIN LISPRO (humaLOG) [humaLOG] 5 units SQ AC-BRKFST INSULIN LISPRO (humaLOG) [humaLOG] 10 units SQ AC-LUNCH INSULIN LISPRO (HumaLOG) [humaLOG] 15 units SQ AC-SUPPER Discharge Medication List Aspirin EC [Ecotrin Low Dose] 81 mg PO DAILY@99901/10/18 [History] Fenofibrate Nanocrystallized [Tricor] 145 mg PO DAILY@99901/10/18 [History] Multivitamins, Thera [Multivitamin (formulary)] 1 tab PO DAILY@0601/10/18 [History] Omeprazole [PriLOSEC] 40 mg PO DAILY@59901/10/18 [History] amLODIPine [Norvasc] 10 mg PO DAILY@99901/10/18 [History] Carvedilol [Coreg] 25 mg PO BID@1000,209903/06/18 [History] hydrALAZINE HCL [Apresoline] 50 mg PO TID@0600,1400,209903/06/18 [History] Furosemide [Lasix] 60 mg PO DAILY@1000 06/27/18 [History] Potassium Chloride ER [K-Dur 20] 20 meq PO DAILY@1000 06/27/18 [History] Sevelamer [Renvela] 800 mg PO TID@0600,1400,209906/27/18 [History] Spironolactone [Aldactone] 12.5 mg PO BID@1000,209906/27/18 [History] traZODone HCL 50 mg PO HS@209906/27/18 [History] Vancomycin 1,500 mg IVPB Q24HR #2 bag 11/19/18 [Rx] Acetaminophen Tab [Tylenol] 650 mg PO Q6HR PRN tab 11/20/18 [Rx] oxyCODONE-APAP 5-325MG [Percocet 5-325 mg] 1 each PO Q6HR PRN #12 tab 11/20/18 [Rx] INSULIN ASPART (NovoLOG) [NovoLOG (formulary)] 5 unit SQ AC-BRKFST vial 11/22/18 [Rx] INSULIN ASPART (NovoLOG) [NovoLOG (formulary)] 10 unit SQ AC-LUNCH vial 11/22/18 [Rx] INSULIN ASPART (NovoLOG) [NovoLOG (formulary)] 10 unit SQ AC-SUPPER vial 11/22/18 [Rx] Insulin Glargine,Hum.rec.anlog [Lantus Solostar] 25 unit SQ HS #0 11/22/18 [Rx] Ipratropium-Albuterol Nebulize [Duoneb 0.5 mg-3 mg/3 ml Soln] 3 ml INHALATION Q4H PRN ampul.neb 11/22/18 [Rx] Ipratropium-Albuterol Nebulize [Duoneb 0.5 mg-3 mg/3 ml Soln] 3 ml INHALATION RT-QID ampul.neb 11/22/18 [Rx] Follow up Appointment(s)/Referral(s): Francisco Javier Simeon MD [Primary Care Provider] - 11/29/18 2:30 pm [facility], [NON-STAFF] - 1-2 Days Zachary Dennis MD [STAFF PHYSICIAN] - 2 Weeks Suman Coy DO [STAFF PHYSICIAN] - 1 Week (Dr. Coy's office will call patient with an appointment date and time.) Kamlesh Sears MD [STAFF PHYSICIAN] - 1 Week (Patient to call Dr. Sears's office on Mon. morning to schedule follow up appoinment. The office is closed at time of discharge.) Ambulatory/Diagnostic Orders: Complete Blood Count w/diff [LAB.AMB] Time Frame: 3 Days, Location: None Selected Patient Instructions/Handouts: Oxycodone/Acetaminophen (By mouth), Vancomycin (By injection), Chronic Kidney Disease (DC), Cellulitis (DC) Activity/Diet/Wound Care/Special Instructions: [place] : family/pt decline Subacute rehab. Vancomycin IV, 2 doses at dialysis Center pharmacy to dose, as per ID. Hemodialysis as per nephrology. Discharge Disposition: HOME WITH HOME HEALTH SERVICES
[2018-11-22 14:18] VITALS: BP 128/55; TEMP 97.6
[2018-11-22 16:54] VITALS: RESP 16
[2018-11-22 17:00] VITALS: PULSE 80
[2018-11-22 17:06] LABS: Glucose,Whole Blood 129 mg/dL (75-99)
[2018-11-22] MEDS ORDERED: INSULIN ASPART (NovoLOG) 100 UNIT/ML VIAL SQ SCH (17:30)
[2018-11-22] MEDS ORDERED: INSULIN DETEMIR (LEVEMIR) 100 UNIT/ML SYR SQ SCH (21:00)
--- NOTE | 2018-11-23 09:48 | ECHOF ---
Referral Reason:LV fx MEASUREMENTS -------- HEIGHT: 160.0 cm WEIGHT: 86.2 kg BP: IVSd: 1.4 cm (0.6 - 1.1) LVIDd: 4.7 cm (3.9 - 5.3) LVPWd: 1.4 cm (0.6 - 1.1) IVSs: 1.8 cm LVIDs: 3.0 cm LVPWs: 1.7 cm Ao Diam: 3.0 cm (2.0 - 3.7) AV Cusp: 1.8 cm (1.5 - 2.6) LA Diam: 4.4 cm (2.7 - 3.8) EPSS: 1.1 cm MV E Stanton: 1.26 m/s MV DecT: 287 ms MV A Stanton: 1.19 m/s MV E/A Ratio: 1.06 RAP: 5.00 mmHg RVSP: 40.91 mmHg MV EF SLOPE: 40.02 mm/s (70 - 150) MV EXCURSION: 1.44 cm (> 18.000) FINDINGS -------- Sinus rhythm. This was a technically difficult study with suboptimal views. The left ventricular size is normal. There is moderate concentric left ventricular hypertrophy. O verall left ventricular systolic function is normal with, an EF between 55 - 60 %. The right ventricle is normal in size. The left atrium is mildly dilated. The right atrial size is normal. Lumason used Interatrial and interventricular septum intact. Aortic valve is trileaflet and is mildly thickened. The mitral valve leaflets are mildly thickened. Mild mitral regurgitation is present. Moderate tricuspid regurgitation present. There is mild pulmonary hypertension. The right ventric ular systolic pressure, as measured by Doppler, is 40.91mmHg. There is no pulmonic regurgitation present. The aortic root size is normal. The inferior vena cava was not well visualized. There is no pericardial effusion. CONCLUSIONS -------- 1. Sinus rhythm. 2. This was a technically difficult study with suboptimal views. 3. The left ventricular size is normal. 4. There is moderate concentric left ventricular hypertrophy. 5. Overall left ventricular systolic function is normal with, an EF between 55 - 60 %. 6. The right ventricle is normal in size. 7. The left atrium is mildly dilated. 8. The right atrial size is normal. 9. Lumason used 10. Interatrial and interventricular septum intact. 11. Aortic valve is trileaflet and is mildly thickened. 12. The mitral valve leaflets are mildly thickened. 13. Mild mitral regurgitation is present. 14. Moderate tricuspid regurgitation present. 15. There is mild pulmonary hypertension. 16. The right ventricular systolic pressure, as measured by Doppler, is 40.91mmHg. 17. There is no pulmonic regurgitation present. 18. The aortic root size is normal. 19. The inferior vena cava was not well visualized. 20. There is no pericardial effusion. HOT OILER: Dannielle Meyer RDCS
== END 2018-11-22 17:10 | DRG 602 ==
LOC: EC 14:45 → 3NMEDONC 17:05
PROVIDERS: ADMIT Family Medicine; ATTEND Family Medicine
PROC: 5A1D70Z Performance of Urinary Filtration, Intermittent, Less than 6 Hours Per Day (ICD-10-PCS; principal; 2018-11-21)
DX: L03.114 Cellulitis of left upper limb (principal); J96.01 Acute respiratory failure with hypoxia; N18.6 End stage renal disease; E87.1 Hypo-osmolality and hyponatremia; I13.2 Hypertensive heart and chronic kidney disease with heart failure and with stage 5 chronic kidney disease, or end stage renal disease; I50.32 Chronic diastolic (congestive) heart failure; N17.9 Acute kidney failure, unspecified; D50.9 Iron deficiency anemia, unspecified; E11.22 Type 2 diabetes mellitus with diabetic chronic kidney disease; E78.5 Hyperlipidemia, unspecified; H91.90 Unspecified hearing loss, unspecified ear; I25.10 Atherosclerotic heart disease of native coronary artery without angina pectoris; I70.0 Atherosclerosis of aorta; K21.9 Gastro-esophageal reflux disease without esophagitis; M89.8X9 Other specified disorders of bone, unspecified site; Z79.4 Long term (current) use of insulin; Z79.82 Long term (current) use of aspirin; Z79.899 Other long term (current) drug therapy; Z99.2 Dependence on renal dialysis; R93.5 Abnormal findings on diagnostic imaging of other abdominal regions, including retroperitoneum; Z90.49 Acquired absence of other specified parts of digestive tract; Z87.01 Personal history of pneumonia (recurrent)
CPT/HCPCS: 36415; 71046; 74019; 74176; 76604; 80048; 80053; 80202; 81001; 82140; 82565; 83605; 83735; 85025; 85610; 85730; 87040; 87086; 90935; 93005; 93306; 94640; 94760; 96361; 96365; 96374; 99285